=== PATIENT | female | born 1930 | race Caucasian/White ===

== ENCOUNTER 2016-11-08 10:25 | Inpatient (IN) | payer MEDICARE, BC ==
[2016-11-08] MEDS ORDERED: ADENOSINE 3 MG/ML 2 ML VIAL IVP STA (10:33)
[2016-11-08] MEDS ORDERED: SODIUM CHLORIDE 0.9% 1,000 ML IV STA (10:33)
[2016-11-08] MEDS ORDERED: DILTIAZEM 125 MG in SODIUM CHLORIDE 0.9% 100 ML IV ONE (10:34)
[2016-11-08] MEDS ORDERED: DILTIAZEM 5 MG/ML 5 ML VIAL IVP STA (10:34)
--- NOTE | 2016-11-08 10:36 | ED ---
General Adult HPI - General Stated complaint: Nausea, high heart rate Time Seen by Provider: 11/08/16 10:25 Source: RN notes reviewed - History of Present Illness Initial comments: This is an 86-year-old female who presents emergency Department with initial complaint of nausea however when EMS arrived in the house they realize she was tachycardic and he did a rhythm strip on her she was 250 beats a minute. Patient denies any chest pain or palpitations. Patient denies any shortness of breath per patient denies lightheadedness dizziness or near syncopal episode. Patient states she is no longer nauseated since EMS gave her some Zofran. Patient denies any symptoms at this time. Patient denies any abdominal pain. Patient denies any recent fever or cough. Patient denies any leg swelling or calf pain. - Related Data Home Medications Medication Instructions Recorded Confirmed Cetirizine HCl [Zyrtec] 10 mg PO DAILY 05/01/14 11/08/16 Levothyroxine Sodium [Synthroid] 50 mcg PO DAILY 05/01/14 11/08/16 Lisinopril [Zestril] 10 mg PO DAILY 05/01/14 11/08/16 Verapamil HCl [Verapamil ER] 240 mg PO DAILY 05/01/14 11/08/16 ALPRAZolam [Xanax] 0.25 mg PO BID 01/03/16 11/08/16 Aspirin 81 mg PO DAILY 01/03/16 11/08/16 Calcium Carbonate/Vitamin D3 1 each PO DAILY 01/03/16 11/08/16 [Calcium 600 + Vit D Tablet] Meloxicam [Mobic] 7.5 mg PO DAILY 01/03/16 11/08/16 Multivitamins, Thera [Multivitamin] 1 tab PO DAILY 01/03/16 11/08/16 Pantoprazole [Protonix] 40 mg PO DAILY 01/03/16 11/08/16 Allergies Allergy/AdvReac Type Severity Reaction Status Date / Time codeine AdvReac Nausea & Verified 11/08/16 10:37 Vomiting Review of Systems ROS Statement: Those systems with pertinent positive or pertinent negative responses have been documented in the HPI. ROS Other: All systems not noted in ROS Statement are negative. Past Medical History Past Medical History: Asthma, Hyperlipidemia, Hypertension, Osteoarthritis (OA) , Thyroid Disorder Additional Past Medical History / Comment(s): hypothyroidism, History of Any Multi-Drug Resistant Organisms: None Reported Past Surgical History: Hernia Repair, Hysterectomy, Orthopedic Surgery Additional Past Surgical History / Comment(s): Surgery on two toes to treat hammer toe, right total knee, Past Anesthesia/Blood Transfusion Reactions: Postoperative Nausea & Vomiting ( PONV) Past Psychological History: Anxiety Smoking Status: Never smoker Past Alcohol Use History: None Reported Past Drug Use History: None Reported - Past Family History Mother Family Medical History: Cancer Brother(s) Family Medical History: Cancer General Exam - General Exam Comments Initial Comments: GENERAL: Patient is well-developed and well-nourished. Patient is nontoxic and well- hydrated and is in no acute distress. ENT: Neck is soft and supple. No significant lymphadenopathy is noted. Oropharynx is clear. Moist mucous membranes. Neck has full range of motion without eliciting any pain. EYES: The sclera were anicteric and conjunctiva were pink and moist. Extraocular movements were intact and pupils were equal round and reactive to light. Eyelids were unremarkable. PULMONARY: Unlabored respirations. Good breath sounds bilaterally. No audible rales rhonchi or wheezing was noted. CARDIOVASCULAR: Heart rate is about 250 beats a minute ABDOMEN: Soft and nontender with normal bowel sounds. No palpable organomegaly was noted. There is no palpable pulsatile mass. SKIN: Skin is clear with no lesions or rashes and otherwise unremarkable. NEUROLOGIC: Patient is alert and oriented x3. Cranial nerves II through XII are grossly intact. Motor and sensory are also intact. Normal speech, volume and content. Symmetrical smile. MUSCULOSKELETAL: Normal extremities with adequate strength and full range of motion. No lower extremity swelling or edema. No calf tenderness. LYMPHATICS: No significant lymphadenopathy is noted PSYCHIATRIC: Normal psychiatric evaluation. Normal interpersonal interactions appears functionally intact in deals appropriately with others. No signs of depression. No signs of anxiety. Course Vital Signs 11/08/16 11/08/16 11/08/16 10:30 10:51 10:58 Temperature 97.2 F L Pulse Rate 240 H 124 H Pulse Rate [ 240 H Mechanical Commissioning Engineer ] Respiratory 18 18 Rate Blood Pressure 165/63 140/67 O2 Sat by Pulse 94 L Oximetry 11/08/16 11:12 Temperature Pulse Rate 115 H Pulse Rate [ Mechanical Commissioning Engineer ] Respiratory 18 Rate Blood Pressure 166/65 O2 Sat by Pulse 100 Oximetry Medical Decision Making - Medical Decision Making EKG shows SVT at 244 beats a minute QRS is 76 QT interval is 180 QTC is 362. Patient's EKG does have some ST segment depression in the inferior and anterolateral leads. We gave the patient 6 of adenosine and the heart rate slowed down long enough for us to see that it looked like the patient was in atrial flutter shortly thereafter back up to 250 beats a minute Patient had a Cardizem bolus of 5 mg and this seemed to convert it was sinus rhythm almost immediately. New EKG was done showed a sinus tachycardia at 127 bpm NH interval is 204 QRS is 80 QT interval 306 QTC is 444. Patient's EKG shows no ST segment elevation or depression at this point. Patient's troponin is mildly elevated which is to be expected secondary to the tachycardia however we are going to admit the patient and consult cardiology. - Lab Data Result diagrams: 11/08/16 10:50 11/08/16 10:50 Lab Results 11/08/16 11/08/16 11/08/16 Range/Units 10:50 10:50 10:50 WBC 8.3 (3.8-10.6) k/uL RBC 4.57 (3.80-5.40) m/uL Hgb 12.7 (11.4-16.0) gm/dL Hct 40.4 (34.0-46.0) % MCV 88.4 (80.0-100.0) fL MCH 27.7 (25.0-35.0) pg MCHC 31.3 (31.0-37.0) g/dL RDW 16.3 H (11.5-15.5) % Plt Count 276 (150-450) k/uL Neutrophils % 71 % Lymphocytes % 20 % Monocytes % 7 % Eosinophils % 1 % Basophils % 0 % Neutrophils # 5.9 (1.3-7.7) k/uL Lymphocytes # 1.6 (1.0-4.8) k/uL Monocytes # 0.6 (0-1.0) k/uL Eosinophils # 0.1 (0-0.7) k/uL Basophils # 0.0 (0-0.2) k/uL Poikilocytosis Slight Anisocytosis Slight PT (9.0-12.0) sec INR (<1.1) APTT (22.0-30.0) sec Sodium 134 L (137-145) mmol/L Potassium 5.0 (3.5-5.1) mmol/L Chloride 99 (98-107) mmol/L Carbon Dioxide 20 L (22-30) mmol/L Anion Gap 15 mmol/L BUN 24 H (7-17) mg/dL Creatinine 1.11 H (0.52-1.04) mg/dL Est GFR (MDRD) Af Amer 57 (>60 ml/min/1.73 sqM) Est GFR (MDRD) Non-Af 47 (>60 ml/min/1.73 sqM) Glucose 148 H (74-99) mg/dL Calcium 9.5 (8.4-10.2) mg/dL Magnesium 1.9 (1.6-2.3) mg/dL Total Bilirubin 0.6 (0.2-1.3) mg/dL AST 28 (14-36) U/L ALT 30 (9-52) U/L Alkaline Phosphatase 103 (38-126) U/L Total Creatine Kinase 55 (30-135) U/L CK-MB (CK-2) 1.1 (0.0-2.4) ng/mL CK-MB (CK-2) Rel Index 2.0 Troponin I 0.040 H* (0.000-0.034) ng/mL Total Protein 8.0 (6.3-8.2) g/dL Albumin 4.4 (3.5-5.0) g/dL TSH 4.720 H (0.465-4.680) mIU/L 11/08/16 Range/Units 10:50 WBC (3.8-10.6) k/uL RBC (3.80-5.40) m/uL Hgb (11.4-16.0) gm/dL Hct (34.0-46.0) % MCV (80.0-100.0) fL MCH (25.0-35.0) pg MCHC (31.0-37.0) g/dL RDW (11.5-15.5) % Plt Count (150-450) k/uL Neutrophils % % Lymphocytes % % Monocytes % % Eosinophils % % Basophils % % Neutrophils # (1.3-7.7) k/uL Lymphocytes # (1.0-4.8) k/uL Monocytes # (0-1.0) k/uL Eosinophils # (0-0.7) k/uL Basophils # (0-0.2) k/uL Poikilocytosis Anisocytosis PT 10.7 (9.0-12.0) sec INR 1.1 (<1.1) APTT 24.9 (22.0-30.0) sec Sodium (137-145) mmol/L Potassium (3.5-5.1) mmol/L Chloride (98-107) mmol/L Carbon Dioxide (22-30) mmol/L Anion Gap mmol/L BUN (7-17) mg/dL Creatinine (0.52-1.04) mg/dL Est GFR (MDRD) Af Amer (>60 ml/min/1.73 sqM) Est GFR (MDRD) Non-Af (>60 ml/min/1.73 sqM) Glucose (74-99) mg/dL Calcium (8.4-10.2) mg/dL Magnesium (1.6-2.3) mg/dL Total Bilirubin (0.2-1.3) mg/dL AST (14-36) U/L ALT (9-52) U/L Alkaline Phosphatase (38-126) U/L Total Creatine Kinase (30-135) U/L CK-MB (CK-2) (0.0-2.4) ng/mL CK-MB (CK-2) Rel Index Troponin I (0.000-0.034) ng/mL Total Protein (6.3-8.2) g/dL Albumin (3.5-5.0) g/dL TSH (0.465-4.680) mIU/L Critical Care Time Critical Care Time: Yes Total Critical Care Time: 35 Disposition Clinical Impression: Atrial flutter with rapid ventricular response Disposition: ADMITTED IP TO THIS HOSP Referrals: Demian Vega MD [Primary Care Provider] - 1-2 days Time of Disposition: 11:43
[2016-11-08 11:03] LABS: Anisocytosis Slight; Basophils % (A) 0 %; CH 29.8; Eosinophils # (A) 0.1 k/uL (0-0.7); Eosinophils % (A) 1 %; HCT 40.4 % (34.0-46.0); HDW 3.59; HGB 12.7 gm/dL (11.4-16.0); Luc # (Auto) 0.12; Luc % (Auto) 1; Lymphocytes # (A) 1.6 k/uL (1.0-4.8); Lymphocytes % (A) 20 %; MCH 27.7 pg (25.0-35.0); MCHC 31.3 g/dL (31.0-37.0); MCV 88.4 fL (80.0-100.0); Mean Platelet Volume 8.8; Monocytes # (A) 0.6 k/uL (0-1.0); Monocytes % (A) 7 %; Neutrophils # (A) 5.9 k/uL (1.3-7.7); Neutrophils % (A) 71 %; Poikilocytosis Slight; RBC 4.57 m/uL (3.80-5.40); RDW 16.3 % (11.5-15.5); WBC 8.3 k/uL (3.8-10.6)
[2016-11-08 11:12] LABS: Calcium 9.5 mg/dL (8.4-10.2); INR 1.1 (<1.1); Magnesium 1.9 mg/dL (1.6-2.3); Partial Thromboplastin Time 24.9 sec (22.0-30.0); Prothrombin Time 10.7 sec (9.0-12.0); Total Bilirubin 0.6 mg/dL (0.2-1.3)
--- NOTE | 2016-11-08 11:27 | XR ---
EXAMINATION TYPE: XR chest 2V DATE OF EXAM: 11/08/2016 11:13 AM COMPARISON: 05/01/2014 HISTORY: Shortness of breath TECHNIQUE: Frontal and lateral views of the chest are obtained. FINDINGS: Scattered senescent parenchymal changes noted. Hyperinflation compatible with COPD. No evidence for infiltrate. No evidence for atelectasis. Heart size is stable. Mediastinal structures are stable and grossly unremarkable. No evidence for hilar prominence. Degenerative changes dorsal spine. IMPRESSION: 1. No evidence for acute pulmonary disease.
[2016-11-08 11:36] LABS: Creatine Kinase MB 1.1 ng/mL (0.0-2.4)
[2016-11-08 11:39] LABS: Troponin I 0.04 ng/mL (0.000-0.034)
[2016-11-08] MEDS ORDERED: NITROGLYCERIN SL TABS 0.4 MG TAB SUBLINGUAL PRN (11:44)
[2016-11-08] MEDS: SODIUM CHLORIDE 0.9% 1,000 ML IV SCH (13:46)
[2016-11-08 14:37] LABS: Appearance,Urine Clear (Clear); Bilirubin,Urine Negative (Negative); Glucose,Urine (UA) Negative (Negative); Ketones,Urine Trace (Negative); Leukocyte Esterase,Urine Negative (Negative); Nitrite,Urine Negative (Negative); Protein,Urine Negative (Negative); Specific Gravity,Urine 1.005 (1.001-1.035); UA Billing (MACRO vs. MICRO) CHEM; Urobilinogen,Urine <2.0 mg/dL (<2.0)
--- NOTE | 2016-11-08 14:39 | HP ---
DATE OF ADMISSION: Chief complaint is nausea and abdominal discomfort. HISTORY OF PRESENT ILLNESS: Ms. Meade is an 86-year-old female with a known history of hypothyroidism, hypertension, and anxiety. Came to the hospital with complaints of nausea and abdominal pain, mainly in the midabdominal area. Started when she woke up this morning. Apparently patient ate soup last night and otherwise denied any diarrhea, denied any unusual food intake. The patient was nauseated and when and got up from bed, she used the bathroom. Shortly after that she became short winded and about to pass out. Patient denied any loss of consciousness. Patient denied any chest pain. Otherwise, was found to have supraventricular tachycardia in the ER and started on the Cardizem drip. Heart rate is better controlled now. Abdominal pain as well improved now. Patient was also having slightly elevated troponin level, most likely secondary to rapid heart rate. Cardiology has been consulted for further evaluation. Patient does have a history of hypothyroidism. Her TSH level is 4.7. TSH was taken last time 3 months ago and followed with the primary physician. Patient does take ( ) at home. 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 Denied any recent illnesses or sick contacts at home. No recent travel. REVIEW OF SYSTEMS: CONSTITUTIONAL: No fever. No chills. No weakness or malaise. RESPIRATORY: No cough or sputum production. CARDIOVASCULAR: No chest pain. No short of breath. Patient did have short of breath when she came to the hospital. ABDOMEN: Patient does have nausea. No abdominal discomfort now. No diarrhea. No constipation. GENITOURINARY: No dysuria. No hematuria. ENDOCRINE: Negative. PSYCHIATRY: Negative. SKIN: Negative. MUSCULOSKELETAL: Negative. All of the 14-point review of systems negative except as above. Home medications include: 1. Digitek. 2. Synthroid. 3. Zestril. 4. Xanax. 5. Aspirin. 6. Vitamin D3. 7. Mobic. 8. Multivitamin. 9. Protonix. Allergies include CODEINE. PAST MEDICAL HISTORY: Asthma, hyperlipidemia, hypertension, osteoarthritis, hypothyroidism. PAST SURGICAL HISTORY: Hysterectomy, hernia repair, orthopedic surgery, surgery on two toes to treat hammertoe, right total knee arthroplasty. PSYCHOSOCIAL HISTORY: Anxiety. SOCIAL HISTORY: Patient never a smoker. Denied any alcohol. Denied any drugs or IVDU. FAMILY HISTORY: Mother had cancer, brother had cancer as well. ( ) from the patient. PHYSICAL EXAMINATION: An 86-year-old female lying in the bed. Awake, alert, oriented, x3, appears to be in no distress. VITALS: Blood pressure is 140/67, pulse is 122 to 240 on admission, pulse ox 94% on 2 L nasal cannula. HEENT: Atraumatic, normocephalic. Neck is supple. No JVD. CVS EXAM: S1, S2 heard. No murmurs, no gallop, no rub. Currently sinus rhythm. No leg swelling. ABDOMEN: No nausea, vomiting, abdominal pain. GENITOURINARY: Negative. ENDOCRINE: Negative. SKIN: Negative. MUSCULOSKELETAL: Negative. EXTREMITIES: No edema, pulses palpable bilaterally, no clubbing or cyanosis. PSYCHIATRIC: Cooperative. LABORATORY DATA: WBC 8.3, hemoglobin 12.7, platelets 276, RDW 16.3, INR 1.1, sodium 134, potassium 5.0, chloride 99, bicarb is 20. BUN 24, creatinine 1.11, blood sugar is 148. Troponin level is 0.040, ( ) with normal limits and TSH level is 4.7. Her EKG showed sinus tachycardia and also second EKG showed supraventricular tachycardia. Chest x-ray, no acute cardiopulmonary process. IMPRESSION: 1. Supra Ventricular tachycardia, heart rate improving at this time. Currently on Cardizem drip. 2. Hypothyroidism with slightly elevated TSH level, will check FT4 level. 3. Acute kidney injury mostly prerenal with elevated BUN and creatinine level, baseline creatinine level of 1.11. Baseline creatinine was 0.7 two years ago. 4. Slightly elevated troponin most likely secondary to rapid ventricular rate, unlikely acute coronary artery syndrome at this time. 5. Hypertension. 6. Anxiety. 7. Osteoarthritis multiple joints. 8. Hyperlipidemia. 9. History of asthma, stable. DISCUSSION AND PLAN: An 86-year-old female admitted to the hospital with abdominal discomfort. Patient is improved at this time. Patient was found to have SVT, treated with Cardizem drip and titrate down for the heart rate, less than 90. Continue the home medications. Will check a FT4 level. Will start on IV fluids in the form of normal saline at 75 mL/h and follow up CBC, BMP tomorrow and Cardiology has been consulted for further recommendations and further recommendations based on the clinical course. Will reassess fluid requirement tomorrow. MTDD
--- NOTE | 2016-11-08 15:24 | XR ---
EXAMINATION TYPE: XR abdomen 2V DATE OF EXAM: 11/08/2016 2:49 PM CLINICAL DATA: 86 year-old female abdominal pain today, [facility] COMPARISON: None FINDINGS: Lung bases are clear. No evidence for free intraperitoneal air. No dilated small bowel or air-fluid levels. Scattered air and stool seen throughout the colon extendi ng distally into the rectum. Moderate stool burden. No suspicious calcifications identified. IMPRESSION: Moderate stool burden. Query constipation. No evidence of bowel obstruction or free intraperitoneal a ir.
[2016-11-08 17:05] LABS: Creatine Kinase MB 1.5 ng/mL (0.0-2.4)
[2016-11-08 17:06] LABS: Troponin I 0.241 ng/mL (0.000-0.034)
[2016-11-08] MEDS: ALPRAZolam 0.25 MG TAB PO PRN (21:39)
[2016-11-08 23:43] LABS: Creatine Kinase MB 1.9 ng/mL (0.0-2.4)
[2016-11-08 23:48] LABS: Troponin I 0.271 ng/mL (0.000-0.034)
[2016-11-09] MEDS: LEVOTHYROXINE 50 MCG TAB PO SCH (06:10)
[2016-11-09] MEDS: SODIUM CHLORIDE 0.9% 1,000 ML IV SCH ×3 (06:12→16:23)
[2016-11-09 06:23] LABS: Calcium 8.9 mg/dL (8.4-10.2); Potassium 4.7 mmol/L (3.5-5.1)
[2016-11-09 06:31] LABS: Anisocytosis Slight; Basophils % (A) 0 %; CH 29.3; Eosinophils # (A) 0.2 k/uL (0-0.7); Eosinophils % (A) 4 %; HCT 34.8 % (34.0-46.0); HDW 3.56; Luc # (Auto) 0.16; Luc % (Auto) 3; Lymphocytes # (A) 1.2 k/uL (1.0-4.8); Lymphocytes % (A) 23 %; MCH 28.4 pg (25.0-35.0); MCHC 31.7 g/dL (31.0-37.0); MCV 89.7 fL (80.0-100.0); Mean Platelet Volume 9.2; Monocytes # (A) 0.7 k/uL (0-1.0); Monocytes % (A) 13 %; Neutrophils # (A) 3.1 k/uL (1.3-7.7); Neutrophils % (A) 58 %; Poikilocytosis Slight; RBC 3.87 m/uL (3.80-5.40); RDW 16.3 % (11.5-15.5); WBC 5.4 k/uL (3.8-10.6)
[2016-11-09] MEDS: ASPIRIN 325 MG TAB PO SCH (08:20)
[2016-11-09] MEDS: PANTOPRAZOLE 40 MG TABLET PO SCH (08:20)
--- NOTE | 2016-11-09 09:23 | CONS ---
DATE OF CONSULTATION: CHIEF COMPLAINT: Sustained palpitations and near syncope. Kiesha is an 86-year-old lady with history of hypertension and hypothyroidism who presented to hospital complaining of nausea and abdominal discomfort and dizziness. She was found to be in supraventricular tachycardia with heart rates in the 240s to 280s. Patient was tried an adenosine without any response. Subsequently was started on Cardizem and over a period of 10 minutes, she converted back to sinus rhythm. When she slowed down, it appeared as if she was in atrial flutter. She has remained in sinus rhythm all night and this morning, she is doing well. She denies any chest pain or difficulty in breathing. There is no prior cardiac history other than the hypertension. I reviewed her EKGs and rhythm strips on her initial presentation in the ER, she could either have had an SVT on in atrial flutter with 1:1 conduction. In any event, the tachyarrhythmia only lasted for about 10 minutes and subsequently converted to sinus rhythm and she remained in sinus rhythm. The plan at this stage is to start her on amiodarone to try and suppress the rapid ventricular rate. Obtain a 2-D echo to document her LV function and treat her with optimal medical therapy. Her troponins were elevated at 0.4, 0.2 and 0.271, probably related to supply-demand mismatch. The patient will need and would benefit from an outpatient stress test and if she has ischemia, she will benefit from a cardiac catheterization. Patient was on lisinopril for hypertension. She had lipid profile was done and it shows an elevated LDL cholesterol. Hence, I am going to start her on a lipid-lowering agent. Patient will of course start aspirin. Past medical history is significant for hypertension and hypothyroidism and GERD. Medications at home included Zestril 20 q. daily, Protonix, Mobic, Synthroid, Zyrtec, Xanax. Allergic to CODEINE. Family history is negative for premature coronary artery disease. Social history is negative for smoking, EtOH use or drug abuse. REVIEW OF SYSTEMS: HEENT is unremarkable. CARDIAC: As described above. RESPIRATORY: As described above. GI: Negative. GENITOURINARY: Negative. ALLERGY/IMMUNOLOGY: Negative. SKIN: Negative. MUSCULOSKELETAL: Negative. ENDOCRINE: Negative. CONSTITUTIONAL: Negative. ONCOLOGICAL: Negative. The rest of the system review is not relevant. On exam, patient is comfortable at rest, afebrile. Vital signs are stable. There is no jugular venous distention. Carotid upstroke is normal. There is a bruit involving left carotid artery. Heart exam reveals first and second heart sounds. No gallop. Abdomen is soft. Exam of the extremities did not reveal edema. Peripheral pulses are felt. COATING LINE WORKER exam did not reveal focal neurological deficits. ASSESSMENT: 1. Paroxysmal supraventricular tachycardia. 2. Elevated troponin secondary to supply-demand mismatch. 3. History of hypertension. 4. Left carotid bruit. PLAN: I am going to stop the intravenous Cardizem, start her on amiodarone, obtain a 2-D echo. Obtain a carotid duplex study to rule out carotid stenosis. We should be able to discharge her home tomorrow morning if she is clinically stable and does not have further episodes of tachy arrhythmias. I am not going to start her on an anticoagulant at this time as her cardiac arrhythmia only lasted for a short time. If she has further episodes of this, will consider EP evaluation.
--- NOTE | 2016-11-09 10:38 | US ---
EXAMINATION TYPE: US carotid duplex BILAT DATE OF EXAM: 11/09/2016 10:23 AM COMPARISON: NONE CLINICAL HISTORY: left carotid bruit. dizziness EXAM MEASUREMENTS: RIGHT: Peak Systolic Velocity (PSV) cm/sec ----- Right CCA: 75.5 ----- Right ICA: 114.5 ----- Right ECA: 69.1 ICA/CCA ratio: 1.5 RIGHT: End Diastole cm/sec ----- Right CCA: 11.5 ----- Right ICA: 28.9 ----- Right ECA: 4.3 LEFT: Peak Systolic Velocity (PSV) cm/sec ----- Left CCA: 72.6 ----- Left ICA: 103.0 ----- Left ECA: 108.3 ICA/CCA ratio: 1.4 LEFT: End Diastole cm/sec ----- Left CCA: 11.8 ----- Left ICA: 21.0 ----- Left ECA: 6.5 VERTEBRALS (direction of flow): Right Vertebral: Antegrade Left Vertebral: Antegrade FINDINGS: Mild plaque noted bilateral bifurcations. No increased velocities. No significant stenosis. IMPRESSION: 1. Mild plaque bilaterally with no significant hemodynamic stenosis. Criteria for Assigning % of Stenosis / Diameter reduction (Estimation based on the indirect measurements of the internal carotid artery velocities (ICA PSV). 1. Normal (no stenosis)=ICA PSV < 125 cm/s: ratio < 2.0: ICA EDV<40 cm/s. 2. Less than 50% stenosis=ICA PSV < 125 cm/s: ratio < 2.0: ICA EDV<40 cm/s. 3. 50 to 69% stenosis=ICA PSV of 125 to 230 cm/s: ration 2.0 ? 4.0: ICA EDV 40-100 cm/s. 4. Greater than 70% stenosis to near occlusion= ICA PSV > 230 cm/s: ratio > 4.0: ICA EDV > 100 cm/s. 5. Near occlusion= ICA PSV velocities may be low or undetectable: variable ratio and ICA EDV. 6. Total occlusion=unable to detect flow.
[2016-11-09] MEDS: ATENOLOL 25 MG TAB PO SCH (10:44)
[2016-11-09] MEDS: AMIODARONE 200 MG TAB PO SCH ×2 (10:44→21:20)
[2016-11-09] MEDS: CALCIUM CARB-VIT D 500MG-200UN 1 EACH TAB PO SCH (11:58)
[2016-11-09] MEDS: MULTIVITAMINS, THERA 1 EACH TAB PO SCH (11:58)
[2016-11-09 16:23] LABS: Glucose,Whole Blood 136 mg/dL (75-99)
[2016-11-09] MEDS: ALPRAZolam 0.25 MG TAB PO PRN (21:20)
[2016-11-10] MEDS: DOCUSATE 100 MG CAP PO SCH ×2 (02:07→08:24)
[2016-11-10] MEDS: SENNOSIDES-DOCUSATE SODIUM 1 EACH TAB PO SCH ×2 (02:07→08:24)
[2016-11-10] MEDS: LEVOTHYROXINE 50 MCG TAB PO SCH (05:52)
[2016-11-10] MEDS: PANTOPRAZOLE 40 MG TABLET PO SCH (08:22)
[2016-11-10] MEDS: ASPIRIN 325 MG TAB PO SCH (08:22)
[2016-11-10] MEDS: ATENOLOL 25 MG TAB PO SCH (08:22)
[2016-11-10] MEDS: AMIODARONE 200 MG TAB PO SCH (08:22)
[2016-11-10 08:27] VITALS: TEMP 97.1
--- NOTE | 2016-11-10 08:32 | PN ---
DATE OF SERVICE: 11/09/2016 INTERVAL HISTORY: Ms. Meade is an 86-year-old female with known history of hypothyroidism, hypertension, and anxiety, admitted to the hospital with complaints of near syncope and nausea and abdominal pain. Patient was found to have SVT in the ER and was on Cardizem drip. Heart rate has been controlled and currently on Atenolol. The patient was started on amiodarone for possible tachyarrhythmias. Her TSH and free FT4 within normal limits. TSH is slightly but the Free FT4 within normal limits. Otherwise, the patient is clinically much improved now. Abdominal x-ray showed constipation. The patient was started on stool softeners. REVIEW OF SYSTEMS: CONSTITUTIONAL: No fevers. No chills. RESPIRATORY: No cough or sputum production. CARDIOVASCULAR: No chest pain or short of breath. ABDOMEN: No nausea, vomiting or abdominal pain. GENITOURINARY: Negative. ENDOCRINE: Negative. PSYCHIATRY: Negative. SKIN: Negative. All other 14 point review of systems negative except as above. Current medications include: 1. Xanax. 2. Amiodarone. 3. Aspirin. 4. Atenolol. 5. ( ). 6. Multivitamins. 7. Nitrostat. 8. Protonix. 9. Normal saline at 75 mL per hour. PHYSICAL EXAMINATION: An 86 -year-old female lying in bed, awake, alert and oriented times three, appears to be in no apparent distress. VITALS: Blood pressure 153/75, pulse is 73, respirations 18, temperature afebrile, pulse ox 97% on room air. HEENT: Atraumatic, normocephalic. Neck is supple. No JVD. CARDIOVASCULAR: S1, S2 heard. No murmurs, no gallop. LUNGS: Bilateral air entry is present. No wheezing, no crackles. ABDOMEN: Soft, nontender. Bowel sounds present. DIRECTOR OF CATH LAB: Awake, alert, oriented, x3. No focal deficit. EXTREMITIES: No edema. Pulses palpable bilaterally. No clubbing or cyanosis. PSYCHIATRIC: Cooperative. LABORATORY DATA: WBC 5.4, hemoglobin 11.0, platelets are 227. Sodium 137, potassium 4.7, chloride 106, bicarb is ( ), BUN 26, creatinine 1.07, calcium 8.9. ( ) is 158. UA negative. ASSESSMENT: 1. Tachyarrhythmia in the form of supraventricular tachycardia. Continue with atenolol. Heart rate is controlled. The patient was started on Amiodarone today and is being monitored overnight. 2. Hypothyroidism with slightly elevated TSH level and ( ). 3. Acute kidney disease most likely prerenal, with elevated BUN and creatinine level. Baseline creatinine 1.1. Continue with the IV hydration. 4. Slightly elevated troponin level, likely secondary to rapid ventricular rate, unlikely ACS at this time. 5. Hypertension. 6. Anxiety. 7. Osteoarthritis of multiple joints. 8. Hyperlipidemia. 9. History of asthma, stable. 10. Constipation. Discussion and Plan: An 86 -year-old female admitted to the hospital with near-syncope and short winded. Patient will be continued on Atenolol at this time and continue with amiodarone. Cardiology is following this patient and continue the stool softener for constipation. Anticipate discharge tomorrow with more clinical movement. Further recommendations based on clinical course.
--- NOTE | 2016-11-10 10:20 | ECHOF ---
Referral Reason:LV function MEASUREMENTS -------- HEIGHT: 165.1 cm WEIGHT: 71.7 kg BP: 141/68 IVSd: 1.1 cm (0.6 - 1.1) LVIDd: 3.6 cm (3.9 - 5.3) LVPWd: 1.2 cm (0.6 - 1.1) IVSs: 1.5 cm LVIDs: 2.2 cm LVPWs: 1.2 cm LAESV Index (A-L): 37.76 ml/m Ao Diam: 3.0 cm (2.0 - 3.7) AV Cusp: 1.6 cm (1.5 - 2.6) LA Diam: 3.2 cm (2.7 - 3.8) MV EXCURSION: 11.106 mm (> 18.000) MV EF SLOPE: 66 mm/s (70 - 150) EPSS: 0.7 cm MV E Bertin: 1.11 m/s MV DecT: 189 ms MV A Bertin: 1.10 m/s MV E/A Ratio: 1.01 RAP: 5.00 mmHg RVSP: 29.65 mmHg FINDINGS -------- Sinus rhythm. This was a technically good study. There is borderline concentric left ventricular hypertrophy. Overall left ventricular systolic function is normal with, an EF between 55 - 60 %. The right ventricle is normal in size and function. LA is moderately dilated 34-39 ml/m2 The right atrium is normal in size. Aortic valve is trileaflet and is mildly thickened. The mitral valve leaflets are mildly thickened. Mild mitral annular calcification present. Severe mitral regurgitation is present. Moderate tricuspid regurgitation present. The right ventricular systolic pressure, as measured by Doppler, is 29.65mmHg. Pulmonic valve appears structurally normal. The aortic root size is normal. The pericardium is normal. CONCLUSIONS -------- 1. Sinus rhythm. 2. Mild mitral annular calcification present. 3. Severe mitral regurgitation is present. 4. Moderate tricuspid regurgitation present. 5. The right ventricular systolic pressure, as measured by Doppler, is 29.65mmHg. 6. Pulmonic valve appears structurally normal. 7. The aortic root size is normal. 8. The pericardium is normal. 9. This was a technically good study. 10. There is borderline concentric left ventricular hypertrophy. 11. Overall left ventricular systolic function is normal with, an EF between 55 - 60 %. 12. The right ventricle is normal in size and function. 13. LA is moderately dilated 34-39 ml/m2 14. The right atrium is normal in size. 15. Aortic valve is trileaflet and is mildly thickened. 16. The mitral valve leaflets are mildly thickened. RELIEF DRILLER: Germaine Ray RDCS
[2016-11-10] MEDS: MULTIVITAMINS, THERA 1 EACH TAB PO SCH (11:33)
[2016-11-10] MEDS: CALCIUM CARB-VIT D 500MG-200UN 1 EACH TAB PO SCH (11:33)
--- NOTE | 2016-11-10 11:36 | PN ---
Kiesha is an 86-year-old lady who was admitted to hospital with SVT with heart rates close to 300s. It could be an atrial flutter 1:1 block. Patient had an echo that revealed normal LV systolic function with severe mitral regurgitation and moderate tricuspid regurgitation. At the time of my evaluation this morning, she is feeling well. Denies any chest pain or difficulty in breathing, remains in sinus rhythm, has not had any episodes of irregular heart rhythm. On exam, comfortable at rest. Vital signs are stable. There is no jugular venous distention. Chest exam reveals good air entry bilaterally. Heart exam reveals first and second heart sounds and systolic murmur at the apex. Abdomen is soft. Exam of the extremities did not reveal any edema. Peripheral pulses are felt. ASSESSMENT: 1. Paroxysmal supraventricular tachycardia. Patient is on amiodarone, aspirin and Tenormin, which I am going to continue. 2. Hypertension. 3. Mitral regurgitation. PLAN: The patient is clinically stable. I need to review an outpatient echocardiogram on her to see if the mitral regurgitation is new or old and this will require further workup.
[2016-11-10 11:41] VITALS: BP 134/75; PULSE 60; RESP 16
--- NOTE | 2016-11-10 16:59 | P.DS ---
Providers Date of admission: 11/08/16 11:44 Expected date of discharge: 11/10/16 Attending physician: Santo Snyder Primary care physician: Kong Amira [facility] Course: This is a 86-year-old female that is admitted to the hospital with near syncope and some atypical abdominal pain. Patient was noted to have supraventricular tachycardia. Patient was started on a Cardizem drip initially. Patient's TSH and T4 within normal limits. Patient does not have any history of tachyarrhythmias in the past. Patient was started on amiodarone and atenolol which has controlled her heart rate for at least 24 hours prior to discharge. Patient made to ambulate on the day of discharge and did well. An echocardiogram revealed severe mitral regurgitation which was not noted in the past. Patient does follow cardiology on outpatient basis. Physical exam Physical exam Gen. appearance oriented 3 in no distress Neck is supple no JVD Lungs good air entry clear to auscultation no rhonchi or wheezing Heart S1-S2 heard regular rate and rhythm no murmurs appreciated Abdomen is soft nontender no organomegaly bowel sounds are intact Neurologically cranial nerves II-12 grossly intact no focal motor or sensory deficits noted Skin no abnormalities appreciated Discharge diagnoses #1 supra ventricular tachycardia #2 severe mitral regurgitation that is to be followed up on outpatient basis #3 history of hypertension #4 dyslipidemia #5 anxiety #6 indeterminate troponin leak #Acute kidney injury on admission but is improved. Patient is to follow up with cardiology in regards to monitoring of liver enzymes and thyroid function with usage of amiodarone at this time. Patient's heart rate was well-controlled on day of discharge. Plan - Discharge Summary New Discharge Prescriptions: Amiodarone [Cordarone] 200 mg PO BID #60 tab Atenolol [Tenormin] 25 mg PO DAILY #30 tab Discharge Medication List Cetirizine HCl [Zyrtec] 10 mg PO DAILY 05/01/14 [History] Levothyroxine Sodium [Synthroid] 50 mcg PO DAILY 05/01/14 [History] Lisinopril [Zestril] 20 mg PO DAILY 05/01/14 [History] ALPRAZolam [Xanax] 0.25 mg PO BID PRN 01/03/16 [History] Aspirin 81 mg PO DAILY 01/03/16 [History] Calcium Carbonate/Vitamin D3 [Calcium 600-Vit D3 400 Tablet] 1 tab PO DAILY 10/19 [History] Meloxicam [Mobic] 7.5 mg PO DAILY 01/03/16 [History] Multivitamins, Thera [Multivitamin] 1 tab PO DAILY 01/03/16 [History] Pantoprazole [Protonix] 40 mg PO DAILY 01/03/16 [History] Amiodarone [Cordarone] 200 mg PO BID #60 tab 11/10/16 [Rx] Atenolol [Tenormin] 25 mg PO DAILY #30 tab 11/10/16 [Rx] Follow up Appointment(s)/Referral(s): Clay Miller MD [STAFF PHYSICIAN] - 1 Week (Dr. Miller's office will call you with appointment date and time) Demian Vega MD [Primary Care Provider] - 11/12/16 10:50 am Patient Instructions/Handouts: Atrial Flutter (DC) Discharge Disposition: HOME SELF-CARE
== END 2016-11-10 16:22 | disposition home or self-care (01) | DRG 309 ==
LOC: EC 10:25 → 6SEL 11:44
PROVIDERS: ADMIT Hospitalist; ATTEND Hospitalist
DX: I47.1 Supraventricular tachycardia (principal); N17.9 Acute kidney failure, unspecified; I08.1 Rheumatic disorders of both mitral and tricuspid valves; I48.92 Unspecified atrial flutter; I10 Essential (primary) hypertension; R55 Syncope and collapse; E78.5 Hyperlipidemia, unspecified; F41.9 Anxiety disorder, unspecified; J45.909 Unspecified asthma, uncomplicated; K21.9 Gastro-esophageal reflux disease without esophagitis; R74.8 Abnormal levels of other serum enzymes; E03.9 Hypothyroidism, unspecified; R09.89 Other specified symptoms and signs involving the circulatory and respiratory systems; R10.9 Unspecified abdominal pain; R11.0 Nausea; K59.00 Constipation, unspecified; M15.9 Polyosteoarthritis, unspecified; Z79.1 Long term (current) use of non-steroidal anti-inflammatories (NSAID); Z88.5 Allergy status to narcotic agent; Z96.651 Presence of right artificial knee joint; Z79.82 Long term (current) use of aspirin; Z80.9 Family history of malignant neoplasm, unspecified; Z79.899 Other long term (current) drug therapy; Z90.710 Acquired absence of both cervix and uterus
CPT/HCPCS: 36415; 71020; 74020; 80048; 80053; 80061; 81003; 82550; 82553; 83735; 84439; 84443; 84484; 85025; 85610; 85730; 93005; 93306; 93880; 96365; 96366; 96375; 96376; 99291

== ENCOUNTER 2016-12-03 06:52 | Day surgery (SDC) | payer MEDICARE, BC ==
[2016-12-01 12:31] VITALS: BMI 26.6
[~2016-12-03 06:52] MED LIST: ALPRAZolam 0.25 MG TAB PO PRN; ASPIRIN 325 MG TAB PO ONE; SODIUM CHLORIDE 0.9% 1,000 ML in EMPTY BAG 1 BAG IV ONE
[2016-12-03] MEDS: SODIUM CHLORIDE 0.9% 1,000 ML IV SCH ×5 (07:18→21:00)
[2016-12-03] MEDS ORDERED: diphenhydrAMINE 50 MG/ML 1 ML VIAL IVP ONE (11:03)
[2016-12-03] MEDS ORDERED: MIDAZOLAM 2 MG/2 ML VIAL IVP ONE (11:03)
[2016-12-03] MEDS ORDERED: LIDOCAINE 2% INJ 20 MG/ML SQ ONE ×2 (11:09)
[2016-12-03] MEDS ORDERED: NITROGLYCERIN SL TABS 0.4 MG TAB SUBLINGUAL ONE (11:11)
[2016-12-03] MEDS ORDERED: BIVALIRUDIN BOLUS 250 MG/50 ML IV ONE (11:21)
[2016-12-03] MEDS ORDERED: NITROGLYCERIN 1000MCG/10ML SYRINGE INTRAARTER ONE (11:33)
[2016-12-03] MEDS ORDERED: BIVALIRUDIN 250 MG in SODIUM CHLORIDE 0.9% 50 ML IV ONE (11:40)
[2016-12-03] MEDS ORDERED: IODIXANOL 270 MG/ML 50 ML ML IV ONE (11:40)
[2016-12-03] MEDS ORDERED: CLOPIDOGREL 75 MG TAB PO ONE (11:42)
[2016-12-03] MEDS ORDERED: ATROPINE SULFATE 0.1 MG/ML 10ML SYRINGE IV PRN (11:55)
[2016-12-03] MEDS ORDERED: NITROGLYCERIN SL TABS 0.4 MG TAB SUBLINGUAL PRN (11:55)
[2016-12-03] MEDS ORDERED: RX INFO: IV CONTRAST WAS GIVEN 1 EACH MISC MISCELLANE PRN (11:55)
[2016-12-03] MEDS ORDERED: ZOLPIDEM 5 MG TAB PO PRN (11:55)
[2016-12-03] MEDS ORDERED: MAG HYDROX/AL HYDROX/SIMETH 30 ML CUP PO PRN (11:55)
[2016-12-03] MEDS ORDERED: ATORVASTATIN 40 MG TAB PO SCH (21:00)
--- NOTE | 2016-12-03 22:27 | CC ---
DATE OF SERVICE: PROCEDURE PERFORMED: Left heart catheterization and coronary angiography. Performed by Dr. Jessica Miller. Clinical information: Mrs. Kiesha Meade is an 86-year-old lady with a known history of hypertension, hypercholesterolemia, who also developed a recent episode of paroxysmal atrial flutter with 1 to 1 conduction and has history of syncope. She presented to the hospital with atrial flutter, chest pain, mild troponin elevation. Cardiac cath was advised in view of her presentation. She also has atrial flutter for which she has seen Dr. Adrian. PROCEDURE NOTE: Under local anesthesia and strict aseptic precautions, a 6 Maltese introducer was placed in the right femoral artery. Using standard Sven catheters, I performed coronary angiography and a pigtail catheter was used to check LV pressures but LV gram was not performed. I noted that there was a significant 70% to 80% mid LAD lesion and proceeded to perform intervention in the same setting. CARDIAC CATHETERIZATION FINDINGS: The left ventricular end-diastolic pressure was 12 mmHg without any gradient across the aortic valve. CORONARY ANGIOGRAPHIC FINDINGS : LEFT MAIN: Left main coronary artery: Long, patent, disease-free vessel that bifurcates into LAD and circumflex. LEFT ANTERIOR DESCENDING CORONARY ARTERY: Good caliber vessel and gives off a very large a septal branch and after the origin of the septal branch, there is an eccentric 70% to 80% stenosis and then a septal branch comes off, the caliber of the vessel improves gives off another diagonal branches, runs all the way to the apex supplying a sizable amount of myocardium. The mid LAD therefore has 70% to 80% eccentric lesion with moderate calcification. LEFT POSTERIOR CIRCUMFLEX CORONARY ARTERY: Technically a nondominant vessel; gives off a single obtuse marginal and two secondary branches. The single obtuse marginal is a large caliber, free of significant disease, with good distribution. The two smaller secondary branches have minor diffuse disease throughout. RIGHT CORONARY ARTERY: Technically a dominant vessel, and distally bifurcates into PDA and 2 small PDA branches all of which supply a fair amount of myocardium. There is minor diffuse disease, but no significant stenosis is noted in the RCA system. LEFT VENTRICULOGRAM: This was not performed. FINAL IMPRESSION: This patient has a 75 to 80% mid LAD lesion, eccentric calcified. She has a right dominant system. No significant disease in the RCA or circumflex although there are minor irregularities and normal filling pressures. Left ventriculogram was not performed. RECOMMENDATIONS: I recommended intervention of the LAD and proceeded to perform this in the same setting.
--- NOTE | 2016-12-03 22:29 | PTCA ---
DATE OF SERVICE: 12/03/2016 PROCEDURE: PTCA and stenting of mid LAD. Performed by: Dr. Jessica Miller. PROCEDURE NOTE: The existing 6 Uzbek introducer in the right femoral artery was used to perform the procedure. A standard left Sven-type guide catheter was used to cannulate the left coronary artery. A BMW wire was used to cross the lesion. Predilatation was performed with a 2.5 caliber, 12 mm long NC trek balloon at 12 atmospheres. Subsequently a 2.5 caliber 15 mm long Xience stent was deployed at 14 atmospheres. Patient had EKG changes of ST elevation in precordial leads, but no angina. Excellent angiographic result was achieved. Patient received Angiomax bolus and infusion and also 600 mg of Plavix orally was given. The sheath was sutured and she was sent to the room in stable condition. Results were discussed with the patient and her family members. Excellent angiographic result without complication was noted. The patient will be discharged tomorrow if she remains stable.
[2016-12-04 03:57] VITALS: TEMP 97.2
[2016-12-04 06:30] LABS: Anisocytosis Slight; Aty Lym Flag Slight; CH 28.5; CHCM 32.5; Calcium 8.7 mg/dL (8.4-10.2); HCT 32.5 % (34.0-46.0); HGB 10.5 gm/dL (11.4-16.0); Hypochromasia Slight; MCH 28.7 pg (25.0-35.0); MCHC 32.3 g/dL (31.0-37.0); MCV 88.8 fL (80.0-100.0); Mean Platelet Volume 8.9; Poikilocytosis Slight; Potassium 4.3 mmol/L (3.5-5.1); RBC 3.66 m/uL (3.80-5.40); RDW 16.8 % (11.5-15.5); WBC 6.9 k/uL (3.8-10.6); WBC (Perox) 7.57
[2016-12-04] MEDS ORDERED: LEVOTHYROXINE 50 MCG TAB PO SCH (06:30)
[2016-12-04] MEDS: SODIUM CHLORIDE 0.9% 1,000 ML IV SCH (06:36)
[2016-12-04 07:17] LABS: Add Differential Manual Differential
[2016-12-04 07:21] LABS: Manual Review Performed; Nucleated Red Blood Cells 0 /100 WBC (0-0); Total Cells Counted 100
[2016-12-04 07:22] LABS: Target Cells Present
[2016-12-04] MEDS ORDERED: ATENOLOL 25 MG TAB PO SCH (09:00)
[2016-12-04] MEDS ORDERED: PANTOPRAZOLE 40 MG TABLET PO SCH (09:00)
[2016-12-04] MEDS ORDERED: VERAPAMIL SR 180 MG TABLET.ER PO SCH (09:00)
[2016-12-04] MEDS ORDERED: CLOPIDOGREL 75 MG TAB PO SCH (09:00)
[2016-12-04] MEDS ORDERED: ASPIRIN 81 MG CHEW PO SCH ×2 (09:00)
[2016-12-04] MEDS ORDERED: LISINOPRIL 20 MG TAB PO SCH (09:00)
--- NOTE | 2016-12-04 10:30 | DS ---
DATE OF ADMISSION: 12/03/2016 DATE OF DISCHARGE: 12/04/2016 DIAGNOSES: 1. Unstable angina. 2. Atrial flutter with one-to-one conduction. 3. Hypertension. PROCEDURES PERFORMED: Left heart catheterization and coronary angiography followed by stenting of mid LAD with a drug-eluting stent. Mrs. Meade was brought in electively for the cardiac cath and cath revealed significant mid LAD lesion. She underwent stenting of this vessel with an excellent angiographic result. Post intervention course was unremarkable. She will be discharged today. She is ambulating in the hallways without any symptoms. Her right groin is clean and dry with an excellent pulse. She does not have any chest pain or shortness of breath. Vital signs are stable. S1, S2 heard normally. Lungs are clear. Abdomen and lower extremity exam unchanged. EKG and labs are unremarkable. She will be discharged today and will see me in the office on the sixth. Discharge instructions regarding activity, diet and medications were given.
[2016-12-04 10:48] VITALS: BP 137/65; PULSE 69; RESP 16
[2016-12-04] MEDS ORDERED: MULTIVITAMINS, THERA 1 EACH TAB PO SCH (12:00)
--- NOTE | 2016-12-08 12:06 | CDI ---
Dear Dr. Miller, The operative report documents local anesthesia was provided for this procedure. The surgical Profile, however, documents that Versed/Benadryl were given. This is conflicting documentation that needs clarification Please clarify the level of sedation, such as Conscious/Moderate or Unconscious that was provided P. Jem during this procedure. Please document the clarification as an addendum to your operative report. Thank you for your time, Liliana Velasco [facility] Outpatient Mechanical Systems Design Engineer [employer]iana and [employer] [facility]
--- NOTE | 2016-12-09 08:58 | PTCA ---
DATE OF SERVICE: ADDENDUM: PROCEDURE NOTE: I did a heart cath and a PTCA. Mrs. Meade was given moderate conscious sedation with a combination of Versed in addition to local anesthesia and this was given for nearly 45 minutes during the intervention procedure and also for 30 minutes during the cardiac catheterization, which preceded the procedure.
== END 2016-12-04 11:47 | disposition home or self-care (01) ==
LOC: CATHCVL 06:52 → 6SEL 11:40 → CATHCVL 12-04 11:47
PROVIDERS: ATTEND Internal Medicine Interventional Cardiology
DX: I25.110 Atherosclerotic heart disease of native coronary artery with unstable angina pectoris (principal); I48.92 Unspecified atrial flutter; I34.0 Nonrheumatic mitral (valve) insufficiency; I10 Essential (primary) hypertension; E78.5 Hyperlipidemia, unspecified; E78.00 Pure hypercholesterolemia, unspecified; Z79.82 Long term (current) use of aspirin; Z79.899 Other long term (current) drug therapy; Z88.5 Allergy status to narcotic agent
CPT/HCPCS: 99152; 99153; 93458; 80048; 85025; C9600; C1769 ×3; C1887; C1725; C1894; C1874; J2001; J2250; J1200; Q9966; J0583

== ENCOUNTER 2016-12-25 19:30 | Observation (INO) | payer MEDICARE, BC ==
[2016-12-25] MEDS ORDERED: ASPIRIN 81 MG CHEW PO STA (19:48)
--- NOTE | 2016-12-25 20:08 | ED ---
General Adult HPI - General Chief complaint: Abdominal Pain Stated complaint: leg and abd pain Time Seen by Provider: 12/25/16 19:38 Source: patient, family, RN notes reviewed, old records reviewed Mode of arrival: wheelchair Limitations: no limitations - History of Present Illness Initial comments: 86-year-old female presenting for generalized weakness. Patient states that she 's had episodes today of abdominal pain followed by weakness in her legs bilaterally and lightheadedness with near syncopal episode. She states that she 's felt like she can't stand up but has not fallen. States that she recently had a cath done by Dr. Miller at the beginning of December. She is also recently started on Coumadin. She states that with her prior heart attack she has never had any chest pain associated. She states that while lying at rest in the bed on initial examination she has no active abdominal is comfort. She denies any nausea or vomiting associated. She does state some mild discomfort in both of her lower extremities. She denies any history of DVT or PE. - Related Data Home Medications Medication Instructions Recorded Confirmed Levothyroxine Sodium [Synthroid] 50 mcg PO DAILY 05/01/14 12/25/16 ALPRAZolam [Xanax] 0.25 mg PO BID PRN 01/03/16 12/25/16 Calcium Carbonate/Vitamin D3 1 tab PO DAILY 01/03/16 12/25/16 [Calcium 600-Vit D3 400 Tablet] Multivitamins, Thera [Multivitamin 1 tab PO DAILY 01/03/16 12/25/16 (formulary)] Pantoprazole [Protonix] 40 mg PO DAILY 01/03/16 12/25/16 Atorvastatin [Lipitor] 40 mg PO DAILY 12/25/16 12/25/16 Cetirizine HCl [Zyrtec] 10 mg PO DAILY 12/25/16 12/25/16 Lisinopril [Zestril] 20 mg PO DAILY 12/25/16 12/25/16 Verapamil HCl [Verapamil ER] 120 mg PO DAILY 12/25/16 12/25/16 Warfarin Sodium [Coumadin] 4 mg PO DAILY 12/25/16 12/25/16 traMADol HCL/ACETAMINOPHEN 1 tab PO DAILY PRN 12/25/16 12/25/16 [Ultracet 37.5-325] Previous Rx's Medication Instructions Recorded Atenolol [Tenormin] 25 mg PO DAILY #30 tab 11/10/16 Aspirin 81 mg PO DAILY #90 chew 12/03/16 Clopidogrel [Plavix] 75 mg PO DAILY #90 tab 12/03/16 Nitroglycerin Sl Tabs [Nitrostat] 0.4 mg SUBLINGUAL Q5M PRN #25 tab 12/03/16 Allergies Allergy/AdvReac Type Severity Reaction Status Date / Time codeine AdvReac Nausea & Verified 12/25/16 19:52 Vomiting Review of Systems ROS Statement: Those systems with pertinent positive or pertinent negative responses have been documented in the HPI. ROS Other: All systems not noted in ROS Statement are negative. Past Medical History Past Medical History: Coronary Artery Disease (CAD), GERD/Reflux, Hyperlipidemia , Hypertension, Osteoarthritis (OA), Thyroid Disorder Additional Past Medical History / Comment(s): SOB w/exertion, "leaky valve" per pt., recent admission for SVT History of Any Multi-Drug Resistant Organisms: None Reported Past Surgical History: Hernia Repair, Hysterectomy, Joint Replacement, Orthopedic Surgery Additional Past Surgical History / Comment(s): Surgery on two toes to treat hammer toe, right total knee Past Anesthesia/Blood Transfusion Reactions: No Reported Reaction Past Psychological History: Anxiety Smoking Status: Never smoker Past Alcohol Use History: None Reported Past Drug Use History: None Reported - Past Family History Mother Family Medical History: Cancer Brother(s) Family Medical History: Cancer Father Family Medical History: Congestive Heart Failure (CHF) General Exam - General Exam Comments Initial Comments: General: Awake and Alert. No acute distress. Does not appear acutely ill. Eyes: ANIA, EOM intact. No nystagmus. No scleral icterus. HENT: Atraumatic, normocephalic. Mucous membranes moist. Trachea midline. Neck: The neck is supple, there is no tenderness or JVD. Cardiovascular: Regular rate and rhythm. No murmur, rub, or gallop is appreciated. Distal pulses intact, radial and DP 2+ bilaterally. Respiratory: Lungs are clear to auscultation bilaterally. No wheezes, rales, rhonchi. No respiratory distress. Gastrointestinal: Soft, Nontender. No rebound or guarding. Non-distended. No masses or organomegaly noted. No CVA tenderness. Musculoskeletal: No tenderness. Normal ROM. No gross deformity. No strength deficits. Neurological: A&Ox3. CN II-XII grossly intact, There are no obvious motor or sensory deficits. Coordination appears grossly intact. Speech is normal. Skin: Skin is warm and dry and no rashes or lesions are noted. Psychiatric: Cooperative, appropriate mood & affect, normal judgment. Limitations: no limitations Course Vital Signs 12/25/16 12/25/16 19:34 22:05 Temperature 97.9 F Pulse Rate 62 59 L Respiratory 20 16 Rate Blood Pressure 157/69 142/66 O2 Sat by Pulse 100 97 Oximetry EKG Findings - EKG Comments: EKG Findings:: EKG 20:10. Normal sinus rhythm. Rate 58. [place] 154. QRS 80. QT/ QTc 14/410. Normal axis. No STEMI. Normal EKG. Medical Decision Making - Medical Decision Making 86-year-old female presenting for generalized weakness and near syncopal episode. Patient states that she is also having a sensation in her stomach which she states similar to pain she had an prior heart attacks. Patient denies any shortness of breath or fevers or chills. Patient appears stable on initial exam. Cardiac workup ordered. Given aspirin. CXR no acute process Lab work showing stable CBC. Stable BMP with exception of evidence of EUGENIA. Initial troponin negative. CK-MB negative. BNP is elevated. Patient reevaluated remained stable. Given her recent cath and stent concern for possible underlying cardiac etiology. Discussed recommendation for observation and further cardiac evaluation. Patient and daughter are agreeable with this. Called and discussed with Dr. Mann who is agreeable with plan for admission. Requests consultation Dr. Miller, cardiology. - Lab Data Result diagrams: 12/25/16 20:03 12/25/16 20:03 Lab Results 12/25/16 12/25/16 12/25/16 Range/Units 20:03 20:03 20:03 WBC 7.8 (3.8-10.6) k/uL RBC 3.68 L (3.80-5.40) m/uL Hgb 10.9 L (11.4-16.0) gm/dL Hct 32.0 L (34.0-46.0) % MCV 87.0 (80.0-100.0) fL MCH 29.6 (25.0-35.0) pg MCHC 34.0 (31.0-37.0) g/dL RDW 17.3 H (11.5-15.5) % Plt Count 240 (150-450) k/uL Neutrophils % 58 % Lymphocytes % 20 % Monocytes % 11 % Eosinophils % 7 % Basophils % 0 % Neutrophils # 4.6 (1.3-7.7) k/uL Lymphocytes # 1.5 (1.0-4.8) k/uL Monocytes # 0.8 (0-1.0) k/uL Eosinophils # 0.6 (0-0.7) k/uL Basophils # 0.0 (0-0.2) k/uL Poikilocytosis Slight Anisocytosis Slight Sodium 137 (137-145) mmol/L Potassium 5.2 H (3.5-5.1) mmol/L Chloride 102 (98-107) mmol/L Carbon Dioxide 23 (22-30) mmol/L Anion Gap 12 mmol/L BUN 28 H (7-17) mg/dL Creatinine 1.54 H (0.52-1.04) mg/dL Est GFR (MDRD) Af Amer 39 (>60 ml/min/1.73 sqM) Est GFR (MDRD) Non-Af 32 (>60 ml/min/1.73 sqM) Glucose 91 (74-99) mg/dL Calcium 8.8 (8.4-10.2) mg/dL Total Bilirubin 0.5 (0.2-1.3) mg/dL AST 26 (14-36) U/L ALT 29 (9-52) U/L Alkaline Phosphatase 86 (38-126) U/L CK-MB (CK-2) 0.3 (0.0-2.4) ng/mL Troponin I <0.012 (0.000-0.034) ng/mL NT-Pro-B Natriuret Pep pg/mL Total Protein 7.1 (6.3-8.2) g/dL Albumin 3.9 (3.5-5.0) g/dL 12/25/16 Range/Units 20:03 WBC (3.8-10.6) k/uL RBC (3.80-5.40) m/uL Hgb (11.4-16.0) gm/dL Hct (34.0-46.0) % MCV (80.0-100.0) fL MCH (25.0-35.0) pg MCHC (31.0-37.0) g/dL RDW (11.5-15.5) % Plt Count (150-450) k/uL Neutrophils % % Lymphocytes % % Monocytes % % Eosinophils % % Basophils % % Neutrophils # (1.3-7.7) k/uL Lymphocytes # (1.0-4.8) k/uL Monocytes # (0-1.0) k/uL Eosinophils # (0-0.7) k/uL Basophils # (0-0.2) k/uL Poikilocytosis Anisocytosis Sodium (137-145) mmol/L Potassium (3.5-5.1) mmol/L Chloride (98-107) mmol/L Carbon Dioxide (22-30) mmol/L Anion Gap mmol/L BUN (7-17) mg/dL Creatinine (0.52-1.04) mg/dL Est GFR (MDRD) Af Amer (>60 ml/min/1.73 sqM) Est GFR (MDRD) Non-Af (>60 ml/min/1.73 sqM) Glucose (74-99) mg/dL Calcium (8.4-10.2) mg/dL Total Bilirubin (0.2-1.3) mg/dL AST (14-36) U/L ALT (9-52) U/L Alkaline Phosphatase (38-126) U/L CK-MB (CK-2) (0.0-2.4) ng/mL Troponin I (0.000-0.034) ng/mL NT-Pro-B Natriuret Pep 785 pg/mL Total Protein (6.3-8.2) g/dL Albumin (3.5-5.0) g/dL - EKG Data -: EKG Interpreted by Ak EKG shows normal: sinus rhythm Rate: normal - Radiology Data Radiology results: report reviewed, image reviewed Disposition Clinical Impression: Abdominal pain, Near syncope, EUGENIA (acute kidney injury), Atypical chest pain, CHF (congestive heart failure) Disposition: ADMITTED IP TO THIS [facility] Condition: Stable Time of Disposition: 21:51 Decision to Admit Reason: Admit from EC
[2016-12-25 20:16] LABS: Anisocytosis Slight; Basophils % (A) 0 %; CH 28.7; CHCM 33.4; Eosinophils # (A) 0.6 k/uL (0-0.7); Eosinophils % (A) 7 %; HGB 10.9 gm/dL (11.4-16.0); Luc # (Auto) 0.32; Luc % (Auto) 4; Lymphocytes # (A) 1.5 k/uL (1.0-4.8); Lymphocytes % (A) 20 %; MCH 29.6 pg (25.0-35.0); Mean Platelet Volume 8.4; Monocytes # (A) 0.8 k/uL (0-1.0); Monocytes % (A) 11 %; Neutrophils # (A) 4.6 k/uL (1.3-7.7); Neutrophils % (A) 58 %; Poikilocytosis Slight; RBC 3.68 m/uL (3.80-5.40); RDW 17.3 % (11.5-15.5); WBC 7.8 k/uL (3.8-10.6); WBC (Perox) 7.58
[2016-12-25 20:26] LABS: Calcium 8.8 mg/dL (8.4-10.2); Potassium 5.2 mmol/L (3.5-5.1); Total Bilirubin 0.5 mg/dL (0.2-1.3); Total Protein 7.1 g/dL (6.3-8.2)
[2016-12-25 20:50] LABS: Creatine Kinase MB 0.3 ng/mL (0.0-2.4); Troponin I <0.012 ng/mL (0.000-0.034)
--- NOTE | 2016-12-25 20:56 | XR ---
EXAMINATION TYPE: XR chest 2V DATE OF EXAM: 12/25/2016 8:42 PM COMPARISON: 11/08/2016 HISTORY: Chest pain abdominal pain TECHNIQUE: Frontal and lateral views of the chest are obtained. FINDINGS: Heart is normal. Thoracic aorta is atheromatous. Lungs are clear. There is no heart failur e. There is no sign of pleural effusion. There are no hilar masses. Bony thorax appears intact. IMPRESSION: Atheromatous aorta. No active cardiopulmonary disease. No change.
[2016-12-25] MEDS ORDERED: ACETAMINOPHEN TAB 325 MG TAB PO PRN (21:46)
[2016-12-25] MEDS ORDERED: NITROGLYCERIN SL TABS 0.4 MG TAB SUBLINGUAL PRN (21:46)
[2016-12-25] MEDS ORDERED: ONDANSETRON 4 MG/2 ML VIAL IVP PRN (21:46)
[2016-12-25] MEDS ORDERED: NALOXONE 0.4 MG/ML 1 ML VIAL IV PRN (21:46)
[2016-12-25 22:40] VITALS: BMI 26.6
[2016-12-25] MEDS: HEPARIN SODIUM,PORCINE 5,000 UNIT/ML 1 ML VIAL SQ SCH (23:19)
[2016-12-26 02:15] LABS: Anisocytosis Slight; Aty Lym Flag Slight; CH 28.6; CHCM 32.9; HCT 30.9 % (34.0-46.0); HDW 3.65; HGB 10.1 gm/dL (11.4-16.0); Hypochromasia Slight; MCH 28.7 pg (25.0-35.0); MCHC 32.6 g/dL (31.0-37.0); Mean Platelet Volume 8.3; Poikilocytosis Slight; RBC 3.51 m/uL (3.80-5.40); RDW 17.3 % (11.5-15.5); WBC 6.4 k/uL (3.8-10.6); WBC (Perox) 6.95
[2016-12-26 02:29] LABS: Calcium 8.7 mg/dL (8.4-10.2); Potassium 4.4 mmol/L (3.5-5.1)
[2016-12-26 02:47] LABS: Add Differential Manual Differential
[2016-12-26 02:49] LABS: Nucleated Red Blood Cells 0 /100 WBC (0-0); Total Cells Counted 100
[2016-12-26 02:51] LABS: Creatine Kinase 29 U/L (30-135); Manual Review Performed
[2016-12-26 03:03] LABS: Creatine Kinase MB 0.3 ng/mL (0.0-2.4); Troponin I <0.012 ng/mL (0.000-0.034)
[2016-12-26 07:50] LABS: Creatine Kinase 34 U/L (30-135)
[2016-12-26 08:05] LABS: Creatine Kinase MB 0.4 ng/mL (0.0-2.4); Troponin I <0.012 ng/mL (0.000-0.034)
[2016-12-26 08:20] LABS: Glucose,Whole Blood 89 mg/dL (75-99)
[2016-12-26 09:13] LABS: Prothrombin Time 49.1 sec (9.0-12.0)
[2016-12-26 09:17] LABS: INR 4.9 (<1.1)
[2016-12-26] MEDS: SODIUM CHLORIDE 0.9% 1,000 ML IV SCH (09:56)
[2016-12-26] MEDS: HEPARIN SODIUM,PORCINE 5,000 UNIT/ML 1 ML VIAL SQ SCH ×2 (10:14→15:56)
[2016-12-26] MEDS: LISINOPRIL 20 MG TAB PO SCH (10:41)
[2016-12-26] MEDS: ATORVASTATIN 40 MG TAB PO SCH (10:41)
[2016-12-26] MEDS: CLOPIDOGREL 75 MG TAB PO SCH (10:42)
[2016-12-26] MEDS: ASPIRIN 325 MG TAB PO SCH (10:42)
[2016-12-26 11:58] LABS: Glucose,Whole Blood 152 mg/dL (75-99)
--- NOTE | 2016-12-26 12:44 | CONS ---
Mrs. Meade is an 86-year-old female who is seen for cardiac evaluation. Patient's medical records and emergency room records reviewed. Patient gives a history that yesterday she felt weak in her legs bilaterally. She felt slightly lightheaded and near syncopal spell; however, she did not pass out. She felt that she cannot stand up. She did not have any chest pain or palpitations. Patient has been having these kind of spells on and off for the last 2 to 3 months. She denies any nausea or vomiting. Patient recently was also found to be in atrial flutter and some chest pain. Patient underwent a cardiac catheterization and had a stent to the LAD done. Patient's home medications include: 1. Xanax. 2. Calcium. 3. Multivitamin. 4. Zyrtec 10 mg daily. 5. Lipitor 40 mg daily. 6. Protonix once a day. 7. Zestril 20 mg daily. 8. Verapamil 120 mg daily. 9. Atenolol 25 mg daily. 10. Plavix once a day. 11. Baby aspirin once a day. Past medical history includes a history of a hernia repair, hysterectomy, joint replacement and orthopedic surgery. Physical examination at present reveals an 86-year-old female who does not appear to be in any acute distress in the emergency room. Patient's blood pressure was 157/67 mmHg, heart rate was 62 per minute. Patient is afebrile. HEENT is negative. Neck is supple. There is no increase in jugular venous pressure. Both the carotid pulses are felt. There is no bruit. Chest is symmetrical. HEART: The PMI is not felt. First and second heart sounds are normal. There is no evidence of any murmur. The lungs are clinically clear to auscultation and percussion. Abdomen is soft. Liver and spleen are not enlarged. Bowel sounds are heard. EXTREMITIES: Peripheral pulses of 1+. EKG shows normal sinus rhythm without any acute ischemic changes. Patient's tropes are negative. BNP level is 785. Patient's electrolytes are normal. Creatinine was 1.5; now, it is 1.40. Orthostatic blood pressure changes were done this morning. There was no evidence of any significant hypotension. FINAL IMPRESSION: This patient has been having recurrent bouts of weakness with dizziness, appears to be suggestive of orthostatic hypotension. At present, patient is not significantly dehydrated. RECOMMENDATIONS: I will decrease the dose of Zestril to 10 mg daily and discontinue verapamil. Continue atenolol. Will hold the Coumadin and continue Plavix. We will hydrate the patient and let her walk around for the next one day. If patient remains stable, she can be discharged home. Patient is scheduled for atrial flutter ablation in the next 1 to 2 weeks.
[2016-12-26] MEDS ORDERED: traMADol-ACETAMINOP 37.5-325MG 1 EACH TAB PO PRN (14:18)
[2016-12-26] MEDS ORDERED: ALPRAZolam 0.25 MG TAB PO PRN (14:18)
[2016-12-26] MEDS: LEVOTHYROXINE 50 MCG TAB PO SCH (15:29)
[2016-12-26] MEDS: CALCIUM CARB-VIT D 500MG-200UN 1 EACH TAB PO SCH (15:29)
[2016-12-26] MEDS: MULTIVITAMINS, THERA 1 EACH TAB PO SCH (15:29)
[2016-12-26] MEDS: PANTOPRAZOLE 40 MG TABLET PO SCH (15:29)
[2016-12-26] MEDS: LORATADINE 10 MG TAB PO SCH (15:29)
[2016-12-26] MEDS: ATENOLOL 25 MG TAB PO SCH (15:29)
[2016-12-26 17:01] LABS: Glucose,Whole Blood 98 mg/dL (75-99)
--- NOTE | 2016-12-26 17:12 | HP ---
DATE OF ADMISSION: 12/25/2016 CHIEF COMPLAINT: Leg weakness, abdominal pain. HISTORY OF PRESENT ILLNESS: Ms. Meade is 86 -year-old female with a known history of recently diagnosed atrial fibrillation, anticoagulation with Coumadin and coronary artery disease status post recent stenting to left anterior descending, hypothyroidism, hypertension came to the hospital with complaints of generalized weakness. Patient says that patient felt very weak and her legs gave way. Patient yesterday felt very weak in the legs bilaterally and she leaned onto the chair. She says that she did not lose consciousness at any time. She had a near syncopal episode, but she regained consciousness completely. The patient, otherwise denied any complaints of chest pain or short of breath during the episode. The patient felt some nausea. No vomiting. No bladder or bowel incontinence. No shaking movements have been noticed at that time. Otherwise, patient is supposed to get cardiac ablation for atrial fibrillation and patient was found to be fully elevated BUN and creatinine level and also INR is slightly elevated to 4.9. Patient also felt some abdominal pain during the episode. Did not have any diarrhea. No recent illnesses or sick contacts. REVIEW OF SYSTEMS: CONSTITUTIONAL: No fever. No chills. Patient does have weakness, generalized. CARDIOVASCULAR: No chest pain or short of breath. ABDOMEN: No nausea, vomiting, abdominal pain. No diarrhea. SKIN: Negative. MUSCULOSKELETAL: Lower extremity weakness. No headache or dizziness. No numbness or tingling. All other fourteen-point review of systems negative except as above. Past medical history includes: History of coronary artery disease, status post stent placement LAD, hypothyroidism, atrial fibrillation, on anticoagulation, recently diagnosed; GERD, hypertension, hyperlipidemia, history of leaky valve. PAST SURGICAL HISTORY: Hernia repair, hysterectomy, joint repair, orthopedic surgery, surgery on 2 toes to treat hammertoe, right total knee arthroplasty and cardiac catheterization. PSYCHOSOCIAL HISTORY: Anxiety. SOCIAL HISTORY: The patient never a smoker. Denied any alcohol use. Denied any drugs or IVDU. FAMILY HISTORY: Mother had cancer, brother has cancer. Father has congestive heart failure. Home medication include: 1. Levothyroxine. 2. Xanax. 3. Calcium carbonate. 4. Multivitamins. 5. Protonix. 6. ( ). 7. Citrogen. 8. Lisinopril. 9. Verapamil. 10. Warfarin. 11. Tramadol. 12. Atenolol. 13. Aspirin. 14. Plavix. 15. Nitroglycerin sublingual. ALLERGIES: CODEINE. PHYSICAL EXAMINATION: An 86 -year-old female lying in the bed. Awake, alert, oriented, x3 appears to be in no distress. VITALS: Blood pressure is 157/69, pulse is 62, respirations 20, temperature afebrile. Pulse ox is 100% on room air on admission. HEENT: Atraumatic, normocephalic. Neck is supple. No JVD: S1, S2 heard. No murmurs, no gallop, no rub. LUNGS: Bilateral air entry is present. No wheezing. No crackles. Nonlabored breathing. ABDOMEN: Soft, nontender, bowel sounds are present. CENTRAL NERVOUS SYSTEM: Awake, alert and oriented times three. No focal deficits. EXTREMITIES: No edema. Pulses palpable bilaterally. No clubbing or cyanosis. PSYCHIATRIC: Cooperative. LABORATORY DATA: WBC 7.8, hemoglobin 10.9, platelets 240, RDW 17.3 and INR at 4.9. Sodium 137, potassium 5.2, chloride 102, BUN 28, creatinine 1.58. Liver enzymes elevated, troponin x3 negative. LDL level is 60. EKG shows sinus bradycardia. Chest x-ray erythematous aorta. No active cardiopulmonary disease. IMPRESSION: 1. Near syncope, likely due to volume depletion and orthostatic hypotension and bradycardia. 2. Bilateral lower extremity weakness secondary to dehydration and volume depletion. 3. Acute kidney injury, most likely prerenal. 4. Sinus bradycardia. 5. Recently diagnosed atrial fibrillation scheduled for cardiac ablation surgery. 6. History of coronary artery disease, status post stent placement to left anterior descending coronary artery. 7. Hypertension. 8. Hyperlipidemia. 9. Osteoarthritis/degenerative joint disease. 10. Hypothyroidism. 11. Supratherapeutic INR level. 12. History of leaky valve. DISCUSSION AND PLAN: Patient will be continued on IV fluids at 75 mL per hour and monitor electrolytes and renal function verapamil has been on hold. We will continue the atenolol as per cardiology recommendations and continue with the remaining home medications and follow up closely. Will encourage PT, OT and further recommendations based on the clinical course.
[2016-12-27] MEDS: HEPARIN SODIUM,PORCINE 5,000 UNIT/ML 1 ML VIAL SQ SCH ×3 (05:05→15:27)
[2016-12-27] MEDS: LEVOTHYROXINE 50 MCG TAB PO SCH (06:37)
[2016-12-27 07:37] LABS: Anisocytosis Slight; Aty Lym Flag Slight; CH 28.8; HCT 32.1 % (34.0-46.0); HDW 3.71; HGB 10.6 gm/dL (11.4-16.0); Hypochromasia Slight; MCH 29.2 pg (25.0-35.0); MCHC 33.1 g/dL (31.0-37.0); MCV 88.4 fL (80.0-100.0); Mean Platelet Volume 9.1; Poikilocytosis Slight; RBC 3.64 m/uL (3.80-5.40); RDW 17.3 % (11.5-15.5); WBC 6.4 k/uL (3.8-10.6); WBC (Perox) 6.04
[2016-12-27 07:42] LABS: INR 4.6 (<1.1); Prothrombin Time 45.4 sec (9.0-12.0)
[2016-12-27 07:52] LABS: Calcium 8.9 mg/dL (8.4-10.2); Potassium 4.7 mmol/L (3.5-5.1)
[2016-12-27] MEDS: ATORVASTATIN 40 MG TAB PO SCH (08:03)
[2016-12-27] MEDS: ATENOLOL 25 MG TAB PO SCH (08:03)
[2016-12-27] MEDS: CALCIUM CARB-VIT D 500MG-200UN 1 EACH TAB PO SCH (08:03)
[2016-12-27] MEDS: LORATADINE 10 MG TAB PO SCH (08:04)
[2016-12-27] MEDS: PANTOPRAZOLE 40 MG TABLET PO SCH (08:04)
[2016-12-27] MEDS: ASPIRIN 325 MG TAB PO SCH (08:04)
[2016-12-27] MEDS: LISINOPRIL 20 MG TAB PO SCH (08:04)
[2016-12-27] MEDS: CLOPIDOGREL 75 MG TAB PO SCH (08:04)
[2016-12-27] MEDS: SODIUM CHLORIDE 0.9% 1,000 ML IV SCH (08:08)
[2016-12-27 08:58] LABS: Add Differential Manual Differential
[2016-12-27 09:00] LABS: Manual Review Performed; Nucleated Red Blood Cells 0 /100 WBC (0-0); Total Cells Counted 100
[2016-12-27 11:30] LABS: % Iron Saturation 13.7 % (20-50)
[2016-12-27] MEDS: MULTIVITAMINS, THERA 1 EACH TAB PO SCH (12:40)
--- NOTE | 2016-12-27 13:20 | PN ---
This patient was admitted with symptoms are weakness and dizziness. Some of the symptoms are suggestive possible orthostatic hypotension. She has been doing fairly well. She has remained in normal sinus rhythm and she has been walking in the hallway without any problems. No arrhythmias are noted. Blood pressure is 150/51 mmHg. First and second heart sounds are normal. Lungs are clinically clear to auscultation and percussion. Patient's creatinine is 1.16. Patient can be discharged home on the current medications. We will hold the Coumadin until Wednesday and recheck the INR on Wednesday, and then resume the Coumadin. At present patient is advised to continue the Plavix.
[2016-12-27 16:52] VITALS: BP 137/47; PULSE 70; RESP 16; TEMP 98.1
--- NOTE | 2016-12-29 07:47 | DS ---
DATE OF ADMISSION: 12/25/2016 DATE OF DISCHARGE: 12/27/2016 DISCHARGE DIAGNOSES: 1. Near-syncope secondary to volume depletion and orthostatic hypotension and bradycardia, continued on IV fluids and discontinue verapamil. 2. Bilateral lower extremity weakness secondary dehydration and volume depletion, resolved now. 3. Acute chronic kidney disease most likely prerenal, improved. 4. Sinus bradycardia, improved. 5. Recently diagnosed atrial fibrillation scheduled for cardiac ablation surgery. 6. History of coronary artery disease, status post stent placement to left anterior descending. 7. Hypertension. 8. Hyperlipidemia. 9. Osteoarthritis/degenerative joint disease. 10. Hypothyroidism. 11. Supratherapeutic INR level, hold Coumadin until Wednesday. 12. History of leaky valve. 13. Iron deficiency anemia. HOSPITAL COURSE: Ms. Meade is an 86-year-old female with a known history of multiple medical problems as discussed above admitted to the hospital with complaints of generalized weakness and bilateral lower extremity weakness. Patient was found to have dehydration with elevated BUN level and also bradycardic. The patient was seen by Cardiology and recommend to discontinue Verapamil and continue with atenolol only at this time. Heart rate is improved now. Patient was hydrated well overnight. Patient is symptomatically much improved now. Denied any complaints of leg weakness. Otherwise patient was also found to have elevated INR level. Coumadin has been held. Recommended to hold Coumadin until tomorrow and start back on Wednesday. The patient was given a script to recheck PT and INR level as an outpatient. Otherwise patient is symptomatically much improved and is still ready for discharge home and follow with Cardiology for cardiac catheterization in 1 to 3 days. DISCHARGE PHYSICAL EXAMINATION: An 86-year-old female lying in bed comfortably, awake, alert and oriented x3, appears to be in no apparent distress. VITALS: Blood pressure is 137/47, pulse is 70, respiratory rate 16, temperature afebrile, pulse ox 99% on room air. Laboratory data reviewed. Hemoglobin 10.6, platelets 218, ( ).3, INR 4.6. Sodium 140, potassium 4.7. BUN 24 and creatinine 1.16 and iron profile showed iron level of 40, biding capacity 291 and percent saturation is 13.7 and ferritin 28 suggestive of iron deficiency. Vitamin B12 level is 946. Patient will be started on iron supplementation. Discharge physical examination done. Discharge medications include: 1. ( ) 50 mcg p.o. daily. 2. Xanax 0.25 mg p.o. b.i.d. 3. Calcium with vitamin D3 1 tablet p.o. daily. 4. Multivitamins 1 tablet p.o. daily. 5. Protonix 40 mg p.o. daily. 6. Atenolol 20 mg p.o. daily. 7. Aspirin 81 p.o. daily. 8. Plavix 75 mg p.o. daily. 9. Nitroglycerine 0.4 mg sublingual q.5 minutes p.r.n. for chest pain. 10. Atorvastatin 40 mg p.o. daily. 11. Cetirizine 10 mg p.o. daily. 12. Lisinopril 20 mg p.o. daily. 13. Warfarin 4 mg p.o. daily. 14. Tramadol 1 tablet p.o. daily p.r.n. 15. Ferrous sulfate 325 mg b.i.d. with food. Activity as tolerated. Heart heathy diet. Follow with Dr. Vega in the 2 to [address] Miller in one week. Repeat INR level on Wednesday. Further recommendations depending on patient's clinical course. Follow with Cardiology for outpatient surgery. Time taken was more than 35 minutes with 18 minutes ( ).
== END 2016-12-27 17:35 | disposition home or self-care (01) ==
LOC: EC 19:30 → 3OBS 21:46
PROVIDERS: ADMIT Internal Medicine; ATTEND Internal Medicine
DX: R55 Syncope and collapse (principal); I95.1 Orthostatic hypotension; E86.9 Volume depletion, unspecified; R00.1 Bradycardia, unspecified; R10.9 Unspecified abdominal pain; E86.0 Dehydration; R53.1 Weakness; N18.9 Chronic kidney disease, unspecified; I48.91 Unspecified atrial fibrillation; I25.10 Atherosclerotic heart disease of native coronary artery without angina pectoris; Z95.5 Presence of coronary angioplasty implant and graft; E78.5 Hyperlipidemia, unspecified; M19.90 Unspecified osteoarthritis, unspecified site; E03.9 Hypothyroidism, unspecified; D50.9 Iron deficiency anemia, unspecified; K21.9 Gastro-esophageal reflux disease without esophagitis; N17.9 Acute kidney failure, unspecified; Z82.49 Family history of ischemic heart disease and other diseases of the circulatory system; F41.9 Anxiety disorder, unspecified; I48.92 Unspecified atrial flutter; I13.0 Hypertensive heart and chronic kidney disease with heart failure and stage 1 through stage 4 chronic kidney disease, or unspecified chronic kidney disease; I50.9 Heart failure, unspecified; I25.2 Old myocardial infarction; Z79.01 Long term (current) use of anticoagulants; Z79.899 Other long term (current) drug therapy; Z79.82 Long term (current) use of aspirin; Z79.02 Long term (current) use of antithrombotics/antiplatelets; Z80.9 Family history of malignant neoplasm, unspecified; Z88.5 Allergy status to narcotic agent
CPT/HCPCS: 99285 ×2; 36415; 93005; 83880; 80061; 80053; 80048 ×2; 82607; 82728; 82550; 82553 ×2; 83540; 83550; 84484 ×2; 85025 ×3; 85610 ×2; 71020; G0378 ×3; J1644; 96360; 96361; 96372

== ENCOUNTER 2017-01-04 05:54 | Day surgery (SDC) | payer MEDICARE, BC ==
[2016-12-31 11:15] VITALS: BMI 26.6
[2017-01-04] MEDS ORDERED: HYDROmorphone 1 MG/ML 1 ML SYRINGE IVP PRN (05:55)
[2017-01-04] MEDS ORDERED: ONDANSETRON 4 MG/2 ML VIAL IVP ONE (05:55)
[2017-01-04] MEDS: SODIUM CHLORIDE 0.9% 1,000 ML IV SCH ×2 (06:18→18:16)
[2017-01-04 06:24] LABS: Anisocytosis Slight; Basophils % (A) 0 %; CH 28.4; CHCM 32.1; Eosinophils # (A) 0.6 k/uL (0-0.7); Eosinophils % (A) 7 %; HCT 34.9 % (34.0-46.0); HDW 3.77; HGB 11.2 gm/dL (11.4-16.0); Hypochromasia Moderate; Luc # (Auto) 0.35; Luc % (Auto) 4; Lymphocytes # (A) 1.1 k/uL (1.0-4.8); Lymphocytes % (A) 12 %; MCH 28.6 pg (25.0-35.0); MCV 89.5 fL (80.0-100.0); Mean Platelet Volume 8.3; Monocytes # (A) 0.8 k/uL (0-1.0); Monocytes % (A) 9 %; Neutrophils % (A) 68 %; Poikilocytosis Slight; RDW 17.3 % (11.5-15.5); WBC 8.9 k/uL (3.8-10.6); WBC (Perox) 9.84
[2017-01-04 06:31] LABS: Prothrombin Time 18.9 sec (9.0-12.0)
--- NOTE | 2017-01-04 07:26 | P.PN ---
Progress Note - Text ak in ep lab at 7:19 am still waiting for pt to come in to ep lab 86-year-old female with atrial flutter with one-to-one conduction, very symptomatic Plan Discussed with patient and family as an outpatient Atrial flutter ablation/EP study Clear anticoagulation
[2017-01-04] MEDS ORDERED: ATROPINE SULFATE 0.4 MG/ML 1 ML VIAL ONE (07:27)
[2017-01-04] MEDS ORDERED: fentaNYL (PF) 50 MCG/ML 2 ML AMP ONE (07:27)
[2017-01-04] MEDS ORDERED: ISOPROTERENOL 250 MCG/1.25 ML SYR IV ONE (07:27)
[2017-01-04] MEDS ORDERED: PROPOFOL 10 MG/ML 20 ML VIAL IV ONE (07:27)
[2017-01-04] MEDS ORDERED: ePHEDrine 50 MG/ML 1 ML AMP ONE (07:27)
[2017-01-04] MEDS ORDERED: MIDAZOLAM 2 MG/2 ML VIAL ONE (07:27)
[2017-01-04] MEDS ORDERED: LIDOCAINE 2% INJ 20 MG/ML SQ ONE ×3 (07:58→08:13)
[2017-01-04] MEDS ORDERED: HEPARIN SODIUM (1,000 UNIT/ML) 1,000 UNIT in SODIUM CHLORIDE 0.9% 1,000 ML IRRIGATION ONE (11:14)
[2017-01-04] MEDS ORDERED: ACETAMINOPHEN IV (For NPO) 1,000 MG in EMPTY BAG 1 BAG IVPB ONE (11:54)
[2017-01-04] MEDS ORDERED: ACETAMINOPHEN TAB 325 MG TAB PO PRN (11:54)
[2017-01-04] MEDS ORDERED: ALPRAZolam 0.25 MG TAB PO PRN (11:56)
[2017-01-04] MEDS ORDERED: ACETAMINOPHEN IV (For NPO) 1,000 MG/100 ML VIAL IVPB ONE (12:15)
--- NOTE | 2017-01-04 13:02 | CE ---
DATE OF SERVICE: Kiesha Meade is an 86-year-old female who had presented with supraventricular tachycardia at greater than 200 beats a minute and was very symptomatic and dizzy, a diagnosis of atrial flutter with 1:1 conduction is made and after anticoagulation she was brought in for an EP study and atrial flutter ablation. Patient brought to the EP lab in a fasting state, informed consent was obtained prior to the procedure. The left shoulder area was prepped and draped as per protocol; 1% lidocaine was used for local anesthesia. A 6 [place] sheath was placed in the left ( ) vein and via this decapolar catheter was positioned in the coronary sinus for coronary sinus pacing and recording. Venous sheaths were placed in both the right and left femoral veins. She was in sinus rhythm at the start of the study. The baseline measurements were as follows: Sinus-cycle length 1250 ms, MI 166 ms, QRS 103 ms, QT 375 ms. AH interval was 75, HV interval 76 ms. The sinus node recovery times at 600, 500 and 400 ms were 2066, 1916, and 1706 ms. Corresponding corrected sinus recovery times were prolonged. There was no evidence of slow pathway conduction, no delta waves at baseline, no VA conduction at baseline. AV node Wenckebach block from the coronary sinus is 530 ms. Isuprel was started wide open and then 2 mcg and then subsequently 5 mcg. AV node Wenckebach block improved to 420 ms, burst stimulation was performed from 4 ms down to 200 ms with a high right atrium. No arrhythmia was induced with atrial extrastimulation from the high right atrium, the PACs and atrial couplets and triplets were induced and coronary sinus pacing was performed with extrastimulation, short burst of irregular atrial tachycardia were noted with very brief episodes. There was no evidence for any SVT. VA Wenckebach block did not improve and the VA block was 600 ms with RV pacing. Subsequently, an intracardiac echo catheter was placed, anatomic mapping of the cavotricuspid isthmus was performed. There was no right atrial appendage mass, left atrium did not show any evidence for a mass. Left atrial appendage was within normal limits. No masses were noted. Interatrial septum was identified. The cavotricuspid isthmus was one large pouch with a very thick pedunculated eustachian ridge and laterally there was further rather deep pouch. The lateral aspect of the cavotricuspid isthmus was avoided and ablation was performed medially to avoid this particular pouch, but the entire isthmus was in the shape of a pouch medially. Using a standard technique as well as a reversal technique with a long sheath, complete anatomic ( )block was made and bidirectional block was proven, isthmus conduction time of 160 ms in either direction. No anatomic gaps were left. At the end of the procedure, intracardiac echocardiography did not reveal any pericardial effusion. RESULT: Diagnostic EP study revealin. Prolonged HV interval. 2. Abnormal sinus node recovery times. 3. Abnormal AV node function. 4. No evidence for AV elissa re-entry, no evidence for an accessory pathway conduction, antegradely or retrogradely. 5. Successful ablation for atrial flutter. This entire isthmus was shaped like a pouch with a very thick eustachian ridge and a subeustachian pouch.
--- NOTE | 2017-01-04 13:04 | LTR ---
January 04, 2017 RE: Kiesha Meade A Dear Dr. Vega; I had the pleasure of seeing Mrs. Meade in electrophysiology follow up. As you know, Kiesha had a very rapid supraventricular tachycardia consistent with atrial flutter with 1:1 conduction. Today, she underwent successful atrial flutter ablation and no other arrhythmias were noted. However, in addition to this, she was noted to have an abnormal sinus node function as well as an abnormal AV node function. She is already on verapamil 240 mg p.o. daily and atenolol 25 mg p.o. daily and I have discontinued her atenolol for now. She will continue followup with you and Dr. Jessica Miller as before. She is quite sensitive to Coumadin and currently she is on 1 mg p.o. daily. INR will be maintained between 2 and 3. Thank you for entrusting me with the care of your patient. Warm regards. Sincerely, JUAN STEWART MD
[2017-01-04] MEDS: LACTATED RINGERS 1,000 ML IV SCH (18:17)
[2017-01-04] MEDS ORDERED: WARFARIN 1 MG TAB PO SCH (21:00)
[2017-01-05] MEDS ORDERED: LEVOTHYROXINE 50 MCG TAB PO SCH (06:30)
[2017-01-05] MEDS: LACTATED RINGERS 1,000 ML IV SCH (08:37)
[2017-01-05 08:46] LABS: INR 2.9 (<1.1)
[2017-01-05] MEDS ORDERED: CLOPIDOGREL 75 MG TAB PO SCH (09:00)
[2017-01-05] MEDS ORDERED: VERAPAMIL SR 120 MG TABLET.ER PO SCH (09:00)
[2017-01-05] MEDS ORDERED: ATORVASTATIN 40 MG TAB PO SCH (09:00)
[2017-01-05] MEDS ORDERED: ASPIRIN 81 MG CHEW PO SCH (09:00)
[2017-01-05] MEDS ORDERED: LISINOPRIL 20 MG TAB PO SCH (09:00)
--- NOTE | 2017-01-05 09:42 | P.DS ---
Providers Attending physician: Manjit Adrian Primary care physician: Silvia [facility] Course: Patient is doing well from a cardiac standpoint. Her groin has healed well. She has no chest pain no dizziness no lightheadedness she is lying comfortably in bed and she did get up to go to the bathroom She is afebrile 96.6F pulse rate in the 60s blood pressure 110/62 mmHg Breath sounds are normal no rhonchi no crackles Heart sounds are normal normal S1 normal S2 Abdomen is soft nontender No hematoma in the groins Plan Ambulate in the hallways. If no groin problems and asymptomatic and vitals stable, she can go home follow with Dr. Miller in 1 week The only change in her medications is reviewed. Atenolol. She will continue all her other medications including anticoagulants Plan - Discharge Summary Discharge Medication List Levothyroxine Sodium [Synthroid] 50 mcg PO DAILY 05/01/14 [History] ALPRAZolam [Xanax] 0.25 mg PO BID PRN 01/03/16 [History] Calcium Carbonate/Vitamin D3 [Calcium 600-Vit D3 400 Tablet] 1 tab PO DAILY 10/19 [History] Multivitamins, Thera [Multivitamin (formulary)] 1 tab PO DAILY 01/03/16 [History ] Pantoprazole [Protonix] 40 mg PO DAILY 01/03/16 [History] Aspirin 81 mg PO DAILY #90 chew 12/03/16 [Rx] Clopidogrel [Plavix] 75 mg PO DAILY #90 tab 12/03/16 [Rx] Nitroglycerin Sl Tabs [Nitrostat] 0.4 mg SUBLINGUAL Q5M PRN #25 tab 12/03/16 [Rx ] Atorvastatin [Lipitor] 40 mg PO DAILY 12/25/16 [History] Cetirizine HCl [Zyrtec] 10 mg PO DAILY 12/25/16 [History] Lisinopril [Zestril] 20 mg PO DAILY 12/25/16 [History] traMADol HCL/ACETAMINOPHEN [Ultracet 37.5-325] 1 tab PO DAILY PRN 12/25/16 [ History] Verapamil HCl [Verapamil ER] 120 mg PO DAILY 01/04/17 [History] Warfarin [Coumadin] 1 mg PO HS 01/04/17 [History] Follow up Appointment(s)/Referral(s): Clay Miller MD [STAFF PHYSICIAN] - 1 Week Activity/Diet/Wound Care/Special Instructions: Post EP study - Ablation instructions 1. Keep access sites dry for 2 days. 2. No heavy lifting or straining for 2 days. 3. Avoid bending the hips repeatedly for 2 days. 4. You may go up and down stairs slowly Call if the following is noted 1. Bleeding, increasing swelling or pain at the access sites. 2. Increasing chest discomfort, especially upon taking a deep breath. 3. Increasing shortness of breath, at rest or with exertion. 4. Undue cough / phlegm 5. Difficulty or pain while swallowing. 6. Pain or change in color in the extremities. 7. Fever, chills, rigors. 8. Increasing headache or neurologic symptoms. 9. Dizziness, fainting, palpitations Stop atenolol completely Follow-up with Dr. Miller in 1 week
[2017-01-05 11:02] VITALS: RESP 18
[2017-01-05 13:20] VITALS: BP 123/58; PULSE 73; TEMP 97.2
== END 2017-01-05 13:11 ==
LOC: CATHEP 05:54 → 6SEL 11:07 → CATHEP 01-05 13:11
PROVIDERS: ATTEND Internal Medicine Clinical Cardiac Electrophysiology
DX: I48.92 Unspecified atrial flutter (principal); I48.0 Paroxysmal atrial fibrillation; I34.0 Nonrheumatic mitral (valve) insufficiency; I10 Essential (primary) hypertension; E78.5 Hyperlipidemia, unspecified; E03.9 Hypothyroidism, unspecified; Z79.899 Other long term (current) drug therapy; Z88.5 Allergy status to narcotic agent
CPT/HCPCS: 93623; 93662; 93613; 93653; 85025; 85610 ×2; C1894; C1769 ×2; C1893; C1730 ×3; C1759; C1732; J2001; J1644; J0131

== ENCOUNTER 2017-01-11 09:44 | Inpatient (IN) | payer MEDICARE, BC ==
[2017-01-11] MEDS ORDERED: HYDROcodone/APAP 5-325MG 1 EACH TAB PO STA (11:14)
--- NOTE | 2017-01-11 11:17 | ED ---
General Adult HPI - General Chief complaint: Extremity Injury, Lower Stated complaint: Pain Time Seen by Provider: 01/11/17 10:00 Source: patient, EMS, RN notes reviewed Mode of arrival: EMS Limitations: no limitations - History of Present Illness Initial comments: This is an 86-year-old female who presents to the emergency department one week post catheterization the left groin. Patient had an ablation done because of atrial fibrillation. She states this morning she was walking around and she had some pain in the groin and she does every morning but she sat down quickly and all of a sudden the pain got considerably worse and it was much more tender to palpation. Patient denied any numbness or weakness of the lower extremity patient denied any color change of the lower extremities. Patient denied any changes in the groin as far as appearance. She does states touching the area seems to be more tender. Patient states she got a little dizzy earlier with the pain but since the dizziness is gone away and she never had any chest pain shortness of breath or difficulty breathing. - Related Data Home Medications Medication Instructions Recorded Confirmed Levothyroxine Sodium [Synthroid] 50 mcg PO DAILY 05/01/14 01/11/17 ALPRAZolam [Xanax] 0.25 mg PO BID PRN 01/03/16 01/11/17 Calcium Carbonate/Vitamin D3 1 tab PO DAILY 01/03/16 01/11/17 [Calcium 600-Vit D3 400 Tablet] Multivitamins, Thera [Multivitamin 1 tab PO DAILY 01/03/16 01/11/17 (formulary)] Pantoprazole [Protonix] 40 mg PO DAILY 01/03/16 01/11/17 Atorvastatin [Lipitor] 40 mg PO DAILY 12/25/16 01/11/17 Cetirizine HCl [Zyrtec] 10 mg PO DAILY 12/25/16 01/11/17 Lisinopril [Zestril] 20 mg PO DAILY 12/25/16 01/11/17 traMADol HCL/ACETAMINOPHEN 1 tab PO BID PRN 12/25/16 01/11/17 [Ultracet 37.5-325] Warfarin [Coumadin] 1 mg PO HS 01/04/17 01/11/17 Verapamil HCl [Verapamil ER] 180 mg PO DAILY 01/11/17 01/11/17 Previous Rx's Medication Instructions Recorded Aspirin 81 mg PO DAILY #90 chew 12/03/16 Clopidogrel [Plavix] 75 mg PO DAILY #90 tab 12/03/16 Nitroglycerin Sl Tabs [Nitrostat] 0.4 mg SUBLINGUAL Q5M PRN #25 tab 12/03/16 Allergies Allergy/AdvReac Type Severity Reaction Status Date / Time codeine AdvReac Nausea & Verified 01/11/17 10:23 Vomiting Review of Systems ROS Statement: Those systems with pertinent positive or pertinent negative responses have been documented in the HPI. ROS Other: All systems not noted in ROS Statement are negative. Past Medical History Past Medical History: Atrial Flutter, GERD/Reflux, Hyperlipidemia, Hypertension , Osteoarthritis (OA), Thyroid Disorder Additional Past Medical History / Comment(s): . History of Any Multi-Drug Resistant Organisms: None Reported Past Surgical History: Ablation, Heart Catheterization With Stent, Hernia Repair , Hysterectomy, Joint Replacement, Orthopedic Surgery Additional Past Surgical History / Comment(s): Surgery on two toes to treat hammer toe, right total knee, ONE STENT, cataracts Past Anesthesia/Blood Transfusion Reactions: No Reported Reaction Past Psychological History: Anxiety Smoking Status: Never smoker Past Alcohol Use History: None Reported Past Drug Use History: None Reported - Past Family History Mother Family Medical History: Cancer Brother(s) Family Medical History: Cancer Father Family Medical History: Congestive Heart Failure (CHF) General Exam - General Exam Comments Initial Comments: GENERAL: Patient is well-developed and well-nourished. Patient is nontoxic and well- hydrated and is in mild distress. ENT: Neck is soft and supple. No significant lymphadenopathy is noted. Oropharynx is clear. Moist mucous membranes. EYES: The sclera were anicteric and conjunctiva were pink and moist. Extraocular movements were intact and pupils were equal round and reactive to light. Eyelids were unremarkable. PULMONARY: Unlabored respirations. Good breath sounds bilaterally. No audible rales rhonchi or wheezing was noted. CARDIOVASCULAR: There is a regular rate and rhythm without any murmurs gallops or rubs. . There is a lot of ecchymosis around the area of the left groin a lot of which appears to be resolving. Patient has good femoral pulses on the left. Patient has good distal sensation. Patient has good color in the left leg. I did not hear any bruit in the left groin. ABDOMEN: Soft and nontender with normal bowel sounds. No palpable organomegaly was noted. There is no palpable pulsatile mass. SKIN: Skin is clear with no lesions or rashes and otherwise unremarkable. NEUROLOGIC: Patient is alert and oriented x3. Cranial nerves II through XII are grossly intact. Motor and sensory are also intact. Normal speech, volume and content. Symmetrical smile. MUSCULOSKELETAL: Normal extremities with adequate strength and full range of motion. No lower extremity swelling or edema. No calf tenderness. LYMPHATICS: No significant lymphadenopathy is noted PSYCHIATRIC: Normal psychiatric evaluation. Normal interpersonal interactions appears functionally intact in deals appropriately with others. No signs of depression. No signs of anxiety. Limitations: no limitations Course Vital Signs 01/11/17 01/11/17 01/11/17 09:45 13:51 14:05 Temperature 98.2 F 98.6 F Pulse Rate 104 H 97 111 H Respiratory 16 16 16 Rate Blood Pressure 166/77 148/66 140/75 O2 Sat by Pulse 100 96 96 Oximetry 01/11/17 01/11/17 14:10 16:15 Temperature 98.5 F Pulse Rate 89 99 Respiratory 16 18 Rate Blood Pressure 114/58 136/66 O2 Sat by Pulse 96 100 Oximetry Medical Decision Making - Medical Decision Making Ultrasound showed a possible hematoma. There was no signs of any pseudoaneurysm. I went back and reevaluated the patient she was feeling considerably better. After the patient was discharged she needed to go to the bathroom and then she felt dizzy and thought she was going to pass out she came out of the bathroom and was very nauseated and continued to feel dizzy she was placed back in the room to be reevaluated. Daughter states she has had these episodes of dizziness on and off for 2 months. EKG shows normal sinus rhythm at 100 bpm [place] interval is 132 QRS is 82 QT interval 334 QTC is 430. Patient's EKG shows no ST segment elevation or depression or T wave abnormalities are noted When I got more information about the patient's episodes she felt as though the room was spinning and stated that she was sure she follow over but never did. Patient states shortly thereafter she got severely nauseated. - Lab Data Result diagrams: 01/11/17 15:40 01/11/17 15:40 Lab Results 01/11/17 01/11/17 01/11/17 Range/Units 15:40 15:40 15:40 WBC 9.2 (3.8-10.6) k/uL RBC 3.19 L (3.80-5.40) m/uL Hgb 9.5 L D (11.4-16.0) gm/dL Hct 28.2 L (34.0-46.0) % MCV 88.5 (80.0-100.0) fL MCH 29.7 (25.0-35.0) pg MCHC 33.5 (31.0-37.0) g/dL RDW 17.9 H (11.5-15.5) % Plt Count 293 (150-450) k/uL Neutrophils % 79 % Lymphocytes % 7 % Monocytes % 10 % Eosinophils % 1 % Basophils % 0 % Neutrophils # 7.2 (1.3-7.7) k/uL Lymphocytes # 0.6 L (1.0-4.8) k/uL Monocytes # 0.9 (0-1.0) k/uL Eosinophils # 0.1 (0-0.7) k/uL Basophils # 0.0 (0-0.2) k/uL Hypochromasia Slight Poikilocytosis Slight Anisocytosis Slight PT (9.0-12.0) sec INR (<1.1) APTT (22.0-30.0) sec Sodium 138 (137-145) mmol/L Potassium 4.9 (3.5-5.1) mmol/L Chloride 102 (98-107) mmol/L Carbon Dioxide 22 (22-30) mmol/L Anion Gap 14 mmol/L BUN 25 H (7-17) mg/dL Creatinine 1.20 H (0.52-1.04) mg/dL Est GFR (MDRD) Af Amer 52 (>60 ml/min/1.73 sqM) Est GFR (MDRD) Non-Af 43 (>60 ml/min/1.73 sqM) Glucose 102 H (74-99) mg/dL Calcium 9.3 (8.4-10.2) mg/dL Magnesium 2.1 (1.6-2.3) mg/dL Total Bilirubin 0.9 (0.2-1.3) mg/dL AST 32 (14-36) U/L ALT 25 (9-52) U/L Alkaline Phosphatase 85 (38-126) U/L Total Creatine Kinase 84 (30-135) U/L CK-MB (CK-2) 0.4 (0.0-2.4) ng/mL CK-MB (CK-2) Rel Index 0.5 Troponin I 0.038 H* (0.000-0.034) ng/mL Total Protein 7.3 (6.3-8.2) g/dL Albumin 4.1 (3.5-5.0) g/dL 01/11/17 Range/Units 15:40 WBC (3.8-10.6) k/uL RBC (3.80-5.40) m/uL Hgb (11.4-16.0) gm/dL Hct (34.0-46.0) % MCV (80.0-100.0) fL MCH (25.0-35.0) pg MCHC (31.0-37.0) g/dL RDW (11.5-15.5) % Plt Count (150-450) k/uL Neutrophils % % Lymphocytes % % Monocytes % % Eosinophils % % Basophils % % Neutrophils # (1.3-7.7) k/uL Lymphocytes # (1.0-4.8) k/uL Monocytes # (0-1.0) k/uL Eosinophils # (0-0.7) k/uL Basophils # (0-0.2) k/uL Hypochromasia Poikilocytosis Anisocytosis PT 18.3 H (9.0-12.0) sec INR 1.9 (<1.1) APTT 26.5 (22.0-30.0) sec Sodium (137-145) mmol/L Potassium (3.5-5.1) mmol/L Chloride (98-107) mmol/L Carbon Dioxide (22-30) mmol/L Anion Gap mmol/L BUN (7-17) mg/dL Creatinine (0.52-1.04) mg/dL Est GFR (MDRD) Af Amer (>60 ml/min/1.73 sqM) Est GFR (MDRD) Non-Af (>60 ml/min/1.73 sqM) Glucose (74-99) mg/dL Calcium (8.4-10.2) mg/dL Magnesium (1.6-2.3) mg/dL Total Bilirubin (0.2-1.3) mg/dL AST (14-36) U/L ALT (9-52) U/L Alkaline Phosphatase (38-126) U/L Total Creatine Kinase (30-135) U/L CK-MB (CK-2) (0.0-2.4) ng/mL CK-MB (CK-2) Rel Index Troponin I (0.000-0.034) ng/mL Total Protein (6.3-8.2) g/dL Albumin (3.5-5.0) g/dL Disposition Clinical Impression: Hematoma of groin, Occipital mass, Anemia, Dizziness Disposition: ADMITTED IP TO THIS HOSP Condition: Good Instructions: Hematoma (ED) Referrals: Demian Vega MD [Primary Care Provider] - 1-2 days Time of Disposition: 17:37
[2017-01-11] MEDS ORDERED: MORPHINE SULFATE 2 MG/ML SYRINGE IVP ONE (11:42)
[2017-01-11] MEDS ORDERED: ONDANSETRON 4 MG/2 ML VIAL IVP STA ×2 (11:43→14:54)
--- NOTE | 2017-01-11 13:25 | US ---
EXAMINATION TYPE: US lower ext pseudo artery LT DATE OF EXAM: 01/11/2017 1:08 PM COMPARISON: NONE CLINICAL HISTORY: Left groin pain and swelling Nonspecific hypoechoic area posterior to the vasculature. Measures 6 x 3.9 x 4 cm. Anechoic, nonvascu lar, cystic area within = 3.9 x 2.8 x 1.5 cm. IMPRESSION: 1. Nonspecific 6 cm hypoechoic to anechoic area which is nonvascular. Could potentially represent a h ematoma or seroma. There is no flow within the area to document pseudoaneurysm. Correlate clinically.
[2017-01-11] MEDS ORDERED: SODIUM CHLORIDE 0.9% 1,000 ML IV ONE ×2 (14:56→17:37)
--- NOTE | 2017-01-11 15:12 | XR ---
EXAMINATION TYPE: XR chest 2V DATE OF EXAM: 01/11/2017 2:57 PM COMPARISON: 12/25/2016 HISTORY: 86-year-old female with chest pain TECHNIQUE: AP and lateral views FINDINGS: Heart is upper limits of normal in size. Atherosclerotic arch calcifications. Hyperinflation with fla ttening of the hemidiaphragms. No consolidation or pleural effusion. IMPRESSION: COPD without acute cardiopulmonary process.
[2017-01-11 16:04] LABS: Anisocytosis Slight; Basophils % (A) 0 %; CH 28.2; CHCM 32.3; Eosinophils # (A) 0.1 k/uL (0-0.7); Eosinophils % (A) 1 %; HCT 28.2 % (34.0-46.0); HDW 3.72; Hypochromasia Slight; Luc # (Auto) 0.27; Luc % (Auto) 3; Lymphocytes # (A) 0.6 k/uL (1.0-4.8); Lymphocytes % (A) 7 %; MCH 29.7 pg (25.0-35.0); MCHC 33.5 g/dL (31.0-37.0); MCV 88.5 fL (80.0-100.0); Monocytes # (A) 0.9 k/uL (0-1.0); Monocytes % (A) 10 %; Neutrophils # (A) 7.2 k/uL (1.3-7.7); Neutrophils % (A) 79 %; Poikilocytosis Slight; RBC 3.19 m/uL (3.80-5.40); RDW 17.9 % (11.5-15.5); WBC 9.2 k/uL (3.8-10.6); WBC (Perox) 10.13
[2017-01-11 16:05] LABS: HGB 9.5 gm/dL (11.4-16.0)
[2017-01-11 16:18] LABS: Calcium 9.3 mg/dL (8.4-10.2); Magnesium 2.1 mg/dL (1.6-2.3); Potassium 4.9 mmol/L (3.5-5.1); Total Bilirubin 0.9 mg/dL (0.2-1.3); Total Protein 7.3 g/dL (6.3-8.2)
[2017-01-11 16:19] LABS: INR 1.9 (<1.1); Partial Thromboplastin Time 26.5 sec (22.0-30.0); Prothrombin Time 18.3 sec (9.0-12.0)
[2017-01-11 16:36] LABS: Creatine Kinase MB 0.4 ng/mL (0.0-2.4)
[2017-01-11 16:42] LABS: Troponin I 0.038 ng/mL (0.000-0.034)
--- NOTE | 2017-01-11 16:48 | CT ---
EXAMINATION TYPE: CT brain wo con DATE OF EXAM: 01/11/2017 4:37 PM COMPARISON: NONE INDICATION: Cardiac ablation 1 week ago. Headache and dizziness today. DLP: 978.20 mGycm, Automated exposure control for dose reduction was used. CONTRAST: None CT of the brain is performed utilizing 3 mm thick sections through the posterior fossa and 3 mm thick sections through the remaining calvarium. Study is performed within 24 hours of arrival to the hosp ital. No abnormal hyperdensity is present to suggest an acute intracranial hemorrhage. There is a round slightly hyperdense structure within the left occipital lobe region near the vertex. This appears to have acute angles with the calvarium suggesting an intraparenchymal component. Howev er, there is CSF space adjacent. Meningioma may be within the differential. Significant vasogenic eze ma is not apparent although some mild vasogenic edema is adjacent to near the occipital horn of the l ateral ventricle. No acute infarcts are evident. There is mild effacement of the sulci adjacent to the mass. Ventricles and sulci away from the mass are appropriate for the patient age. Paranasal sinuses and mastoid air cells within the [id number] are clear. IMPRESSIONS: 1. 3.6 x 3.6 x 4.0 cm round slightly hyperdense mass in the region of the left occipital lobe. Jayy tional workup for meningioma is recommended. Contrast MRI could be utilized. Intraparenchymal mass is less likely within the differential. Small amount of calcification may be within this mass. Report w as called to emergency room physician Dr Qureshi by Dr. Dewitt by telephone at the time of interpretat ion.
[2017-01-11 20:23] VITALS: BMI 26.4
[2017-01-11] MEDS: traMADol-ACETAMINOP 37.5-325MG 1 EACH TAB PO PRN (22:16)
[2017-01-11] MEDS: ALPRAZolam 0.25 MG TAB PO PRN (22:20)
[2017-01-12] MEDS: LEVOTHYROXINE 50 MCG TAB PO SCH (06:31)
[2017-01-12] MEDS: PANTOPRAZOLE 40 MG TABLET PO SCH (06:31)
[2017-01-12 07:11] LABS: Anisocytosis Slight; Basophils % (A) 0 %; CH 28.5; CHCM 31.3; Eosinophils # (A) 0.2 k/uL (0-0.7); Eosinophils % (A) 2 %; HCT 24.2 % (34.0-46.0); HDW 3.65; Hypochromasia Moderate; Luc % (Auto) 4; Lymphocytes # (A) 1.3 k/uL (1.0-4.8); Lymphocytes % (A) 15 %; MCH 28.8 pg (25.0-35.0); MCHC 31.2 g/dL (31.0-37.0); MCV 92.3 fL (80.0-100.0); Mean Platelet Volume 8.2; Monocytes % (A) 12 %; Neutrophils # (A) 5.8 k/uL (1.3-7.7); Neutrophils % (A) 68 %; Poikilocytosis Slight; RBC 2.62 m/uL (3.80-5.40); RDW 18.3 % (11.5-15.5); WBC 8.5 k/uL (3.8-10.6)
[2017-01-12 07:14] LABS: INR 1.9 (<1.1); Prothrombin Time 18.3 sec (9.0-12.0)
[2017-01-12 07:22] LABS: HGB 7.5 gm/dL (11.4-16.0)
[2017-01-12] MEDS: CALCIUM CARB-VIT D 500MG-200UN 1 EACH TAB PO SCH (08:23)
[2017-01-12] MEDS: LORATADINE 10 MG TAB PO SCH (08:23)
[2017-01-12] MEDS: ATORVASTATIN 40 MG TAB PO SCH (08:23)
[2017-01-12] MEDS: MULTIVITAMINS, THERA 1 EACH TAB PO SCH (08:30)
[2017-01-12] MEDS ORDERED: VERAPAMIL SR 180 MG TABLET.ER PO SCH (09:00)
[2017-01-12] MEDS ORDERED: ASPIRIN 81 MG CHEW PO SCH (09:00)
[2017-01-12] MEDS ORDERED: CLOPIDOGREL 75 MG TAB PO SCH (09:00)
[2017-01-12] MEDS ORDERED: LISINOPRIL 20 MG TAB PO SCH (09:00)
[2017-01-12] MEDS: ALPRAZolam 0.25 MG TAB PO PRN ×2 (13:22→21:13)
[2017-01-12] MEDS: traMADol-ACETAMINOP 37.5-325MG 1 EACH TAB PO PRN ×2 (13:22→21:13)
--- NOTE | 2017-01-12 13:57 | P.GSCN ---
History of Present Illness History of present illness: 86 old white female, patient had venous ablation through the left groin a week ago for atrial fibrillation patient noticed some ecchymosis and discomfort in the left groin area patient came to the emergency room and had ultrasound of the groin which showed a hematoma of the left groin since admission her hemoglobin is stable and no evidence of expanding hematoma Medical history history of atrial fibrillation, history of hypertension, history of coronary artery disease, Surgical history patient had a angioplasty done in the past for the coronary arteries Neck is supple no bruit appreciated Chest clear auscultation good entry both lungs Abdomen soft nontender Vascular examination femoral is palpable on the right side left side has some hematoma and some ecchymosis no sign of infection posterior tibial by the Doppler Impression is hematoma left groin stable Plan is since hematoma is not expanding and there is no vascular compromise patient can be managed conservatively if there is any drop in hemoglobin or expanding hematoma we made doing surgical intervention with you Past Medical History Past Medical History: Atrial Flutter, GERD/Reflux, Hyperlipidemia, Hypertension , Osteoarthritis (OA), Thyroid Disorder Additional Past Medical History / Comment(s): . History of Any Multi-Drug Resistant Organisms: None Reported Past Surgical History: Ablation, Heart Catheterization With Stent, Hernia Repair , Hysterectomy, Joint Replacement, Orthopedic Surgery Additional Past Surgical History / Comment(s): Surgery on two toes to treat hammer toe, right total knee, ONE STENT, cataracts Past Anesthesia/Blood Transfusion Reactions: No Reported Reaction Date of Last Stent Placement:: 2016 Past Psychological History: Anxiety Smoking Status: Never smoker Past Alcohol Use History: None Reported Past Drug Use History: None Reported - Past Family History Mother Family Medical History: Cancer Brother(s) Family Medical History: Cancer Father Family Medical History: Congestive Heart Failure (CHF) Medications and Allergies Home Medications Medication Instructions Recorded Confirmed Type Levothyroxine Sodium [Synthroid] 50 mcg PO DAILY 05/01/14 01/11/17 History ALPRAZolam [Xanax] 0.25 mg PO BID PRN 01/03/16 01/11/17 History Calcium Carbonate/Vitamin D3 1 tab PO DAILY 01/03/16 01/11/17 History [Calcium 600-Vit D3 400 Tablet] Multivitamins, Thera [Multivitamin 1 tab PO DAILY 01/03/16 01/11/17 History (formulary)] Pantoprazole [Protonix] 40 mg PO DAILY 01/03/16 01/11/17 History Atorvastatin [Lipitor] 40 mg PO DAILY 12/25/16 01/11/17 History Cetirizine HCl [Zyrtec] 10 mg PO DAILY 12/25/16 01/11/17 History Lisinopril [Zestril] 20 mg PO DAILY 12/25/16 01/11/17 History traMADol HCL/ACETAMINOPHEN 1 tab PO BID PRN 12/25/16 01/11/17 History [Ultracet 37.5-325] Warfarin [Coumadin] 1 mg PO HS 01/04/17 01/11/17 History Verapamil HCl [Verapamil ER] 180 mg PO DAILY 01/11/17 01/11/17 History Allergies Allergy/AdvReac Type Severity Reaction Status Date / Time codeine AdvReac Nausea & Verified 01/11/17 10:23 Vomiting Surgical - Exam Vital Signs Temp Pulse Resp BP Pulse Ox 98.2 F 104 H 16 166/77 100 01/11/17 09:45 01/11/17 09:45 01/11/17 09:45 01/11/17 09:45 01/11/17 09:45 Results - Labs 01/12/17 05:56 01/11/17 15:40 Abnormal Lab Results - Last 24 Hours (Table) 01/12/17 01/12/17 Range/Units 05:56 05:56 RBC 2.62 L (3.80-5.40) m/uL Hgb 7.5 L D (11.4-16.0) gm/dL Hct 24.2 L (34.0-46.0) % RDW 18.3 H (11.5-15.5) % PT 18.3 H (9.0-12.0) sec
[2017-01-12] MEDS: SODIUM CHLORIDE 0.9% 1,000 ML IV SCH (15:46)
--- NOTE | 2017-01-12 17:34 | MR ---
MR brain with and without contrast HISTORY: Occipital mass Correlation to CT brain 11 January 2017 Multiplanar multisequence and postcontrast images obtained through the brain following 15 cc MultiHan ce IV. The posterior parietal mass noted on CT scan shows corresponding isointensity on inversion recovery a nd T2-weighted sequences, homogenous enhancement post contrast and is dural based posteriorly measuri ng approximately 4 cm in greatest dimension. There is local mass effect. Some local increased signal is noted within the periventricular white matter on inversion recovery and T2-weighted sequences like ly due to some local gliosis or possibly edema. There is local mass effect. There is no hydrocephalus or hemorrhage evident. The cerebellopontine angles, corpus callosum, pituitary, cervical medullary junction are within tunde l limits, partially empty sella is noted. The orbits show symmetric appearance. Some mild cortical at rophy is present. IMPRESSION: Findings likely represent a large meningioma in the posterior parietal lobe on the left l ocal mass effect.
--- NOTE | 2017-01-12 18:32 | HP ---
DATE OF ADMISSION: 01/11/2017 CHIEF COMPLAINT: Pain and swelling of the left groin and weakness. HISTORY OF PRESENT ILLNESS: This 86-year-old woman with a past medical history of multiple medical problems, including atrial flutter, history of GERD, hypertension, hyperlipidemia, history of CAD and stent, being followed by Dr. Vega in the outpatient setting, recently underwent cardiac ablation by Dr. Adrian. The patient was admitted to [facility] and discharged on 01/05/2017. The patient is complaining of weakness and tiredness and some dizziness reported. The patient also has pain and swelling with ecchymotic changes of the right groin and the patient came to [facility] and was admitted for further evaluation and treatment. Hemoglobin was 9.5 and 7.5. Please note the hemoglobin was 12.7 at baseline a couple of months ago. The creatinine was found to be 1.20. Troponin 0.03. There is no history of any fever, rigor, or chills. No history of any headache, loss of consciousness, seizures at this time. PAST MEDICAL HISTORY: 1. History of recent cardiac ablation, atrial flutter. 2. GERD. 3. Hypertension. 4. Hyperlipidemia. 5. DJD. 6. History of hypothyroidism. 7. History of DJD. Medications prior to admission include: 1. Ultram 1 tablet b.i.d. p.r.n. 2. Nitro 0.4 sublingually p.r.n. 3. Multivitamins 1 p.o. daily. 4. Zestril 20 mg p.o. daily. 5. Xanax 0.25 b.i.d. p.r.n. 6. Coumadin 1 mg p.o. at bedtime. 7. Verapamil ER 180 mg p.o. daily. 8. Protonix 40 mg p.o. daily. 9. Synthroid 50 mcg p.o. daily. 10. Plavix 75 mg p.o. daily. 11. Zyrtec 10 mg p.o. daily. 12. Vitamin D3 one tablet p.o. daily. 13. Lipitor 40 mg p.o. daily. 14. Aspirin 81 mg p.o. daily. ALLERGIES: CODEINE. FAMILY HISTORY: History of cancer in the family. SOCIAL HISTORY: No history of smoking. No history of alcohol intake. REVIEW OF SYSTEMS: ENT: Diminished hearing. Diminished vision. CARDIOVASCULAR SYSTEM: No angina, palpitations. RESPIRATORY SYSTEM: No cough, hemoptysis. GI: No nausea. : No dysuria. NERVOUS SYSTEM: No numbness or weakness. ALLERGY/IMMUNOLOGY: No asthma, hayfever. MUSCULOSKELETAL: As mentioned earlier. HEMATOLOGY/ONCOLOGY: No history of anemia. ENDOCRINE: Hypothyroidism. CONSTITUTIONAL: As mentioned earlier. DERMATOLOGY: Negative. RHEUMATOLOGY: Negative. PSYCHIATRY: As mentioned earlier. PHYSICAL EXAMINATION: Patient is alert and oriented x3. Pulse is 94, blood pressure 131/44, respiration 16, temperature 97.4, pulse ox 100% on room air. HEENT: Conjunctivae normal. NECK: No jugular venous distention. CARDIOVASCULAR SYSTEM: S1, S2 muffled. RESPIRATORY SYSTEM: Breath sounds diminished at the bases. Scattered rhonchi and crackles. ABDOMEN: Soft, non-tender. No mass palpable. LEGS: No edema. No swelling. EXAMINATION OF THE RIGHT GROIN: Tender. Right groin hematoma present. NERVOUS SYSTEM: Higher functions as mentioned earlier. Moves all 4 limbs. No focal motor or sensory deficit. LYMPHATICS: No lymph node palpable in neck, axillae or groin. SKIN: No ulcer, rash, bleeding. LABS: WBC 8.5, hemoglobin 7.5. Creatinine is 1.20. Troponin 0.038. ASSESSMENT: 1. Right groin hematoma. 2. History of recent cardiac ablative procedure. 3. Anemia, possibly acute blood loss anemia. 4. Increased creatinine with chronic kidney disease, stage III. 5. Troponin 0.038, indeterminate. 6. History of atrial flutter. 7. History of gastroesophageal reflux disease. 8. Hypertension. 9. Hyperlipidemia. 10. History of degenerative joint disease. 11. Hypothyroidism. 12. History of coronary artery disease, stent. 13. History of anxiety not otherwise specified. 14. History of weakness. 15. A 3.6 x 3.6 x 4 cm round hyperdense area in the left occipital lobe, possible meningioma. 16. Chronic obstructive pulmonary disease on chest x-ray. 17. FULL CODE. RECOMMENDATION AND DISCUSSION: In this 86-year-old woman who presented with multiple complex medical issues, we will monitor the patient closely, continue the current medications, continue with symptomatic treatment. Recommend holding the antiplatelet agents and Ecotrin also at this time. Otherwise, monitor closely. Monitor hemoglobin closely. I recommend 1 unit of transfusion because of symptomatic anemia. Otherwise, the patient also had abnormal CT scan findings. I would recommend a neurology consultation. MRI has been ordered. Prognosis guarded because of multiple complex medical issues. Further recommendations to follow. Discussed with the family. A copy of this dictation is being forwarded to Dr. Vega, who is the primary physician.
[2017-01-12 19:41] LABS: Anisocytosis Slight; CH 29.2; CHCM 33.4; HCT 21.2 % (34.0-46.0); HDW 3.88; HGB 7.2 gm/dL (11.4-16.0); Hypochromasia Slight; MCH 30.4 pg (25.0-35.0); MCHC 34.2 g/dL (31.0-37.0); MCV 88.7 fL (80.0-100.0); Mean Platelet Volume 8.6; Poikilocytosis Slight; RBC 2.38 m/uL (3.80-5.40); RDW 18.8 % (11.5-15.5); WBC 10.9 k/uL (3.8-10.6)
[2017-01-12 20:45] LABS: Amorphous Sediment,Urine Rare /hpf; Appearance,Urine Clear (Clear); Bilirubin,Urine Negative (Negative); Glucose,Urine (UA) Negative (Negative); Ketones,Urine Negative (Negative); Leukocyte Esterase,Urine Moderate (Negative); Mucus,Urine Rare /hpf; Nitrite,Urine Negative (Negative); PH, Urine 5.5 (5.0-8.0); Particle Count 2517; Protein,Urine Negative (Negative); RBC,Urine <1 /hpf (0-5); Specific Gravity,Urine 1.012 (1.001-1.035); Squamous Epithelial Cell,Urine 3 /hpf (0-4); UA Billing (MACRO vs. MICRO) MICRO; Urobilinogen,Urine <2.0 mg/dL (<2.0); WBC,Urine 11 /hpf (0-5)
[2017-01-12] MEDS ORDERED: LISINOPRIL 10 MG TAB PO SCH (21:00)
[2017-01-13] MEDS: SODIUM CHLORIDE 0.9% 1,000 ML IV SCH ×2 (05:53→22:48)
[2017-01-13] MEDS: LEVOTHYROXINE 50 MCG TAB PO SCH (06:48)
[2017-01-13] MEDS: PANTOPRAZOLE 40 MG TABLET PO SCH (06:48)
[2017-01-13 06:50] LABS: INR 1.6 (<1.1)
[2017-01-13 06:54] LABS: Anisocytosis Slight; Aty Lym Flag Slight; CH 28.7; CHCM 31.9; HCT 25.3 % (34.0-46.0); HDW 4.22; HGB 8.3 gm/dL (11.4-16.0); Hypochromasia Moderate; MCH 29.7 pg (25.0-35.0); MCHC 32.7 g/dL (31.0-37.0); MCV 91.1 fL (80.0-100.0); Poikilocytosis Moderate; RBC 2.78 m/uL (3.80-5.40); RDW 18.2 % (11.5-15.5); WBC (Perox) 6.88
[2017-01-13 06:58] LABS: Anion Gap 7 mmol/L; Blood Urea Nitrogen 20 mg/dL (7-17); Carbon Dioxide 22 mmol/L (22-30); Chloride 108 mmol/L (98-107); Glucose 84 mg/dL (74-99); Non-African American GFR(MDRD) 57 (>60 ml/min/1.73 sqM); Potassium 4.3 mmol/L (3.5-5.1); Sodium 137 mmol/L (137-145)
[2017-01-13 07:40] LABS: Add Differential Manual Differential
[2017-01-13 07:42] LABS: Nucleated Red Blood Cells 0 /100 WBC (0-0); Total Cells Counted 100
[2017-01-13 07:43] LABS: Manual Review Performed
[2017-01-13] MEDS: METOPROLOL TARTRATE 12.5 MG TAB PO SCH (08:44)
[2017-01-13] MEDS: LORATADINE 10 MG TAB PO SCH (08:44)
[2017-01-13] MEDS: ASPIRIN 81 MG CHEW PO SCH (08:44)
[2017-01-13] MEDS: CLOPIDOGREL 75 MG TAB PO SCH (08:44)
[2017-01-13] MEDS: CALCIUM CARB-VIT D 500MG-200UN 1 EACH TAB PO SCH (08:45)
[2017-01-13] MEDS: ATORVASTATIN 40 MG TAB PO SCH (08:45)
--- NOTE | 2017-01-13 09:36 | CONS ---
DATE OF CONSULTATION: 01/12/2017 CHIEF COMPLAINT: Dizziness and intracranial mass. HISTORY OF PRESENT ILLNESS: Ms. Meade is a pleasant, 86-year-old female who is being evaluated today on 01/12/2017 by the neurology service per the request of Dr. Dolan for the above-mentioned complaints. The patient was brought into [facility] emergency room yesterday with complaints of left lower extremity pain, mainly in the groin region. The patient is status post catheterization from the left groin, which was done approximately one week ago. She did develop a hematoma. She did not have any numbness or weakness. She was complaining of significant dizziness and a CT scan of the brain was done, which showed a homogenous large mass involving the left occipital region, consistent with a meningioma. An MRI of the brain was done and the report is still pending. I did review the images which did show evidence of a meningioma in the left occipital region. The patient does report an occasional headache, but denies it being severe, rating it at 3/10 in intensity when present. The patient does have history of atrial fibrillation and is on Coumadin at home. Her INR is slightly subtherapeutic at 1.9. Her CBC showed significant anemia with a hemoglobin of 7.5 and hematocrit of 24%. Her comprehensive metabolic profile showed mild renal insufficiency with a BUN of 25 and creatinine of 1.2. At the time of my evaluation, and she is still complaining of occasional dizziness which he describes mainly as a lightheaded sensation. She occasionally has some vertigo sensation. She denies any visual changes. The patient was supposed to receive a blood transfusion today but this has been held until a repeat CBC is done. PAST MEDICAL HISTORY: Hypothyroidism, atrial fibrillation, gastroesophageal reflux disease, dyslipidemia, hypertension, arthritis, anxiety disorder, history of cardiac ablation, heart catheterization, hernia repair, hysterectomy, joint replacement surgery, cataract surgery. SOCIAL HISTORY: She denies any tobacco, alcohol or drug use. FAMILY HISTORY: Positive for cancer and heart disease. HOME MEDICATIONS: Reviewed in the chart. ALLERGIES: CODEINE. REVIEW OF SYSTEMS: CONSTITUTIONAL: Positive for fatigue. EYES: Negative. ENT: As mentioned above. CARDIOVASCULAR: As mentioned above. RESPIRATORY: Negative. NEUROLOGICAL: As mentioned above. She denies any lateralizing numbness or weakness. GASTROINTESTINAL: Positive for occasional heartburn. GENITOURINARY: Negative. MUSCULOSKELETAL: Positive for occasional joint pain and as mentioned above. DERMATOLOGICAL: Negative. ENDOCRINE: Positive for hypothyroidism. PSYCHIATRIC: Positive for history of anxiety disorder. PHYSICAL EXAM: Vital signs show a temperature of 97.4, pulse 94, respirations 16, blood pressure 131/44. GENERAL APPEARANCE: The patient is a well-developed, elderly female who appears to be in no acute distress. HEENT: Asymmetry is seen. NECK: Supple with no masses felt. CARDIOVASCULAR: Regular rate and rhythm. ABDOMEN: Nontender, nondistended. EXTREMITIES: No edema or clubbing. NEUROLOGICAL EXAM: The patient is awake, and oriented x3. Speech and language are normal. No lateralizing weakness is seen. Sensory exam was normal to light touch in all 4 extremities. No facial asymmetry is noticed on cranial nerve testing and no visual field defects is present. Mild postural tremors are seen. IMPRESSION: 1. Dizziness. 2. Mild recurrent headache. 3. Left occipital region meningioma. 4. Anemia. 5. Paroxysmal atrial fibrillation. 6. Hematoma, status post catheterization. RECOMMENDATIONS: I did review the patient's CT scan of the brain and MRI of the brain with and without contrast. The studies are consistent with a meningioma, which has likely been present for several years given the size. I do not believe this finding is the cause of the patient's dizziness, as her severe anemia needs to be addressed to see if her symptoms resolve. She was scheduled for a blood transfusion, but this has been held at this time until a repeat CBC could be done. I do recommend a transfusion and further work-up for her anemia. An EEG has been ordered. Continue IV hydration as tolerated. Of note, her diastolic blood pressure has also been running low at 9 and this could be contributing to her symptoms. I will continue to follow with you. Further recommendations to follow. Thank you for allowing me to participate in the care of your patient. If you have any questions, please feel free to contact me.
--- NOTE | 2017-01-13 09:48 | CONS ---
DATE OF CONSULTATION: Kiesha Meade is an 86-year-old lady with a history of CAD, previous PCI performed by me, probably 6 weeks ago and very recently had a flutter ablation performed by Dr. Adrian on the fourth of this month. I performed a PTCA and stenting of LAD on 12/03/2016. This lady underwent a flutter ablation by Dr. Adrian on January 05. She went home and has been doing fairly well, has been anticoagulated with 1 mg of Coumadin. However, she came into the emergency room yesterday morning with complaints of feeling weak, tired, exhausted and some pain in the right groin area. Pain got worse, she felt dizzy, lightheaded, generalized weakness and came into the hospital. After arrival, a hematoma was evident. Hemoglobin was in the 7.6 range. Ultrasound revealed that this was a hematoma but not pseudoaneurysm. Patient is resting comfortably at the time of my evaluation. PAST MEDICAL HISTORY: 1. CAD, status post LAD stenting in early December. 2. Atrial flutter, status post radiofrequency ablation on January 05. 3. Hypothyroidism. 4. Hypertension. Medications at home include Plavix 75 mg daily, aspirin 81 mg daily, Coumadin 1 mg daily, verapamil 180 mg daily, lisinopril 20 mg daily, atorvastatin 40 mg daily, Protonix 40 mg daily. ALLERGIES: CODEINE. On examination, blood pressure was 130/70, pulse rate is 80 per minute, regular. HEENT: Unremarkable. Fundus was not examined by me. Neck is supple. There is JVD of 1 cm, no carotid bruit. Heart exam reveals S1 and S2 heard normally. Short systolic murmur at the base is audible, second heart sound is preserved. Lungs are clear. Abdomen is soft, nontender. Lower extremities reveal diminished pulses. The right groin has a moderate-sized hematoma. No bruit is audible. Pulse is still palpable. Central nervous system is grossly within normal limits. EKG revealed sinus mechanism, nonspecific ST abnormality. Laboratory data revealed a hemoglobin of 7.5. INR was 1.9. Troponin was 0.38. IMPRESSION: 1. Right groin hematoma probably secondary to Coumadin and Plavix and aspirin. 2. Hypertension. 3. Status post left anterior descending artery PCI with coronary artery disease. 4. History of status post flutter ablation recently. RECOMMENDATIONS: I am recommending that we discontinue Coumadin even though she had a recent flutter ablation. Will continue her on aspirin and Plavix. I will consider blood transfusion if the hemoglobin goes less than 7. I discussed my thoughts in detail with the patient. Thank you very much for the consult.
[2017-01-13] MEDS: MULTIVITAMINS, THERA 1 EACH TAB PO SCH (11:53)
--- NOTE | 2017-01-13 15:55 | P.PN ---
Subjective Principal diagnosis: patient is a pleasant 86-year-old female who is being followed by the neurology service for dizziness and intracranial mass. Patient recently had cardiac catheterization done from the left groin and developed a hematoma. Patient had increasing left lower extremity pain and was brought to [facility] emergency room. Patient had critically low hemoglobin of7.5. Patient did receive blood transfusion last night and hemoglobin is up to 8.3 today. Staff reports patient was up and around and doing well. His you recall , MRI of the brain was done which shows a large meningioma in the posterior parietal lobe on the left. It is doubtful this is the cause of her dizziness.at the time of my evaluation, patient is resting comfortably in bed and appears to be in no acute distress. Objective - Vital Signs Vital signs: Vital Signs Temp 96.8 F L 01/13/17 11:17 Pulse 77 01/13/17 11:19 Resp 16 01/13/17 11:19 BP 106/54 01/13/17 11:17 Pulse Ox 100 01/13/17 11:17 Intake & Output 01/12/17 01/13/17 01/13/17 18:59 06:59 18:59 Intake Total 1140 1580 480 Output Total 200 1150 200 Balance 940 430 280 Weight 73 kg Intake: IV 960 Sodium Chloride 0.9% 1, 960 000 ml @ 60 mls/hr IV . [id number] [facility] Rx#:[id number] Oral 1140 480 Blood Product 620 Rc As-1 Unit 310 [id number] Output: Urine 200 1150 200 Other: Voiding Method Toilet Toilet # Voids 1 - Exam PHYSICAL EXAM: GENERAL APPEARANCE: Patient is a well-developed, female who appears to be in no acute distress. HEENT: Normocephalic, atraumatic, no facial asymmetry is seen. Neck is supple with no masses felt. CARDIOVASCULAR: Regular rate and rhythm. ABDOMEN: Nontender, nondistended. EXTREMITIES: Show no edema or clubbing. NEUROLOGICAL EXAM:patient is awake, alert, and oriented 3. Speech and language are normal. No lateralizing weakness is seen. Sensory exam is normal to light touch in all 4 extremities. No facial asymmetry is seen on cranial nerve testing. No tremors or seizure-like activity is noted. - Labs CBC & Chem 7: 01/13/17 06:18 01/13/17 06:18 Labs: Abnormal Lab Results - Last 24 Hours (Table) 01/12/17 01/12/17 01/12/17 Range/Units 15:13 19:06 20:23 WBC 10.9 H (3.8-10.6) k/uL RBC 2.38 L (3.80-5.40) m/uL Hgb 7.2 L (11.4-16.0) gm/dL Hct 21.2 L (34.0-46.0) % RDW 18.8 H (11.5-15.5) % PT (9.0-12.0) sec Chloride (98-107) mmol/L BUN (7-17) mg/dL Calcium (8.4-10.2) mg/dL Ur Leukocyte Esterase Moderate H (Negative) Urine WBC 11 H (0-5) /hpf Amorphous Sediment Rare H (None) /hpf Urine Mucus Rare H (None) /hpf Crossmatch See Detail 01/13/17 01/13/17 01/13/17 Range/Units 06:18 06:18 06:18 WBC (3.8-10.6) k/uL RBC 2.78 L (3.80-5.40) m/uL Hgb 8.3 L (11.4-16.0) gm/dL Hct 25.3 L (34.0-46.0) % RDW 18.2 H (11.5-15.5) % PT 16.0 H (9.0-12.0) sec Chloride 108 H (98-107) mmol/L BUN 20 H (7-17) mg/dL Calcium 8.0 L (8.4-10.2) mg/dL Ur Leukocyte Esterase (Negative) Urine WBC (0-5) /hpf Amorphous Sediment (None) /hpf Urine Mucus (None) /hpf Crossmatch Assessment and Plan Plan: impression: 1. Dizziness 2. Headache 3. Left occipital region meningioma 4. Anemia 5. Paroxysmal atrial fibrillation on Coumadin 6. Groin hematoma, status post catheterization Recommendations: The CT of the brain and the MRI of the brain are consistent with a meningioma. This is most likely not an acute finding. I do not believe this finding is the cause of patient's dizziness, as her severe anemia has most likely contributed. Patient did receive blood transfusion last evening and hemoglobin is up to 8.3. Patient states her dizziness is slowly resolving. I believe her dizziness will continue to improve as does her hemoglobin. EEG has been ordered but has not been performed yet. Continue current medical management.I will continue to follow with you on an as-needed basis. Feel free to call with any questions or concerns. I performed an examination of the patient and discussed the management with the ERECTOR OPERATOR. I have reviewed the ERECTOR OPERATOR notes and agree with the findings and plan of care.
--- NOTE | 2017-01-13 16:15 | PN ---
DATE OF SERVICE: 01/13/2017 Patient is an 86-year-old admitted secondary to generalized weakness, found to be anemic, because of hematoma in the right groin, patient received 1 unit of blood transfusion and patient is feeling better today. Patient was actually hypotensive with positive orthostatic vitals and I will discontinue Lisinopril because of that reason. The patient blood pressure is low normal side today and patient diastolics are very low, which will put her at high risk for falls considering her age. I do not see a reason for Lisinopril, which will be held and patient has a recent cardiac catheterization, stent to RCA. REVIEW OF SYSTEMS: CARDIOVASCULAR: No chest pain, no orthopnea, no PND, no palpitations. PULMONARY: Denied any shortness of breath. No cough or hemoptysis. GASTROINTESTINAL: No diarrhea, nausea or vomiting. No abdominal pain. Normoactive bowel sounds. NEUROLOGIC: No headaches, no weakness, no numbness. Her medications were reviewed. PHYSICAL EXAMINATION: VITAL SIGNS: Temperature 96.8, pulse of 77, respiratory rate of 16, blood pressure is 106/54, saturating at 100% on room air. GENERAL: The patient is alert and oriented x3, not in any acute distress. Well developed, well nourished. HEENT: Pupils are round and equally reacting to light. EOMI. No scleral icterus. No conjunctival pallor. Normocephalic, atraumatic. No pharyngeal erythema. No thyromegaly. CARDIOVASCULAR: S1 and S2 present. No murmurs, rubs, or gallops. PULMONARY: Chest is clear to auscultation, no wheezing or crackles. ABDOMEN: Soft, nontender, nondistended, normoactive bowel sounds. No palpable organomegaly. MUSCULOSKELETAL: No joint swelling or deformity. EXTREMITIES: No cyanosis, clubbing, or pedal edema. NEUROLOGICAL: Gross neurological examination did not reveal any focal deficits. SKIN: No rashes. LABORATORY DATA: Hemoglobin is 8.3. Gone up from 7.5 and chloride is 108. ASSESSMENT AND PLAN: 1. Right groin hematoma, which is stabilized which appears to be stabilized today. 2. Anemia, acute blood loss anemia from groin hematoma. Patient may have a component of chronic anemia, which is normocytic, which will need further evaluation as an outpatient. 3. Acute renal failure secondary to prerenal azotemia, which improved with blood transfusion. 4. Hypertension. 5. Hyperlipidemia. 6. Hypothyroidism. 7. Regarding hypertension I will hold off on Lisinopril because of the above mentioned reasons. 8. Left occipital meningioma, which is being which is being followed as an outpatient. Patient has a repeat MRI. No further intervention at this point of time, which needs to be followed up in the neurosurgery clinic as an outpatient.
[2017-01-13] MEDS ORDERED: ACETAMINOPHEN TAB 325 MG TAB PO PRN (17:14)
--- NOTE | 2017-01-13 17:24 | P.PN ---
Progress Note - Text 86 rolled white female, patient post ablation she developed a hematoma in the left groin hemoglobin stable and haven't hematoma is not increasing in size and is no vascular compromise there is some ecchymosis noted in the left groin patient is stable from a vascular point of view
[2017-01-13] MEDS: ALPRAZolam 0.25 MG TAB PO PRN (22:53)
[2017-01-14 00:56] VITALS: RESP 20
[2017-01-14] MEDS: LEVOTHYROXINE 50 MCG TAB PO SCH (06:28)
[2017-01-14] MEDS: MULTIVITAMINS, THERA 1 EACH TAB PO SCH (08:45)
[2017-01-14] MEDS: PANTOPRAZOLE 40 MG TABLET PO SCH (08:45)
[2017-01-14] MEDS: ASPIRIN 81 MG CHEW PO SCH (08:45)
[2017-01-14] MEDS: ATORVASTATIN 40 MG TAB PO SCH (08:45)
[2017-01-14] MEDS: CALCIUM CARB-VIT D 500MG-200UN 1 EACH TAB PO SCH (08:45)
[2017-01-14] MEDS: METOPROLOL TARTRATE 12.5 MG TAB PO SCH (08:45)
[2017-01-14] MEDS: CLOPIDOGREL 75 MG TAB PO SCH (08:45)
[2017-01-14] MEDS: LORATADINE 10 MG TAB PO SCH (08:46)
[2017-01-14 08:48] LABS: Anisocytosis Slight; Basophils % (A) 0 %; CH 29.1; CHCM 33.4; Eosinophils # (A) 0.5 k/uL (0-0.7); Eosinophils % (A) 5 %; HCT 28.4 % (34.0-46.0); HDW 4.21; HGB 9.7 gm/dL (11.4-16.0); Hypochromasia Slight; Luc # (Auto) 0.43; Luc % (Auto) 4; Lymphocytes # (A) 1.5 k/uL (1.0-4.8); Lymphocytes % (A) 15 %; MCH 30.2 pg (25.0-35.0); MCHC 34.2 g/dL (31.0-37.0); MCV 88.3 fL (80.0-100.0); Mean Platelet Volume 8.7; Monocytes # (A) 1.1 k/uL (0-1.0); Monocytes % (A) 11 %; Neutrophils # (A) 6.4 k/uL (1.3-7.7); Neutrophils % (A) 65 %; Poikilocytosis Moderate; RBC 3.21 m/uL (3.80-5.40); RDW 18.3 % (11.5-15.5); WBC 9.8 k/uL (3.8-10.6); WBC (Perox) 9.35
[2017-01-14 08:52] LABS: INR 1.3 (<1.1); Prothrombin Time 13.2 sec (9.0-12.0)
[2017-01-14 09:08] LABS: Anion Gap 9 mmol/L; Blood Urea Nitrogen 16 mg/dL (7-17); Calcium 8.5 mg/dL (8.4-10.2); Carbon Dioxide 22 mmol/L (22-30); Chloride 108 mmol/L (98-107); Glucose 89 mg/dL (74-99); Non-African American GFR(MDRD) 59 (>60 ml/min/1.73 sqM); Sodium 139 mmol/L (137-145)
[2017-01-14] MEDS: SODIUM CHLORIDE 0.9% 1,000 ML IV SCH ×2 (11:24→13:08)
[2017-01-14] MEDS ORDERED: SODIUM CHLORIDE 0.9% 500 ML IV ONE (12:52)
--- NOTE | 2017-01-14 14:48 | DS ---
DATE OF ADMISSION: 01/11/2017 DATE OF DISCHARGE: 01/11/2017 An 86-year-old, came in with generalized weakness, found to be anemic and found to have hematoma in the right groin area. Patient received 1 unit of blood transfusion yesterday and patient's hemoglobin is 9.7 today. Patient is clinically doing well. Patient has positive orthostatic vitals. It is probably related to patient did receive lisinopril yesterday, which was discontinued yesterday, did not lisinopril today. I am expecting her orthostatic vitals to be improved by tomorrow. Will give her ( ) bolus before she is discharged, and patient will be discharged to subacute rehabilitation today. Patient has a recent cardiac catheterization and stent to RCA. Verapamil was discontinued and patient is being discharged on metoprolol only. Patient is otherwise clinically doing well. Patient was seen and examined on the day of discharge. Vitals are stable. PHYSICAL EXAMINATION: GENERAL: The patient is alert and oriented x3, not in any acute distress. Well developed, well nourished. HEENT: Pupils are round and equally reacting to light. EOMI. No scleral icterus. No conjunctival pallor. Normocephalic, atraumatic. No pharyngeal erythema. No thyromegaly. CARDIOVASCULAR: S1 and S2 present. No murmurs, rubs, or gallops. PULMONARY: Chest is clear to auscultation, no wheezing or crackles. ABDOMEN: Soft, nontender, nondistended, normoactive bowel sounds. No palpable organomegaly. MUSCULOSKELETAL: No joint swelling or deformity. EXTREMITIES: No cyanosis, clubbing, or pedal edema. NEUROLOGICAL: Gross neurological examination did not reveal any focal deficits. SKIN: No rashes. FINAL DIAGNOSES: 1. Right groin hematoma leading to acute blood loss anemia. 2. Acute renal failure, secondary to prerenal azotemia, which improved with blood transfusion. 3. Hypertension. 4. Hyperlipidemia. 5. Hypothyroidism. 6. Left occipital meningioma, because of meningioma, patient is predisposed to seizures and this meningioma is stable and need to follow with Neurology as an outpatient. Because of this meningioma, tramadol probably is not an appropriate medication. We should consider either NSAIDs like ibuprofen, Celebrex or acetaminophen for pain management on as-needed basis in the subacute rehab. Patient will be discharged today. DISCHARGE DIET: Cardiac. Activity as tolerated. Follow up with follow up with Dr. Story in the rehab. Patient is being discharged to subacute rehabilitation because of generalized deconditioning. Spent greater than 35 minutes in total discharge process. Patient's Coumadin is being held at this point of time.
[2017-01-14 14:52] VITALS: BP 129/76; PULSE 90; TEMP 96.8
--- NOTE | 2017-01-19 08:23 | EEG ---
DATE OF SERVICE: 01/14/2017 REASON FOR TESTING: Dizziness. AGE: 86Y DESCRIPTION OF THE PROCEDURE: This EEG was performed using a 21-channel digital electroencephalograph, following the international 10 to 20 system. DESCRIPTION OF THE RECORDING: From the beginning of the tracing, and with the patient's eyes closed, the background rhythm was mostly consisting of 8 Hz alpha frequency in the posterior occipital leads. No obvious asymmetry is seen. Photic stimulation was performed with a minimal driving response seen. No pathological waves were elicited. Hyperventilation was not performed. Occasional muscle and movement artifacts are seen. The patient remains awake throughout the tracing. No epileptiform discharges were seen. Her EKG lead showed a regular rate and rhythm. INTERPRETATION: This awake EEG can be considered within normal limits. There was no asymmetry seen. No epileptiform discharges were noticed. The absence of epileptiform discharges does not rule out the diagnosis of epilepsy, therefore, clinical correlation is recommended.
== END 2017-01-14 16:50 | DRG 920 ==
LOC: EC 09:44 → 6SEL 17:38 → 4MS4W 01-13 16:23
PROVIDERS: ADMIT Hospitalist; ATTEND Hospitalist
PROC: 30233N1 Transfusion of Nonautologous Red Blood Cells into Peripheral Vein, Percutaneous Approach (ICD-10-PCS; principal; 2017-01-11)
DX: I97.630 Postprocedural hematoma of a circulatory system organ or structure following a cardiac catheterization (principal); D62 Acute posthemorrhagic anemia; N17.9 Acute kidney failure, unspecified; I48.0 Paroxysmal atrial fibrillation; J44.9 Chronic obstructive pulmonary disease, unspecified; I12.9 Hypertensive chronic kidney disease with stage 1 through stage 4 chronic kidney disease, or unspecified chronic kidney disease; D32.9 Benign neoplasm of meninges, unspecified; Y84.0 Cardiac catheterization as the cause of abnormal reaction of the patient, or of later complication, without mention of misadventure at the time of the procedure; E03.9 Hypothyroidism, unspecified; E78.5 Hyperlipidemia, unspecified; I25.10 Atherosclerotic heart disease of native coronary artery without angina pectoris; I95.1 Orthostatic hypotension; K21.9 Gastro-esophageal reflux disease without esophagitis; N18.3 Chronic kidney disease, stage 3 (moderate); T45.515A Adverse effect of anticoagulants, initial encounter; Z79.01 Long term (current) use of anticoagulants; Z79.02 Long term (current) use of antithrombotics/antiplatelets; Z79.82 Long term (current) use of aspirin; Z79.899 Other long term (current) drug therapy; Z82.49 Family history of ischemic heart disease and other diseases of the circulatory system; Z95.5 Presence of coronary angioplasty implant and graft
CPT/HCPCS: 36415; 70450; 70553; 71020; 80048; 80053; 81001; 82550; 82553; 83735; 84484; 85025; 85027; 85610; 85730; 86850; 86900; 86901; 86920; 93005; 93975; 95816; 96361; 96374; 96375; 96376; 99285

== ENCOUNTER → 2017-01-27 | Outpatient (CLI) | payer MEDICARE, BC ==
[2017-01-27 11:24] LABS: Anisocytosis Slight; CH 29.3; CHCM 31.1; HCT 33.3 % (34.0-46.0); HDW 3.58; HGB 10.4 gm/dL (11.4-16.0); Hypochromasia Marked; MCH 29.8 pg (25.0-35.0); MCHC 31.2 g/dL (31.0-37.0); MCV 95.4 fL (80.0-100.0); Macrocytosis Slight; Poikilocytosis Slight; RBC 3.49 m/uL (3.80-5.40); RDW 18.4 % (11.5-15.5); WBC 6.8 k/uL (3.8-10.6)
[2017-01-27 11:39] LABS: Anion Gap 13 mmol/L; Blood Urea Nitrogen 17 mg/dL (7-17); Calcium 9.5 mg/dL (8.4-10.2); Carbon Dioxide 23 mmol/L (22-30); Chloride 104 mmol/L (98-107); Glucose 103 mg/dL (74-99); Non-African American GFR(MDRD) 54 (>60 ml/min/1.73 sqM); Potassium 4.2 mmol/L (3.5-5.1); Sodium 140 mmol/L (137-145)
== END | disposition home or self-care (01) ==
LOC: LABWHC1 10:29
PROVIDERS: ATTEND Internal Medicine Interventional Cardiology
DX: I25.10 Atherosclerotic heart disease of native coronary artery without angina pectoris (principal); D64.9 Anemia, unspecified
CPT/HCPCS: 36415; 80048; 85027

== ENCOUNTER 2017-07-07 05:01 | Emergency (ER) | payer MEDICARE, BC ==
--- NOTE | 2017-07-07 05:21 | ED ---
General Adult HPI - General Chief complaint: Abdominal Pain Stated complaint: ABD Pain Time Seen by Provider: 07/07/17 05:06 Source: patient, EMS, RN notes reviewed, old records reviewed Mode of arrival: EMS Limitations: no limitations - History of Present Illness Initial comments: 87-year-old female presents for evaluation of abdominal pain. Patient states she is 4 months to years. She has been seen by several doctors in has not been told exactly cause of her pain is. Patient denies any nausea or vomiting over the past 24 hours. She states she have an episode of vomiting approximately one week ago. Patient denies any change to her bowel movements, stating her last one was yesterday and was normal. Patient has had surgery past for hernia repair. Denies fever or chills. Denies chest pain. She does have some shortness of breath which is chronic resolved. According to the patient's daughter who is at bedside she is also had some generalized weakness. This has also been ongoing for several months. She has been evaluated in the emergency department with this complaint previously. Patient is scheduled for EEG this morning at 8:30. This is for outpatient workup of meningioma. - Related Data Home Medications Medication Instructions Recorded Confirmed Levothyroxine Sodium [Synthroid] 50 mcg PO DAILY 05/01/14 01/11/17 Calcium Carbonate/Vitamin D3 1 tab PO DAILY 01/03/16 01/11/17 [Calcium 600-Vit D3 400 Tablet] Multivitamins, Thera [Multivitamin 1 tab PO DAILY 01/03/16 01/11/17 (formulary)] Pantoprazole [Protonix] 40 mg PO DAILY 01/03/16 01/11/17 Atorvastatin [Lipitor] 40 mg PO DAILY 12/25/16 01/11/17 Cetirizine HCl [Zyrtec] 10 mg PO DAILY 12/25/16 01/11/17 Previous Rx's Medication Instructions Recorded Aspirin 81 mg PO DAILY #90 chew 12/03/16 Clopidogrel [Plavix] 75 mg PO DAILY #90 tab 12/03/16 Nitroglycerin Sl Tabs [Nitrostat] 0.4 mg SUBLINGUAL Q5M PRN #25 tab 12/03/16 Metoprolol Tartrate [Lopressor] 12.5 mg PO DAILY tab 01/14/17 Allergies Allergy/AdvReac Type Severity Reaction Status Date / Time codeine AdvReac Nausea & Verified 07/07/17 05:20 Vomiting Review of Systems ROS Statement: Those systems with pertinent positive or pertinent negative responses have been documented in the HPI. ROS Other: All systems not noted in ROS Statement are negative. Past Medical History Past Medical History: Atrial Flutter, GERD/Reflux, Hyperlipidemia, Hypertension , Osteoarthritis (OA), Thyroid Disorder Additional Past Medical History / Comment(s): . History of Any Multi-Drug Resistant Organisms: None Reported Past Surgical History: Ablation, Heart Catheterization With Stent, Hernia Repair , Hysterectomy, Joint Replacement, Orthopedic Surgery Additional Past Surgical History / Comment(s): Surgery on two toes to treat hammer toe, right total knee, ONE STENT, cataracts Past Anesthesia/Blood Transfusion Reactions: No Reported Reaction Date of Last Stent Placement:: 2016 Past Psychological History: Anxiety Smoking Status: Never smoker Past Alcohol Use History: None Reported Past Drug Use History: None Reported - Past Family History Mother Family Medical History: Cancer Brother(s) Family Medical History: Cancer Father Family Medical History: Congestive Heart Failure (CHF) General Exam Limitations: no limitations General appearance: alert, in no apparent distress Head exam: Present: atraumatic, normocephalic Eye exam: Present: normal appearance, PERRL ENT exam: Present: normal exam Neck exam: Present: normal inspection. Absent: tenderness, meningismus Respiratory exam: Present: normal lung sounds bilaterally. Absent: respiratory distress Cardiovascular Exam: Present: regular rate, normal rhythm GI/Abdominal exam: Present: soft. Absent: distended, tenderness, guarding, rebound Extremities exam: Present: normal inspection, normal capillary refill. Absent: pedal edema Neurological exam: Present: alert, oriented X3, CN II-XII intact. Absent: motor sensory deficit Psychiatric exam: Present: normal affect, normal mood Skin exam: Present: warm, dry, intact. Absent: cyanosis, diaphoretic Course Vital Signs 07/07/17 05:03 Temperature 97.8 F Pulse Rate 69 Respiratory 16 Rate Blood Pressure 183/83 O2 Sat by Pulse 96 Oximetry EKG Findings - EKG Comments: EKG Findings:: EKG shows normal sinus rhythm, ventricular rate 67, MI 144, QRS duration 82, QTC 407, no ST segment elevation or depression Medical Decision Making - Medical Decision Making X-ray shows mild to moderate retained stool. No signs of obstruction, no free air. Laboratory studies are obtained, white blood cell, stable hemoglobin. There is creatinine at 1.2, this is at the patient's baseline. Electrolytes are within normal limits. Urinalysis shows no signs of infection. Patient has a appointment for EEG at her neurologist office. She will maintain this appointment at 8:30 this morning. She will be discharged with her daughter. She'll also follow up with her primary care physician regarding her abdominal pain. - Lab Data Result diagrams: 07/07/17 06:10 07/07/17 05:29 Lab Results 07/07/17 07/07/17 07/07/17 Range/Units 05:29 05:29 05:29 WBC (3.8-10.6) k/uL RBC (3.80-5.40) m/uL Hgb (11.4-16.0) gm/dL Hct (34.0-46.0) % MCV (80.0-100.0) fL MCH (25.0-35.0) pg MCHC (31.0-37.0) g/dL RDW (11.5-15.5) % Plt Count (150-450) k/uL Neutrophils % % Lymphocytes % % Monocytes % % Eosinophils % % Basophils % % Neutrophils # (1.3-7.7) k/uL Lymphocytes # (1.0-4.8) k/uL Monocytes # (0-1.0) k/uL Eosinophils # (0-0.7) k/uL Basophils # (0-0.2) k/uL Anisocytosis PT 10.3 (9.0-12.0) sec INR 1.0 (<1.2) APTT 24.5 (22.0-30.0) sec Sodium 135 L (137-145) mmol/L Potassium 4.4 (3.5-5.1) mmol/L Chloride 99 (98-107) mmol/L Carbon Dioxide 23 (22-30) mmol/L Anion Gap 13 mmol/L BUN 19 H (7-17) mg/dL Creatinine 1.20 H (0.52-1.04) mg/dL Est GFR (MDRD) Af Amer 52 (>60 ml/min/1.73 sqM) Est GFR (MDRD) Non-Af 43 (>60 ml/min/1.73 sqM) Glucose 106 H (74-99) mg/dL Plasma Lactic Acid Sesar (0.7-2.0) mmol/L Calcium 9.4 (8.4-10.2) mg/dL Magnesium 2.0 (1.6-2.3) mg/dL Total Bilirubin 0.6 (0.2-1.3) mg/dL AST 28 (14-36) U/L ALT 37 (9-52) U/L Alkaline Phosphatase 102 (38-126) U/L Troponin I 0.016 (0.000-0.034) ng/mL Total Protein 7.3 (6.3-8.2) g/dL Albumin 4.1 (3.5-5.0) g/dL Amylase 82 (30-110) U/L Lipase 211 (23-300) U/L Urine Color Urine Appearance (Clear) Urine pH (5.0-8.0) Ur Specific [place] (1.001-1.035) Urine Protein (Negative) Urine Glucose (UA) (Negative) Urine Ketones (Negative) Urine Blood (Negative) Urine Nitrite (Negative) Urine Bilirubin (Negative) Urine Urobilinogen (<2.0) mg/dL Ur Leukocyte Esterase (Negative) 07/07/17 07/07/17 07/07/17 Range/Units 06:10 06:10 06:40 WBC 6.8 (3.8-10.6) k/uL RBC 4.15 (3.80-5.40) m/uL Hgb 12.4 (11.4-16.0) gm/dL Hct 37.2 (34.0-46.0) % MCV 89.7 (80.0-100.0) fL MCH 29.9 (25.0-35.0) pg MCHC 33.3 (31.0-37.0) g/dL RDW 17.6 H (11.5-15.5) % Plt Count 213 (150-450) k/uL Neutrophils % 72 % Lymphocytes % 14 % Monocytes % 10 % Eosinophils % 2 % Basophils % 0 % Neutrophils # 4.9 (1.3-7.7) k/uL Lymphocytes # 0.9 L (1.0-4.8) k/uL Monocytes # 0.7 (0-1.0) k/uL Eosinophils # 0.2 (0-0.7) k/uL Basophils # 0.0 (0-0.2) k/uL Anisocytosis Slight PT (9.0-12.0) sec INR (<1.2) APTT (22.0-30.0) sec Sodium (137-145) mmol/L Potassium (3.5-5.1) mmol/L Chloride (98-107) mmol/L Carbon Dioxide (22-30) mmol/L Anion Gap mmol/L BUN (7-17) mg/dL Creatinine (0.52-1.04) mg/dL Est GFR (MDRD) Af Amer (>60 ml/min/1.73 sqM) Est GFR (MDRD) Non-Af (>60 ml/min/1.73 sqM) Glucose (74-99) mg/dL Plasma Lactic Acid Sesar 1.0 (0.7-2.0) mmol/L Calcium (8.4-10.2) mg/dL Magnesium (1.6-2.3) mg/dL Total Bilirubin (0.2-1.3) mg/dL AST (14-36) U/L ALT (9-52) U/L Alkaline Phosphatase (38-126) U/L Troponin I (0.000-0.034) ng/mL Total Protein (6.3-8.2) g/dL Albumin (3.5-5.0) g/dL Amylase (30-110) U/L Lipase (23-300) U/L Urine Color Light Yellow Urine Appearance Clear (Clear) Urine pH 6.5 (5.0-8.0) Ur Specific [place] 1.005 (1.001-1.035) Urine Protein Negative (Negative) Urine Glucose (UA) Negative (Negative) Urine Ketones Negative (Negative) Urine Blood Negative (Negative) Urine Nitrite Negative (Negative) Urine Bilirubin Negative (Negative) Urine Urobilinogen <2.0 (<2.0) mg/dL Ur Leukocyte Esterase Negative (Negative) Disposition Clinical Impression: Abdominal pain Disposition: HOME SELF-CARE Condition: Good Instructions: Abdominal Pain (ED) Referrals: Demian Vega MD [Primary Care Provider] - 1-2 days Vladimir Sargent MD [STAFF PHYSICIAN] - 1-2 days Time of Disposition: 07:11
[2017-07-07 05:54] LABS: Partial Thromboplastin Time 24.5 sec (22.0-30.0); Prothrombin Time 10.3 sec (9.0-12.0)
[2017-07-07 05:57] LABS: Calcium 9.4 mg/dL (8.4-10.2); Potassium 4.4 mmol/L (3.5-5.1); Total Bilirubin 0.6 mg/dL (0.2-1.3); Total Protein 7.3 g/dL (6.3-8.2)
[2017-07-07 06:23] LABS: Anisocytosis Slight; Basophils % (A) 0 %; CH 31.1; Eosinophils # (A) 0.2 k/uL (0-0.7); Eosinophils % (A) 2 %; HCT 37.2 % (34.0-46.0); HDW 3.31; HGB 12.4 gm/dL (11.4-16.0); Luc # (Auto) 0.09; Luc % (Auto) 1; Lymphocytes # (A) 0.9 k/uL (1.0-4.8); Lymphocytes % (A) 14 %; MCH 29.9 pg (25.0-35.0); MCHC 33.3 g/dL (31.0-37.0); MCV 89.7 fL (80.0-100.0); Mean Platelet Volume 8.6; Monocytes # (A) 0.7 k/uL (0-1.0); Monocytes % (A) 10 %; Neutrophils # (A) 4.9 k/uL (1.3-7.7); Neutrophils % (A) 72 %; RBC 4.15 m/uL (3.80-5.40); RDW 17.6 % (11.5-15.5); WBC 6.8 k/uL (3.8-10.6); WBC (Perox) 7.23
--- NOTE | 2017-07-07 06:34 | XR ---
EXAM: XR Abdomen Complete, 1 View CLINICAL HISTORY: Reason: abdominal pain TECHNIQUE: Frontal supine views of the abdomen/pelvis. COMPARISON: Abdominal radiograph dated 11/08/16 FINDINGS: Intraperitoneal space: No free air. Gastrointestinal tract: Overall mild to moderate fecal loading. No dilation. Bones/joints: Degenerative changes of the lower lumbar spine. IMPRESSION: Overall mild to moderate fecal loading.
[2017-07-07 07:08] LABS: Appearance,Urine Clear (Clear); Bilirubin,Urine Negative (Negative); Glucose,Urine (UA) Negative (Negative); Ketones,Urine Negative (Negative); Leukocyte Esterase,Urine Negative (Negative); Nitrite,Urine Negative (Negative); PH, Urine 6.5 (5.0-8.0); Protein,Urine Negative (Negative); Specific Gravity,Urine 1.005 (1.001-1.035); UA Billing (MACRO vs. MICRO) CHEM; Urobilinogen,Urine <2.0 mg/dL (<2.0)
[2017-07-07 07:21] VITALS: PULSE 73; RESP 18
[2017-07-07 07:32] VITALS: BP 165/73; TEMP 98
== END 2017-07-07 07:32 | disposition home or self-care (01) ==
LOC: EC 05:01
DX: R10.9 Unspecified abdominal pain (principal); R53.1 Weakness; K21.9 Gastro-esophageal reflux disease without esophagitis; E78.5 Hyperlipidemia, unspecified; E07.9 Disorder of thyroid, unspecified; Z79.899 Other long term (current) drug therapy; Z88.5 Allergy status to narcotic agent
CPT/HCPCS: 36415; 74000; 80053; 81003; 82150; 83605; 83690; 83735; 84484; 85025; 85610; 85730; 86850; 86900; 86901; 87086; 93005; 99285

== ENCOUNTER → 2017-07-24 | Outpatient (CLI) | payer MEDICARE, BC | END | disposition home or self-care (01) | LOC: LABWHC1 08:58 | PROVIDERS: ATTEND Psychiatry & Neurology Pain Medicine | DX: D32.9 Benign neoplasm of meninges, unspecified (principal) | CPT/HCPCS: 36415; 82565; 84520 ==

== ENCOUNTER 2017-10-19 07:22 | Emergency (ER) | payer MEDICARE, BC ==
[2017-10-19 07:30] VITALS: RESP 16
--- NOTE | 2017-10-19 08:20 | ED ---
General Adult HPI - General Chief complaint: Fall Stated complaint: Fell Time Seen by Provider: 10/19/17 07:25 Source: patient, EMS, RN notes reviewed Mode of arrival: EMS Limitations: no limitations - History of Present Illness Initial comments: This is an 87-year-old female who presents emergency Department after she tripped over her walker last night at 9:30 and hit the right side of her head. Patient states she did not lose consciousness she was not dazed she does not complain of neck pain she has no numbness or weakness. Patient states today she was walking around and had a little pain in her right knee and felt a little unsteady so she decided come to the emergency department and be evaluated. Patient states there is a little bit of a bruise on the right side of her head. Patient states she has no headache today she has no chest pain palpitations difficulty breathing or shortness of breath. Patient denies abdominal pain. Patient denies any back pain. Patient denies any other extremity pain besides a little right knee pain. - Related Data Home Medications Medication Instructions Recorded Confirmed Levothyroxine Sodium [Synthroid] 50 mcg PO DAILY 05/01/14 10/19/17 Multivitamins, Thera [Multivitamin 1 tab PO DAILY 01/03/16 10/19/17 (formulary)] Pantoprazole [Protonix] 40 mg PO DAILY 01/03/16 10/19/17 Atorvastatin [Lipitor] 40 mg PO HS 12/25/16 10/19/17 ALPRAZolam [Xanax] 0.5 mg PO DAILY PRN 10/19/17 10/19/17 Meclizine [Antivert] 12.5 mg PO TID PRN 10/19/17 10/19/17 Metoprolol Tartrate [Lopressor] 25 mg PO BID 10/19/17 10/19/17 Ondansetron HCl [Zofran] 8 mg PO Q8H PRN 10/19/17 10/19/17 Ranitidine HCl [Zantac] 150 mg PO DAILY 10/19/17 10/19/17 traMADol HCL/ACETAMINOPHEN 1 tab PO Q4HR PRN 10/19/17 10/19/17 [Ultracet 37.5-325] Previous Rx's Medication Instructions Recorded Aspirin 81 mg PO DAILY #90 chew 12/03/16 Clopidogrel [Plavix] 75 mg PO DAILY #90 tab 12/03/16 Nitroglycerin Sl Tabs [Nitrostat] 0.4 mg SUBLINGUAL Q5M PRN #25 tab 12/03/16 Allergies Allergy/AdvReac Type Severity Reaction Status Date / Time codeine AdvReac Nausea & Verified 10/19/17 07:49 Vomiting Review of Systems ROS Statement: Those systems with pertinent positive or pertinent negative responses have been documented in the HPI. ROS Other: All systems not noted in ROS Statement are negative. Past Medical History Past Medical History: Atrial Flutter, GERD/Reflux, Hyperlipidemia, Hypertension , Osteoarthritis (OA), Thyroid Disorder Additional Past Medical History / Comment(s): Non-malignant mass on brain History of Any Multi-Drug Resistant Organisms: None Reported Past Surgical History: Ablation, Heart Catheterization With Stent, Hernia Repair , Hysterectomy, Joint Replacement, Orthopedic Surgery Additional Past Surgical History / Comment(s): Surgery on two toes to treat hammer toe, right total knee, ONE STENT, cataracts Past Anesthesia/Blood Transfusion Reactions: No Reported Reaction Date of Last Stent Placement:: 2016 Past Psychological History: Anxiety Smoking Status: Never smoker Past Alcohol Use History: None Reported Past Drug Use History: None Reported - Past Family History Mother Family Medical History: Cancer Brother(s) Family Medical History: Cancer Father Family Medical History: Congestive Heart Failure (CHF) General Exam - General Exam Comments Initial Comments: GENERAL Patient is well-developed and well-nourished. Patient is in mild distress. EYES Patient's pupils are equal and round. Extraocular motion is intact SKIN Unremarkable NEURO The patient is alert and oriented 3 PYSCH Patient has normal interpersonal interactions. MUSCULOSKELETAL Knee is tender in the inferior medial aspect of the right knee Limitations: no limitations Course Vital Signs 10/19/17 10/19/17 10/19/17 07:26 08:30 09:06 Temperature 97.6 F Pulse Rate 69 68 72 Respiratory 16 16 16 Rate Blood Pressure 199/83 198/85 195/81 O2 Sat by Pulse 100 96 100 Oximetry 10/19/17 09:54 Temperature 98.0 F Pulse Rate 72 Respiratory 16 Rate Blood Pressure 161/70 O2 Sat by Pulse 96 Oximetry Medical Decision Making - Medical Decision Making Brain and C-spine are negative. X-ray of the knee is negative. Patient was able to ambulate without problem. Disposition Clinical Impression: Head injury, Scalp contusion Disposition: HOME SELF-CARE Instructions: Fall Prevention for Older Adults (ED), Head Injury (ED) Referrals: Demian Vega MD [Primary Care Provider] - 1-2 days Time of Disposition: 10:23
[2017-10-19 09:06] VITALS: PULSE 72
[2017-10-19] MEDS ORDERED: LABETALOL 5 MG/ML VIAL MDV IVP STA (09:08)
--- NOTE | 2017-10-19 09:09 | CT ---
EXAMINATION TYPE: CT brain autumn askew con DATE OF EXAM: 10/19/2017 COMPARISON: NONE HISTORY: Fall with subsequent head and neck pain CT DLP: 1326.2 mGycm. Automated Exposure Control for Dose Reduction was Utilized. TECHNIQUE: CT scan of the head and cervical spine are performed without contrast. FINDINGS: There is no acute intracranial hemorrhage, mass effect, or midline shift identified. The ventricles and sulci are within normal limits in size. The globes are intact and the visualized sin uses are clear. There is redemonstration of an extra-axial left parietal-occipital region 30.5 x 2.9 x 3.7 cm mass with mild surrounding vasogenic edema and effacement of the sulci, similar to the prior exam of 01/11/2017 containing few punctate calcifications favored to represent a meningioma. Cervical spine is visualized in its entirety from C1 through upper thoracic levels and demonstrates s atisfactory alignment without evidence of acute fracture or dislocation. Prevertebral soft tissue ap pears within normal limits. The C1-C2 articulation is unremarkable. Punctate granuloma in the right upper lobe is incidentally noted. Atherosclerosis of the right carotid artery is also incidentally n oted. Multilevel degenerative disc disease of the cervical spine is seen with grade 1 retrolisthesis of C3 on C4 and small posterior disc osteophyte complexes at C3-C4, C4-C5 and C5-C6 creating mild spi nal canal stenosis. There is also resultant moderate left neural foraminal narrowing at C4-C5 on the right and mild at C3-C4 and C5-C6 on the right as well as mild neural foraminal narrowing at C3-C4, C 4-C5 and C5-C6 on the left. Degenerative narrowing of the atlantodental interval is noted as well as cystic osseous changes. IMPRESSION: 1. There is no acute fracture or dislocation evident in the cervical spine. 2. No acute intracranial hemorrhage, mass effect, or midline shift is seen. 3. 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 4. Multilevel mild degenerative disc disease of the cervical spine with grade 1 retrolisthesis of C3 on C4, likely degenerative in nature and multiple disc osteophyte complexes grating mild spinal canal stenosis at C3-C6. 5. Incidentally noted right carotid arterial atherosclerosis. Carotid ultrasound could be performed i f clinically indicated for further correlation.
[2017-10-19] MEDS ORDERED: LABETALOL 5 MG/ML VIAL MDV IVP SCH (09:15)
--- NOTE | 2017-10-19 09:51 | XR ---
Limited right knee HISTORY: Trauma and pain 2 views of the right knee correlated to prior exam 09/28/2010 Patient is status post right knee arthroplasty. Alignment and bone mineralization are stable. Small o ssific density cephalad to the patella may represent a small loose body but appears well-corticated. Difficult to exclude small effusion. Vascular calcifications noted incidentally. IMPRESSION: No acute fracture or dislocation evident.
[2017-10-19 09:55] VITALS: BP 161/70; TEMP 98
== END 2017-10-19 10:33 | disposition home or self-care (01) ==
LOC: EC 07:22
DX: S00.03XA Contusion of scalp, initial encounter (principal); M25.561 Pain in right knee; E78.5 Hyperlipidemia, unspecified; I10 Essential (primary) hypertension; E07.9 Disorder of thyroid, unspecified; I48.92 Unspecified atrial flutter; Z98.890 Other specified postprocedural states; Z79.899 Other long term (current) drug therapy; Z88.5 Allergy status to narcotic agent; W01.0XXA Fall on same level from slipping, tripping and stumbling without subsequent striking against object, initial encounter; Y92.009 Unspecified place in unspecified non-institutional (private) residence as the place of occurrence of the external cause
CPT/HCPCS: 70450; 72125; 96374; 99284

== ENCOUNTER 2018-03-09 11:26 | Observation (INO) | payer MEDICARE, BC ==
[2018-03-09] MEDS ORDERED: NITROGLYCERIN OINT 1 INCH/GM PACKET TOPICAL STA (11:43)
[2018-03-09] MEDS ORDERED: ASPIRIN 81 MG PO STA (11:43)
--- NOTE | 2018-03-09 11:46 | ED ---
General Adult HPI - General Stated complaint: Chest pain Time Seen by Provider: 03/09/18 11:26 Source: RN notes reviewed - History of Present Illness Initial comments: This is an 87-year-old female presents emergency Department with a past medical history significant for a stent she also has high blood pressure high cholesterol. Patient comes in today because she's experiencing some chest pain on 2 occasions this morning. Patient states it was a dull ache in her chest which resolved on its own. Patient states she hasn't had any chest pain for hours. Patient denies any difficulty breathing shortness of breath or diaphoresis. Patient denies any nausea vomiting or diarrhea. Patient denies abdominal pain. Patient denies any lightheadedness or dizziness. Patient went to her primary medical care doctor's to be checked out and they recommended she come to the hospital for admission. Patient denies any swelling to her legs or calf tenderness. - Related Data Home Medications Medication Instructions Recorded Confirmed Levothyroxine Sodium [Synthroid] 50 mcg PO DAILY 05/01/14 03/09/18 Pantoprazole [Protonix] 40 mg PO DAILY 01/03/16 03/09/18 Atorvastatin [Lipitor] 40 mg PO HS 12/25/16 03/09/18 ALPRAZolam [Xanax] 0.5 mg PO DAILY PRN 10/19/17 03/09/18 Metoprolol Tartrate [Lopressor] 25 mg PO BID 10/19/17 03/09/18 traMADol HCL/ACETAMINOPHEN 1 tab PO Q4HR PRN 10/19/17 03/09/18 [Ultracet 37.5-325] Ondansetron Odt [Zofran Odt] 4 mg PO Q6H PRN 03/09/18 03/09/18 Previous Rx's Medication Instructions Recorded Aspirin 81 mg PO DAILY #90 chew 12/03/16 Clopidogrel [Plavix] 75 mg PO DAILY #90 tab 12/03/16 Nitroglycerin Sl Tabs [Nitrostat] 0.4 mg SUBLINGUAL Q5M PRN #25 tab 12/03/16 Allergies Allergy/AdvReac Type Severity Reaction Status Date / Time codeine AdvReac Nausea & Verified 03/09/18 12:16 Vomiting Review of Systems ROS Statement: Those systems with pertinent positive or pertinent negative responses have been documented in the HPI. ROS Other: All systems not noted in ROS Statement are negative. Past Medical History Past Medical History: Atrial Flutter, GERD/Reflux, Hyperlipidemia, Hypertension , Osteoarthritis (OA), Thyroid Disorder Additional Past Medical History / Comment(s): Non-malignant mass on brain History of Any Multi-Drug Resistant Organisms: None Reported Past Surgical History: Ablation, Heart Catheterization With Stent, Hernia Repair , Hysterectomy, Joint Replacement, Orthopedic Surgery Additional Past Surgical History / Comment(s): Surgery on two toes to treat hammer toe, right total knee, ONE STENT, cataracts Past Anesthesia/Blood Transfusion Reactions: No Reported Reaction Date of Last Stent Placement:: 2016 Past Psychological History: Anxiety Smoking Status: Never smoker Past Alcohol Use History: None Reported Past Drug Use History: None Reported - Past Family History Mother Family Medical History: Cancer Brother(s) Family Medical History: Cancer Father Family Medical History: Congestive Heart Failure (CHF) General Exam - General Exam Comments Initial Comments: GENERAL: Patient is well-developed and well-nourished. Patient is nontoxic and well- hydrated and is in no acute distress. ENT: Neck is soft and supple. No significant lymphadenopathy is noted. Oropharynx is clear. Moist mucous membranes. Neck has full range of motion without eliciting any pain. EYES: The sclera were anicteric and conjunctiva were pink and moist. Extraocular movements were intact and pupils were equal round and reactive to light. Eyelids were unremarkable. PULMONARY: Unlabored respirations. Good breath sounds bilaterally. No audible rales rhonchi or wheezing was noted. CARDIOVASCULAR: There is a regular rate and rhythm without any murmurs gallops or rubs. ABDOMEN: Soft and nontender with normal bowel sounds. No palpable organomegaly was noted. There is no palpable pulsatile mass. SKIN: Skin is clear with no lesions or rashes and otherwise unremarkable. NEUROLOGIC: Patient is alert and oriented x3. Cranial nerves II through XII are grossly intact. Motor and sensory are also intact. Normal speech, volume and content. Symmetrical smile. MUSCULOSKELETAL: Normal extremities with adequate strength and full range of motion. No lower extremity swelling or edema. No calf tenderness. LYMPHATICS: No significant lymphadenopathy is noted PSYCHIATRIC: Normal psychiatric evaluation. Normal interpersonal interactions appears functionally intact in deals appropriately with others. Course Vital Signs 03/09/18 03/09/18 11:43 11:56 Temperature 97.9 F Pulse Rate 71 62 Respiratory 16 16 Rate Blood Pressure 227/89 193/81 O2 Sat by Pulse 98 98 Oximetry Medical Decision Making - Medical Decision Making EKG shows a normal sinus rhythm at 71 bpm NC interval is 128 QRS is 90 QT interval 360 QTC is 399. Patient's EKG shows no ST segment elevation or depression or T wave abnormalities are noted. Chest x-ray shows no acute abnormality. Patient has remained chest pain-free during the ER stay. I spoke with Dr. Snyder he agreed to admit the patient admitted the patient I wrote admitting orders. I consult to cardiology - Lab Data Result diagrams: 03/09/18 12:09 03/09/18 12:09 Lab Results 03/09/18 03/09/18 03/09/18 Range/Units 12: 12: 12:09 WBC 6.3 (3.8-10.6) k/uL RBC 4.15 (3.80-5.40) m/uL Hgb 12.2 (11.4-16.0) gm/dL Hct 36.3 (34.0-46.0) % MCV 87.4 (80.0-100.0) fL MCH 29.4 (25.0-35.0) pg MCHC 33.6 (31.0-37.0) g/dL RDW 15.5 (11.5-15.5) % Plt Count 213 (150-450) k/uL Neutrophils % 71 % Lymphocytes % 13 % Monocytes % 12 % Eosinophils % 1 % Basophils % 0 % Neutrophils # 4.5 (1.3-7.7) k/uL Lymphocytes # 0.8 L (1.0-4.8) k/uL Monocytes # 0.7 (0-1.0) k/uL Eosinophils # 0.1 (0-0.7) k/uL Basophils # 0.0 (0-0.2) k/uL Poikilocytosis Slight PT (9.0-12.0) sec INR (<1.2) APTT (22.0-30.0) sec Sodium 136 L (137-145) mmol/L Potassium 5.1 (3.5-5.1) mmol/L Chloride 98 (98-107) mmol/L Carbon Dioxide 25 (22-30) mmol/L Anion Gap 13 mmol/L BUN 22 H (7-17) mg/dL Creatinine 1.01 (0.52-1.04) mg/dL Est GFR (CKD-EPI)AfAm 59 (>60 ml/min/1.73 sqM) Est GFR (CKD-EPI)NonAf 51 (>60 ml/min/1.73 sqM) Glucose 103 H (74-99) mg/dL Calcium 9.2 (8.4-10.2) mg/dL Magnesium 1.9 (1.6-2.3) mg/dL Total Bilirubin 0.5 (0.2-1.3) mg/dL AST 47 H (14-36) U/L ALT 46 (9-52) U/L Alkaline Phosphatase 115 (38-126) U/L Total Creatine Kinase 158 H (30-135) U/L CK-MB (CK-2) 1.0 (0.0-2.4) ng/mL CK-MB (CK-2) Rel Index 0.6 Troponin I <0.012 (0.000-0.034) ng/mL Total Protein 7.6 (6.3-8.2) g/dL Albumin 4.4 (3.5-5.0) g/dL 03/09/18 Range/Units 12:09 WBC (3.8-10.6) k/uL RBC (3.80-5.40) m/uL Hgb (11.4-16.0) gm/dL Hct (34.0-46.0) % MCV (80.0-100.0) fL MCH (25.0-35.0) pg MCHC (31.0-37.0) g/dL RDW (11.5-15.5) % Plt Count (150-450) k/uL Neutrophils % % Lymphocytes % % Monocytes % % Eosinophils % % Basophils % % Neutrophils # (1.3-7.7) k/uL Lymphocytes # (1.0-4.8) k/uL Monocytes # (0-1.0) k/uL Eosinophils # (0-0.7) k/uL Basophils # (0-0.2) k/uL Poikilocytosis PT 10.4 (9.0-12.0) sec INR 1.1 (<1.2) APTT 23.2 (22.0-30.0) sec Sodium (137-145) mmol/L Potassium (3.5-5.1) mmol/L Chloride (98-107) mmol/L Carbon Dioxide (22-30) mmol/L Anion Gap mmol/L BUN (7-17) mg/dL Creatinine (0.52-1.04) mg/dL Est GFR (CKD-EPI)AfAm (>60 ml/min/1.73 sqM) Est GFR (CKD-EPI)NonAf (>60 ml/min/1.73 sqM) Glucose (74-99) mg/dL Calcium (8.4-10.2) mg/dL Magnesium (1.6-2.3) mg/dL Total Bilirubin (0.2-1.3) mg/dL AST (14-36) U/L ALT (9-52) U/L Alkaline Phosphatase (38-126) U/L Total Creatine Kinase (30-135) U/L CK-MB (CK-2) (0.0-2.4) ng/mL CK-MB (CK-2) Rel Index Troponin I (0.000-0.034) ng/mL Total Protein (6.3-8.2) g/dL Albumin (3.5-5.0) g/dL Disposition Clinical Impression: Chest pain Disposition: ADMITTED IP TO THIS HOSP Referrals: Demian Vega MD [Primary Care Provider] - 1-2 days Time of Disposition: 14:09
[2018-03-09 12:25] LABS: Basophils % (A) 0 %; Eosinophils # (A) 0.1 k/uL (0-0.7); Eosinophils % (A) 1 %; HCT 36.3 % (34.0-46.0); HGB 12.2 gm/dL (11.4-16.0); Lymphocytes # (A) 0.8 k/uL (1.0-4.8); Lymphocytes % (A) 13 %; MCH 29.4 pg (25.0-35.0); MCHC 33.6 g/dL (31.0-37.0); MCV 87.4 fL (80.0-100.0); Mean Platelet Volume 8.5; Monocytes # (A) 0.7 k/uL (0-1.0); Monocytes % (A) 12 %; Neutrophils # (A) 4.5 k/uL (1.3-7.7); Neutrophils % (A) 71 %; Platelet Count 213 k/uL (150-450); Poikilocytosis Slight; RBC 4.15 m/uL (3.80-5.40); RDW 15.5 % (11.5-15.5); WBC 6.3 k/uL (3.8-10.6)
[2018-03-09 12:31] LABS: Albumin 4.4 g/dL (3.5-5.0); Calcium 9.2 mg/dL (8.4-10.2); Magnesium 1.9 mg/dL (1.6-2.3); Potassium 5.1 mmol/L (3.5-5.1); Total Bilirubin 0.5 mg/dL (0.2-1.3); Total Protein 7.6 g/dL (6.3-8.2)
[2018-03-09 12:40] LABS: INR 1.1 (<1.2); Partial Thromboplastin Time 23.2 sec (22.0-30.0); Prothrombin Time 10.4 sec (9.0-12.0)
[2018-03-09 12:42] LABS: Creatine Kinase 158 U/L (30-135)
--- NOTE | 2018-03-09 12:53 | XR ---
EXAMINATION TYPE: XR chest 2V DATE OF EXAM: 03/09/2018 COMPARISON: 01/11/2017 HISTORY: Chest pain TECHNIQUE: Frontal and lateral views of the chest are obtained. FINDINGS: Again there is pulmonary hyperinflation. Copious soft tissues partially obscure the lower lungs on the frontal image. There is no focal air space opacity, pleural effusion, or pneumothorax se en. The cardiac silhouette size is within normal limits. There is diffuse osseous demineralization a nd mild degenerative changes of the thoracic spine. The osseous structures are intact. IMPRESSION: No acute cardiopulmonary process. Radiographic sequela of COPD.
[2018-03-09 12:54] LABS: Troponin I <0.012 ng/mL (0.000-0.034)
[2018-03-09] MEDS ORDERED: HEPARIN SODIUM,PORCINE 5,000 UNIT/ML 1 ML VIAL IV ONE (14:07)
[2018-03-09] MEDS ORDERED: NITROGLYCERIN SL TABS 0.4 MG TAB SUBLINGUAL PRN (14:09)
[2018-03-09] MEDS ORDERED: HEPARIN SOD,PORK IN 0.45% NACL 25,000 UNIT in 0.45% NACL 1 500ML.BAG IV SCH (14:15)
[2018-03-09] MEDS ORDERED: METOPROLOL TARTRATE 25 MG TAB PO STA (14:22)
[2018-03-09] MEDS ORDERED: traMADol-ACETAMINOP 37.5-325MG 1 EACH TAB PO PRN (15:06)
[2018-03-09] MEDS ORDERED: ALPRAZolam 0.5 MG TAB PO PRN (15:06)
[2018-03-09] MEDS ORDERED: ALPRAZolam 0.25 MG TAB PO PRN (15:07)
[2018-03-09] MEDS ORDERED: ACETAMINOPHEN TAB 500 MG TAB PO PRN (15:07)
--- NOTE | 2018-03-09 15:52 | HP ---
HISTORY AND PHYSICAL CHIEF COMPLAINT: Chest pain. HISTORY OF PRESENT ILLNESS: This 87-year-old woman with a past history atrial flutter, GERD, hypertension, hyperlipidemia, history of DJD, history of nonmalignant mass on the left side of the brain, a history of CAD stent, anxiety being followed by Dr. Vega in the outpatient setting is actually complaining of chest pain. The chest pain is mild to moderate, which was like a dull feeling and in the center of the chest. The patient woke up around 3 or 4 o'clock and because of persistent pain, patient went to Dr. Vega's office and directly referred the ER for further evaluation and treatment. EKG shows no acute changes. Troponins are negative. Of note, the patient also had a cardiac ablation last year and prior to that the patient had cardiac catheterization and stenting also. There is no history of fevers, rigors. No history of headache, loss of consciousness or seizures. 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 Sargent. MEDICATIONS: Prior to admission include: 1. Ultracet 1 tablet q.4h p.r.n. 2. Protonix 40 mg b.i.d. 3. Zofran 4 mg q.6h. 4. Nitrostat 0.4 mg p.r.n. 5. Lopressor 25 mg p.o. b.i.d. 6. Synthroid 50 mg p.o. daily. 7. Plavix 75 mg p.o. daily. 8. Lipitor 40 mg q.h.s. 9. Aspirin 81 mg p.o. daily. 10.Xanax 0.5 daily p.r.n. ALLERGIES: CODEINE. FAMILY HISTORY: History of cancer with metastasis. SOCIAL HISTORY: No history of smoking. No history of alcohol intake. REVIEW OF SYSTEMS: ENT: No diminished vision, otherwise as mentioned earlier. CARDIOVASCULAR: As mentioned. RESPIRATION: No cough or hemoptysis. GI: No nausea. : No dysuria. NERVOUS SYSTEM: As mentioned earlier. ALLERGY/IMMUNOLOGY: No history of asthma. MUSCULOSKELETAL: As mentioned. HEMATOLOGY: No history anemia. ENDOCRINE: Hypothyroidism. CONSTITUTIONAL: As mentioned earlier. DERMATOLOGY: Negative. RHEUMATOLOGY: Negative. PSYCHIATRY: As mentioned earlier. PHYSICAL EXAMINATION: Alert and oriented x3. Pulse 62, blood pressure 193/81, respirations 18, temperature 97.7, pulse ox 98% on 2 L. HEENT: Conjunctivae normal. Oral mucosa moist. NECK: No jugular venous distention. No carotid bruit. No lymph node enlargement. CARDIOVASCULAR: S1, S2 RESPIRATORY: Breath sounds diminished in the bases. No rhonchi, no crackles. ABDOMEN: Soft, nontender. No mass palpable. LEGS: No edema, no swelling. NERVOUS SYSTEM: Higher functions as mentioned earlier, moves all 4 limbs, no focal motor deficits. LYMPHATICS: No lymphadenopathy in the neck, axillae, groin. SKIN: No ulcer, rash or bleeding. LABS: CBC within normal limits. Sodium 136, BUN is 22, glucose 103, creatine kinase 158. ASSESSMENT: 1. Chest pain possible unstable angina. 2. Hyponatremia. 3. Atrial flutter with ablation. 4. History of coronary artery disease and stent. 5. Gastroesophageal reflux disease. 6. Hypertension. 7. Hyperlipidemia. 8. History of degenerative joint disease. 9. Hypothyroidism. 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 11.History of urinary tract infections. 12.History of anxiety. RECOMMENDATION AND DISCUSSION: This 87-year-old woman who presented with multiple complex medical issues, will monitor the patient closely. Continue the current management and symptomatic treatment. Unstable angina protocol. Otherwise cardiology consultation. Rule out myocardial infarction. Possible stress test versus cardiac cath. Resume the home medications. Prognosis guarded because of multiple complex medical issues. Further recommendations to follow. Copy of dictation forwarded to Dr. Vega, who is the primary physician. I will resume the home medications and see orders for details. MMODL / IJN: [id number] /
[2018-03-09 18:15] LABS: Creatine Kinase 136 U/L (30-135)
[2018-03-09 18:27] LABS: Creatine Kinase MB 0.5 ng/mL (0.0-2.4); Troponin I <0.012 ng/mL (0.000-0.034)
[2018-03-09] MEDS: amLODIPine 5 MG TAB PO SCH (18:33)
[2018-03-09] MEDS: NITROGLYCERIN OINT 1 INCH/GM PACKET TOPICAL SCH ×2 (19:02→23:08)
[2018-03-09 19:48] VITALS: RESP 16
[2018-03-09] MEDS: METOPROLOL TARTRATE 25 MG TAB PO SCH (19:51)
[2018-03-09] MEDS ORDERED: ATORVASTATIN 40 MG TAB PO SCH (21:00)
[2018-03-09] MEDS ORDERED: TEMAZEPAM 15 MG CAP PO PRN (21:00)
[2018-03-10 01:36] LABS: Creatine Kinase 132 U/L (30-135)
[2018-03-10 01:49] LABS: Creatine Kinase MB 0.4 ng/mL (0.0-2.4); Troponin I <0.012 ng/mL (0.000-0.034)
[2018-03-10] MEDS: NITROGLYCERIN OINT 1 INCH/GM PACKET TOPICAL SCH (04:17)
[2018-03-10] MEDS ORDERED: LEVOTHYROXINE 50 MCG TAB PO SCH (06:30)
[2018-03-10 07:53] LABS: Basophils % (A) 0 %; Eosinophils # (A) 0.2 k/uL (0-0.7); Eosinophils % (A) 3 %; HCT 36.7 % (34.0-46.0); HGB 12.3 gm/dL (11.4-16.0); Lymphocytes # (A) 1.4 k/uL (1.0-4.8); Lymphocytes % (A) 19 %; MCH 29.6 pg (25.0-35.0); MCHC 33.5 g/dL (31.0-37.0); MCV 88.3 fL (80.0-100.0); Mean Platelet Volume 8.1; Monocytes # (A) 0.7 k/uL (0-1.0); Monocytes % (A) 10 %; Neutrophils # (A) 4.7 k/uL (1.3-7.7); Neutrophils % (A) 66 %; Platelet Count 221 k/uL (150-450); Poikilocytosis Slight; RBC 4.15 m/uL (3.80-5.40); RDW 15.8 % (11.5-15.5); WBC 7.1 k/uL (3.8-10.6)
[2018-03-10 08:38] LABS: Calcium 8.9 mg/dL (8.4-10.2); Potassium 4.6 mmol/L (3.5-5.1)
[2018-03-10] MEDS ORDERED: ASPIRIN 325 MG TAB PO SCH (09:00)
[2018-03-10] MEDS ORDERED: PANTOPRAZOLE 40 MG TABLET PO SCH (09:00)
[2018-03-10] MEDS ORDERED: ASPIRIN 81 MG PO SCH (09:00)
[2018-03-10] MEDS ORDERED: CLOPIDOGREL 75 MG TAB PO SCH (09:00)
[2018-03-10] MEDS ORDERED: DOBUTamine DRIP for NUC MED 500 MG in DEXTROSE/WATER 1 250ML.BAG IV ONE (10:10)
[2018-03-10] MEDS ORDERED: APIXABAN 2.5 MG TABLET PO SCH (10:30)
[2018-03-10] MEDS ORDERED: LOSARTAN 25 MG TAB PO SCH (12:00)
[2018-03-10] MEDS: METOPROLOL TARTRATE 25 MG TAB PO SCH (12:10)
[2018-03-10] MEDS: amLODIPine 5 MG TAB PO SCH (12:10)
--- NOTE | 2018-03-10 12:35 | ECHOF ---
Referral Reason: MEASUREMENTS -------- HEIGHT: 165.1 cm WEIGHT: 71.2 kg BP: 120/60 IVSd: 1.0 cm (0.6 - 1.1) LVIDd: 4.4 cm (3.9 - 5.3) LVPWd: 1.1 cm (0.6 - 1.1) IVSs: 1.1 cm LVIDs: 3.5 cm LVPWs: 0.8 cm LA Diam: 4.4 cm (2.7 - 3.8) LAESV Index (A-L): 35.32 ml/m Ao Diam: 2.7 cm (2.0 - 3.7) AV Cusp: 1.1 cm (1.5 - 2.6) LA Diam: 3.9 cm (2.7 - 3.8) MV EXCURSION: 18.048 mm (> 18.000) MV EF SLOPE: 69 mm/s (70 - 150) EPSS: 0.5 cm MV E Bertin: 0.84 m/s MV DecT: 162 ms MV A Bertin: 0.81 m/s MV E/A Ratio: 1.03 AV maxP.12 mmHg AV meanP.68 mmHg RAP: 5.00 mmHg RVSP: 39.96 mmHg FINDINGS -------- Sinus rhythm. This was a technically good study. The left ventricular size is normal. There is mild concentric left ventricular hypertrophy. Overa ll left ventricular systolic function is normal with, an EF between 55 - 60 %. The right ventricle is normal in size. The left atrium is markedly dilated. LA is severely dilated >40 ml/m2 The right atrial size is normal. There is mild to moderate aortic valve sclerosis. There is mild aortic stenosis present. Peak/randi n gradient across the Aortic Valve is 20.12mmHg / 10.68mmHg. The mitral valve leaflets are mildly thickened. Mild mitral annular calcification present. Modera [id number] mitral regurgitation is present. The peak and mean MV gradients are 3.97mmHg 1.82mmHg as measured by doppler. Mild tricuspid regurgitation present. There is mild pulmonary hypertension. The right ventricular systolic pressure, as measured by Doppler, is 39.96mmHg. There is no pulmonic regurgitation present. The aortic root size is normal. There is no pericardial effusion. CONCLUSIONS -------- 1. This was a technically good study. 2. The left ventricular size is normal. 3. There is mild concentric left ventricular hypertrophy. 4. Overall left ventricular systolic function is normal with, an EF between 55 - 60 %. 5. The right ventricle is normal in size. 6. The left atrium is markedly dilated. 7. LA is severely dilated >40 ml/m2 8. The right atrial size is normal. 9. There is mild to moderate aortic valve sclerosis. 10. There is mild aortic stenosis present. 11. Peak/mean gradient across the Aortic Valve is 20.12mmHg / 10.68mmHg. 12. The mitral valve leaflets are mildly thickened. 13. Mild mitral annular calcification present. 14. [id number] mitral regurgitation is present. 15. The peak and mean MV gradients are 3.97mmHg 1.82mmHg as measured by doppler. 16. Mild tricuspid regurgitation present. 17. There is mild pulmonary hypertension. 18. The right ventricular systolic pressure, as measured by Doppler, is 39.96mmHg. 19. There is no pulmonic regurgitation present. 20. The aortic root size is normal. 21. There is no pericardial effusion. [employer] EXP[employer]OR [employer] D[employer]ER: Flory Lopez RDCS
--- NOTE | 2018-03-10 12:58 | P.CRDCN ---
History of Present Illness History of present illness: Mrs. Meade is a pleasant 87-year-old female past medical history significant for coronary artery disease s/p angioplasty of mid-LAD 12/2016, atrial flutter s/p successful ablation 01/2017, hypertension, dyslipidemia, hypothyroid and benign brain mass. She follows with Dr. Adrian in the office. We have been asked to see her in consultation for chest pain. She states yesterday while she was sitting down in her recliner she developed a pain in the left precordial region. There was no radiation of the pain and no associated symptoms. She denies shortness of breath, nausea, vomiting, diaphoresis, dizziness or palpitations. No specific aggravating or alleviating factors. She underwent cardiac catheterization 12/2016 which revealed 75-80% lesion of mid-LAD with successful angioplasty. She is maintained on plavix and aspirin currently, coumadin was discontinued secondary to anemia. EKG reveals sinus mechanism no acute ST or T-wave abnormalities. Chest xray negative for an acute cardiopulmonary process. Laboratory data reviewed, hemoglobin 12.3, platelets 221, sodium 136, potassium 4.6, creatinine 0.93, magnesium 1.9, cardiac enzymes negative 3, LDL 58, HDL 50 , triglycerides 85 total cholesterol 125. Current cardiac medications include aspirin 81 mg daily, atorvastatin 40 mg daily, Plavix 75 mg daily, Lopressor 25 mg twice a day. She also takes tramadol , Protonix, Zofran and Xanax when necessary. Review of Systems At the time of my exam: CONSTITUTIONAL: Denies fever. Denies chills. EYES: Denies blurred vision. Denies vision changes. Denies eye pain. EARS, NOSE, MOUTH & THROAT: Denies headache. Denies sore throat. Denies ear pain. CARDIOVASCULAR: Denies chest pain. Denies shortness of breath. Denies orthopnea. Denies PND. Denies palpitations. RESPIRATORY: Denies cough. GASTROINTESTINAL: Denies abdominal pain. Denies diarrhea. Denies constipation. Denies nausea. Denies vomiting. MUSCULOSKELETAL: Denies myalgias. INTEGUMENTARY: Denies pruitis. Denies rash. NEUROLOGIC: Denies numbness. Denies tingling. Denies weakness. PSYCHIATRIC: Denies anxiety. Denies depression. ENDOCRINE: Denies fatigue. Denies weight change. Denies polydipsia. Denies polyurina. GENITOURINARY: Denies burning, hematuria or urgency with micturation. HEMATOLOGIC: Denies history of anemia. Denies bleeding. 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 History of Any Multi-Drug Resistant Organisms: None Reported Past Surgical History: Bladder Surgery, Cardiac Ablation, Heart Catheterization With Stent, Hernia Repair, Hysterectomy, Joint Replacement, Orthopedic Surgery, Tubal Ligation Additional Past Surgical History / Comment(s): 12/2016 PCI with stent, cardiac ablation for A flutter, umbilical hernia repair, surgery on two toes L foot for hammer toe, right total knee, bilateral cataracts removed, colonoscopies, bladder suspension. Past Anesthesia/Blood Transfusion Reactions: No Reported Reaction Additional Past Anesthesia/Blood Transfusion Reaction / Comment(s): Pt has received blood in past without reaction. Date of Last Stent Placement:: 2016 Smoking Status: Never smoker - Past Family History Mother Family Medical History: Cancer Additional Family Medical History / Comment(s): Mother had cancer with metastasis-primary unknown. She at the age of 85yrs. Brother(s) Family Medical History: Cancer Father Family Medical History: Congestive Heart Failure (CHF) Additional Family Medical History / Comment(s): Father at the age of 70yrs. Medications and Allergies Home Medications Medication Instructions Recorded Confirmed Type Levothyroxine Sodium [Synthroid] 50 mcg PO DAILY 05/01/14 03/09/18 History Pantoprazole [Protonix] 40 mg PO DAILY 01/03/16 03/09/18 History Aspirin 81 mg PO DAILY #90 chew 12/03/16 03/09/18 Rx Clopidogrel [Plavix] 75 mg PO DAILY #90 tab 12/03/16 03/09/18 Rx Nitroglycerin Sl Tabs [Nitrostat] 0.4 mg SUBLINGUAL Q5M PRN #25 tab 12/03/1603/21 Rx Atorvastatin [Lipitor] 40 mg PO HS 12/25/16 03/09/18 History ALPRAZolam [Xanax] 0.5 mg PO DAILY PRN 10/19/17 03/09/18 History Metoprolol Tartrate [Lopressor] 25 mg PO BID 10/19/17 03/09/18 History traMADol HCL/ACETAMINOPHEN 1 tab PO Q4HR PRN 10/19/17 03/09/18 History [Ultracet 37.5-325] Ondansetron Odt [Zofran Odt] 4 mg PO Q6H PRN 03/09/18 03/09/18 History Allergies Allergy/AdvReac Type Severity Reaction Status Date / Time codeine AdvReac Nausea & Verified 03/09/18 12:16 Vomiting Physical Exam Vitals: Vital Signs Temp Pulse Pulse Resp BP BP Pulse Ox 03/10/18 07:51 98.1 F 64 16 140/63 99 03/10/18 07:50 97 03/10/18 03:53 99.0 F 60 16 125/59 97 03/10/18 03:36 16 03/09/18 23:32 98.0 F 63 16 128/60 95 03/09/18 23:25 16 03/09/18 20:00 16 03/09/18 19:47 97.9 F 60 16 142/58 98 03/09/18 15:10 97.5 F L 64 18 198/80 98 03/09/18 14:00 61 16 174/76 98 03/09/18 11:56 62 16 193/81 98 03/09/18 11:43 97.9 F 71 16 227/89 98 Intake and Output 03/09/18 03/10/18 03/10/18 22:59 06:59 14:59 Intake Total 240 Balance 240 Intake: Oral 240 Other: Voiding Method Toilet Toilet # Voids 1 Weight 71.3 kg Blood pressure GENERAL: This is a 87-year-old female in no apparent distress at the time of my examination. HEENT: Head is atraumatic, normocephalic. Pupils are equal, round. Sclerae anicteric. Conjunctivae are clear. Mucous membranes of the mouth are moist. Neck is supple. There is no jugular venous distention. No carotid bruit is heard. LUNGS: Clear to auscultation no wheezes, rales or rhonchi. No chest wall tenderness is noted on palpation or with deep breathing. HEART: Regular rate and rhythm with systolic murmur at the base, no rubs or gallops. S1 and S2 heard. ABDOMEN: Soft, nontender. Bowel sounds are heard. No organomegaly noted. EXTREMITIES: No evidence of peripheral edema and no calf tenderness noted. VASCULAR: Radial and dorsalis pedis pulses palpated, no evidence of clubbing. NEUROLOGIC: Patient is awake, alert and oriented x3. Results 03/10/18 07:20 03/10/18 07:20 Cardiac Enzymes 03/09/18 03/09/18 03/09/18 Range/Units 12:09 12:09 17:39 AST 47 H (14-36) U/L CK-MB (CK-2) 1.0 0.5 (0.0-2.4) ng/mL Troponin I <0.012 <0.012 (0.000-0.034) ng/mL 03/10/18 Range/Units 00:52 AST (14-36) U/L CK-MB (CK-2) 0.4 (0.0-2.4) ng/mL Troponin I <0.012 (0.000-0.034) ng/mL Coagulation 03/09/18 Range/Units 12:09 PT 10.4 (9.0-12.0) sec APTT 23.2 (22.0-30.0) sec CBC 03/09/18 03/10/18 Range/Units 12:09 07:20 WBC 6.3 7.1 (3.8-10.6) k/uL RBC 4.15 4.15 (3.80-5.40) m/uL Hgb 12.2 12.3 (11.4-16.0) gm/dL Hct 36.3 36.7 (34.0-46.0) % Plt Count 213 221 (150-450) k/uL Comprehensive Metabolic Panel 03/09/18 Range/Units 12:09 Sodium 136 L (137-145) mmol/L Potassium 5.1 (3.5-5.1) mmol/L Chloride 98 (98-107) mmol/L Carbon Dioxide 25 (22-30) mmol/L BUN 22 H (7-17) mg/dL Creatinine 1.01 (0.52-1.04) mg/dL Glucose 103 H (74-99) mg/dL Calcium 9.2 (8.4-10.2) mg/dL AST 47 H (14-36) U/L ALT 46 (9-52) U/L Alkaline Phosphatase 115 (38-126) U/L Total Protein 7.6 (6.3-8.2) g/dL Albumin 4.4 (3.5-5.0) g/dL Current Medications Generic Name Dose Route Start Last Admin Trade Name Freq PRN Reason Stop Dose Admin Acetaminophen 500 mg 03/09/18 15:07 Tylenol Tab PO Q6HR PRN Fever and/ or MILD Pain Alprazolam 0.5 mg 03/09/18 15:06 Xanax PO DAILY PRN Anxiety Alprazolam 0.25 mg 03/09/18 15:07 Xanax PO TID PRN Anxiety Amlodipine Besylate 5 mg 03/09/18 18:30 03/09/18 18:33 Norvasc PO 5 mg DAILY RAYNE Administration Aspirin 325 mg 03/10/18 09:00 Aspirin PO DAILY [facility] Atorvastatin Calcium 40 mg 03/09/18 21:00 03/09/18 19:50 Lipitor PO 40 mg HS [facility] Administration Clopidogrel Bisulfate 75 mg 03/10/18 09:00 Plavix PO DAILY [facility] Levothyroxine Sodium 50 mcg 03/10/18 06:30 03/10/18 04:17 Synthroid PO 50 mcg 0630 [facility] Administration Metoprolol Tartrate 25 mg 03/09/18 21:00 03/09/18 19:51 Lopressor PO 25 mg BID [facility] Administration Nitroglycerin 1 inch 03/09/18 18:00 03/10/18 04:17 Nitro-Bid Oint TOPICAL Not Given Q6HR [facility] Nitroglycerin 0.4 mg 03/09/18 14:09 Nitrostat SUBLINGUAL Q5M PRN Chest Pain Pantoprazole Sodium 40 mg 03/10/18 09:00 Protonix PO DAILY [facility] Temazepam 15 mg 03/09/18 21:00 Restoril PO HS PRN Insomnia Tramadol/Acetaminophen 1 each 03/09/18 15:06 Ultracet PO Q4HR PRN Moderate Pain Intake and Output 03/09/18 03/10/18 03/10/18 22:59 06:59 14:59 Intake Total 240 Balance 240 Intake: Oral 240 Other: Voiding Method Toilet Toilet # Voids 1 Weight 71.3 kg 03/10/18 07:20 03/09/18 12:09 Assessment and Plan Assessment: ASSESSMENT 1. Chest pain, atypical. An acute coronary event has been ruled out with no EKG evidence of ischemia and normal cardiac enzymes. 2. Coronary artery disease s/p angioplasty of mid LAD in 12/2016 3. History of atrial flutter s/p successful ablation 01/2017 4. Hypertension urgency on admission 5. Dyslipidemia PLAN Obtain 2D echocardiogram and doppler study to assess cardiac structure and function. Perform dobutamine stress echocardiogram to assess for stress induced cardiac ischemia. Plavix and aspirin can be discontinued as it is over a year since her angioplasty. Start Eliquis 2.5 mg mg BID for embolic protection secondary to history of atrial flutter with elevated CHADSVASC score. Add losartan 25 mg daily for blood pressure control. Continue with lopressor 25 mg BID, amlodipine 5 mg daily and atorvastatin 40 mg daily. Thank you kindly for this consultation. Nurse Practitioner note has been reviewed, I agree with a documented findings and plan of care. Patient was seen and examined.
--- NOTE | 2018-03-10 14:05 | ECHOS ---
STRESS ECHOCARDIOGRAM INDICATIONS: Chest pain. BASELINE HEART RATE: 73 BASELINE BLOOD PRESSURE: 163/77 MAXIMUM HEART RATE: 125 MAXIMUM BLOOD PRESSURE: 194/71 85% MPHR: 115 100% MPHR: 135 MAXIMUM STAGE REACHED: II TOTAL EXERCISE TIME: 6:44 CLINICAL INFORMATION: A dobutamine echocardiographic study was performed. Peak heart rate of 125 was achieved. Maximum blood pressure of 194/71 mmHg was noted. Resting EKG shows a normal sinus rhythm with normal clear CT interval and QRS duration and normal ST-T waves. No ST-segment depression is suggestive of ischemia is noted. Occasional PVCs are noted. The baseline echocardiographic images reveal normal left ventricular chamber size with normal left ventricular systolic function. At the peak dose of dobutamine infusion, normal increase in the wall thickness and contractility was noted. IMPRESSION: 1. This stress echocardiographic study is negative for stress-induced ischemia. 2. EKG portion of the stress test is not suggestive of ischemia. Occasional premature ventricular contractions were noted. MMODL / IJN: [id number] /
[2018-03-10 15:55] VITALS: BP 130/72; PULSE 66; TEMP 97.9
--- NOTE | 2018-03-10 18:11 | DS ---
DISCHARGE SUMMARY FINAL DIAGNOSES: 1. Chest pain. Myocardial infarction ruled out. Negative stress test. Possible unstable angina. Possible GERD. 2. Hyponatremia. 3. Atrial flutter with ablation history. 4. History of coronary artery disease, stent. 5. Gastroesophageal reflux disease. 6. Hypertension. 7. Hyperlipidemia. 8. History of degenerative joint disease. 9. History of hypothyroidism. 10.History of non-malignant mass on the left side of the brain. 11.History of urinary tract infection. 12.History of anxiety. DISCHARGE DISPOSITION: The patient will be discharged in stable condition with guarded prognosis. HISTORY OF PRESENT ILLNESS: This is an 87-year-old woman with a past medical history of multiple medical problems, including chest pain. Myocardial infarction was ruled out. Patient underwent a dobutamine stress test by Cardiology which was negative. Patient was closely monitored. Medications were adjusted. Patient improved significantly. On exam, vitals are stable. CARDIOVASCULAR SYSTEM: S1, S2 muffled. ABDOMEN: Soft. NERVOUS SYSTEM: No focal deficit. DISCHARGE ADVICE AND MEDICATIONS: 1. Diet is cardiac. 2. Activity limited until followup. 3. Follow up with Dr. Vega in 2-3 days. 4. Follow up with Dr. Jessica Miller as advised. 5. Xanax 0.5 p.o. daily. 6. Aspirin 81 mg p.o. daily. 7. Lipitor 40 mg at bedtime. 8. Plavix 75 mg p.o. daily. 9. Synthroid 50 mcg p.o. daily. 10.Cozaar 25 mg p.o. daily. 11.Lopressor 25 mg p.o. b.i.d. 12.Nitrostat 0.5 sublingually p.r.n. 13.Zofran 4 mg q.6 p.r.n. 14.Protonix 40 mg daily. 15.Ultram 1 tablet q.4 p.r.n. Once again, the patient will be discharged in stable condition with guarded prognosis. MMODL / IJN: [id number] /
== END 2018-03-10 16:27 | disposition home or self-care (01) ==
LOC: EC 11:26 → 3OBS 14:09
PROVIDERS: ADMIT Hospitalist; ATTEND Hospitalist
DX: R07.89 Other chest pain (principal); E87.1 Hypo-osmolality and hyponatremia; I48.92 Unspecified atrial flutter; I16.0 Hypertensive urgency; I25.10 Atherosclerotic heart disease of native coronary artery without angina pectoris; Z95.5 Presence of coronary angioplasty implant and graft; K21.9 Gastro-esophageal reflux disease without esophagitis; E78.5 Hyperlipidemia, unspecified; M19.90 Unspecified osteoarthritis, unspecified site; E03.9 Hypothyroidism, unspecified; F41.9 Anxiety disorder, unspecified; Z87.440 Personal history of urinary (tract) infections; Z79.890 Hormone replacement therapy; Z79.899 Other long term (current) drug therapy; Z82.49 Family history of ischemic heart disease and other diseases of the circulatory system; E78.00 Pure hypercholesterolemia, unspecified; G93.9 Disorder of brain, unspecified; Z79.02 Long term (current) use of antithrombotics/antiplatelets; Z79.82 Long term (current) use of aspirin; Z80.9 Family history of malignant neoplasm, unspecified; Z90.710 Acquired absence of both cervix and uterus
CPT/HCPCS: 93005 ×2; 99285; 36415; 94760; 93306; 93351; 83880; 80061; 80053; 80048; 82550 ×2; 82553 ×2; 83735; 84484 ×2; 85025 ×2; 85610; 85730; 71046; G0378 ×2; J1250

== ENCOUNTER 2019-03-15 08:42 | Observation (INO) | payer MEDICARE, BC ==
[2019-03-15] MEDS ORDERED: ASPIRIN 81 MG PO STA (09:23)
[2019-03-15] MEDS ORDERED: NITROGLYCERIN OINT 1 INCH/GM PACKET TOPICAL STA (09:23)
--- NOTE | 2019-03-15 09:28 | ED ---
General Adult HPI - General Chief complaint: Chest Pain Stated complaint: chest pain Time Seen by Provider: 03/15/19 09:05 Source: patient, family, RN notes reviewed Mode of arrival: wheelchair Limitations: no limitations - History of Present Illness Initial comments: Patient is a pleasant 88-year-old female sitting to the emergency Department with complaints of chest discomfort. Onset of symptoms was yesterday evening. Discomfort has been mild and described as an ache. No discomfort at this time. Symptoms have been waxing and waning. Discomfort is left chest. No associated dyspnea, nausea, or diaphoresis. Patient did have similar symptoms once years ago associated with needle stent. No leg pain or leg swelling. No cough or fever. No radiation of discomfort. - Related Data Home Medications Medication Instructions Recorded Confirmed Levothyroxine Sodium [Synthroid] 50 mcg PO DAILY 05/01/14 03/15/19 Pantoprazole [Protonix] 40 mg PO DAILY 01/03/16 03/15/19 Atorvastatin [Lipitor] 40 mg PO HS 12/25/16 03/15/19 ALPRAZolam [Xanax] 0.5 mg PO DAILY 10/19/17 03/15/19 Metoprolol Tartrate [Lopressor] 25 mg PO BID 10/19/17 03/15/19 Apixaban [Eliquis] 2.5 mg PO BID 03/15/19 03/15/19 Cetirizine HCl [Zyrtec] 10 mg PO DAILY 03/15/19 03/15/19 Meclizine [Antivert] 12.5 mg PO TID PRN 03/15/19 03/15/19 Ondansetron HCl [Zofran] 8 mg PO TID PRN 03/15/19 03/15/19 Previous Rx's Medication Instructions Recorded Losartan [Cozaar] 25 mg PO DAILY #30 tab 03/10/18 Allergies Allergy/AdvReac Type Severity Reaction Status Date / Time codeine AdvReac Nausea & Verified 03/15/19 09:24 Vomiting Review of Systems ROS Statement: Those systems with pertinent positive or pertinent negative responses have been documented in the HPI. ROS Other: All systems not noted in ROS Statement are negative. 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 History of Any Multi-Drug Resistant Organisms: None Reported Past Surgical History: Bladder Surgery, Cardiac Ablation, Heart Catheterization With Stent, Hernia Repair, Hysterectomy, Joint Replacement, Orthopedic Surgery, Tubal Ligation Additional Past Surgical History / Comment(s): 12/2016 PCI with stent, cardiac ablation for A flutter, umbilical hernia repair, surgery on two toes L foot for hammer toe, right total knee, bilateral cataracts removed, colonoscopies, bladder suspension. Past Anesthesia/Blood Transfusion Reactions: No Reported Reaction Additional Past Anesthesia/Blood Transfusion Reaction / Comment(s): Pt has received blood in past without reaction. Date of Last Stent Placement:: 2016 Past Psychological History: Anxiety Smoking Status: Never smoker Past Alcohol Use History: None Reported Past Drug Use History: None Reported - Past Family History Mother Family Medical History: Cancer Additional Family Medical History / Comment(s): Mother had cancer with metastasis-primary unknown. She at the age of 85yrs. Brother(s) Family Medical History: Cancer Father Family Medical History: Congestive Heart Failure (CHF) Additional Family Medical History / Comment(s): Father at the age of 70yrs. General Exam Limitations: no limitations General appearance: alert, in no apparent distress Head exam: Present: atraumatic, normocephalic Eye exam: Present: normal appearance, PERRL ENT exam: Present: normal oropharynx Neck exam: Present: normal inspection Respiratory exam: Present: normal lung sounds bilaterally. Absent: chest wall tenderness Cardiovascular Exam: Present: regular rate, normal rhythm Expanded Peripheral pulses: 2+: Radial (R), Radial (L), Dorsalis Pedis (R), Dorsalis Pedis (L) GI/Abdominal exam: Present: soft. Absent: tenderness Extremities exam: Present: normal inspection. Absent: pedal edema, calf tenderness Neurological exam: Present: alert Psychiatric exam: Present: normal affect, normal mood Skin exam: Present: normal color Course Vital Signs 03/15/19 03/15/19 03/15/19 08:47 10:00 10:21 Temperature 98.2 F Pulse Rate 71 66 60 Respiratory 20 18 18 Rate Blood Pressure 148/72 168/75 176/91 O2 Sat by Pulse 97 100 100 Oximetry EKG Findings - EKG Comments: EKG Findings:: Normal sinus rhythm 65. SD 140. QRS 92. QT 392. QTC 407. Normal axis. Normal QRS. No acute ST change. Medical Decision Making - Medical Decision Making Patient reevaluated and resting comfortably in bed. Patient and family updated on results and plan. Case was discussed in detail Dr. zavala, who will admit for Dr. harding. - Lab Data Result diagrams: 03/15/19 09:50 03/15/19 09:50 Lab Results 03/15/19 03/15/19 03/15/19 Range/Units 09:50 09:50 09:50 WBC 7.7 (3.8-10.6) k/uL RBC 3.98 (3.80-5.40) m/uL Hgb 11.6 (11.4-16.0) gm/dL Hct 35.3 (34.0-46.0) % MCV 88.7 (80.0-100.0) fL MCH 29.2 (25.0-35.0) pg MCHC 32.9 (31.0-37.0) g/dL RDW 16.6 H (11.5-15.5) % Plt Count 213 (150-450) k/uL Neutrophils % 73 % Lymphocytes % 13 % Monocytes % 9 % Eosinophils % 3 % Basophils % 0 % Neutrophils # 5.6 (1.3-7.7) k/uL Lymphocytes # 1.0 (1.0-4.8) k/uL Monocytes # 0.7 (0-1.0) k/uL Eosinophils # 0.2 (0-0.7) k/uL Basophils # 0.0 (0-0.2) k/uL Poikilocytosis Slight Anisocytosis Slight PT 10.8 (9.0-12.0) sec INR 1.0 (<1.2) APTT 27.4 (22.0-30.0) sec Sodium 139 (137-145) mmol/L Potassium 4.7 (3.5-5.1) mmol/L Chloride 105 (98-107) mmol/L Carbon Dioxide 25 (22-30) mmol/L Anion Gap 9 mmol/L BUN 17 (7-17) mg/dL Creatinine 1.10 H (0.52-1.04) mg/dL Est GFR (CKD-EPI)AfAm 53 (>60 ml/min/1.73 sqM) Est GFR (CKD-EPI)NonAf 46 (>60 ml/min/1.73 sqM) Glucose 83 (74-99) mg/dL Calcium 8.9 (8.4-10.2) mg/dL Magnesium 1.9 (1.6-2.3) mg/dL Total Bilirubin 0.5 (0.2-1.3) mg/dL AST 44 H (14-36) U/L ALT 31 (9-52) U/L Alkaline Phosphatase 88 (38-126) U/L Troponin I (0.000-0.034) ng/mL Total Protein 7.5 (6.3-8.2) g/dL Albumin 4.1 (3.5-5.0) g/dL 03/15/19 Range/Units 09:50 WBC (3.8-10.6) k/uL RBC (3.80-5.40) m/uL Hgb (11.4-16.0) gm/dL Hct (34.0-46.0) % MCV (80.0-100.0) fL MCH (25.0-35.0) pg MCHC (31.0-37.0) g/dL RDW (11.5-15.5) % Plt Count (150-450) k/uL Neutrophils % % Lymphocytes % % Monocytes % % Eosinophils % % Basophils % % Neutrophils # (1.3-7.7) k/uL Lymphocytes # (1.0-4.8) k/uL Monocytes # (0-1.0) k/uL Eosinophils # (0-0.7) k/uL Basophils # (0-0.2) k/uL Poikilocytosis Anisocytosis PT (9.0-12.0) sec INR (<1.2) APTT (22.0-30.0) sec Sodium (137-145) mmol/L Potassium (3.5-5.1) mmol/L Chloride (98-107) mmol/L Carbon Dioxide (22-30) mmol/L Anion Gap mmol/L BUN (7-17) mg/dL Creatinine (0.52-1.04) mg/dL Est GFR (CKD-EPI)AfAm (>60 ml/min/1.73 sqM) Est GFR (CKD-EPI)NonAf (>60 ml/min/1.73 sqM) Glucose (74-99) mg/dL Calcium (8.4-10.2) mg/dL Magnesium (1.6-2.3) mg/dL Total Bilirubin (0.2-1.3) mg/dL AST (14-36) U/L ALT (9-52) U/L Alkaline Phosphatase (38-126) U/L Troponin I <0.012 (0.000-0.034) ng/mL Total Protein (6.3-8.2) g/dL Albumin (3.5-5.0) g/dL - Radiology Data Radiology results: image reviewed (Chest x-ray shows COPD, no acute process.) Disposition Clinical Impression: Chest pain Disposition: ADMITTED IP TO THIS HOSP Is patient prescribed a controlled substance at d/c from ED?: No Referrals: Demian Vega MD [Primary Care Provider] - 1-2 days Decision Time: 11:31
[2019-03-15 10:20] LABS: Anisocytosis Slight; Basophils % (A) 0 %; Eosinophils # (A) 0.2 k/uL (0-0.7); Eosinophils % (A) 3 %; HCT 35.3 % (34.0-46.0); HGB 11.6 gm/dL (11.4-16.0); Lymphocytes % (A) 13 %; MCH 29.2 pg (25.0-35.0); MCHC 32.9 g/dL (31.0-37.0); MCV 88.7 fL (80.0-100.0); Mean Platelet Volume 8.6; Monocytes # (A) 0.7 k/uL (0-1.0); Monocytes % (A) 9 %; Neutrophils # (A) 5.6 k/uL (1.3-7.7); Neutrophils % (A) 73 %; Platelet Count 213 k/uL (150-450); Poikilocytosis Slight; RBC 3.98 m/uL (3.80-5.40); RDW 16.6 % (11.5-15.5); WBC 7.7 k/uL (3.8-10.6)
--- NOTE | 2019-03-15 10:21 | XR ---
EXAMINATION TYPE: XR chest 2V DATE OF EXAM: 03/15/2019 COMPARISON: 03/09/2018 TECHNIQUE: PA and lateral views submitted. HISTORY: Chest pain FINDINGS: The lungs are clear and there is no pneumothorax, pleural effusion, or focal pneumonia. The heart i s enlarged and there is hyperexpansion suggestive of COPD. Annular calcification noted. Degenerative change of the spine. Arthropathy of the shoulders with diffuse osteopenia. Atherosclerotic change aor ta. IMPRESSION: 1. Correlate for COPD.
[2019-03-15 10:26] LABS: Albumin 4.1 g/dL (3.5-5.0); Calcium 8.9 mg/dL (8.4-10.2); Magnesium 1.9 mg/dL (1.6-2.3); Potassium 4.7 mmol/L (3.5-5.1); Total Bilirubin 0.5 mg/dL (0.2-1.3); Total Protein 7.5 g/dL (6.3-8.2)
[2019-03-15 10:32] LABS: Partial Thromboplastin Time 27.4 sec (22.0-30.0); Prothrombin Time 10.8 sec (9.0-12.0)
[2019-03-15] MEDS ORDERED: NITROGLYCERIN SL TABS 0.4 MG TAB SUBLINGUAL PRN (11:32)
[2019-03-15] MEDS ORDERED: ONDANSETRON 4 MG TAB PO PRN (12:26)
[2019-03-15] MEDS ORDERED: MECLIZINE 12.5 MG TAB PO PRN (12:26)
--- NOTE | 2019-03-15 12:27 | P.HPIM ---
History of Present Illness This is a pleasant 88 years old female with past medical history of coronary artery disease status post angioplasty of the mid LAD on 12/2016, atrial flutter status post successful ablation on 01/2017. She is currently on Eliquis. She has chronic kidney disease. Hypertension, dyslipidemia, hypothyroidism, and benign brain mass. She follows with Dr. Mendez in the outpatient setting for cardiology. She presents with chest pain on the left side, nonspecific of one- day duration about 5-6/10 in severity. Chest pain is coming on and off several times. Currently patient is without chest pain. No associated symptoms. No dyspnea or palpitation. No nausea vomiting. No dizziness. No change in urine or bowel habits. No fever. On the presentation her Vitas looks stable. However her blood pressure was high at 175/77 the last blood pressure taken. Patient confirms she took her blood pressure medication. Norvasc is added to her. Labs reviewed showing negative troponin. Rest of labs including CBC, BMP and liver enzymes were unremarkable except for mildly elevated AST at 44 and chronically elevated creatinine and 1.1 as patient has chronic kidney disease. EKG: Showing normal sinus rhythm at [address]-T changes. Chest x-ray: No acute event. COPD. Patient already got aspirin Review of Systems CONSTITUTIONAL: No fever, no malaise, no fatigue. HEENT: No recent visual problems or hearing problems. Denied any sore throat. CARDIOVASCULAR: No orthopnea, PND, no palpitations, no syncope. PULMONARY: No shortness of breath, no cough, no hemoptysis. GASTROINTESTINAL: No diarrhea, no nausea, no vomiting, no abdominal pain. Normoactive bowel sounds. NEUROLOGICAL: No headaches, no weakness, no numbness. HEMATOLOGICAL: Denies any bleeding or petechiae. GENITOURINARY: Denies any burning micturition, frequency, or urgency. MUSCULOSKELETAL/RHEUMATOLOGICAL: Denies any joint pain, swelling, or any muscle pain. ENDOCRINE: Denies any polyuria or polydipsia. 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 History of Any Multi-Drug Resistant Organisms: None Reported Past Surgical History: Bladder Surgery, Cardiac Ablation, Heart Catheterization With Stent, Hernia Repair, Hysterectomy, Joint Replacement, Orthopedic Surgery, Tubal Ligation Additional Past Surgical History / Comment(s): 12/2016 PCI with stent, cardiac ablation for A flutter, umbilical hernia repair, surgery on two toes L foot for hammer toe, excision lesion L index finger, right total knee, bilateral cataracts removed, colonoscopies, bladder suspension. Past Anesthesia/Blood Transfusion Reactions: No Reported Reaction Additional Past Anesthesia/Blood Transfusion Reaction / Comment(s): Pt has received blood in past without reaction. Date of Last Stent Placement:: 2016 Smoking Status: Never smoker - Past Family History Mother Family Medical History: Cancer Additional Family Medical History / Comment(s): Mother had cancer with metastasis-primary unknown. She at the age of 85yrs. Brother(s) Family Medical History: Cancer Father Family Medical History: Congestive Heart Failure (CHF) Additional Family Medical History / Comment(s): Father at the age of 70yrs. Medications and Allergies Home Medications Medication Instructions Recorded Confirmed Type Levothyroxine Sodium [Synthroid] 50 mcg PO DAILY 05/01/14 03/15/19 History Pantoprazole [Protonix] 40 mg PO DAILY 01/03/16 03/15/19 History Atorvastatin [Lipitor] 40 mg PO HS 12/25/16 03/15/19 History ALPRAZolam [Xanax] 0.5 mg PO DAILY 10/19/17 03/15/19 History Metoprolol Tartrate [Lopressor] 25 mg PO BID 10/19/17 03/15/19 History Losartan [Cozaar] 25 mg PO DAILY #30 tab 03/10/18 03/15/19 Rx Apixaban [Eliquis] 2.5 mg PO BID 03/15/19 03/15/19 History Cetirizine HCl [Zyrtec] 10 mg PO DAILY 03/15/19 03/15/19 History Meclizine [Antivert] 12.5 mg PO TID PRN 03/15/19 03/15/19 History Ondansetron HCl [Zofran] 8 mg PO TID PRN 03/15/19 03/15/19 History Allergies Allergy/AdvReac Type Severity Reaction Status Date / Time codeine AdvReac Nausea & Verified 03/15/19 09:24 Vomiting Physical Exam Vitals: Vital Signs Temp Pulse Resp BP Pulse Ox 03/15/19 12:19 87 18 175/77 99 03/15/19 11:40 65 20 185/80 03/15/19 11:30 61 13 185/80 03/15/19 11:20 62 10 L 187/73 03/15/19 11:10 57 L 17 187/73 03/15/19 11:00 58 L 17 187/68 03/15/19 10:50 57 L 19 187/68 03/15/19 10:40 60 18 176/91 03/15/19 10:30 58 L 18 176/91 03/15/19 10:21 60 18 176/91 100 03/15/19 10:20 60 12 168/75 03/15/19 10:10 65 12 168/75 03/15/19 10:00 63 19 151/93 100 03/15/19 09:50 61 18 151/93 03/15/19 09:40 63 18 151/74 03/15/19 09:30 64 15 151/74 03/15/19 09:20 66 18 03/15/19 09:19 71 18 03/15/19 08:47 98.2 F 71 20 148/72 97 Intake and Output 03/14/19 03/15/19 03/15/19 22:59 06:59 14:59 Other: Weight 71.668 kg GENERAL: The patient is alert and oriented x3, not in any acute distress. Well developed, well nourished. HEENT: Pupils are round and equally reacting to light. EOMI. No scleral icterus. No conjunctival pallor. Normocephalic, atraumatic. No pharyngeal erythema. No thyromegaly. CARDIOVASCULAR: S1 and S2 present. No murmurs, rubs, or gallops. PULMONARY: Chest is clear to auscultation, no wheezing or crackles. ABDOMEN: Soft, nontender, nondistended, normoactive bowel sounds. No palpable organomegaly. MUSCULOSKELETAL: No joint swelling or deformity. EXTREMITIES: No cyanosis, clubbing, or pedal edema. NEUROLOGICAL: Gross neurological examination did not reveal any focal deficits. SKIN: No rashes. Results CBC & Chem 7: 03/15/19 09:50 03/15/19 09:50 Labs: Abnormal Lab Results - Last 24 Hours (Table) 03/15/19 03/15/19 Range/Units 09:50 09:50 RDW 16.6 H (11.5-15.5) % Creatinine 1.10 H (0.52-1.04) mg/dL AST 44 H (14-36) U/L Thrombosis Risk Factor Assmnt - Choose All That Apply Any of the Below Risk Factors Present?: Yes Each Factor Represents 1 point: Obesity (BMI >25) Other Risk Factors: Yes Each Risk Factor Represents 3 Points: Age 75 years or older Other congenital or acquired thrombophilia - If yes, enter type in comment: No Thrombosis Risk Factor Assessment Total Risk Factor Score: 4 Thrombosis Risk Factor Assessment Level: Moderate Risk Assessment and Plan Assessment: Chest pain, rule out cardiac causes History of coronary artery disease status post angioplasty of the mid-LAD on 12/2016 History of atrial flutter status post successful ablation on 01/2017 Hypertension Chronic kidney disease, stage III COPD, not in acute exacerbation Dyslipidemia Hypothyroidism History of brain mass, benign Plan: This is a pleasant 88 years old female who presents because of chest pain. We'll do serial troponins and EKG. We'll ask for cardiology for consult. Labs and medication were reviewed.. Continue same treatment. Continue with symptomatic treatment. Resume home medication. Monitor lytes and vitals. DVT and GI prophylaxis. Further recommendations of the clinical course of the patient DVT prophylaxis: Eliquis GI Prophylaxis: Protonix Prognosis is guarded
[2019-03-15] MEDS: NITROGLYCERIN OINT 1 INCH/GM PACKET TOPICAL SCH ×2 (19:15→23:36)
[2019-03-15] MEDS: APIXABAN 2.5 MG TABLET PO SCH (20:43)
[2019-03-15] MEDS: amLODIPine 5 MG TAB PO SCH (20:43)
[2019-03-15] MEDS: METOPROLOL TARTRATE 25 MG TAB PO SCH (20:47)
[2019-03-15] MEDS ORDERED: ATORVASTATIN 40 MG TAB PO SCH (21:00)
[2019-03-16 03:37] LABS: Cholesterol 109 mg/dL (<200); HDL Cholesterol 35 mg/dL (40-60); LDL Cholesterol,Calculated 44 mg/dL (0-99); Triglycerides 152 mg/dL (<150)
[2019-03-16] MEDS: NITROGLYCERIN OINT 1 INCH/GM PACKET TOPICAL SCH (06:24)
[2019-03-16] MEDS ORDERED: LEVOTHYROXINE 50 MCG TAB PO SCH (06:30)
[2019-03-16] MEDS ORDERED: DOBUTamine DRIP for NUC MED 500 MG in DEXTROSE/WATER 1 250ML.BAG IV ONE (08:44)
[2019-03-16] MEDS ORDERED: LOSARTAN 25 MG TAB PO SCH (09:00)
[2019-03-16] MEDS ORDERED: ASPIRIN 81 MG PO SCH (09:00)
[2019-03-16] MEDS ORDERED: PANTOPRAZOLE 40 MG TABLET PO SCH (09:00)
[2019-03-16] MEDS ORDERED: ASPIRIN 325 MG TAB PO SCH (09:00)
[2019-03-16] MEDS ORDERED: ALPRAZolam 0.5 MG TAB PO SCH (09:00)
--- NOTE | 2019-03-16 09:07 | CONS ---
CONSULTATION Mrs. Meade is an 88-year-old female who is followed by Dr. Jessica ConwayEd Miller has a history of atrial flutter status post ablation performed by Dr. Adrian and history of coronary artery disease. Underwent cardiac catheterization in december 2016 and stenting of the LAD. She presented with a brief episode of chest discomfort that occurred at rest and subsequently resolved. The symptoms was not associated with any dyspnea, dizziness or syncope. She had no palpitation. She was in the hospital on the 09 of March of last year and that revealed no evidence of inducible ischemia. She is feeling well this morning. Her breathing is stable. She denies any chest pain. No dizziness. No palpitation. In March of last year, she had a stress echocardiogram that revealed no evidence of inducible ischemia. She has no PND, orthopnea, or peripheral edema. Her level of activity is limited because of her arthritic pain. MEDICATIONS: Her medications include Protonix, metoprolol tartrate 25 mg twice a day, Antivert, Cozaar 25 mg daily, cetirizine, Lipitor 40 mg daily, Eliquis 2.5 mg twice a day. REVIEW OF SYSTEMS: RESPIRATORY SYSTEM: She has no documented asthma, emphysema or bronchitis. GI SYSTEM: No recent GI bleeding. No peptic ulcer disease. SYSTEM: No dysuria or hematuria. NERVOUS SYSTEM: No stroke or seizure. PHYSICAL EXAMINATION: Blood pressure 150/80 with the heart rate in the 60s. HEAD: Normocephalic. EYES: Sclerae anicteric. NECK: Good upstroke. No bruit. No jugular venous distention. LUNGS: Clear to auscultation. HEART: Regular rate and rhythm. S1, S2. No S3. No S4 with a systolic murmur at the base. No diastolic murmur. No rub. ABDOMEN: Soft, nontender. Positive bowel sounds. No organomegaly. EXTREMITIES: No edema. Intact distal pulses. LAB DATA: Lab data revealed troponin less than 0.012 for 3 samples, cholesterol 109, LDL 44. BUN and creatinine 17 and 1.1. 11.6. IMPRESSION: 1. Chest discomfort, has atypical feature for ischemic heart disease in a patient with history of coronary artery disease. 2. Hypertension. 3. Hyperlipidemia. 4. History of atrial flutter, status post ablation. RECOMMENDATION: I would recommend proceeding with stress echocardiogram. If there is no evidence of inducible ischemia, then no further cardiac workup will be needed. Thank you for this consult. We will follow with you. MMODL / IJN: [id number] /
[2019-03-16] MEDS: APIXABAN 2.5 MG TABLET PO SCH (11:12)
[2019-03-16] MEDS: amLODIPine 5 MG TAB PO SCH (11:12)
[2019-03-16] MEDS: METOPROLOL TARTRATE 25 MG TAB PO SCH (11:13)
[2019-03-16 11:51] VITALS: BP 138/61; PULSE 69; RESP 17; TEMP 97.7
--- NOTE | 2019-03-16 13:55 | ECHOS ---
STRESS ECHOCARDIOGRAM INDICATIONS: Chest pain. BASELINE HEART RATE: 77 BASELINE BLOOD PRESSURE: 189/87 MAXIMUM HEART RATE: 127 MAXIMUM BLOOD PRESSURE: 205/74 85% MPHR: 114 100% MPHR: 134 MAXIMUM STAGE REACHED: 2 TOTAL EXERCISE TIME: 6:00 CLINICAL INFORMATION: Baseline rhythm is a sinus mechanism, rate of 77, normal axis and intervals. The transition baseline blood pressure 189/87 mmHg. Patient received infusion of dobutamine per protocol, peak rate 127 beats per minute which is equal to 85% of maximum predicted heart rate. Peak blood pressure 204/74 mmHg. Electrocardiograph monitoring revealed occasional PVCs. There was no evidence of diagnostic ischemic ST deviation. FINDINGS: Baseline echocardiogram revealed normal wall motion. At peak exercise, there was normal wall motion augmentation with no hypokinesis or dyskinesis. CONCLUSION: 1. Nondiagnostic electrocardiograph response to dobutamine infusion with occasional premature ventricular contractions and nonspecific ST-segment changes. 2. Normal stress echocardiogram with no evidence of stress-induced ischemia. MMODL / IJN: [id number] /
--- NOTE | 2019-03-16 14:58 | P.DS ---
Providers Date of admission: 03/15/19 11:32 Attending physician: Eli Gagnon Consults: 03/15/19 11:32 Consult Physician Urgent Consulting Provider: Nai Julien Consult Reason/Comments: cp Do you want consulting provider notified?: Yes Primary care physician: Silvia Col[facility] Course: Diagnoses: Chest pain, stress test is negative. Chest pain is resolved History of coronary artery disease status post angioplasty of the mid-LAD on 12/2016 History of atrial flutter status post successful ablation on 01/2017 Hypertension Chronic kidney disease, stage III COPD, not in acute exacerbation Dyslipidemia Hypothyroidism History of brain mass, benign Hospital course: This is a pleasant 88 years old female with past medical history of coronary artery disease status post angioplasty of the mid LAD on 12/2016, atrial flutter status post successful ablation on 01/2017. She is currently on Eliquis. She has chronic kidney disease. Hypertension, dyslipidemia, hypothyroidism, and benign brain mass. She follows with Dr. Mendez in the outpatient setting for cardiology. She presents with chest pain on the left side, nonspecific of one- day duration about 5-6/10 in severity. Chest pain is coming on and off several times. Patient has been evaluated by stockroom selector. She underwent dobutamine stress test which was nondiagnostic with normal stress echocardiogram and no evidence of stress induced ischemia. Patient feels well with no more chest pain. No dyspnea. No change in urine or bowel habits. No dizziness. She is tolerating diet well. No fever. She is hemodynamically stable. Labs are unremarkable with negative serial troponins. Patient states that she has all strips including Eliquis. She is off aspirin which was taken off by her stockroom selector. Patient was cleared for discharge by cardiology team Problems and management plan were discussed with the patient and he verbalized understanding and acceptance Patient was found stable and can be discharged home however he needs follow-up as an outpatient. Patient states that she will follow up with her appointment with Dr. Miller the stockroom selector tomorrow at 10:00. Patient was instructed to follow up with her PCP in one week Gen: patient is a AAOx3, no distress CVS: S1-S2, RRR, no murmur Lungs: B/L CTA, no wheezing Abdomen: soft, no distention, no tenderness, positive bowel sounds Extremity: no leg edema or induration Time spent more than 35 minutes Plan - Discharge Summary Discharge Rx Participant: No New Discharge Prescriptions: New Nitroglycerin Sl Tabs [Nitrostat] 0.4 mg SUBLINGUAL Q5M PRN #20 tab PRN Reason: Chest Pain amLODIPine [Norvasc] 5 mg PO DAILY #30 tab Continue Levothyroxine Sodium [Synthroid] 50 mcg PO DAILY Pantoprazole [Protonix] 40 mg PO DAILY Atorvastatin [Lipitor] 40 mg PO HS Metoprolol Tartrate [Lopressor] 25 mg PO BID ALPRAZolam [Xanax] 0.5 mg PO DAILY Losartan [Cozaar] 25 mg PO DAILY #30 tab Meclizine [Antivert] 12.5 mg PO TID PRN PRN Reason: Vertigo Apixaban [Eliquis] 2.5 mg PO BID Cetirizine HCl [Zyrtec] 10 mg PO DAILY Ondansetron HCl [Zofran] 8 mg PO TID PRN PRN Reason: Nausea And Vomiting Discharge Medication List Levothyroxine Sodium [Synthroid] 50 mcg PO DAILY 05/01/14 [History] Pantoprazole [Protonix] 40 mg PO DAILY 01/03/16 [History] Atorvastatin [Lipitor] 40 mg PO HS 12/25/16 [History] ALPRAZolam [Xanax] 0.5 mg PO DAILY 10/19/17 [History] Metoprolol Tartrate [Lopressor] 25 mg PO BID 10/19/17 [History] Losartan [Cozaar] 25 mg PO DAILY #30 tab 03/10/18 [Rx] Apixaban [Eliquis] 2.5 mg PO BID 03/15/19 [History] Cetirizine HCl [Zyrtec] 10 mg PO DAILY 03/15/19 [History] Meclizine [Antivert] 12.5 mg PO TID PRN 03/15/19 [History] Ondansetron HCl [Zofran] 8 mg PO TID PRN 03/15/19 [History] Nitroglycerin Sl Tabs [Nitrostat] 0.4 mg SUBLINGUAL Q5M PRN #20 tab 03/16/19 [Rx] amLODIPine [Norvasc] 5 mg PO DAILY #30 tab 03/16/19 [Rx] Follow up Appointment(s)/Referral(s): Clay Miller MD [STAFF PHYSICIAN] - 03/17/19 10:00 am (post hospital follow up with Dr. PAULIE Miller ) Demian Vega MD [Primary Care Provider] - 1-2 days Patient Instructions/Handouts: Chest Pain (DC) Activity/Diet/Wound Care/Special Instructions: Cardiac diet Activity is limited until you see your doctor Discharge Disposition: HOME SELF-CARE
--- NOTE | 2019-03-23 12:53 | ECHOF ---
Referral Reason: MEASUREMENTS -------- HEIGHT: 162.6 cm WEIGHT: 71.7 kg BP: IVSd: 1.3 cm (0.6 - 1.1) LVIDd: 4.0 cm (3.9 - 5.3) LVPWd: 1.3 cm (0.6 - 1.1) IVSs: 1.6 cm LVIDs: 3.0 cm LVPWs: 1.6 cm LAESV Index (A-L): 35.48 ml/m Ao Diam: 2.7 cm (2.0 - 3.7) AV Cusp: 1.2 cm (1.5 - 2.6) LA Diam: 2.9 cm (2.7 - 3.8) MV EXCURSION: 13.883 mm (> 18.000) MV EF SLOPE: 125 mm/s (70 - 150) EPSS: 0.6 cm MV E Bertin: 1.27 m/s MV DecT: 191 ms MV A Bertin: 1.23 m/s MV E/A Ratio: 1.03 AV maxP.12 mmHg AV meanP.07 mmHg RAP: 5.00 mmHg RVSP: 41.96 mmHg FINDINGS -------- Sinus rhythm with extra systolic beats. This was a technically adequate study. The left ventricular size is normal. There is mild concentric left ventricular hypertrophy. Overa ll left ventricular systolic function is normal with, an EF between 55 - 60 %. The right ventricle is normal in size. LA is moderately dilated 34-39 ml/m2 The right atrial size is normal. Interatrial and interventricular septum intact. There is mild aortic valve sclerosis. There is mild aortic stenosis present. Peak/mean gradient a cross the Aortic Valve is 31.12mmHg / 19.07mmHg. The mitral valve leaflets are mildly thickened. Moderate mitral annular calcification present. Se camron mitral regurgitation is present. Mild tricuspid regurgitation present. There is mild pulmonary hypertension. The right ventricular systolic pressure, as measured by Doppler, is 41.96mmHg. There is no pulmonic regurgitation present. The aortic root size is normal. Normal inferior vena cava with normal inspiratory collapse consistent with estimated right atrial pre ssure of 5 mmHg. There is no pericardial effusion. CONCLUSIONS -------- 1. Sinus rhythm with extra systolic beats. 2. This was a technically adequate study. 3. The left ventricular size is normal. 4. There is mild concentric left ventricular hypertrophy. 5. Overall left ventricular systolic function is normal with, an EF between 55 - 60 %. 6. LA is moderately dilated 34-39 ml/m2 7. Interatrial and interventricular septum intact. 8. There is mild aortic valve sclerosis. 9. There is mild aortic stenosis present. 10. Peak/mean gradient across the Aortic Valve is 31.12mmHg / 19.07mmHg. 11. The mitral valve leaflets are mildly thickened. 12. Moderate mitral annular calcification present. 13. Severe mitral regurgitation is present. 14. Mild tricuspid regurgitation present. 15. There is mild pulmonary hypertension. 16. There is no pulmonic regurgitation present. 17. The aortic root size is normal. 18. Normal inferior vena cava with normal inspiratory collapse consistent with estimated right atrial pressure of 5 mmHg. 19. There is no pericardial effusion. LOCOMOTIVE REPAIRER DIESEL: Germaine Ray RDCS
== END 2019-03-16 16:18 | disposition home or self-care (01) ==
LOC: EC 08:42 → 1SOBS 11:32
PROVIDERS: ADMIT Internal Medicine; ATTEND Internal Medicine
DX: R07.89 Other chest pain (principal); I12.9 Hypertensive chronic kidney disease with stage 1 through stage 4 chronic kidney disease, or unspecified chronic kidney disease; N18.3 Chronic kidney disease, stage 3 (moderate); I47.1 Supraventricular tachycardia; E78.5 Hyperlipidemia, unspecified; J44.9 Chronic obstructive pulmonary disease, unspecified; M19.90 Unspecified osteoarthritis, unspecified site; F41.9 Anxiety disorder, unspecified; E66.9 Obesity, unspecified; Z68.27 Body mass index [BMI] 27.0-27.9, adult; D33.2 Benign neoplasm of brain, unspecified; E03.9 Hypothyroidism, unspecified; Z79.01 Long term (current) use of anticoagulants; Z79.890 Hormone replacement therapy; Z79.899 Other long term (current) drug therapy; Z88.5 Allergy status to narcotic agent; K21.9 Gastro-esophageal reflux disease without esophagitis; Z87.440 Personal history of urinary (tract) infections; Z86.2 Personal history of diseases of the blood and blood-forming organs and certain disorders involving the immune mechanism; Z95.5 Presence of coronary angioplasty implant and graft; Z96.651 Presence of right artificial knee joint; Z98.42 Cataract extraction status, left eye; Z98.41 Cataract extraction status, right eye; Z86.79 Personal history of other diseases of the circulatory system; Z90.710 Acquired absence of both cervix and uterus; Z80.9 Family history of malignant neoplasm, unspecified; Z82.49 Family history of ischemic heart disease and other diseases of the circulatory system
CPT/HCPCS: 99285; 36415; 93005; 93306; 93351; 80061; 80053; 83735; 84484; 85025; 85610; 85730; 71046; G0378 ×2; J1250

== ENCOUNTER 2021-08-01 09:17 | Observation (INO) | payer MEDICARE, BC ==
[2021-08-01] MEDS ORDERED: ASPIRIN 81 MG PO STA (09:34)
--- NOTE | 2021-08-01 10:03 | XR ---
EXAMINATION TYPE: XR chest 2V DATE OF EXAM: 08/01/2021 COMPARISON: Chest x-ray 03/15/2019 CT 10/19/2017 HISTORY: Difficulty breathing TECHNIQUE: Frontal and lateral views of the chest are obtained. FINDINGS: Patient is rotated. There is no focal air space opacity, pleural effusion, or pneumothorax seen. The cardiac silhouette size is stable, heart is enlarged, there are overlying leads. There ar e prominent lung volumes with flattening the hemidiaphragms consistent with underlying COPD. Intersti tium is increased. There is mitral annular calcification. Aorta is dense. The osseous structures are intact. IMPRESSION: Cardiomegaly, correlate for possible interstitial edema in a patient with pre-existing C OPD. Suspect emphysema.
[2021-08-01 10:13] LABS: Anisocytosis Slight; HGB 9.1 gm/dL (11.4-16.0); Hypochromasia Slight; MCH 25.1 pg (25.0-35.0); MCHC 32.6 g/dL (31.0-37.0); MCV 76.9 fL (80.0-100.0); Mean Platelet Volume 10.9; Microcytosis Slight; Platelet Count 216 k/uL (150-450); Poikilocytosis Moderate; RBC 3.64 m/uL (3.80-5.40); WBC 8.1 k/uL (3.8-10.6)
--- NOTE | 2021-08-01 10:14 | ED ---
General Adult HPI - General Chief complaint: Shortness of Breath Stated complaint: PRISCILLA Time Seen by Provider: 08/01/21 09:25 Source: patient, RN notes reviewed, old records reviewed Mode of arrival: EMS Limitations: no limitations - History of Present Illness Initial comments: This is an 89-year-old female presents emergency Department with complaints of difficulty breathing for 2 days. Patient denies any chest pain but she does state he does feel heavy when she tries to take breath. Patient denies any fever chills or cough. Patient states she has had a stent in the past and when she had it she never had chest pain at that time either. Patient denies any fever or chills. Patient denies abdominal pain patient denies nausea vomiting diarrhea. Patient denies any calf tenderness. Patient denies lightheadedness dizziness. Patient denies headache patient denies numbness weakness. - Related Data Home Medications Medication Instructions Recorded Confirmed Levothyroxine Sodium [Synthroid] 50 mcg PO DAILY 05/01/14 08/01/21 Pantoprazole [Protonix] 40 mg PO HS 01/03/16 08/01/21 Atorvastatin [Lipitor] 40 mg PO HS 12/25/16 08/01/21 Metoprolol Tartrate [Lopressor] 25 mg PO BID 10/19/17 08/01/21 Apixaban [Eliquis] 2.5 mg PO BID 03/15/19 08/01/21 Meclizine [Antivert] 12.5 mg PO TID PRN 03/15/19 08/01/21 ondansetron HCL [Zofran] 8 mg PO TID PRN 03/15/19 08/01/21 Celecoxib [CeleBREX] 200 mg PO DAILY PRN 08/01/21 08/01/21 Dexamethasone [Decadron] See Taper PO DAILY 08/01/21 08/01/21 Furosemide [Lasix] 20 mg PO DAILY 08/01/21 08/01/21 Losartan [Cozaar] 25 mg PO HS 08/01/21 08/01/21 Memantine [Namenda] 5 mg PO BID 08/01/21 08/01/21 hydrOXYzine HCL 10 mg PO HS 08/01/21 08/01/21 Previous Rx's Medication Instructions Recorded Nitroglycerin Sl Tabs [Nitrostat] 0.4 mg SUBLINGUAL Q5M PRN #20 tab 03/16/19 Allergies Allergy/AdvReac Type Severity Reaction Status Date / Time codeine AdvReac Nausea & Verified 08/01/21 11:00 Vomiting Review of Systems ROS Statement: Those systems with pertinent positive or pertinent negative responses have been documented in the HPI. ROS Other: All systems not noted in ROS Statement are negative. 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 History of Any Multi-Drug Resistant Organisms: None Reported Past Surgical History: Bladder Surgery, Cardiac Ablation, Heart Catheterization With Stent, Hernia Repair, Hysterectomy, Joint Replacement, Orthopedic Surgery, Tubal Ligation Additional Past Surgical History / Comment(s): 12/2016 PCI with stent, cardiac ablation for A flutter, umbilical hernia repair, surgery on two toes L foot for hammer toe, excision lesion L index finger, right total knee, bilateral catara cts removed, colonoscopies, bladder suspension. Past Anesthesia/Blood Transfusion Reactions: No Reported Reaction Additional Past Anesthesia/Blood Transfusion Reaction / Comment(s): Pt has received blood in past without reaction. Date of Last Stent Placement:: 2016 Past Psychological History: Anxiety Past Alcohol Use History: None Reported Past Drug Use History: None Reported - Past Family History Mother Family Medical History: Cancer Additional Family Medical History / Comment(s): Mother had cancer with metastasis-primary unknown. She at the age of 85yrs. Brother(s) Family Medical History: Cancer Father Family Medical History: Congestive Heart Failure (CHF) Additional Family Medical History / Comment(s): Father at the age of 70yrs. General Exam - General Exam Comments Initial Comments: GENERAL: Patient is well-developed and well-nourished. Patient is nontoxic and well- hydrated and is in no acute distress. ENT: Neck is soft and supple. No significant lymphadenopathy is noted. Oropharynx is clear. Moist mucous membranes. Neck has full range of motion without eliciting any pain. EYES: The sclera were anicteric and conjunctiva were pink and moist. Extraocular movements were intact and pupils were equal round and reactive to light. Eyelids were unremarkable. PULMONARY: Unlabored respirations. Good breath sounds bilaterally. No audible rales rhonchi or wheezing was noted. CARDIOVASCULAR: There is a regular rate and rhythm without any murmurs gallops or rubs. ABDOMEN: Soft and nontender with normal bowel sounds. SKIN: Skin is clear with no lesions or rashes and otherwise unremarkable. NEUROLOGIC: Patient is alert and oriented x3. Cranial nerves II through XII are grossly intact. Motor and sensory are also intact. Normal speech, volume and content. Symmetrical smile. MUSCULOSKELETAL: Normal extremities with adequate strength and full range of motion. No lower extremity swelling or edema. No calf tenderness. LYMPHATICS: No significant lymphadenopathy is noted PSYCHIATRIC: Normal psychiatric evaluation. Limitations: no limitations Course Vital Signs 08/01/21 08/01/21 09:21 10:00 Temperature 97.8 F Pulse Rate 62 55 L Respiratory 18 15 Rate Blood Pressure 185/89 179/91 O2 Sat by Pulse 100 100 Oximetry Medical Decision Making - Medical Decision Making EKG shows normal sinus rhythm at 60 bpm RI interval 238 QRS is 92 QT interval 390 QTC is 390. Patient's EKG shows no ST segment elevation or depression. Chest x-ray shows interstitial edema. Patient received Lasix in the emergency department I spoke with each [place] hospitalist and admitted the patient wrote admitting orders. - Lab Data Result diagrams: 08/01/21 09:38 08/01/21 09:38 Lab Results 08/01/21 08/01/21 08/01/21 Range/Units 09:38 09:38 09:38 WBC 8.1 (3.8-10.6) k/uL RBC 3.64 L (3.80-5.40) m/uL Hgb 9.1 L (11.4-16.0) gm/dL Hct 28.0 L (34.0-46.0) % MCV 76.9 L (80.0-100.0) fL MCH 25.1 (25.0-35.0) pg MCHC 32.6 (31.0-37.0) g/dL RDW 17.0 H (11.5-15.5) % Plt Count 216 (150-450) k/uL MPV 10.9 Neutrophils % (Manual) 57 % Lymphocytes % (Manual) 27 % Monocytes % (Manual) 15 % Eosinophils % (Manual) 1 % Neutrophils # (Manual) 4.62 (1.3-7.7) k/uL Lymphocytes # (Manual) 2.19 (1.0-4.8) k/uL Monocytes # (Manual) 1.22 H (0-1.0) k/uL Eosinophils # (Manual) 0.08 (0-0.7) k/uL Nucleated RBCs 0 (0-0) /100 WBC Manual Slide Review Performed Hypochromasia Slight Poikilocytosis Moderate Anisocytosis Slight Microcytosis Slight PT 11.4 (9.0-12.0) sec INR 1.1 (<1.2) APTT 25.9 (22.0-30.0) sec D-Dimer 0.66 H (<0.60) mg/L FEU Sodium 133 L (137-145) mmol/L Potassium 4.2 (3.5-5.1) mmol/L Chloride 100 (98-107) mmol/L Carbon Dioxide 20 L (22-30) mmol/L Anion Gap 13 mmol/L BUN 54 H (7-17) mg/dL Creatinine 1.81 H (0.52-1.04) mg/dL Est GFR (CKD-EPI)AfAm 28 (>60 ml/min/1.73 sqM) Est GFR (CKD-EPI)NonAf 25 (>60 ml/min/1.73 sqM) Glucose 96 (74-99) mg/dL Plasma Lactic Acid Sesar (0.7-2.0) mmol/L Calcium 8.8 (8.4-10.2) mg/dL Magnesium 2.3 (1.6-2.3) mg/dL Total Bilirubin 0.7 (0.2-1.3) mg/dL AST 32 (14-36) U/L ALT 25 (4-34) U/L Alkaline Phosphatase 71 (38-126) U/L Troponin I (0.000-0.034) ng/mL NT-Pro-B Natriuret Pep pg/mL Total Protein 7.2 (6.3-8.2) g/dL Albumin 4.2 (3.5-5.0) g/dL 08/01/21 08/01/21 08/01/21 Range/Units 09:38 09:38 09:38 WBC (3.8-10.6) k/uL RBC (3.80-5.40) m/uL Hgb (11.4-16.0) gm/dL Hct (34.0-46.0) % MCV (80.0-100.0) fL MCH (25.0-35.0) pg MCHC (31.0-37.0) g/dL RDW (11.5-15.5) % Plt Count (150-450) k/uL MPV Neutrophils % (Manual) % Lymphocytes % (Manual) % Monocytes % (Manual) % Eosinophils % (Manual) % Neutrophils # (Manual) (1.3-7.7) k/uL Lymphocytes # (Manual) (1.0-4.8) k/uL Monocytes # (Manual) (0-1.0) k/uL Eosinophils # (Manual) (0-0.7) k/uL Nucleated RBCs (0-0) /100 WBC Manual Slide Review Hypochromasia Poikilocytosis Anisocytosis Microcytosis PT (9.0-12.0) sec INR (<1.2) APTT (22.0-30.0) sec D-Dimer (<0.60) mg/L FEU Sodium (137-145) mmol/L Potassium (3.5-5.1) mmol/L Chloride (98-107) mmol/L Carbon Dioxide (22-30) mmol/L Anion Gap mmol/L BUN (7-17) mg/dL Creatinine (0.52-1.04) mg/dL Est GFR (CKD-EPI)AfAm (>60 ml/min/1.73 sqM) Est GFR (CKD-EPI)NonAf (>60 ml/min/1.73 sqM) Glucose (74-99) mg/dL Plasma Lactic Acid Sesar 1.4 (0.7-2.0) mmol/L Calcium (8.4-10.2) mg/dL Magnesium (1.6-2.3) mg/dL Total Bilirubin (0.2-1.3) mg/dL AST (14-36) U/L ALT (4-34) U/L Alkaline Phosphatase (38-126) U/L Troponin I <0.012 (0.000-0.034) ng/mL NT-Pro-B Natriuret Pep 5950 pg/mL Total Protein (6.3-8.2) g/dL Albumin (3.5-5.0) g/dL Disposition Clinical Impression: Acute pulmonary edema Disposition: ADMITTED IP TO THIS HOSP Referrals: Demian Vega MD [Primary Care Provider] - 1-2 days Time of Disposition: 11:19
[2021-08-01 10:18] LABS: Albumin 4.2 g/dL (3.5-5.0); Calcium 8.8 mg/dL (8.4-10.2); Magnesium 2.3 mg/dL (1.6-2.3); Potassium 4.2 mmol/L (3.5-5.1); Total Bilirubin 0.7 mg/dL (0.2-1.3); Total Protein 7.2 g/dL (6.3-8.2)
[2021-08-01 10:19] LABS: INR 1.1 (<1.2); Partial Thromboplastin Time 25.9 sec (22.0-30.0); Prothrombin Time 11.4 sec (9.0-12.0)
[2021-08-01 10:51] LABS: Eosinophils # (M) 0.08 k/uL (0-0.7); Lymphocytes # (M) 2.19 k/uL (1.0-4.8); Monocytes # (M) 1.22 k/uL (0-1.0); Neutrophils # (M) 4.62 k/uL (1.3-7.7); Neutrophils % (M) 57 %; Nucleated Red Blood Cells 0 /100 WBC (0-0); Total Cells Counted 100
[2021-08-01] MEDS ORDERED: FUROSEMIDE 10 MG/ML 2 ML VIAL IV ONE (11:19)
[2021-08-01] MEDS ORDERED: NITROGLYCERIN OINT 1 INCH/GM PACKET TOPICAL STA (11:19)
[2021-08-01] MEDS ORDERED: ENALAPRILAT 1.25 MG/ML 1 ML VIAL IVP STA (11:29)
[2021-08-01 13:01] VITALS: BMI 23.3
[2021-08-01] MEDS ORDERED: MECLIZINE 12.5 MG TAB PO PRN (13:06)
[2021-08-01] MEDS ORDERED: NITROGLYCERIN SL TABS 0.4 MG TAB SUBLINGUAL PRN (13:06)
[2021-08-01] MEDS ORDERED: ONDANSETRON 4 MG TAB PO PRN (13:06)
--- NOTE | 2021-08-01 13:14 | P.HPIM ---
History of Present Illness 89-year-old the female came in with compensative short of breath and orthopnea denied any proximal nocturnal dyspnea. Patient does have severe mitral regurgitation and mild aortic stenosis history. Patient may have some diastolic dysfunction as well. Patient is found to have congestive heart failure was given a 20 mg of Lasix after which her shortness of breath significantly improved and patient urinated well just with 20 mg of Lasix. Patient did have some pulmonary edema on the x-ray with the mild bilateral pleural effusions patient doesn't have any fever chills patient denied any significant cough patient d-dimer is normal for her age. Patient is also mildly hyponatremic and does have acute renal failure prerenal with creatinine of 1.8 on baseline is around 1 REVIEW OF SYSTEMS: CONSTITUTIONAL: No fever, no malaise, no fatigue. HEENT: No recent visual problems or hearing problems. Denied any sore throat. CARDIOVASCULAR: No chest pain, orthopnea, PND, no palpitations, no syncope. PULMONARY: no cough, no hemoptysis. GASTROINTESTINAL: No diarrhea, no nausea, no vomiting, no abdominal pain. NEUROLOGICAL: No headaches, no weakness, no numbness. HEMATOLOGICAL: Denies any bleeding or petechiae. GENITOURINARY: Denies any burning micturition, frequency, or urgency. MUSCULOSKELETAL/RHEUMATOLOGICAL: Denies any joint pain, swelling, or any muscle pain. ENDOCRINE: Denies any polyuria or polydipsia. The rest of the 14-point review of systems is negative. PHYSICAL EXAMINATION: GENERAL: The patient is alert and oriented x3, not in any acute distress. Well developed, well nourished. HEENT: Pupils are round and equally reacting to light. EOMI. No scleral icterus. No conjunctival pallor. Normocephalic, atraumatic. No pharyngeal erythema. No thyromegaly. CARDIOVASCULAR: S1 and S2 present. No murmurs, rubs, or gallops. Does have elevated JVD does have systolic murmur in aortic area and mitral areas PULMONARY: Chest is clear to auscultation, no wheezing or crackles. ABDOMEN: Soft, nontender, nondistended, normoactive bowel sounds. No palpable organomegaly. MUSCULOSKELETAL: No joint swelling or deformity. EXTREMITIES: No cyanosis, clubbing, or pedal edema. NEUROLOGICAL: Gross neurological examination did not reveal any focal deficits. SKIN: No rashes. Assessment and plan -Shortness of breath: Secondary to possible congestive heart failure chronic diastolic dysfunction with acute exacerbation patient has severe mitral regurgitation history and mild aortic stenosis history. Patient was given Lasix with significant improvement in her respiratory status. Patient will be admit monse and monitored overnight continue with the gentle Lasix patient still has elevated JVD -Acute renal failure prerenal azotemia with a heart failure exacerbation patient was started on IV Lasix will monitor the urine output along with the monitoring basic metabolic profile -Hypervolemic hyponatremia secondary to congestive heart failure -Mildly elevated d-dimer normal for her age -History of atrial fibrillation on anticoagulation with the low-dose Eliquis which will be continued neck stent-gases we'll reflux disease -Hypothyroidism -Hypertension -Coronary artery disease DVT prophylaxis: On Eliquis at this time Past Medical History Past Medical History: Atrial Flutter, GERD/Reflux, Hyperlipidemia, Hypertension, Osteoarthritis (OA), Thyroid Disorder Additional Past Medical History / Comment(s): 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 History of Any Multi-Drug Resistant Organisms: None Reported Past Surgical History: Bladder Surgery, Cardiac Ablation, Heart Catheterization With Stent, Hernia Repair, Hysterectomy, Joint Replacement, Orthopedic Surgery, Tubal Ligation Additional Past Surgical History / Comment(s): 12/2016 PCI with stent, cardiac ablation for A flutter, umbilical hernia repair, surgery on two toes L foot for hammer toe, excision lesion L index finger, right total knee, bilateral cataracts removed, colonoscopies, bladder suspension. Past Anesthesia/Blood Transfusion Reactions: No Reported Reaction Additional Past Anesthesia/Blood Transfusion Reaction / Comment(s): Pt has received blood in past without reaction. Date of Last Stent Placement:: 2016 Past Psychological History: Anxiety Past Alcohol Use History: None Reported Past Drug Use History: None Reported - Past Family History Mother Family Medical History: Cancer Additional Family Medical History / Comment(s): Mother had cancer with metastasis-primary unknown. She at the age of 85yrs. Brother(s) Family Medical History: Cancer Father Family Medical History: Congestive Heart Failure (CHF) Additional Family Medical History / Comment(s): Father at the age of 70yrs. Medications and Allergies Home Medications Medication Instructions Recorded Confirmed Type Levothyroxine Sodium [Synthroid] 50 mcg PO DAILY 05/01/14 08/01/21 History Pantoprazole [Protonix] 40 mg PO HS 01/03/16 08/01/21 History Atorvastatin [Lipitor] 40 mg PO HS 12/25/16 08/01/21 History Metoprolol Tartrate [Lopressor] 25 mg PO BID 10/19/17 08/01/21 History Apixaban [Eliquis] 2.5 mg PO BID 03/15/19 08/01/21 History Meclizine [Antivert] 12.5 mg PO TID PRN 03/15/19 08/01/21 History ondansetron HCL [Zofran] 8 mg PO TID PRN 03/15/19 08/01/21 History Nitroglycerin Sl Tabs [Nitrostat] 0.4 mg SUBLINGUAL Q5M PRN #20 tab 03/16/19 08/01/21 Rx Celecoxib [CeleBREX] 200 mg PO DAILY PRN 08/01/21 08/01/21 History Dexamethasone [Decadron] See Taper PO DAILY 08/01/21 08/01/21 History Furosemide [Lasix] 20 mg PO DAILY 08/01/21 08/01/21 History Losartan [Cozaar] 25 mg PO HS 08/01/21 08/01/21 History Memantine [Namenda] 5 mg PO BID 08/01/21 08/01/21 History hydrOXYzine HCL 10 mg PO HS 08/01/21 08/01/21 History Allergies Allergy/AdvReac Type Severity Reaction Status Date / Time codeine AdvReac Nausea & Verified 08/01/21 11:00 Vomiting Physical Exam Vitals: Vital Signs Temp Pulse Resp BP Pulse Ox 08/01/21 13:00 60 18 133/61 100 08/01/21 12:00 58 L 11 L 153/80 100 08/01/21 11:00 54 L 11 L 150/71 100 08/01/21 10:00 55 L 15 179/91 100 08/01/21 09:21 97.8 F 62 18 185/89 100 Intake and Output 07/31/21 08/01/21 08/01/21 22:59 06:59 14:59 Other: Weight 63.503 kg Results CBC & Chem 7: 08/01/21 09:38 08/01/21 09:38 Labs: Abnormal Lab Results - Last 24 Hours (Table) 08/01/21 08/01/21 08/01/21 Range/Units 09:38 09:38 09:38 RBC 3.64 L (3.80-5.40) m/uL Hgb 9.1 L (11.4-16.0) gm/dL Hct 28.0 L (34.0-46.0) % MCV 76.9 L (80.0-100.0) fL RDW 17.0 H (11.5-15.5) % Monocytes # (Manual) 1.22 H (0-1.0) k/uL D-Dimer 0.66 H (<0.60) mg/L FEU Sodium 133 L (137-145) mmol/L Carbon Dioxide 20 L (22-30) mmol/L BUN 54 H (7-17) mg/dL Creatinine 1.81 H (0.52-1.04) mg/dL
[2021-08-01] MEDS: METOPROLOL TARTRATE 25 MG TAB PO SCH ×2 (14:10→20:35)
[2021-08-01] MEDS: FUROSEMIDE 10 MG/ML 2 ML VIAL IV SCH ×2 (16:29→20:35)
[2021-08-01] MEDS: NITROGLYCERIN OINT 1 INCH/GM PACKET TOPICAL SCH ×2 (19:23→20:35)
[2021-08-01] MEDS ORDERED: FUROSEMIDE 10 MG/ML 2 ML VIAL IV SCH (20:00)
[2021-08-01] MEDS: APIXABAN 2.5 MG TABLET PO SCH (20:35)
[2021-08-01] MEDS: MEMANTINE 5 MG TAB PO SCH (20:35)
[2021-08-01] MEDS: PANTOPRAZOLE 40 MG TABLET PO SCH (20:35)
[2021-08-01] MEDS ORDERED: FUROSEMIDE 10 MG/ML 4 ML VIAL IV SCH (21:00)
[2021-08-02] MEDS: LEVOTHYROXINE 50 MCG TAB PO SCH (05:15)
[2021-08-02] MEDS: MEMANTINE 5 MG TAB PO SCH ×2 (09:10→20:29)
[2021-08-02] MEDS: NITROGLYCERIN OINT 1 INCH/GM PACKET TOPICAL SCH ×4 (09:10→23:44)
[2021-08-02] MEDS: APIXABAN 2.5 MG TABLET PO SCH ×2 (09:10→20:29)
[2021-08-02] MEDS: FUROSEMIDE 10 MG/ML 2 ML VIAL IV SCH (09:10)
[2021-08-02] MEDS: METOPROLOL TARTRATE 25 MG TAB PO SCH ×2 (09:11→20:30)
--- NOTE | 2021-08-02 12:43 | P.PN ---
Subjective 89-year-old the female came in with compensative short of breath and orthopnea denied any proximal nocturnal dyspnea. Patient does have severe mitral regurgitation and mild aortic stenosis history. Patient may have some diastolic dysfunction as well. Patient is found to have congestive heart failure was given a 20 mg of Lasix after which her shortness of breath significantly improved and patient urinated well just with 20 mg of Lasix. Patient did have some pulmonary edema on the x-ray with the mild bilateral pleural effusions patient doesn't have any fever chills patient denied any significant cough patient d-dimer is normal for her age. Patient is also mildly hyponatremic and does have acute renal failure prerenal with creatinine of 1.8 on baseline is around 1 08/02/2021 Patient appears to be bulimic at this time. Patient can be switched to oral Lasix discussed with cardiology who will address this. Family is requesting placement in subacute rehabilitation will get physical therapy and occupational therapy evaluation at this time. Constitutional: Denied any fatigue denied any fever. Cardio vascular: denied any chest pain, palpitations Gastrointestinal denied any nausea vomiting Pulmonary: Denied any shortness of breath cough Neurologic denied any new focal deficits All inpatient medications were reviewed and appropriate changes in these medications as dictated in the interval history and assessment and plan. PHYSICAL EXAMINATION: GENERAL: The patient is alert and oriented x3, not in any acute distress. Well developed, well nourished. HEENT: Pupils are round and equally reacting to light. EOMI. No scleral icterus. No conjunctival pallor. Normocephalic, atraumatic. No pharyngeal erythema. No thyromegaly. CARDIOVASCULAR: S1 and S2 present. No murmurs, rubs, or gallops. Does have elevated JVD does have systolic murmur in aortic area and mitral areas PULMONARY: Chest is clear to auscultation, no wheezing or crackles. ABDOMEN: Soft, nontender, nondistended, normoactive bowel sounds. No palpable organomegaly. MUSCULOSKELETAL: No joint swelling or deformity. EXTREMITIES: No cyanosis, clubbing, or pedal edema. NEUROLOGICAL: Gross neurological examination did not reveal any focal deficits. SKIN: No rashes. Assessment and plan -Shortness of breath: Secondary to possible congestive heart failure chronic diastolic dysfunction with acute exacerbation patient has severe mitral regurgitation history and mild aortic stenosis history. presently euvolemic improved with IV Lasixrepeat BMP is pending can be switched to oral Lasix -Acute renal failure prerenal azotemia with a heart failure exacerbation patient was started on IV Lasix will monitor the urine output along with the monitoring basic metabolic profile -Hypervolemic hyponatremia secondary to congestive heart failure -Mildly elevated d-dimer normal for her age -History of atrial fibrillation on anticoagulation with the low-dose Eliquis which will be continued -gastroesophageal reflux disease -Hypothyroidism -Hypertension -Coronary artery disease DVT prophylaxis: On Eliquis at this time Objective - Vital Signs Vital signs: Vital Signs Temp 97.9 F 08/02/21 07:00 Pulse 67 08/02/21 07:00 Resp 16 08/02/21 07:00 BP 146/74 08/02/21 07:00 Pulse Ox 98 08/02/21 07:00 Intake & Output 08/01/21 08/02/21 08/02/21 18:59 06:59 18:59 Intake Total 500 500 Output Total 400 1800 Balance 100 -1800 500 Weight 63.503 kg Intake: Oral 500 500 Output: Urine 400 1800 Other: Voiding Method Bedside Commode Bedside Commode # Voids 1 1 1 - Labs CBC & Chem 7: 08/01/21 09:38 08/01/21 09:38
[2021-08-02 13:08] LABS: African American GFR (CKD) 28.4 (60.0-200.0); Anion Gap 16.4 mmol/L (4.00-12.00); BUN/Creat Ratio 26.89 Ratio (12.00-20.00); Blood Urea Nitrogen 48.4 mg/dL (9.0-27.0); Calcium 8.8 mg/dL (8.7-10.3); Carbon Dioxide 25.6 mmol/L (21.6-31.8); Non-African American GFR(CKD) 24.5 (60.0-200.0); Potassium 4.3 mmol/L (3.5-5.5)
--- NOTE | 2021-08-02 16:18 | P.CRDCN ---
History of Present Illness Consult date: 08/02/21 Requesting physician: Eli Gagnon Reason for Consult (text): acute pulmonary edema Chief complaint: lower extremity edema History of present illness: This is a pleasant 89-year-old female patient who follows with Dr. PAULIE Miller in the office. She has a history of CAD, prior PCI of the mid LAD in 2017, hypertension, atrial flutter, status post radiofrequency ablation in 2017, mild to moderate aortic stenosis, moderate to severe mitral regurgitation and moderate pulmonary hypertension as well as a history of intracranial tumor for which conservative management was advised and she follows with a neurologist and neurosurgeon. Presented to the emergency department with worsening lower extremity edema. According to the patient she's been dealing with some mild lower extremity edema for a while but has worsened at times where it's difficult to put her shoes on. Denies any recent weight gain, orthopnea, dyspnea on exertion or PND. NT proBNP on admission was 5950, BUN 54, creatinine 1.8 on an hemoglobin of 9.1. She denies any signs of bleeding. 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 EKG showed normal sinus rhythm. She has been initiated on Lasix IV push 20 mg 3 times a day. Her blood pressure was elevated on admission but have improved. Upon examination the patient is sitting up in a chair at the bedside. She feels her legs and feet feel better and her edema has improved. She's had no chest discomfort, palpitations or trouble breathing. She does say she has occasional dizziness that is positional. No syncope. Upon speaking with the family the patient had apparently been noted to have some shortness of breath over the last several days. They're quite concerned about her lower extremity weakness and feel that she needs to be placed somewhere for rehab. 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 History of Any Multi-Drug Resistant Organisms: None Reported Past Surgical History: Bladder Surgery, Cardiac Ablation, Heart Catheterization With Stent, Hernia Repair, Hysterectomy, Joint Replacement, Orthopedic Surgery, Tubal Ligation Additional Past Surgical History / Comment(s): 12/2016 PCI with stent, cardiac ablation for A flutter, umbilical hernia repair, surgery on two toes L foot for hammer toe, excision lesion L index finger, right total knee, bilateral cataracts removed, colonoscopies, bladder suspension. Past Anesthesia/Blood Transfusion Reactions: No Reported Reaction Additional Past Anesthesia/Blood Transfusion Reaction / Comment(s): Pt has received blood in past without reaction. Date of Last Stent Placement:: 2016 Smoking Status: Never smoker - Past Family History Mother Family Medical History: Cancer Additional Family Medical History / Comment(s): Mother had cancer with metastasis-primary unknown. She at the age of 85yrs. Brother(s) Family Medical History: Cancer Father Family Medical History: Congestive Heart Failure (CHF) Additional Family Medical History / Comment(s): Father at the age of 70yrs. Medications and Allergies Home Medications Medication Instructions Recorded Confirmed Type Levothyroxine Sodium [Synthroid] 50 mcg PO DAILY 05/01/14 08/01/21 History Pantoprazole [Protonix] 40 mg PO HS 01/03/16 08/01/21 History Atorvastatin [Lipitor] 40 mg PO HS 12/25/16 08/01/21 History Metoprolol Tartrate [Lopressor] 25 mg PO BID 10/19/17 08/01/21 History Apixaban [Eliquis] 2.5 mg PO BID 03/15/19 08/01/21 History Meclizine [Antivert] 12.5 mg PO TID PRN 03/15/19 08/01/21 History ondansetron HCL [Zofran] 8 mg PO TID PRN 03/15/19 08/01/21 History Nitroglycerin Sl Tabs [Nitrostat] 0.4 mg SUBLINGUAL Q5M PRN #20 tab 03/16/19 08/01/21 Rx Celecoxib [CeleBREX] 200 mg PO DAILY PRN 08/01/21 08/01/21 History Dexamethasone [Decadron] See Taper PO DAILY 08/01/21 08/01/21 History Furosemide [Lasix] 20 mg PO DAILY 08/01/21 08/01/21 History Losartan [Cozaar] 25 mg PO HS 08/01/21 08/01/21 History Memantine [Namenda] 5 mg PO BID 08/01/21 08/01/21 History hydrOXYzine HCL 10 mg PO HS 08/01/21 08/01/21 History Allergies Allergy/AdvReac Type Severity Reaction Status Date / Time codeine AdvReac Nausea & Verified 08/01/21 11:00 Vomiting Physical Exam Vitals: Vital Signs Temp Pulse Pulse Resp BP BP Pulse Ox 08/02/21 07:00 97.9 F 67 16 146/74 98 08/02/21 03:02 98.1 F 63 15 102/67 97 08/02/21 01:08 59 L 16 08/01/21 20:35 59 L 16 08/01/21 20:00 97.5 F L 59 L 16 127/67 100 08/01/21 14:25 97.4 F L 59 L 18 145/63 100 08/01/21 13:00 60 18 133/61 100 08/01/21 12:00 58 L 11 L 153/80 100 08/01/21 11:00 54 L 11 L 150/71 100 08/01/21 10:00 55 L 15 179/91 100 Intake and Output 08/01/21 08/02/21 08/02/21 22:59 06:59 14:59 Intake Total 500 Output Total 600 1200 Balance -100 -1200 Intake: Oral 500 Output: Urine 600 1200 Other: Voiding Method Bedside Commode Bedside Commode # Voids 1 Weight 63.503 kg PHYSICAL EXAMINATION: This is a 89-year-old female in no apparent distress at the time of my examination. VITAL SIGNS: Blood pressure 146/74, heart rate 67, respirations 16, temp 97.9F. Patient is 98 % on room air. HEENT: Head is atraumatic, normocephalic. Pupils are equal, round. Sclerae anicteric. Conjunctivae are clear. Mucous membranes of the mouth are moist. Neck is supple. There is no elevated jugular venous pressure. No carotid bruit is heard. CHEST EXAMINATION: Clear to auscultation bilaterally. No wheezes rales or rhonchi. Respirations even and nonlabored. HEART EXAMINATION: Heart regular, positive S1 and S2. No S3. No S4. With a systolic ejection murmur at the base and holosystolic murmur at the apex. ABDOMEN: Soft, nontender. Bowel sounds are heard. No organomegaly noted. EXTREMITIES: 2+ peripheral pulses with evidence of trace peripheral edema and no calf tenderness noted. NEUROLOGIC EXAMINATION: Patient is awake, alert and oriented x3. Results 08/01/21 09:38 08/02/21 06:21 Cardiac Enzymes 08/01/21 08/01/21 Range/Units 09:38 09:38 AST 32 (14-36) U/L Troponin I <0.012 (0.000-0.034) ng/mL Coagulation 08/01/21 Range/Units 09:38 PT 11.4 (9.0-12.0) sec APTT 25.9 (22.0-30.0) sec CBC 08/01/21 Range/Units 09:38 WBC 8.1 (3.8-10.6) k/uL RBC 3.64 L (3.80-5.40) m/uL Hgb 9.1 L (11.4-16.0) gm/dL Hct 28.0 L (34.0-46.0) % Plt Count 216 (150-450) k/uL Comprehensive Metabolic Panel 08/01/21 Range/Units 09:38 Sodium 133 L (137-145) mmol/L Potassium 4.2 (3.5-5.1) mmol/L Chloride 100 (98-107) mmol/L Carbon Dioxide 20 L (22-30) mmol/L BUN 54 H (7-17) mg/dL Creatinine 1.81 H (0.52-1.04) mg/dL Glucose 96 (74-99) mg/dL Calcium 8.8 (8.4-10.2) mg/dL AST 32 (14-36) U/L ALT 25 (4-34) U/L Alkaline Phosphatase 71 (38-126) U/L Total Protein 7.2 (6.3-8.2) g/dL Albumin 4.2 (3.5-5.0) g/dL Current Medications Generic Name Dose Route Start Last Admin Trade Name Freq PRN Reason Stop Dose Admin Apixaban 2.5 mg 08/01/21 21:00 08/02/21 09:10 Apixaban 2.5 Mg Tablet PO 2.5 mg BID RAYNE Administration Protocol Furosemide 20 mg 08/01/21 16:00 08/02/21 09:10 Furosemide 10 Mg/Ml 2 Ml Vial IV 20 mg TID RAYNE Administration Levothyroxine Sodium 50 mcg 08/02/21 06:30 08/02/21 05:15 Levothyroxine 50 Mcg Tab PO 50 mcg DAILY@0630 RAYNE Administration Meclizine HCl 12.5 mg 08/01/21 13:06 Meclizine 12.5 Mg Tab PO TID PRN Vertigo Memantine 5 mg 08/01/21 21:00 08/02/21 09:10 Memantine 5 Mg Tab PO 5 mg BID RAYNE Administration Metoprolol Tartrate 25 mg 08/01/21 13:15 08/02/21 09:11 Metoprolol Tartrate 25 Mg Tab PO 25 mg BID RAYNE Administration Nitroglycerin 1 inch 08/01/21 18:00 08/02/21 09:10 Nitroglycerin Oint 1 Inch/Gm Packet TOPICAL 1 inch QID RAYNE Administration Nitroglycerin 0.4 mg 08/01/21 13:06 Nitroglycerin Sl Tabs 0.4 Mg Tab SUBLINGUAL Q5M PRN Chest Pain Ondansetron HCl 4 mg 08/01/21 13:06 Ondansetron 4 Mg Tab PO TID PRN Nausea And Vomiting Pantoprazole Sodium 40 mg 08/01/21 21:00 08/01/21 20:35 Pantoprazole 40 Mg Tablet PO 40 mg HS RAYNE Administration Intake and Output 08/01/21 08/02/21 08/02/21 22:59 06:59 14:59 Intake Total 500 Output Total 600 1200 Balance -100 -1200 Intake: Oral 500 Output: Urine 600 1200 Other: Voiding Method Bedside Commode Bedside Commode # Voids 1 Weight 63.503 kg 08/01/21 09:38 08/01/21 09:38 Assessment and Plan Assessment: #1 acute on chronic diastolic congestive heart failure, patient currently appears euvolemic #2 history of CAD with prior PCI of LAD #3 valvular heart disease with known mild to moderate aortic stenosis and moderate to severe mitral regurgitation #4 hypertension #5 history of atrial flutter status post radiofrequency ablation, anticoagulated #6 intracranial tumor #7 lower extremity weakness Plan: From cardiology's perspective we will switch the patient to by mouth Lasix. We will continue to follow renal function, electrolytes, daily weights and accurate I's and O's. We will continue to follow the patient and provide further recommendations accordingly. [employer] RESIDENT note has been reviewed, I agree with a documented findings and plan of care. Patient was seen and examined.
[2021-08-02] MEDS: FUROSEMIDE 20 MG TAB PO SCH (18:13)
[2021-08-02] MEDS: LOSARTAN 25 MG TAB PO SCH (20:29)
[2021-08-02] MEDS: ATORVASTATIN 40 MG TAB PO SCH (20:29)
[2021-08-02] MEDS: PANTOPRAZOLE 40 MG TABLET PO SCH (20:30)
[2021-08-03] MEDS: LEVOTHYROXINE 50 MCG TAB PO SCH (05:37)
[2021-08-03] MEDS: APIXABAN 2.5 MG TABLET PO SCH ×2 (08:08→19:53)
[2021-08-03] MEDS: MEMANTINE 5 MG TAB PO SCH ×2 (08:09→19:53)
[2021-08-03] MEDS: NITROGLYCERIN OINT 1 INCH/GM PACKET TOPICAL SCH (08:09)
[2021-08-03] MEDS: FUROSEMIDE 20 MG TAB PO SCH ×2 (08:09→17:16)
[2021-08-03] MEDS: METOPROLOL TARTRATE 25 MG TAB PO SCH ×2 (08:09→19:53)
[2021-08-03 09:42] LABS: African American GFR (CKD) 29.4 (60.0-200.0); Anion Gap 17.3 mmol/L (4.00-12.00); Calcium 8.8 mg/dL (8.7-10.3); Carbon Dioxide 20.7 mmol/L (21.6-31.8); Non-African American GFR(CKD) 25.4 (60.0-200.0); Potassium 4.2 mmol/L (3.5-5.5)
--- NOTE | 2021-08-03 12:02 | P.PN ---
Subjective 89-year-old the female came in with compensative short of breath and orthopnea denied any proximal nocturnal dyspnea. Patient does have severe mitral regurgitation and mild aortic stenosis history. Patient may have some diastolic dysfunction as well. Patient is found to have congestive heart failure was given a 20 mg of Lasix after which her shortness of breath significantly improved and patient urinated well just with 20 mg of Lasix. Patient did have some pulmonary edema on the x-ray with the mild bilateral pleural effusions patient doesn't have any fever chills patient denied any significant cough patient d-dimer is normal for her age. Patient is also mildly hyponatremic and does have acute renal failure prerenal with creatinine of 1.8 on baseline is around 1 08/02/2021 Patient appears to be bulimic at this time. Patient can be switched to oral Lasix discussed with cardiology who will address this. Family is requesting placement in subacute rehabilitation will get physical therapy and occupational therapy evaluation at this time. 08/03/2021 No cigarette in overnight events patient is euvolemic clinically sodium has drop ped a bit because of excessive diuresis patient is presently on by mouth Lasix. Awaiting disposition to subacute rehabilitation patient is comparing of generalized weakness which is is related muscle atrophy. Constitutional: Denied any fatigue denied any fever. Cardio vascular: denied any chest pain, palpitations Gastrointestinal denied any nausea vomiting Pulmonary: Denied any shortness of breath cough Neurologic denied any new focal deficits All inpatient medications were reviewed and appropriate changes in these medications as dictated in the interval history and assessment and plan. PHYSICAL EXAMINATION: GENERAL: The patient is alert and oriented x3, not in any acute distress. Well developed, well nourished. HEENT: Pupils are round and equally reacting to light. EOMI. No scleral icterus. No conjunctival pallor. Normocephalic, atraumatic. No pharyngeal erythema. No thyromegaly. CARDIOVASCULAR: S1 and S2 present. No murmurs, rubs, or gallops. Does have elevated JVD does have systolic murmur in aortic area and mitral areas PULMONARY: Chest is clear to auscultation, no wheezing or crackles. ABDOMEN: Soft, nontender, nondistended, normoactive bowel sounds. No palpable or ganomegaly. MUSCULOSKELETAL: No joint swelling or deformity. EXTREMITIES: No cyanosis, clubbing, or pedal edema. NEUROLOGICAL: Gross neurological examination did not reveal any focal deficits. SKIN: No rashes. Assessment and plan -Shortness of breath: Secondary to possible congestive heart failure chronic diastolic dysfunction with acute exacerbation patient has severe mitral regurgitation history and mild aortic stenosis history. Presently on oral Lasix. -Acute renal failure prerenal azotemia with a heart failure exacerbation improved now but serum creatinine appear to be stable at 1.85 probably has chronic kidney disease stage III -Hypervolemic hyponatremia secondary to congestive heart failure improved with the IV Lasix initially gotten bit worse now secondary to excessive diuresis -Mildly elevated d-dimer normal for her age -History of atrial fibrillation on anticoagulation with the low-dose Eliquis which will be continued -gastroesophageal reflux disease -Hypothyroidism -Hypertension -Coronary artery disease DVT prophylaxis: On Eliquis at this time Objective - Vital Signs Vital signs: Vital Signs Temp 97.9 F 08/03/21 07:00 Pulse 64 08/03/21 07:00 Resp 18 08/03/21 07:00 BP 111/71 08/03/21 07:00 Pulse Ox 99 08/03/21 07:00 Intake & Output 08/02/21 08/03/21 08/03/21 18:59 06:59 18:59 Intake Total 680 Output Total 400 Balance 280 Intake: Oral 680 Output: Urine 400 Other: Voiding Method Bedside Commode Bedside Commode # Voids 2 1 - Labs CBC & Chem 7: 08/01/21 09:38 08/03/21 06:18 Labs: Abnormal Lab Results - Last 24 Hours (Table) 08/02/21 08/03/21 Range/Units 06:21 06:18 Sodium 132 L (135-145) mmol/L Chloride 95 L 94 L (96-109) mmol/L Carbon Dioxide 20.7 L (21.6-31.8) mmol/L Anion Gap 16.40 H 17.30 H (4.00-12.00) mmol/L BUN 48.4 H 42.0 H (9.0-27.0) mg/dL Creatinine 1.8 H 1.8 H (0.6-1.5) mg/dL Est GFR (CKD-EPI)AfAm 28.4 L 29.4 L (60.0-200.0) Est GFR (CKD-EPI)NonAf 24.5 L 25.4 L (60.0-200.0) BUN/Creatinine Ratio 26.89 H 24.00 H (12.00-20.00) Ratio
--- NOTE | 2021-08-03 12:57 | P.PN ---
Subjective Progress Note Date: 08/03/21 This is a pleasant 89-year-old female patient who follows with Dr. PAULIE Miller in the office. She has a history of CAD, prior PCI of the mid LAD in 2017, hypertension, atrial flutter, status post radiofrequency ablation in 2017, mild to moderate aortic stenosis, moderate to severe mitral regurgitation and mo derate pulmonary hypertension as well as a history of intracranial tumor for which conservative management was advised and she follows with a neurologist and neurosurgeon. Presented to the emergency department with worsening lower extremity edema. According to the patient she's been dealing with some mild lower extremity edema for a while but has worsened at times where it's difficult to put her shoes on. Denies any recent weight gain, orthopnea, dyspnea on exertion or PND. NT proBNP on admission was 5950, BUN 54, creatinine 1.8 on an hemoglobin of 9.1. She denies any signs of bleeding. 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 EKG showed normal sinus rhythm. She has been initiated on Lasix IV push 20 mg 3 times a day. Her blood pressure was elevated on admission but have improved. Upon examination the patient is sitting up in a chair at the bedside. She feels her legs and feet feel better and her edema has improved. She's had no chest discomfort, palpitations or trouble breathing. She does say she has occasional dizziness that is positional. No syncope. Upon speaking with the family the patient had apparently been noted to have some shortness of breath over the last several days. They're quite concerned about her lower extremity weakness and feel that she needs to be placed somewhere for rehab. 08/03/2021 On examination the patient is resting comfortably in a chair at the bedside. She is overall doing better. She feels her edema has improved. I spoke with the daughter Kat who says the plan is for the patient to be discharged tomorrow to rehab. Objective - Vital Signs Vital signs: Vital Signs Temp 97.9 F 08/03/21 07:00 Pulse 64 08/03/21 07:00 Resp 18 08/03/21 07:00 BP 111/71 08/03/21 07:00 Pulse Ox 99 08/03/21 07:00 Intake & Output 10/08/03/21 08/03/21 18:59 06:59 18:59 Intake Total 680 Output Total 400 Balance 280 Intake: Oral 680 Output: Urine 400 Other: Voiding Method Bedside Commode Bedside Commode # Voids 2 1 - Exam HEENT: Head is atraumatic, normocephalic. Pupils are equal, round. Sclerae anicteric. Conjunctivae are clear. Mucous membranes of the mouth are moist. Neck is supple. There is no elevated jugular venous pressure. No carotid bruit is heard. CHEST EXAMINATION: Clear to auscultation bilaterally. No wheezes rales or rhonchi. Respirations even and nonlabored. HEART EXAMINATION: Heart regular, positive S1 and S2. No S3. No S4. With a systolic ejection murmur at the base and holosystolic murmur at the apex. ABDOMEN: Soft, nontender. Bowel sounds are heard. No organomegaly noted. EXTREMITIES: 2+ peripheral pulses with evidence of trace left lower extremity edema and no calf tenderness noted. NEUROLOGIC EXAMINATION: Patient is awake, alert and oriented x2. - Labs CBC & Chem 7: 08/01/21 09:38 08/03/21 06:18 Labs: Abnormal Lab Results - Last 24 Hours (Table) 08/02/21 08/03/21 Range/Units 06:21 06:18 Sodium 132 L (135-145) mmol/L Chloride 95 L 94 L (96-109) mmol/L Carbon Dioxide 20.7 L (21.6-31.8) mmol/L Anion Gap 16.40 H 17.30 H (4.00-12.00) mmol/L BUN 48.4 H 42.0 H (9.0-27.0) mg/dL Creatinine 1.8 H 1.8 H (0.6-1.5) mg/dL Est GFR (CKD-EPI)AfAm 28.4 L 29.4 L (60.0-200.0) Est GFR (CKD-EPI)NonAf 24.5 L 25.4 L (60.0-200.0) BUN/Creatinine Ratio 26.89 H 24.00 H (12.00-20.00) Ratio Assessment and Plan Assessment: #1 acute on chronic diastolic congestive heart failure, patient currently appears euvolemic #2 history of CAD with prior PCI of LAD #3 valvular heart disease with known mild to moderate aortic stenosis and moderate to severe mitral regurgitation #4 hypertension #5 history of atrial flutter status post radiofrequency ablation, anticoagulated #6 intracranial tumor #7 lower extremity weakness Plan: From cardiology's perspective dictations reviewed and we will continue the same. We anticipate the patient will be discharged to rehab tomorrow. At this time we'll follow the patient on an as-needed basis. Please do not hesitate to contact us with questions. EMERG[employer]Y [employer]HICLE OPERATIONS INSTRUCTOR note has been reviewed, I agree with a documented findings and plan of care. Patient was seen and examined.
[2021-08-03] MEDS ORDERED: bisacodyL 5 MG TABLET.DR PO PRN (17:09)
[2021-08-03] MEDS: LOSARTAN 25 MG TAB PO SCH (19:53)
[2021-08-03] MEDS: PANTOPRAZOLE 40 MG TABLET PO SCH (19:53)
[2021-08-03] MEDS: ATORVASTATIN 40 MG TAB PO SCH (19:53)
[2021-08-04] MEDS: LEVOTHYROXINE 50 MCG TAB PO SCH (05:26)
[2021-08-04] MEDS: FUROSEMIDE 20 MG TAB PO SCH (07:52)
[2021-08-04] MEDS: METOPROLOL TARTRATE 25 MG TAB PO SCH (07:52)
[2021-08-04] MEDS: MEMANTINE 5 MG TAB PO SCH (07:53)
[2021-08-04] MEDS: APIXABAN 2.5 MG TABLET PO SCH (07:53)
[2021-08-04 08:02] VITALS: RESP 17
[2021-08-04 08:16] VITALS: BP 127/69; PULSE 73; TEMP 97.3
--- NOTE | 2021-08-04 13:30 | P.DS ---
Providers Date of admission: 08/01/21 11:27 Expected date of discharge: 08/04/21 Attending physician: Eli Gagnon Consults: 08/01/21 11:27 Consult Physician Routine Consulting Provider: [facility] Consult Reason/Comments: Acute pulmonary edema Do you want consulting provider notified?: Yes Primary care physician: Silvia Arciniega Hospital Course: Final diagnosis -Shortness of breath: Secondary to possible congestive heart failure chronic diastolic dysfunction with acute exacerbation -severe mitral regurgitation history and mild aortic stenosis history -Acute renal failure prerenal azotemia with a heart failure exacerbation, most probably chronic kidney disease stage III -Hypervolemic hyponatremia secondary to congestive heart failure -Mildly elevated d-dimer normal for her age -History of atrial fibrillation -gastroesophageal reflux disease -Hypothyroidism -Hypertension -Coronary artery disease -DVT prophylaxi Discharge disposition Patient is being discharged in a stable condition with guarded prognosis to [facility] for continued PT/OT therapy. Patient will follow-up with Dr. Ray upon discharge. Patient will see her primary care provider Dr. Vega in the outpatient setting once discharged from [facility]. Patient will continue with low-dose Lasix 20 mg twice daily and recommend repeat labs to monitor kidney functions closely. Total time taken is greater than 35 minutes. Hospital course 89-year-old the female came in with compensative short of breath and orthopnea denied any proximal nocturnal dyspnea. Patient does have severe mitral regurgitation and mild aortic stenosis history. Patient may have some diastolic dysfunction as well. Patient is found to have congestive heart failure was given a 20 mg of Lasix after which her shortness of breath significantly improved and patient urinated well just with 20 mg of Lasix. Patient did have some pulmonary edema on the x-ray with the mild bilateral pleural effusions patient doesn't have any fever chills patient denied any significant cough patient d-dimer is normal for her age. Patient is also mildly hyponatremic and does have acute renal failure prerenal with creatinine of 1.8 on baseline is around 1 08/02/2021 Patient appears to be bulimic at this time. Patient can be switched to oral Lasix discussed with cardiology who will address this. Family is requesting placement in subacute rehabilitation will get physical therapy and occupational therapy evaluation at this time. 08/03/2021 No significant overnight events patient is euvolemic clinically sodium has dropped a bit because of excessive diuresis patient is presently on by mouth Lasix. Awaiting disposition to subacute rehabilitation patient is comparing of generalized weakness which is is related muscle atrophy. 08/04/2021 She is seen in follow-up this morning continues on oral Lasix and will require some outpatient labs to monitor kidney functions in the next 2-3 days. Patient will follow-up with primary care provider upon discharge from the [facility]. Patient is weak requiring some assistance with unsteady gait dysfunction and will be going to [facility] for some physical therapy and strengthen mobility. Currently no reports of chest pain, shortness of breath, or palpitations. Patient is afebrile. No reports of nausea or vomiting and patient is tolerating diet. Patient will be discharged to [facility] today. GENERAL: The patient is alert and oriented x3, not in any acute distress. Well developed, well nourished. HEENT: Pupils are round and equally reacting to light. EOMI. No scleral icterus. No conjunctival pallor. Normocephalic, atraumatic. No pharyngeal erythema. No thyromegaly. CARDIOVASCULAR: S1 and S2 present. No murmurs, rubs, or gallops. Does have elevated JVD does have systolic murmur in aortic area and mitral areas PULMONARY: Chest is clear to auscultation, no wheezing or crackles. ABDOMEN: Soft, nontender, nondistended, normoactive bowel sounds. No palpable organomegaly. MUSCULOSKELETAL: No joint swelling or deformity. EXTREMITIES: No cyanosis, clubbing, or pedal edema. NEUROLOGICAL: Gross neurological examination did not reveal any focal deficits. SKIN: No rashes. Please refer to medication reconciliation sheet for a list of medications. Patient Condition at Discharge: Stable Plan - Discharge Summary New Discharge Prescriptions: New bisacodyL [Dulcolax] 10 mg PO DAILY PRN tab PRN Reason: Constipation Furosemide [Lasix] 20 mg PO BID@0900,1600 #0 tab Continue Levothyroxine Sodium [Synthroid] 50 mcg PO DAILY Pantoprazole [Protonix] 40 mg PO HS Atorvastatin [Lipitor] 40 mg PO HS Metoprolol Tartrate [Lopressor] 25 mg PO BID Meclizine [Antivert] 12.5 mg PO TID PRN PRN Reason: Vertigo Apixaban [Eliquis] 2.5 mg PO BID ondansetron HCL [Zofran] 8 mg PO TID PRN PRN Reason: Nausea And Vomiting Nitroglycerin Sl Tabs [Nitrostat] 0.4 mg SUBLINGUAL Q5M PRN #20 tab PRN Reason: Chest Pain Memantine [Namenda] 5 mg PO BID Losartan [Cozaar] 25 mg PO HS Dexamethasone [Decadron] See Taper PO DAILY Discontinued hydrOXYzine HCL 10 mg PO HS Furosemide [Lasix] 20 mg PO DAILY Celecoxib [CeleBREX] 200 mg PO DAILY PRN PRN Reason: Pain Discharge Medication List Levothyroxine Sodium [Synthroid] 50 mcg PO DAILY 05/01/14 [History] Pantoprazole [Protonix] 40 mg PO HS 01/03/16 [History] Atorvastatin [Lipitor] 40 mg PO HS 12/25/16 [History] Metoprolol Tartrate [Lopressor] 25 mg PO BID 10/19/17 [History] Apixaban [Eliquis] 2.5 mg PO BID 03/15/19 [History] Meclizine [Antivert] 12.5 mg PO TID PRN 03/15/19 [History] ondansetron HCL [Zofran] 8 mg PO TID PRN 03/15/19 [History] Nitroglycerin Sl Tabs [Nitrostat] 0.4 mg SUBLINGUAL Q5M PRN #20 tab 03/16/19 [Rx] Dexamethasone [Decadron] See Taper PO DAILY 08/01/21 [History] Losartan [Cozaar] 25 mg PO HS 08/01/21 [History] Memantine [Namenda] 5 mg PO BID 08/01/21 [History] Furosemide [Lasix] 20 mg PO BID@0900,1600 #0 tab 08/04/21 [Rx] bisacodyL [Dulcolax] 10 mg PO DAILY PRN tab 08/04/21 [Rx] Follow up Appointment(s)/Referral(s): Demian Vega MD [Primary Care Provider] - 08/06/21 2:50 pm Carlo Ray MD [STAFF PHYSICIAN] - 1 Week Ambulatory/Diagnostic Orders: Basic Metabolic Panel [LAB.AMB] Time Frame: 3 Days, Location: None Selected Activity/Diet/Wound Care/Special Instructions: Patient is going to [facility] Activity as tolerated Continue taking medications as prescribed Follow-up cardiology outpatient Follow-up primary care provider outpatient Repeat labs of BMP in 2-3 days to monitor kidney functions Continue heart healthy diet Discharge Disposition: TRANSFER TO SNF/ECF
== END 2021-08-04 15:50 ==
LOC: EC 09:17 → 6NMEDSUR 11:27
PROVIDERS: ADMIT Internal Medicine; ATTEND Internal Medicine
DX: R06.02 Shortness of breath (principal); I50.33 Acute on chronic diastolic (congestive) heart failure; I08.0 Rheumatic disorders of both mitral and aortic valves; I13.0 Hypertensive heart and chronic kidney disease with heart failure and stage 1 through stage 4 chronic kidney disease, or unspecified chronic kidney disease; N18.30 Chronic kidney disease, stage 3 unspecified; N17.9 Acute kidney failure, unspecified; E87.1 Hypo-osmolality and hyponatremia; R79.89 Other specified abnormal findings of blood chemistry; I48.91 Unspecified atrial fibrillation; K21.9 Gastro-esophageal reflux disease without esophagitis; I25.10 Atherosclerotic heart disease of native coronary artery without angina pectoris; E03.9 Hypothyroidism, unspecified; J44.9 Chronic obstructive pulmonary disease, unspecified; I27.20 Pulmonary hypertension, unspecified; E78.5 Hyperlipidemia, unspecified; M13.0 Polyarthritis, unspecified; F41.9 Anxiety disorder, unspecified; D49.6 Neoplasm of unspecified behavior of brain; M20.42 Other hammer toe(s) (acquired), left foot; M20.41 Other hammer toe(s) (acquired), right foot; M62.50 Muscle wasting and atrophy, not elsewhere classified, unspecified site; I48.92 Unspecified atrial flutter; Z79.899 Other long term (current) drug therapy; Z98.41 Cataract extraction status, right eye; Z79.890 Hormone replacement therapy; Z79.1 Long term (current) use of non-steroidal anti-inflammatories (NSAID); Z79.01 Long term (current) use of anticoagulants; Z98.42 Cataract extraction status, left eye; Z90.710 Acquired absence of both cervix and uterus; Z96.1 Presence of intraocular lens; Z87.440 Personal history of urinary (tract) infections; Z95.5 Presence of coronary angioplasty implant and graft; Z80.9 Family history of malignant neoplasm, unspecified; Z82.49 Family history of ischemic heart disease and other diseases of the circulatory system
CPT/HCPCS: 99285; 96376 ×2; 96374; 36415; 93005; 97162; 97166; 85379; 83880; 80053; 80048 ×2; 83605; 83735; 84484; 85025; 85610; 85730; 87635; 71046; G0378 ×4; J1940 ×2

== ENCOUNTER 2021-12-22 10:46 | Inpatient (IN) | payer MEDICARE, BC ==
[2021-12-22] MEDS ORDERED: ACETAMINOPHEN TAB 500 MG TAB PO STA (12:30)
[2021-12-22 13:01] LABS: Anisocytosis Slight; Basophils % (A) 1 %; Eosinophils # (A) 0.2 k/uL (0-0.7); Eosinophils % (A) 3 %; HCT 26.4 % (34.0-46.0); Hypochromasia Marked; Lymphocytes % (A) 14 %; MCHC 30.4 g/dL (31.0-37.0); MCV 75.6 fL (80.0-100.0); Mean Platelet Volume 9.1; Microcytosis Moderate; Monocytes # (A) 0.8 k/uL (0-1.0); Monocytes % (A) 12 %; Neutrophils # (A) 4.7 k/uL (1.3-7.7); Neutrophils % (A) 67 %; Platelet Count 195 k/uL (150-450); Poikilocytosis Moderate; RDW 18.5 % (11.5-15.5)
--- NOTE | 2021-12-22 13:11 | XR ---
EXAMINATION TYPE: XR chest 2V DATE OF EXAM: 12/22/2021 COMPARISON: 08/01/2021 TECHNIQUE: PA and lateral views submitted. HISTORY: Weakness FINDINGS: Heart is enlarged and there is hyperinflation. Diffuse interstitial pattern with bilateral infiltrate and small effusion. Hypertrophic and degenerative changes spine. Atherosclerotic change aorta. Diffu se osteopenia. IMPRESSION: 1. COPD correlate for mild venous congestion, interstitial pneumonitis or chronic interstitial lung d isease.
[2021-12-22 13:14] LABS: Appearance,Urine Clear (Clear); Bilirubin,Urine Negative (Negative); Blood,Urine Negative (Negative); Color,Urine Light Yellow; Glucose,Urine (UA) Negative (Negative); Ketones,Urine Negative (Negative); Leukocyte Esterase,Urine Negative (Negative); Nitrite,Urine Negative (Negative); PH, Urine 5.5 (5.0-8.0); Protein,Urine Negative (Negative); Urobilinogen,Urine <2.0 mg/dL (<2.0)
[2021-12-22 13:46] LABS: Albumin 4.2 g/dL (3.5-5.0); Calcium 8.7 mg/dL (8.4-10.2); Magnesium 2.2 mg/dL (1.6-2.3); Phosphorus 4.2 mg/dL (2.5-4.5); Potassium 4.3 mmol/L (3.5-5.1); Total Bilirubin 0.8 mg/dL (0.2-1.3); Total Protein 7.8 g/dL (6.3-8.2)
[2021-12-22 13:57] LABS: INR 1.1 (<1.2); Partial Thromboplastin Time 26.9 sec (22.0-30.0); Prothrombin Time 11.5 sec (9.0-12.0)
--- NOTE | 2021-12-22 14:21 | US ---
EXAMINATION TYPE: US venous doppler duplex LE DATE OF EXAM: 12/22/2021 1:42 PM COMPARISON: NONE CLINICAL HISTORY: 89-year-old female leg pain. Pain. No redness. No swelling. On blood thinners. SIDE PERFORMED: Bilateral TECHNIQUE: The lower extremity deep venous system is examined utilizing real time linear array sonog isabelle with graded compression, doppler sonography and color-flow sonography. FINDINGS: VESSELS IMAGED: Common Femoral Vein Deep Femoral Vein Greater Saphenous Vein * Femoral Vein Popliteal Vein Small Saphenous Vein * Proximal Calf Veins (* superficial vessels) Right Leg: Negative for DVT Left Leg: Negative for DVT. Fluid collection posterior knee = 3.3 x 2.9 x 1.4 cm IMPRESSION: 1. No evidence for DVT within the bilateral lower extremities imaged from the groin to the upper calv es. 2. 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
[2021-12-22] MEDS ORDERED: ASPIRIN 81 MG PO STA (14:37)
[2021-12-22] MEDS ORDERED: NITROGLYCERIN OINT 1 INCH/GM PACKET TOPICAL STA (14:37)
--- NOTE | 2021-12-22 14:40 | ED ---
General Adult HPI - General Chief complaint: Extremity Problem,Nontraumatic Stated complaint: pain all over Time Seen by Provider: 12/22/21 12:12 Source: patient Mode of arrival: wheelchair Limitations: no limitations - History of Present Illness Initial comments: This 89-year-old female present with daughter with a complaint of weakness, shortness breath, and leg pain which is been present for approximately one week. The patient overall is a fairly poor historian but daughter is an excellent historian. The shortness of breath is definitely worse with any exertion. The weakness is also worse with exertion. There's been no fevers or chills or c ough. She states that her legs seem painful at times and it is diffusely throughout both legs not necessarily in the posterior aspects. She does have a history of congestive heart failure and is currently on Lasix. She denies any actual chest pain. She does have an appointment with her assistant center manager, Dr. Miller, in one week. She is unsure of her last echocardiogram. No other complaints or modifying factors. - Related Data Home Medications Medication Instructions Recorded Confirmed Levothyroxine Sodium [Synthroid] 50 mcg PO DAILY 05/01/14 12/22/21 Pantoprazole [Protonix] 40 mg PO HS 01/03/16 12/22/21 Atorvastatin [Lipitor] 40 mg PO HS 12/25/16 12/22/21 Metoprolol Tartrate [Lopressor] 25 mg PO BID@0900,1700 10/19/17 12/22/21 Apixaban [Eliquis] 2.5 mg PO BID@0900,1700 03/15/19 12/22/21 Meclizine [Antivert] 12.5 mg PO TID PRN 03/15/19 12/22/21 ondansetron HCL [Zofran] 8 mg PO TID PRN 03/15/19 12/22/21 Losartan [Cozaar] 25 mg PO HS 08/01/21 12/22/21 Memantine [Namenda] 5 mg PO BID@0900,1700 08/01/21 12/22/21 Celecoxib [CeleBREX] 200 mg PO DAILY 12/22/21 12/22/21 Furosemide [Lasix] 20 mg PO BID@0900,1700 12/22/21 12/22/21 Previous Rx's Medication Instructions Recorded Nitroglycerin Sl Tabs [Nitrostat] 0.4 mg SUBLINGUAL Q5M PRN #20 tab 03/16/19 bisacodyL [Dulcolax] 10 mg PO DAILY PRN tab 08/04/21 Allergies Allergy/AdvReac Type Severity Reaction Status Date / Time codeine AdvReac Nausea & Verified 12/22/21 13:33 Vomiting Review of Systems ROS Statement: Those systems with pertinent positive or pertinent negative responses have been documented in the HPI. ROS Other: All systems not noted in ROS Statement are negative. 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 History of Any Multi-Drug Resistant Organisms: MRSA Date of last positivie culture/infection: 10/15/21 MDRO Source:: MRSA TOE Past Surgical History: Bladder Surgery, Cardiac Ablation, Heart Catheterization With Stent, Hernia Repair, Hysterectomy, Joint Replacement, Orthopedic Surgery, Tubal Ligation Additional Past Surgical History / Comment(s): 12/2016 PCI with stent, cardiac ablation for A flutter, umbilical hernia repair, surgery on two toes L foot for hammer toe, excision lesion L index finger, right total knee, bilateral cataracts removed, colonoscopies, bladder suspension. Past Anesthesia/Blood Transfusion Reactions: No Reported Reaction Additional Past Anesthesia/Blood Transfusion Reaction / Comment(s): Pt has received blood in past without reaction. Date of Last Stent Placement:: 2016 Past Psychological History: Anxiety Smoking Status: Never smoker Past Alcohol Use History: None Reported Past Drug Use History: None Reported - Past Family History Mother Family Medical History: Cancer Additional Family Medical History / Comment(s): Mother had cancer with metastasis-primary unknown. She at the age of 85yrs. Brother(s) Family Medical History: Cancer Father Family Medical History: Congestive Heart Failure (CHF) Additional Family Medical History / Comment(s): Father at the age of 70yrs. General Exam - General Exam Comments Initial Comments: GENERAL: The patient is well nourished and well hydrated. VITAL SIGNS: Heart rate, blood pressure, respiratory rate reviewed as recorded in nurse's notes. EYES: Pupils are round and reactive. Extraocular movements are intact. No conjunctival / lid redness or swelling. ENT: No external evidence of injury, swelling, or ecchymosis. Airway is patent. Throat is clear. NECK: Nontender. No swelling or evidence of injury. No subcutaneous emphysema. Trachea is midline. No thyroid mass. HEART: Regular rate and rhythm. Good peripheral pulses. No lower extremity edema noted. LUNGS/CHEST: Breath sounds clear and equal bilaterally. No rales, rhonchi, or wheezes. No ecchymosis, subcutaneous emphysema, or tenderness. ABDOMEN: Abdomen soft without tenderness. No palpable masses or organomegaly. No peritoneal signs. No abdominal wall swelling or ecchymosis. EXTREMITIES: No extremity tenderness. Normal muscle tone and function. No thoracolumbar tenderness. NEUROLOGIC: Sensation is grossly intact. Cranial nerve exam reveals face is symmetrical, tongue is midline, speech is clear. SKIN: No abrasions or ecchymosis is noted. No induration or masses noted. PSYCHIATRIC: Alert and oriented. Appropriate behavior and judgment. Possible memory impairment. Limitations: no limitations Course Vital Signs 12/22/21 12/22/21 12/22/21 11:02 12:04 14:00 Temperature 97 F L Pulse Rate 67 74 72 Respiratory 18 18 16 Rate Blood Pressure 126/58 153/89 155/87 O2 Sat by Pulse 99 95 97 Oximetry Medical Decision Making - Medical Decision Making The patient was seen and examined. All diagnostics were reviewed. She is on radiation monitor no ectopy is identified. The EKG shows a normal sinus rhythm at a rate of 67. There is no acute ST-T wave changes noted. The MN intervals 156, QRS duration is 98, and the QTC intervals 410. The patient also had a chest x-ray. Please see report for details. This does relate possible congestive heart failure among other etiologies. It is felt as though this would certainly clinically correlate with symptomatology and history. The BNP came back significantly elevated at 4900. The hemoglobin was low at 8.0 but this is stable. The creatinine is elevated at 1.81 but this also is stable. Lower extremity Doppler of both legs do not show any evidence of DVT but there is evidence of a Hernandez's cyst on the left side. It is felt as though she does have a degree of congestive heart failure. She is started on Nitropaste as well as aspirin and Lasix. Case is discussed with Dr. Gagnon and he is agreeable with admission. - Lab Data Result diagrams: 12/22/21 12:52 12/22/21 12:52 Lab Results 12/22/21 12/22/21 12/22/21 Range/Units 12:52 12:52 12:52 WBC 7.0 (3.8-10.6) k/uL RBC 3.50 L (3.80-5.40) m/uL Hgb 8.0 L (11.4-16.0) gm/dL Hct 26.4 L (34.0-46.0) % MCV 75.6 L (80.0-100.0) fL MCH 23.0 L (25.0-35.0) pg MCHC 30.4 L (31.0-37.0) g/dL RDW 18.5 H (11.5-15.5) % Plt Count 195 (150-450) k/uL MPV 9.1 Neutrophils % 67 % Lymphocytes % 14 % Monocytes % 12 % Eosinophils % 3 % Basophils % 1 % Neutrophils # 4.7 (1.3-7.7) k/uL Lymphocytes # 1.0 (1.0-4.8) k/uL Monocytes # 0.8 (0-1.0) k/uL Eosinophils # 0.2 (0-0.7) k/uL Basophils # 0.0 (0-0.2) k/uL Hypochromasia Marked Poikilocytosis Moderate Anisocytosis Slight Microcytosis Moderate PT 11.5 (9.0-12.0) sec INR 1.1 (<1.2) APTT 26.9 (22.0-30.0) sec Sodium (137-145) mmol/L Potassium (3.5-5.1) mmol/L Chloride (98-107) mmol/L Carbon Dioxide (22-30) mmol/L Anion Gap mmol/L BUN (7-17) mg/dL Creatinine (0.52-1.04) mg/dL Est GFR (CKD-EPI)AfAm (>60 ml/min/1.73 sqM) Est GFR (CKD-EPI)NonAf (>60 ml/min/1.73 sqM) Glucose (74-99) mg/dL Plasma Lactic Acid Sesar (0.7-2.0) mmol/L Calcium (8.4-10.2) mg/dL Phosphorus (2.5-4.5) mg/dL Magnesium (1.6-2.3) mg/dL Total Bilirubin (0.2-1.3) mg/dL AST (14-36) U/L ALT (4-34) U/L Alkaline Phosphatase (38-126) U/L Troponin I (0.000-0.034) ng/mL NT-Pro-B Natriuret Pep pg/mL Total Protein (6.3-8.2) g/dL Albumin (3.5-5.0) g/dL TSH (0.465-4.680) mIU/L Urine Color Light Yellow Urine Appearance Clear (Clear) Urine pH 5.5 (5.0-8.0) Ur Specific [place] 1.010 (1.001-1.035) Urine Protein Negative (Negative) Urine Glucose (UA) Negative (Negative) Urine Ketones Negative (Negative) Urine Blood Negative (Negative) Urine Nitrite Negative (Negative) Urine Bilirubin Negative (Negative) Urine Urobilinogen <2.0 (<2.0) mg/dL Ur Leukocyte Esterase Negative (Negative) 12/22/21 12/22/21 12/22/21 Range/Units 12:52 12:52 12:52 WBC (3.8-10.6) k/uL RBC (3.80-5.40) m/uL Hgb (11.4-16.0) gm/dL Hct (34.0-46.0) % MCV (80.0-100.0) fL MCH (25.0-35.0) pg MCHC (31.0-37.0) g/dL RDW (11.5-15.5) % Plt Count (150-450) k/uL MPV Neutrophils % % Lymphocytes % % Monocytes % % Eosinophils % % Basophils % % Neutrophils # (1.3-7.7) k/uL Lymphocytes # (1.0-4.8) k/uL Monocytes # (0-1.0) k/uL Eosinophils # (0-0.7) k/uL Basophils # (0-0.2) k/uL Hypochromasia Poikilocytosis Anisocytosis Microcytosis PT (9.0-12.0) sec INR (<1.2) APTT (22.0-30.0) sec Sodium 138 (137-145) mmol/L Potassium 4.3 (3.5-5.1) mmol/L Chloride 104 (98-107) mmol/L Carbon Dioxide 23 (22-30) mmol/L Anion Gap 11 mmol/L BUN 61 H (7-17) mg/dL Creatinine 1.81 H (0.52-1.04) mg/dL Est GFR (CKD-EPI)AfAm 28 (>60 ml/min/1.73 sqM) Est GFR (CKD-EPI)NonAf 25 (>60 ml/min/1.73 sqM) Glucose 107 H (74-99) mg/dL Plasma Lactic Acid Sesar 1.3 (0.7-2.0) mmol/L Calcium 8.7 (8.4-10.2) mg/dL Phosphorus 4.2 (2.5-4.5) mg/dL Magnesium 2.2 (1.6-2.3) mg/dL Total Bilirubin 0.8 (0.2-1.3) mg/dL AST 41 H (14-36) U/L ALT 19 (4-34) U/L Alkaline Phosphatase 99 (38-126) U/L Troponin I <0.012 (0.000-0.034) ng/mL NT-Pro-B Natriuret Pep pg/mL Total Protein 7.8 (6.3-8.2) g/dL Albumin 4.2 (3.5-5.0) g/dL TSH 3.060 (0.465-4.680) mIU/L Urine Color Urine Appearance (Clear) Urine pH (5.0-8.0) Ur Specific [place] (1.001-1.035) Urine Protein (Negative) Urine Glucose (UA) (Negative) Urine Ketones (Negative) Urine Blood (Negative) Urine Nitrite (Negative) Urine Bilirubin (Negative) Urine Urobilinogen (<2.0) mg/dL Ur Leukocyte Esterase (Negative) 12/22/21 Range/Units 12:52 WBC (3.8-10.6) k/uL RBC (3.80-5.40) m/uL Hgb (11.4-16.0) gm/dL Hct (34.0-46.0) % MCV (80.0-100.0) fL MCH (25.0-35.0) pg MCHC (31.0-37.0) g/dL RDW (11.5-15.5) % Plt Count (150-450) k/uL MPV Neutrophils % % Lymphocytes % % Monocytes % % Eosinophils % % Basophils % % Neutrophils # (1.3-7.7) k/uL Lymphocytes # (1.0-4.8) k/uL Monocytes # (0-1.0) k/uL Eosinophils # (0-0.7) k/uL Basophils # (0-0.2) k/uL Hypochromasia Poikilocytosis Anisocytosis Microcytosis PT (9.0-12.0) sec INR (<1.2) APTT (22.0-30.0) sec Sodium (137-145) mmol/L Potassium (3.5-5.1) mmol/L Chloride (98-107) mmol/L Carbon Dioxide (22-30) mmol/L Anion Gap mmol/L BUN (7-17) mg/dL Creatinine (0.52-1.04) mg/dL Est GFR (CKD-EPI)AfAm (>60 ml/min/1.73 sqM) Est GFR (CKD-EPI)NonAf (>60 ml/min/1.73 sqM) Glucose (74-99) mg/dL Plasma Lactic Acid Sesar (0.7-2.0) mmol/L Calcium (8.4-10.2) mg/dL Phosphorus (2.5-4.5) mg/dL Magnesium (1.6-2.3) mg/dL Total Bilirubin (0.2-1.3) mg/dL AST (14-36) U/L ALT (4-34) U/L Alkaline Phosphatase (38-126) U/L Troponin I (0.000-0.034) ng/mL NT-Pro-B Natriuret Pep 4970 pg/mL Total Protein (6.3-8.2) g/dL Albumin (3.5-5.0) g/dL TSH (0.465-4.680) mIU/L Urine Color Urine Appearance (Clear) Urine pH (5.0-8.0) Ur Specific [place] (1.001-1.035) Urine Protein (Negative) Urine Glucose (UA) (Negative) Urine Ketones (Negative) Urine Blood (Negative) Urine Nitrite (Negative) Urine Bilirubin (Negative) Urine Urobilinogen (<2.0) mg/dL Ur Leukocyte Esterase (Negative) Disposition Clinical Impression: CHF (congestive heart failure), SOB (shortness of breath), Chronic kidney disease, Bakers cyst, Leg pain, Chronic anemia, Hypertension Disposition: ADMITTED IP TO THIS HOSP Condition: Fair Is patient prescribed a controlled substance at d/c from ED?: No Referrals: Demian Vega MD [Primary Care Provider] - 1-2 days Time of Disposition: 14:46
[2021-12-22] MEDS ORDERED: MECLIZINE 12.5 MG TAB PO PRN (14:53)
[2021-12-22] MEDS ORDERED: bisacodyL 5 MG TABLET.DR PO PRN (14:53)
[2021-12-22] MEDS ORDERED: ONDANSETRON 4 MG TAB PO PRN (14:53)
[2021-12-22] MEDS ORDERED: NITROGLYCERIN SL TABS 0.4 MG TAB SUBLINGUAL PRN (14:53)
[2021-12-22] MEDS: FUROSEMIDE 10 MG/ML 4 ML VIAL IV STA ×2 (15:14→15:30)
[2021-12-22] MEDS: FUROSEMIDE 10 MG/ML 4 ML VIAL IV SCH (16:39)
--- NOTE | 2021-12-22 19:10 | P.HPIM ---
History of Present Illness Patient is presently 89-year-old female came in with compensative shortness of breath unsure about orthopnea or paroxysmal nocturnal dyspnea patient is not a great historian. Patient's daughter was present at the bedside. Patient mainly came in because of the bilateral pedal edema. By the time I valid the patient pedal edema significant improved. Patient does take 20 mg of Lasix at home. Her previous creatinine was about 2-3 years ago which was 1.1. Present creatinine is 1.81. Patient denied any fever chills. Patient has pulmonary edema on the chest x-ray clinically patient does have elevated JVD probably only 1 cm above the clavicle. Echo is being obtained and the patient had good diuresis with 40 mg of IV Lasix. REVIEW OF SYSTEMS: CONSTITUTIONAL: No fever, no malaise, no fatigue. HEENT: No recent visual problems or hearing problems. Denied any sore throat. CARDIOVASCULAR: No chest pain, no palpitations, no syncope. PULMONARY:no cough, no hemoptysis. GASTROINTESTINAL: No diarrhea, no nausea, no vomiting, no abdominal pain. NEUROLOGICAL: No headaches, no weakness, no numbness. HEMATOLOGICAL: Denies any bleeding or petechiae. GENITOURINARY: Denies any burning micturition, frequency, or urgency. MUSCULOSKELETAL/RHEUMATOLOGICAL: Denies any joint pain, swelling, or any muscle pain. ENDOCRINE: Denies any polyuria or polydipsia. The rest of the 14-point review of systems is negative. PHYSICAL EXAMINATION: GENERAL: The patient is alert and oriented x3, not in any acute distress. Well d eveloped, well nourished. HEENT: Pupils are round and equally reacting to light. EOMI. No scleral icterus. No conjunctival pallor. Normocephalic, atraumatic. No pharyngeal erythema. No thyromegaly. CARDIOVASCULAR: S1 and S2 present. No murmurs, rubs, or gallops. Does have jugular venous distention as mentioned above PULMONARY: Chest is clear to auscultation, no wheezing or crackles. ABDOMEN: Soft, nontender, nondistended, normoactive bowel sounds. No palpable organomegaly. MUSCULOSKELETAL: No joint swelling or deformity. EXTREMITIES: No cyanosis, clubbing, patient's preliminary appears to have significantly improved and only has minimal pedal edema at this time NEUROLOGICAL: Gross neurological examination did not reveal any focal deficits. SKIN: No rashes. Assessment and plan -Congestive heart failure possibly diastolic dysfunction with acute exacerbation patient will continued on 40 mg of IV Lasix probably need to cut it down to 20 IV twice a day or oral starting tomorrow. Patient is close to euvolemic and patient is definitely feeling better at this time. Echocardiogram will be obtained. -Possibility of acute renal failure secondary to prerenal azotemia from congestive heart failure expecting this to improve with IV fluids -Microcytic anemia chronic anemia no evidence of acute bleed possibly iron deficiency anemia and panel and severe myelosuppression -Atrial fibrillation presently rate controlled possibly paroxysmal A. 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 History of Any Multi-Drug Resistant Organisms: MRSA Date of last positivie culture/infection: 10/15/21 MDRO Source:: MRSA TOE Past Surgical History: Bladder Surgery, Cardiac Ablation, Heart Catheterization With Stent, Hernia Repair, Hysterectomy, Joint Replacement, Orthopedic Surgery, Tubal Ligation Additional Past Surgical History / Comment(s): 12/2016 PCI with stent, cardiac ablation for A flutter, umbilical hernia repair, surgery on two toes L foot for hammer toe, excision lesion L index finger, right total knee, bilateral cataracts removed, colonoscopies, bladder suspension. Past Anesthesia/Blood Transfusion Reactions: No Reported Reaction Additional Past Anesthesia/Blood Transfusion Reaction / Comment(s): Pt has r eceived blood in past without reaction. Date of Last Stent Placement:: 2016 Past Psychological History: Anxiety Additional Psychological History / Comment(s): Patient states she lives in [id number] quarters on daughters property Smoking Status: Never smoker Past Alcohol Use History: None Reported Past Drug Use History: None Reported - Past Family History Mother Family Medical History: Cancer Additional Family Medical History / Comment(s): Mother had cancer with metastasis-primary unknown. She at the age of 85yrs. Brother(s) Family Medical History: Cancer Father Family Medical History: Congestive Heart Failure (CHF) Additional Family Medical History / Comment(s): Father at the age of 70yrs. Medications and Allergies Home Medications Medication Instructions Recorded Confirmed Type Levothyroxine Sodium [Synthroid] 50 mcg PO DAILY 05/01/14 12/22/21 History Pantoprazole [Protonix] 40 mg PO HS 01/03/16 12/22/21 History Atorvastatin [Lipitor] 40 mg PO HS 12/25/16 12/22/21 History Metoprolol Tartrate [Lopressor] 25 mg PO BID@0900,1700 10/19/17 12/22/21 History Apixaban [Eliquis] 2.5 mg PO BID@0900,1700 03/15/19 12/22/21 History Meclizine [Antivert] 12.5 mg PO TID PRN 03/15/19 12/22/21 History ondansetron HCL [Zofran] 8 mg PO TID PRN 03/15/19 12/22/21 History Nitroglycerin Sl Tabs [Nitrostat] 0.4 mg SUBLINGUAL Q5M PRN #20 tab 03/16/19 12/22/21 Rx Losartan [Cozaar] 25 mg PO HS 08/01/21 12/22/21 History Memantine [Namenda] 5 mg PO BID@0900,1700 08/01/21 12/22/21 History bisacodyL [Dulcolax] 10 mg PO DAILY PRN tab 08/04/21 12/22/21 Rx Celecoxib [CeleBREX] 200 mg PO DAILY 12/22/21 12/22/21 History Furosemide [Lasix] 20 mg PO BID@0900,1700 12/22/21 12/22/21 History Allergies Allergy/AdvReac Type Severity Reaction Status Date / Time codeine AdvReac Nausea & Verified 12/22/21 13:33 Vomiting Physical Exam Vitals: Vital Signs Temp Pulse Pulse Resp BP BP Pulse Ox 12/22/21 18:34 97.8 F 75 18 133/67 99 12/22/21 17:48 98.6 F 70 18 128/89 100 12/22/21 16:00 78 12/22/21 15:00 75 18 144/84 95 12/22/21 14:00 72 16 155/87 97 12/22/21 12:04 74 18 153/89 95 12/22/21 11:02 97 F L 67 18 126/58 99 Intake and Output 12/22/21 12/22/21 12/22/21 06:59 14:59 22:59 Other: Weight 62.596 kg 63.5 kg Results CBC & Chem 7: 12/22/21 12:52 12/22/21 12:52 Labs: Abnormal Lab Results - Last 24 Hours (Table) 12/22/21 12/22/21 Range/Units 12:52 12:52 RBC 3.50 L (3.80-5.40) m/uL Hgb 8.0 L (11.4-16.0) gm/dL Hct 26.4 L (34.0-46.0) % MCV 75.6 L (80.0-100.0) fL MCH 23.0 L (25.0-35.0) pg MCHC 30.4 L (31.0-37.0) g/dL RDW 18.5 H (11.5-15.5) % BUN 61 H (7-17) mg/dL Creatinine 1.81 H (0.52-1.04) mg/dL Glucose 107 H (74-99) mg/dL AST 41 H (14-36) U/L Thrombosis Risk Factor Assmnt - Choose All That Apply Any of the Below Risk Factors Present?: Yes Each Factor Represents 1 point: Heart failure (<1month), Swollen legs (current) Other Risk Factors: Yes Each Risk Factor Represents 3 Points: Age 75 years or older Other congenital or acquired thrombophilia - If yes, enter type in comment: No Thrombosis Risk Factor Assessment Total Risk Factor Score: 5 Thrombosis Risk Factor Assessment Level: High Risk
[2021-12-22] MEDS ORDERED: LOSARTAN 25 MG TAB PO SCH (21:00)
[2021-12-22] MEDS: METOPROLOL TARTRATE 25 MG TAB PO SCH (21:17)
[2021-12-22] MEDS: MEMANTINE 5 MG TAB PO SCH (21:17)
[2021-12-22] MEDS: APIXABAN 2.5 MG TABLET PO SCH (21:17)
[2021-12-22] MEDS: ATORVASTATIN 40 MG TAB PO SCH (21:17)
[2021-12-22] MEDS: NITROGLYCERIN OINT 1 INCH/GM PACKET TOPICAL SCH (21:17)
[2021-12-22] MEDS: PANTOPRAZOLE 40 MG TABLET PO SCH (21:17)
[2021-12-23] MEDS: NITROGLYCERIN OINT 1 INCH/GM PACKET TOPICAL SCH ×5 (00:52→19:58)
[2021-12-23] MEDS: LEVOTHYROXINE 50 MCG TAB PO SCH (04:49)
[2021-12-23] MEDS: FUROSEMIDE 10 MG/ML 4 ML VIAL IV SCH ×2 (04:50→16:03)
[2021-12-23] MEDS ORDERED: MELOXICAM 7.5 MG TAB PO SCH (09:00)
[2021-12-23] MEDS ORDERED: ASPIRIN 81 MG PO SCH (09:00)
[2021-12-23] MEDS ORDERED: ASPIRIN 325 MG TAB PO SCH (09:00)
--- NOTE | 2021-12-23 09:51 | P.CRDCN ---
History of Present Illness History of present illness: This is a pleasant 89-year-old female patient history of CAD, prior PCI of the mid LAD in 2017, hypertension, atrial flutter, status post radiofrequency ablation in 2017, mild to moderate aortic stenosis, moderate to severe mitral regurgitation and moderate pulmonary hypertension as well as a history of intracranial tumor. She follows with Dr. PAULIE Miller in the office. We have been asked to see in consultation for congestive heart failure. She Presented to the emergency department with worsening lower extremity edema for about a week. Her daughter noticed worsening edema and brought her to the emergency department for further evaluation. Patient was started on IV Lasix. She denies any chest pain, shortness of breath, orthopnea or PND. Her bilateral lower extremity edema has improved. DIAGNOSTICS EKG reveals sinus rhythm, heart rate 67, no acute ST ST wave abnormalities Echocardiogram 05/2021 in the office revealed EF of 60%, mild aortic stenosis, moderate pulmonary hypertension, moderate to severe mitral regurgitation Venous Dopplers negative for DVT Chest xray COPD and mild venous congestion Laboratory reviewed, proBNP 4970, troponin negative 3, sodium 138, potassium 4.3, BUN 61, serum creatinine 1.8, WBC 7.0, hemoglobin 8.0, platelets 195 Current home medications include metoprolol titrate 25 mg twice a day, losartan 25 mg nightly, Lasix 20 mg twice a day, Eliquis 2.5 mg twice a day, atorvastatin 40 mg nightly Dobutamine stress echo in 03/2019 was negative for reversible ischemia REVIEW OF SYSTEMS At the time of my exam: CONSTITUTIONAL: Denies fever or chills. CARDIOVASCULAR: Denies chest pain, shortness of breath, orthopnea, PND or palpitations. RESPIRATORY: Denies cough. GASTROINTESTINAL: Denies abdominal pain, diarrhea, constipation, nausea or vomiting. MUSCULOSKELETAL: Denies myalgias. NEUROLOGIC: Denies numbness, tingling, headacbe or weakness. ENDOCRINE: Denies fatigue, weight change, polydipsia or polyurina. GENITOURINARY: Denies burning, hematuria or urgency with micturation. HEMATOLOGIC: Denies history of anemia or bleeding. PHYSICAL EXAMINATION Blood pressure 149/74, heart rate 72, afebrile, oxygen saturations 96% on room air CONSTITUTIONAL: No apparent distress. HEENT: Head is normocephalic. Pupils are equal, round. Sclerae anicteric. Mucous membranes of the mouth are moist. there is mild JVD. No carotid bruit. CHEST EXAMINATION: Lungs are clear to auscultation. No chest wall tenderness is noted on palpation or with deep breathing. HEART EXAMINATION: Regular rate and rhythm. S1, S2 heard. 4/6 systolic ejection murmur at apex. No , gallops or rub. ABDOMEN: Soft, nontender. Positive bowel sounds. EXTREMITIES: 2+ peripheral pulses, trace bilateral lower extremity edema and no calf tenderness. NEUROLOGIC EXAMINATION: Patient is awake, alert and oriented x3. ASSESSMENT Acute on chronic heart failure with preserved ejection fraction Coronary artery disease status post prior PCI of mid LAD in 2017 History of typical atrial flutter status post radiofrequency ablation on [facility] Mild to moderate aortic stenosis Mitral regurgitation Pulmonary hypertension Hypertension Dyslipidemia PLAN Obtain 2D echocardiogram and doppler study to assess cardiac structure and function. Continue IV Lasix for additional 24 hours Monitor renal function and electrolytes, I/Os, daily weights Continue home cardiac medications Further recommendations based on clinical course Nurse practitioner note has been reviewed by physician. Signing provider agrees with the documented findings, assessment, and plan of care. 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 History of Any Multi-Drug Resistant Organisms: MRSA Date of last positivie culture/infection: 10/15/21 MDRO Source:: MRSA TOE Past Surgical History: Bladder Surgery, Cardiac Ablation, Heart Catheterization With Stent, Hernia Repair, Hysterectomy, Joint Replacement, Orthopedic Surgery, Tubal Ligation Additional Past Surgical History / Comment(s): 12/2016 PCI with stent, cardiac ablation for A flutter, umbilical hernia repair, surgery on two toes L foot for hammer toe, excision lesion L index finger, right total knee, bilateral cataracts removed, colonoscopies, bladder suspension. Past Anesthesia/Blood Transfusion Reactions: No Reported Reaction Additional Past Anesthesia/Blood Transfusion Reaction / Comment(s): Pt has received blood in past without reaction. Date of Last Stent Placement:: 2016 Past Psychological History: Anxiety Additional Psychological History / Comment(s): Patient states she lives in [id number] quarters on daughters property Smoking Status: Never smoker Past Alcohol Use History: None Reported Past Drug Use History: None Reported - Past Family History Mother Family Medical History: Cancer Additional Family Medical History / Comment(s): Mother had cancer with metastasis-primary unknown. She at the age of 85yrs. Brother(s) Family Medical History: Cancer Father Family Medical History: Congestive Heart Failure (CHF) Additional Family Medical History / Comment(s): Father at the age of 70yrs. Medications and Allergies Home Medications Medication Instructions Recorded Confirmed Type Levothyroxine Sodium [Synthroid] 50 mcg PO DAILY 05/01/14 12/22/21 History Pantoprazole [Protonix] 40 mg PO HS 01/03/16 12/22/21 History Atorvastatin [Lipitor] 40 mg PO HS 12/25/16 12/22/21 History Metoprolol Tartrate [Lopressor] 25 mg PO BID@0900,1700 10/19/17 12/22/21 History Apixaban [Eliquis] 2.5 mg PO BID@0900,1700 03/15/19 12/22/21 History Meclizine [Antivert] 12.5 mg PO TID PRN 03/15/19 12/22/21 History ondansetron HCL [Zofran] 8 mg PO TID PRN 03/15/19 12/22/21 History Nitroglycerin Sl Tabs [Nitrostat] 0.4 mg SUBLINGUAL Q5M PRN #20 tab 03/16/19 12/22/21 Rx Losartan [Cozaar] 25 mg PO HS 08/01/21 12/22/21 History Memantine [Namenda] 5 mg PO BID@0900,1700 08/01/21 12/22/21 History bisacodyL [Dulcolax] 10 mg PO DAILY PRN tab 08/04/21 12/22/21 Rx Celecoxib [CeleBREX] 200 mg PO DAILY 12/22/21 12/22/21 History Furosemide [Lasix] 20 mg PO BID@0900,1700 12/22/21 12/22/21 History Allergies Allergy/AdvReac Type Severity Reaction Status Date / Time codeine AdvReac Nausea & Verified 12/22/21 13:33 Vomiting Physical Exam Vitals: Vital Signs Temp Pulse Pulse Resp BP BP Pulse Ox 12/23/21 05:00 97.5 F L 71 18 100/65 96 12/22/21 20:00 68 18 12/22/21 19:44 97.3 F L 68 18 117/73 100 12/22/21 18:34 97.8 F 75 18 133/67 99 12/22/21 17:48 98.6 F 70 18 128/89 100 12/22/21 16:00 78 12/22/21 15:00 75 18 144/84 95 12/22/21 14:00 72 16 155/87 97 12/22/21 12:04 74 18 153/89 95 12/22/21 11:02 97 F L 67 18 126/58 99 Intake and Output 12/22/21 12/23/21 12/23/21 22:59 06:59 14:59 Intake Total 200 Balance 200 Intake: Oral 200 Other: Weight 63.5 kg 66.5 kg Results 12/22/21 12:52 12/22/21 12:52 Cardiac Enzymes 12/22/21 12/22/21 12/22/21 Range/Units 12:52 12:52 15:16 AST 41 H (14-36) U/L Troponin I <0.012 <0.012 (0.000-0.034) ng/mL 12/22/21 Range/Units 17:45 AST (14-36) U/L Troponin I <0.012 (0.000-0.034) ng/mL Coagulation 12/22/21 Range/Units 12:52 PT 11.5 (9.0-12.0) sec APTT 26.9 (22.0-30.0) sec CBC 12/22/21 Range/Units 12:52 WBC 7.0 (3.8-10.6) k/uL RBC 3.50 L (3.80-5.40) m/uL Hgb 8.0 L (11.4-16.0) gm/dL Hct 26.4 L (34.0-46.0) % Plt Count 195 (150-450) k/uL Comprehensive Metabolic Panel 12/22/21 Range/Units 12:52 Sodium 138 (137-145) mmol/L Potassium 4.3 (3.5-5.1) mmol/L Chloride 104 (98-107) mmol/L Carbon Dioxide 23 (22-30) mmol/L BUN 61 H (7-17) mg/dL Creatinine 1.81 H (0.52-1.04) mg/dL Glucose 107 H (74-99) mg/dL Calcium 8.7 (8.4-10.2) mg/dL AST 41 H (14-36) U/L ALT 19 (4-34) U/L Alkaline Phosphatase 99 (38-126) U/L Total Protein 7.8 (6.3-8.2) g/dL Albumin 4.2 (3.5-5.0) g/dL Current Medications Generic Name Dose Route Start Last Admin Trade Name Freq PRN Reason Stop Dose Admin Apixaban 2.5 mg 12/22/21 17:00 12/22/21 21:17 Apixaban 2.5 Mg Tablet PO 2.5 mg BID@0900,1700 [facility] Administration Protocol Aspirin 81 mg 12/23/21 09:00 Aspirin 325 Mg Tab PO DAILY [facility] Atorvastatin Calcium 40 mg 12/22/21 21:00 12/22/21 21:17 Atorvastatin 40 Mg Tab PO 40 mg HS [facility] Administration Bisacodyl 10 mg 12/22/21 14:53 Bisacodyl 5 Mg Tablet.Dr PO DAILY PRN Constipation Furosemide 40 mg 12/22/21 16:00 12/23/21 04:50 Furosemide 10 Mg/Ml 4 Ml Vial IV 40 mg Q12H [facility] Administration Levothyroxine Sodium 50 mcg 12/23/21 06:30 12/23/21 04:49 Levothyroxine 50 Mcg Tab PO 50 mcg DAILY@0630 [facility] Administration Meclizine HCl 12.5 mg 12/22/21 14:53 Meclizine 12.5 Mg Tab PO TID PRN Vertigo Memantine 5 mg 12/22/21 17:00 12/22/21 21:17 Memantine 5 Mg Tab PO 5 mg BID@0900,1700 [facility] Administration Metoprolol Tartrate 25 mg 12/22/21 17:00 12/22/21 21:17 Metoprolol Tartrate 25 Mg Tab PO 25 mg BID@0900,1700 [facility] Administration Nitroglycerin 1 inch 12/22/21 18:00 12/23/21 00:52 Nitroglycerin Oint 1 Inch/Gm Packet TOPICAL Not Given QID [facility] Nitroglycerin 0.4 mg 12/22/21 14:53 Nitroglycerin Sl Tabs 0.4 Mg Tab SUBLINGUAL Q5M PRN Chest Pain Ondansetron HCl 8 mg 12/22/21 14:53 Ondansetron 4 Mg Tab PO TID PRN Nausea And Vomiting Pantoprazole Sodium 40 mg 12/22/21 21:00 12/22/21 21:17 Pantoprazole 40 Mg Tablet PO 40 mg [facility] Administration Intake and Output 12/22/21 12/23/21 12/23/21 22:59 06:59 14:59 Intake Total 200 Balance 200 Intake: Oral 200 Other: Weight 63.5 kg 66.5 kg 12/22/21 12:52 12/22/21 12:52
[2021-12-23] MEDS: METOPROLOL TARTRATE 25 MG TAB PO SCH ×2 (10:29→18:00)
[2021-12-23] MEDS: APIXABAN 2.5 MG TABLET PO SCH ×2 (10:29→17:59)
[2021-12-23] MEDS: MEMANTINE 5 MG TAB PO SCH ×2 (10:29→17:59)
--- NOTE | 2021-12-23 10:56 | ECHOF ---
Referral Reason:Heart Failure MEASUREMENTS -------- HEIGHT: 162.6 cm WEIGHT: 74.4 kg BP: RVIDd: 3.0 cm (< 3.3) IVSd: 1.1 cm (0.6 - 1.1) LVIDd: 4.0 cm (3.9 - 5.3) LVPWd: 1.2 cm (0.6 - 1.1) IVSs: 1.5 cm LVIDs: 3.5 cm LVPWs: 1.1 cm LA Diam: 5.1 cm (2.7 - 3.8) LAESV Index (A-L): 42.15 ml/m Ao Diam: 2.6 cm (2.0 - 3.7) AV Cusp: 0.7 cm (1.5 - 2.6) LA Diam: 4.7 cm (2.7 - 3.8) MV EXCURSION: 12.842 mm (> 18.000) MV EF SLOPE: 103 mm/s (70 - 150) EPSS: 0.4 cm MV E Bertin: 1.08 m/s MV DecT: 113 ms MV A Bertin: 0.82 m/s MV E/A Ratio: 1.32 AV maxP.95 mmHg AV meanP.84 mmHg RAP: 10.00 mmHg RVSP: 87.33 mmHg FINDINGS -------- Sinus rhythm. This was a technically good study. The left ventricular size is normal. There is mild concentric left ventricular hypertrophy. Overa ll left ventricular systolic function is low-normal with, an EF between 50 - 55 %. The right ventricle is normal in size. LA is severely dilated >40 ml/m2 The right atrial size is normal. There is moderate aortic stenosis present. Peak/mean gradient across the Aortic Valve is 38.95mmHg / 18.84mmHg. Mild mitral annular calcification present. Severe mitral regurgitation is present. Severe tricuspid regurgitation present. There is severe pulmonary hypertension. The right ventric ular systolic pressure, as measured by Doppler, is 87.33mmHg. There is no pulmonic regurgitation present. There is no pericardial effusion. CONCLUSIONS -------- 1. The left ventricular size is normal. 2. There is mild concentric left ventricular hypertrophy. 3. Overall left ventricular systolic function is low-normal with, an EF between 50 - 55 %. 4. The right ventricle is normal in size. 5. LA is severely dilated >40 ml/m2 6. The right atrial size is normal. 7. There is moderate aortic stenosis present. 8. Peak/mean gradient across the Aortic Valve is 38.95mmHg / 18.84mmHg. 9. Mild mitral annular calcification present. 10. Severe mitral regurgitation is present. 11. Severe tricuspid regurgitation present. 12. There is severe pulmonary hypertension. 13. The right ventricular systolic pressure, as measured by Doppler, is 87.33mmHg. 14. There is no pulmonic regurgitation present. 15. There is no pericardial effusion. PACKAGE LINER: Flory Lopez RDCS
[2021-12-23 10:57] LABS: % Iron Saturation 3.75 (12.00-45.00)
[2021-12-23 12:52] LABS: African American GFR (CKD) 30 (>60 ml/min/1.73 sqM); Anion Gap 10 mmol/L; Blood Urea Nitrogen 58 mg/dL (7-17); Calcium 8.8 mg/dL (8.4-10.2); Carbon Dioxide 23 mmol/L (22-30); Chloride 105 mmol/L (98-107); Glucose 97 mg/dL (74-99); Non-African American GFR(CKD) 26 (>60 ml/min/1.73 sqM); Potassium 4.3 mmol/L (3.5-5.1); Sodium 138 mmol/L (137-145)
[2021-12-23 14:05] VITALS: BMI 25.1
--- NOTE | 2021-12-23 16:26 | P.PN ---
Subjective Progress Note Date: 12/23/21 Patient is presently 89-year-old female came in with compensative shortness of breath unsure about orthopnea or paroxysmal nocturnal dyspnea patient is not a great historian. Patient's daughter was present at the bedside. Patient mainly came in because of the bilateral pedal edema. By the time I valid the patient pedal edema significant improved. Patient does take 20 mg of Lasix at home. Her previous creatinine was about 2-3 years ago which was 1.1. Present creatinine is 1.81. Patient denied any fever chills. Patient has pulmonary edema on the chest x-ray clinically patient does have elevated JVD probably only 1 cm above the clavicle. Echo is being obtained and the patient had good diur esis with 40 mg of IV Lasix. 12/23/2021 Patient is seen and evaluated in follow-up with daughter at the bedside and patient is being followed by cardiology continued on IV Lasix another 24 hours and will follow-up with repeat labs and will also have physical therapy evaluate the patient. Patient's creatinine slightly trending down and will continue to monitor closely. Patient denies chest pain, shortness of breath, or palpitations. Patient is afebrile. No reports of nausea or vomiting noted and patient is tolerating diet. Encouraged increased activity as tolerated as well. Review of systems: Constitutional: No reports of fatigue, fever, or chills Cardiovascular: No reports of chest pain or palpitations Respiratory: No reports of shortness of breath or cough GI: No reports of nausea, vomiting, or diarrhea : No reports of dysuria or retention Neurovascular: No reports of weakness or numbness All medications have been reviewed Active Medications Apixaban (Apixaban 2.5 Mg Tablet) 2.5 mg PO BID@0900,1700 [facility]; Protocol Last Admin: 12/23/21 10:29 Dose: 2.5 mg Documented by: Atorvastatin Calcium (Atorvastatin 40 Mg Tab) 40 mg PO HS [facility] Last Admin: 12/22/21 21:17 Dose: 40 mg Documented by: Bisacodyl (Bisacodyl 5 Mg Tablet.Dr) 10 mg PO DAILY PRN PRN Reason: Constipation Furosemide (Furosemide 10 Mg/Ml 4 Ml Vial) 40 mg IV Q12H [facility] Last Admin: 12/23/21 16:03 Dose: 40 mg Documented by: Levothyroxine Sodium (Levothyroxine 50 Mcg Tab) 50 mcg PO DAILY@0630 [facility] Last Admin: 12/23/21 04:49 Dose: 50 mcg Documented by: Meclizine HCl (Meclizine 12.5 Mg Tab) 12.5 mg PO TID PRN PRN Reason: Vertigo Memantine (Memantine 5 Mg Tab) 5 mg PO BID@0900,1700 [facility] Last Admin: 12/23/21 10:29 Dose: 5 mg Documented by: Metoprolol Tartrate (Metoprolol Tartrate 25 Mg Tab) 25 mg PO BID@0900,1700 [facility] Last Admin: 12/23/21 10:29 Dose: 25 mg Documented by: Nitroglycerin (Nitroglycerin Oint 1 Inch/Gm Packet) 1 inch TOPICAL QID [facility] Last Admin: 12/23/21 13:31 Dose: 1 inch Documented by: Nitroglycerin (Nitroglycerin Sl Tabs 0.4 Mg Tab) 0.4 mg SUBLINGUAL Q5M PRN PRN Reason: Chest Pain Ondansetron HCl (Ondansetron 4 Mg Tab) 8 mg PO TID PRN PRN Reason: Nausea And Vomiting Pantoprazole Sodium (Pantoprazole 40 Mg Tablet) 40 mg PO HS [facility] Last Admin: 12/22/21 21:17 Dose: 40 mg Documented by: PHYSICAL EXAMINATION: GENERAL: The patient is alert and oriented x3, not in any acute distress. Well developed, well nourished. HEENT: Pupils are round and equally reacting to light. EOMI. No scleral icterus. No conjunctival pallor. Normocephalic, atraumatic. No pharyngeal erythema. No thyromegaly. CARDIOVASCULAR: S1 and S2 present. No murmurs, rubs, or gallops. Does have jugular venous distention as mentioned above PULMONARY: Chest is clear to auscultation, no wheezing or crackles. ABDOMEN: Soft, nontender, nondistended, normoactive bowel sounds. No palpable organomegaly. MUSCULOSKELETAL: No joint swelling or deformity. EXTREMITIES: No cyanosis, clubbing, only has minimal pedal edema at this time NEUROLOGICAL: Gross neurological examination did not reveal any focal deficits. SKIN: No rashes. Assessment: -Congestive heart failure with diastolic dysfunction with acute exacerbation, 2- D echo shows low to normal LV systolic function with an EF of 50-55%. patient will continued on 40 mg of IV Lasix for an additional 24 hours and will repeat labs with cardiology following -Possibility of acute renal failure secondary to prerenal azotemia from congestive heart failure, improving -Microcytic anemia chronic anemia no evidence of acute bleed possibly iron deficiency anemia and panel and severe myelosuppression -Atrial fibrillation presently rate controlled possibly paroxysmal A. fib patient is on anticoagulation at 2.5 mg of Eliquis which will be continued -Hyperlipidemia -Hypothyroidism -Gastroesophageal reflux disease -DVT prophylaxis: On coagulation with Eliquis Plan: Patient will be continued on IV Lasix for additional 24 hours with cardiology following. Will follow-up with repeat labs in the morning and monitor kidney functions along with electrolytes Physical therapy evaluated the patient and will follow-up with the patient in the morning Encouraged increased activity as tolerated Encouraged oral intake and low salt diet Encourage the patient elevate lower extremities while at rest and may use compression stockings Possible discharge in 24 hours The impression and plan of care has been dictated by Ashly Peter, Nurse Practitioner as directed. Dr. Chelsi MD I have performed a history and examination and MDM of this patient, discussed the same with the dictator, and agree with the dictator's assessment and plan as written ,documented as a scribe. Based on total visit time, I have performed more than 50% of the visit. Objective - Vital Signs Vital signs: Vital Signs Temp 98.6 F 12/23/21 08:38 Pulse 72 12/23/21 08:44 Resp 15 12/23/21 08:44 BP 149/74 12/23/21 08:38 Pulse Ox 96 12/23/21 05:00 Intake & Output 12/22/21 12/23/21 12/23/21 18:59 06:59 18:59 Intake Total 200 Balance 200 Weight 63.5 kg 66.5 kg Intake: Oral 200 Other: Voiding Method Toilet - Labs CBC & Chem 7: 12/22/21 12:52 12/23/21 12:11 Labs: Abnormal Lab Results - Last 24 Hours (Table) 12/22/21 12/22/21 Range/Units 12:52 12:52 RBC 3.50 L (3.80-5.40) m/uL Hgb 8.0 L (11.4-16.0) gm/dL Hct 26.4 L (34.0-46.0) % MCV 75.6 L (80.0-100.0) fL MCH 23.0 L (25.0-35.0) pg MCHC 30.4 L (31.0-37.0) g/dL RDW 18.5 H (11.5-15.5) % BUN 61 H (7-17) mg/dL Creatinine 1.81 H (0.52-1.04) mg/dL Glucose 107 H (74-99) mg/dL AST 41 H (14-36) U/L
[2021-12-23] MEDS: ATORVASTATIN 40 MG TAB PO SCH (19:58)
[2021-12-23] MEDS: PANTOPRAZOLE 40 MG TABLET PO SCH (19:58)
[2021-12-23 21:32] VITALS: RESP 16
[2021-12-24] MEDS: FUROSEMIDE 10 MG/ML 4 ML VIAL IV SCH (05:40)
[2021-12-24] MEDS: LEVOTHYROXINE 50 MCG TAB PO SCH (05:40)
[2021-12-24 06:24] LABS: African American GFR (CKD) 29 (>60 ml/min/1.73 sqM); Anion Gap 8 mmol/L; Blood Urea Nitrogen 60 mg/dL (7-17); Calcium 8.7 mg/dL (8.4-10.2); Carbon Dioxide 26 mmol/L (22-30); Chloride 105 mmol/L (98-107); Glucose 101 mg/dL (74-99); Non-African American GFR(CKD) 25 (>60 ml/min/1.73 sqM); Sodium 139 mmol/L (137-145)
[2021-12-24] MEDS: APIXABAN 2.5 MG TABLET PO SCH (08:53)
[2021-12-24] MEDS: NITROGLYCERIN OINT 1 INCH/GM PACKET TOPICAL SCH ×2 (08:54→13:10)
[2021-12-24] MEDS: MEMANTINE 5 MG TAB PO SCH (08:54)
[2021-12-24] MEDS: METOPROLOL TARTRATE 25 MG TAB PO SCH (08:54)
--- NOTE | 2021-12-24 12:39 | P.PN ---
Subjective This is a pleasant 89-year-old female patient history of CAD, prior PCI of the mid LAD in 2017, hypertension, atrial flutter, status post radiofrequency ablation in 2017, mild to moderate aortic stenosis, moderate to severe mitral regurgitation and moderate pulmonary hypertension as well as a history of intracranial tumor. She follows with Dr. PAULIE Miller in the office. We have been asked to see in consultation for congestive heart failure. She Presented to the emergency department with worsening lower extremity edema for about a week. Her daughter noticed worsening edema and brought her to the emergency department for further evaluation. Patient was started on IV Lasix. She denies any chest pain, shortness of breath, orthopnea or PND. Her bilateral lower extremity edema has improved. Patient seen and examined at bedside, no acute distress. Appears euvolemic on exam. Echo EF 50-55%, LA is severely dilated, moderate peak/mean gradient 38mmHg/18mmgHg, severe MR and severe TR, severe pulmonary hypertension. Labs Na 139. K 4.0, BUN 60, sCr 1.76 PHYSICAL EXAMINATION Blood pressure 106/64 HR 73, afebrile 100% on room air CONSTITUTIONAL: No apparent distress. HEENT: Neck Supple. No JVD. CHEST EXAMINATION: Lungs are clear to auscultation. HEART EXAMINATION: Regular rate and rhythm. S1, S2 heard. 4/6 systolic ejection murmur at apex. No gallops or rub. ABDOMEN: Soft, nontender. Positive bowel sounds. EXTREMITIES: 2+ peripheral pulses, trace bilateral lower extremity edema and no calf tenderness. NEUROLOGIC EXAMINATION: Patient is awake, alert and oriented x3. ASSESSMENT Acute on chronic heart failure with preserved ejection fraction Coronary artery disease status post prior PCI of mid LAD in 2017 History of typical atrial flutter status post radiofrequency ablation on Eliquis Moderate aortic stenosis Severe Mitral regurgitation Pulmonary hypertension Hypertension Dyslipidemia PLAN Transition to PO Lasix 20mg BID From a cardiology perspective, patient is stable. Follow up with Dr. Miller outpatient. Nurse practitioner note has been reviewed by physician. Signing provider agrees with the documented findings, assessment, and plan of care. Objective - Vital Signs Vital signs: Vital Signs Temp 98.1 F 12/24/21 08:14 Pulse 73 12/24/21 08:15 Resp 16 12/24/21 08:15 BP 106/64 12/24/21 08:14 Pulse Ox 100 12/24/21 05:00 Intake & Output 12/23/21 12/24/21 12/24/21 18:59 06:59 18:59 Intake Total 240 240 Balance 240 240 Weight 66.5 kg 66.6 kg Intake: Oral 240 240 Other: Voiding Method Toilet Toilet Toilet # Voids 4 1 - Labs CBC & Chem 7: 12/22/21 12:52 12/24/21 05:47 Labs: Abnormal Lab Results - Last 24 Hours (Table) 12/23/21 12/24/21 Range/Units 12:11 05:47 BUN 58 H 60 H (7-17) mg/dL Creatinine 1.72 H 1.76 H (0.52-1.04) mg/dL Glucose 101 H (74-99) mg/dL Microbiology - Last 24 Hours (Table) 12/22/21 12:31 Blood Culture - Preliminary Blood No Growth after 24 hours 12/22/21 12:52 Blood Culture - Preliminary Blood No Growth after 24 hours
[2021-12-24 12:42] VITALS: TEMP 97.7
[2021-12-24 13:04] VITALS: BP 111/69; PULSE 62
[2021-12-25] MEDS ORDERED: FUROSEMIDE 20 MG TAB PO SCH (09:00)
--- NOTE | 2021-12-25 09:28 | P.DS ---
Providers Date of admission: 12/22/21 14:54 Expected date of discharge: 12/24/21 Attending physician: Eli Gagnon Consults: 12/22/21 14:50 Consult Physician Routine Consulting Provider: Clay Miller Consult Reason/Comments: chf Do you want consulting provider notified?: Yes Primary care physician: Silvia Arciniega Hospital Course: . Final diagnosis -Congestive heart failure with diastolic dysfunction with acute exacerbation, 2- D echo shows low to normal LV systolic function with an EF of 50-55%. -Possibility of acute renal failure secondary to prerenal azotemia from congestive heart failure, improving -Microcytic anemia chronic anemia no evidence of acute bleed possibly iron deficiency anemia and panel and severe myelosuppression -Atrial fibrillation presently rate controlled possibly paroxysmal A. fib patient is on anticoagulation at 2.5 mg of Eliquis which will be continued -Hyperlipidemia -Hypothyroidism -Gastroesophageal reflux disease -DVT prophylaxis Discharge disposition Patient is being discharged in a stable condition with guarded prognosis to home. Patient will follow-up with Dr. Vega in the outpatient setting upon discharge. Patient is to follow-up with her dog or animal sitter Dr. Miller as scheduled next week. Patient will continue on Lasix 40 mg daily and recommend repeat labs in the next few days prior to appointment. Prescription was provided. Total time taken is greater than 35 minutes. Hospital course This is an 89-year-old female who was recently admitted with shortness of breath and some bilateral pedal edema and found to be in CHF acute exacerbation and was being closely monitored. Cardiology following closely and patient was maintained on IV Lasix which has been transitioned to oral Lasix and patient will continue with 40 mg daily of Lasix and follow up with her dog or animal sitter at her scheduled appointment on Wednesday or Wednesday with Dr. Miller. Patient also encouraged to follow-up with primary care provider and recommended repeat labs in the next 2-3 days to monitor kidney functions and electrolytes. Patient's pedal edema improved and encourage the patient to continue using compression stockings and elevating while at rest. Patient is feeling much better and would like to go home today. Currently no reports of chest pain, shortness of breath, or palpitations. Patient is afebrile. No reports of nausea or vomiting and patient is tolerating diet. Patient will be discharged home today. PHYSICAL EXAMINATION: GENERAL: The patient is alert and oriented x3, not in any acute distress. Well developed, well nourished. HEENT: Pupils are round and equally reacting to light. EOMI. No scleral icterus. No conjunctival pallor. Normocephalic, atraumatic. No pharyngeal erythema. No thyromegaly. CARDIOVASCULAR: S1 and S2 present. No murmurs, rubs, or gallops. Does have jugular venous distention as mentioned above PULMONARY: Chest is clear to auscultation, no wheezing or crackles. ABDOMEN: Soft, nontender, nondistended, normoactive bowel sounds. No palpable organomegaly. MUSCULOSKELETAL: No joint swelling or deformity. EXTREMITIES: No cyanosis, clubbing, only has minimal pedal edema at this time NEUROLOGICAL: Gross neurological examination did not reveal any focal deficits. SKIN: No rashes. Please refer to medication reconciliation sheet for a list of medications. The impression and plan of care has been dictated by Ashly Peter, Nurse Practitioner as directed. MD Lilian I have performed a history and examination and MDM of this patient, discussed the same with the dictator, and agree with the dictator's assessment and plan as written ,documented as a scribe. Based on total visit time, I have performed more than 50% of the visit. Patient Condition at Discharge: Fair Plan - Discharge Summary Discharge Rx Participant: No New Discharge Prescriptions: Continue Levothyroxine Sodium [Synthroid] 50 mcg PO DAILY Pantoprazole [Protonix] 40 mg PO HS Atorvastatin [Lipitor] 40 mg PO HS Metoprolol Tartrate [Lopressor] 25 mg PO BID@0900,1700 Meclizine [Antivert] 12.5 mg PO TID PRN PRN Reason: Vertigo Apixaban [Eliquis] 2.5 mg PO BID@0900,1700 ondansetron HCL [Zofran] 8 mg PO TID PRN PRN Reason: Nausea And Vomiting Nitroglycerin Sl Tabs [Nitrostat] 0.4 mg SUBLINGUAL Q5M PRN #20 tab PRN Reason: Chest Pain bisacodyL [Dulcolax] 10 mg PO DAILY PRN tab PRN Reason: Constipation Furosemide [Lasix] 20 mg PO BID@0900,1700 Memantine [Namenda] 5 mg PO BID@0900,1700 Celecoxib [CeleBREX] 200 mg PO DAILY Discontinued Losartan [Cozaar] 25 mg PO HS Discharge Medication List Levothyroxine Sodium [Synthroid] 50 mcg PO DAILY 05/01/14 [History] Pantoprazole [Protonix] 40 mg PO HS 01/03/16 [History] Atorvastatin [Lipitor] 40 mg PO HS 12/25/16 [History] Metoprolol Tartrate [Lopressor] 25 mg PO BID@0900,1700 10/19/17 [History] Apixaban [Eliquis] 2.5 mg PO BID@0900,1700 03/15/19 [History] Meclizine [Antivert] 12.5 mg PO TID PRN 03/15/19 [History] ondansetron HCL [Zofran] 8 mg PO TID PRN 03/15/19 [History] Nitroglycerin Sl Tabs [Nitrostat] 0.4 mg SUBLINGUAL Q5M PRN #20 tab 03/16/19 [Rx] Memantine [Namenda] 5 mg PO BID@0900,1700 08/01/21 [History] bisacodyL [Dulcolax] 10 mg PO DAILY PRN tab 08/04/21 [Rx] Celecoxib [CeleBREX] 200 mg PO DAILY 12/22/21 [History] Furosemide [Lasix] 20 mg PO BID@0900,1700 12/22/21 [History] Follow up Appointment(s)/Referral(s): Clay Miller MD [STAFF PHYSICIAN] - 1 Week (patient will have to call and schedule own appt) Demian Vega MD [Primary Care Provider] - 01/01/22 11:00 am Ambulatory/Diagnostic Orders: Basic Metabolic Panel [LAB.AMB] Time Frame: 3 Days, Location: None Selected Patient Instructions/Handouts: Heart Failure (DC), Chronic Kidney Disease (DC), Weakness (DC) Activity/Diet/Wound Care/Special Instructions: Activity Limited until follow-up Follow-up with primary care provider on discharge Follow-up with her dog or animal sitter Dr. Miller in the outpatient setting as scheduled Continue taking medications as prescribed Recommend repeat labs in 2-3 days Continue current diet Elevate lower extremities well rest and may use compression stockings Discharge Disposition: HOME SELF-CARE
== END 2021-12-24 14:45 | disposition home or self-care (01) | DRG 291 ==
LOC: EC 10:46 → 5NMEDONC 14:54
PROVIDERS: ADMIT Internal Medicine; ATTEND Internal Medicine
DX: I13.0 Hypertensive heart and chronic kidney disease with heart failure and stage 1 through stage 4 chronic kidney disease, or unspecified chronic kidney disease (principal); I50.33 Acute on chronic diastolic (congestive) heart failure; I48.92 Unspecified atrial flutter; I48.3 Typical atrial flutter; N17.9 Acute kidney failure, unspecified; Z82.49 Family history of ischemic heart disease and other diseases of the circulatory system; F41.9 Anxiety disorder, unspecified; K21.9 Gastro-esophageal reflux disease without esophagitis; E07.9 Disorder of thyroid, unspecified; M19.90 Unspecified osteoarthritis, unspecified site; I08.3 Combined rheumatic disorders of mitral, aortic and tricuspid valves; N18.9 Chronic kidney disease, unspecified; I25.10 Atherosclerotic heart disease of native coronary artery without angina pectoris; Z98.61 Coronary angioplasty status; I48.91 Unspecified atrial fibrillation; D50.9 Iron deficiency anemia, unspecified; J44.9 Chronic obstructive pulmonary disease, unspecified; E78.5 Hyperlipidemia, unspecified; E03.9 Hypothyroidism, unspecified; I27.20 Pulmonary hypertension, unspecified; Z95.5 Presence of coronary angioplasty implant and graft; M71.22 Synovial cyst of popliteal space [Baker], left knee; Z79.01 Long term (current) use of anticoagulants; Z79.1 Long term (current) use of non-steroidal anti-inflammatories (NSAID); Z79.890 Hormone replacement therapy; Z79.899 Other long term (current) drug therapy; Z80.9 Family history of malignant neoplasm, unspecified; Z90.710 Acquired absence of both cervix and uterus; Z98.51 Tubal ligation status; Z87.19 Personal history of other diseases of the digestive system; Z86.79 Personal history of other diseases of the circulatory system; Z88.5 Allergy status to narcotic agent; Z98.42 Cataract extraction status, left eye; Z98.41 Cataract extraction status, right eye; Z87.440 Personal history of urinary (tract) infections
CPT/HCPCS: 36415; 71046; 80048; 80053; 81003; 83540; 83550; 83605; 83735; 83880; 84100; 84443; 84484; 85025; 85610; 85730; 87040; 93005; 93306; 93970; 96374; 99285

== ENCOUNTER 2021-12-25 13:38 | Inpatient (IN) | payer MEDICARE, BC ==
--- NOTE | 2021-12-25 14:48 | ED ---
General Adult HPI <Lonnie Watson - Last Filed: 12/25/21 15:46> - General Source: patient, family, EMS, RN notes reviewed, old records reviewed Mode of arrival: ambulatory Limitations: physical limitation - History of Present Illness -: week(s) (2) Severity scale (1-10): 0 Associated Symptoms: weakness (Bilateral leg) <Benitez Randall - Last Filed: 12/25/21 18:04> - General Chief complaint: Weakness Stated complaint: Weakness Time Seen by Provider: 12/25/21 14:35 - History of Present Illness Initial comments: This is a well-appearing 89-year-old female, alert and oriented 4, presents with family member complaining of bilateral lower extremity weakness worsening over the past 2 weeks. Patient was just discharged from the hospital yesterday directed to follow up with primary care doctor however family at bedside states that the patient has increasing leg weakness today. She does have a history of a benign brain mass family was concerned that maybe worsening causing her weakness. Patient denies any headaches. No pain, no nausea, vomiting or diarrhea. No fevers. (Benitez Randall) - Related Data Home Medications Medication Instructions Recorded Confirmed Levothyroxine Sodium [Synthroid] 50 mcg PO DAILY 05/01/14 12/25/21 Pantoprazole [Protonix] 40 mg PO HS 01/03/16 12/25/21 Atorvastatin [Lipitor] 40 mg PO HS 12/25/16 12/25/21 Metoprolol Tartrate [Lopressor] 25 mg PO BID@0900,1700 10/19/17 12/25/21 Apixaban [Eliquis] 2.5 mg PO BID@0900,1700 03/15/19 12/25/21 Meclizine [Antivert] 12.5 mg PO TID PRN 03/15/19 12/25/21 ondansetron HCL [Zofran] 8 mg PO TID PRN 03/15/19 12/25/21 Memantine [Namenda] 5 mg PO BID@0900,1700 08/01/21 12/25/21 Celecoxib [CeleBREX] 200 mg PO DAILY 12/22/21 12/25/21 Furosemide [Lasix] 20 mg PO BID@0900,1700 12/22/21 12/25/21 Previous Rx's Medication Instructions Recorded Nitroglycerin Sl Tabs [Nitrostat] 0.4 mg SUBLINGUAL Q5M PRN #20 tab 03/16/19 bisacodyL [Dulcolax] 10 mg PO DAILY PRN tab 08/04/21 Allergies Allergy/AdvReac Type Severity Reaction Status Date / Time codeine AdvReac Nausea & Verified 12/25/21 15:25 Vomiting Review of Systems ROS Other: All systems not noted in ROS Statement are negative. <Lonnie Watson - Last Filed: 12/25/21 15:46> ROS Other: All systems not noted in ROS Statement are negative. <Benitez Randall - Last Filed: 12/25/21 18:04> ROS Statement: Those systems with pertinent positive or pertinent negative responses have been documented in the HPI. 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 History of Any Multi-Drug Resistant Organisms: MRSA Date of last positivie culture/infection: 10/15/21 MDRO Source:: MRSA TOE Past Surgical History: Bladder Surgery, Cardiac Ablation, Heart Catheterization With Stent, Hernia Repair, Hysterectomy, Joint Replacement, Orthopedic Surgery, Tubal Ligation Additional Past Surgical History / Comment(s): 12/2016 PCI with stent, cardiac ablation for A flutter, umbilical hernia repair, surgery on two toes L foot for hammer toe, excision lesion L index finger, right total knee, bilateral cataracts removed, colonoscopies, bladder suspension. Past Anesthesia/Blood Transfusion Reactions: No Reported Reaction Additional Past Anesthesia/Blood Transfusion Reaction / Comment(s): Pt has received blood in past without reaction. Date of Last Stent Placement:: 2016 Past Psychological History: Anxiety Smoking Status: Never smoker Past Alcohol Use History: None Reported Past Drug Use History: None Reported - Past Family History Mother Family Medical History: Cancer Additional Family Medical History / Comment(s): Mother had cancer with metastasis-primary unknown. She at the age of 85yrs. Brother(s) Family Medical History: Cancer Father Family Medical History: Congestive Heart Failure (CHF) Additional Family Medical History / Comment(s): Father at the age of 70yrs. <Benitez Randall - Last Filed: 12/25/21 18:04> General Exam Limitations: physical limitation General appearance: alert, in no apparent distress Head exam: Present: atraumatic, normocephalic, normal inspection Eye exam: Present: normal appearance, EOMI. Absent: scleral icterus, conjunctival injection, periorbital swelling, periorbital tenderness ENT exam: Present: normal exam, normal oropharynx, mucous membranes moist Neck exam: Present: normal inspection, full ROM. Absent: tenderness, meningismus, lymphadenopathy, thyromegaly Respiratory exam: Present: normal lung sounds bilaterally. Absent: respiratory distress, chest wall tenderness, accessory muscle use, decreased breath sounds Cardiovascular Exam: Present: regular rate, normal rhythm (Murmur noted) GI/Abdominal exam: Present: soft. Absent: distended, tenderness Extremities exam: Present: full ROM, normal capillary refill, pedal edema (Trace bilateral). Absent: tenderness Back exam: Present: normal inspection, full ROM. Absent: tenderness, CVA tenderness (R), CVA tenderness (L), rash noted Neurological exam: Present: alert, oriented X3, CN II-XII intact Expanded Patient oriented to: Present: person, place, time Speech: Present: fluid speech Cranial nerves: EOM's Intact: Normal, Gag Reflex: Normal, Tongue Deviation: Normal Cerebellar function: Finger to Nose: Normal, Heel to Metz: Normal Motor strength exam: RUE: 5, LUE: 5, RLE: 5, LLE: 5 Eye Response: (4) open spontaneously Motor Response: (6) obeys commands Verbal Response: (5) oriented Anita Total: 15 Psychiatric exam: Present: normal affect, normal mood Skin exam: Present: warm, dry, intact, normal color. Absent: cyanosis, diaphoretic, petechiae <Benitez Randall - Last Filed: 12/25/21 18:04> Course <Lonnie Watson - Last Filed: 12/25/21 15:46> Vital Signs 12/25/21 12/25/21 12/25/21 14:15 15:49 17:40 Temperature 97.8 F 98.0 F Pulse Rate 72 71 75 Respiratory 18 18 18 Rate Blood Pressure 133/69 124/50 141/65 O2 Sat by Pulse 100 100 100 Oximetry - Reevaluation(s) Reevaluation #1: 12/25/21 15:55 Patient into the emergency department with failure to thrive and continued weakness. She will require rehab or fpc care. She will be admitted. I do agree with the assessment and plan he does demonstrate evidence of chronic renal insufficiency and lab work thus far. Likely some dehydration (Lonnie Watson) Medical Decision Making - Lab Data Result diagrams: 12/25/21 15:49 12/25/21 15:49 <Benitez Randall - Last Filed: 12/25/21 18:04> - Medical Decision Making Patient presents with weakness bilateral lower extremities. She states she was just discharged yesterday but feels more weak in the lower legs today. Family at bedside concerned brain mass may be causing her symptoms and she may need inpatient rehab. On exam patient has no focal neurological deficits. Creatinine is 2.0 for elevated from yesterday at 1.76. Hemoglobin is stable at 8.0. CT shows no acute intracranial hemorrhage or cortical infarct. 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 Patient remains pain-free. Vital signs are stable. Case discussed with Dr. Watson. Patient will be admitted for weakness and possible placement in a rehab facility. (Benitez Randall) - Lab Data Lab Results 12/25/21 12/25/21 Range/Units 15:49 15:49 WBC 8.5 (3.8-10.6) k/uL RBC 3.55 L (3.80-5.40) m/uL Hgb 8.1 L (11.4-16.0) gm/dL Hct 26.2 L (34.0-46.0) % MCV 73.8 L (80.0-100.0) fL MCH 22.7 L (25.0-35.0) pg MCHC 30.7 L (31.0-37.0) g/dL RDW 18.7 H (11.5-15.5) % Plt Count 237 (150-450) k/uL MPV 9.0 Neutrophils % Not Reportable Neutrophils % (Manual) 66 % Lymphocytes % Not Reportable Lymphocytes % (Manual) 23 % Monocytes % Not Reportable Monocytes % (Manual) 10 % Eosinophils % Not Reportable Eosinophils % (Manual) 1 % Basophils % Not Reportable Neutrophils # Not Reportable Neutrophils # (Manual) 5.61 (1.3-7.7) k/uL Lymphocytes # Not Reportable Lymphocytes # (Manual) 1.96 (1.0-4.8) k/uL Monocytes # Not Reportable Monocytes # (Manual) 0.85 (0-1.0) k/uL Eosinophils # Not Reportable Eosinophils # (Manual) 0.09 (0-0.7) k/uL Basophils # Not Reportable Nucleated RBCs 0 (0-0) /100 WBC Manual Slide Review Performed Hypochromasia Marked Poikilocytosis Moderate Anisocytosis Slight Microcytosis Moderate Sodium 139 (137-145) mmol/L Potassium 4.4 (3.5-5.1) mmol/L Chloride 103 (98-107) mmol/L Carbon Dioxide 22 (22-30) mmol/L Anion Gap 14 mmol/L BUN 68 H (7-17) mg/dL Creatinine 2.04 H (0.52-1.04) mg/dL Est GFR (CKD-EPI)AfAm 24 (>60 ml/min/1.73 sqM) Est GFR (CKD-EPI)NonAf 21 (>60 ml/min/1.73 sqM) Glucose 100 H (74-99) mg/dL Calcium 8.4 (8.4-10.2) mg/dL Magnesium 2.1 (1.6-2.3) mg/dL Total Bilirubin 0.8 (0.2-1.3) mg/dL AST 44 H (14-36) U/L ALT 16 (4-34) U/L Alkaline Phosphatase 80 (38-126) U/L Total Protein 7.5 (6.3-8.2) g/dL Albumin 4.0 (3.5-5.0) g/dL Disposition <Lonnie Watson - Last Filed: 12/25/21 15:46> Decision Date: 12/25/21 Decision Time: 16:30 <Benitez Randall - Last Filed: 12/25/21 18:04> Clinical Impression: Weakness, Elevated serum creatinine Disposition: ADMITTED IP TO THIS HOSP
--- NOTE | 2021-12-25 15:55 | CT ---
EXAMINATION TYPE: CT brain wo con DATE OF EXAM: 12/25/2021 COMPARISON: CT dated 10/19/2017 HISTORY: Weakness. CT DLP: 1149.4 mGycm Automated exposure control for dose reduction was used. TECHNIQUE: CT scan of the brain is performed without IV contrast administration. FINDINGS: Grossly stable known left posterior parietal minimally calcified meningioma measuring 3.3 x 3.4 cm wi th mass effect in the adjacent portion of the parietal cortex yet without significant midline shift, herniation or ventricular obstruction. Brain volume loss changes, likely age-related. Suspected bilateral cerebral white matter mild chronic microvascular ischemic changes. Scattered arterial atherosclerotic calcifications. No acute intracranial hemorrhage. No gross acute cortical infarct. Unremarkable basal cisterns, sella and CP angles. No gross intra-axial space-occupying lesion or vasogenic edema. Unremarkable orbits. Clear visualized paranasal sinuses and mastoid air cells. Osteopenia. IMPRESSION: Brain volume loss changes and suspected bilateral cerebral white matter mild chronic microvascular is chemic changes. Stable known left posterior parietal meningioma and its mass effect on the adjacent parietal cortex. No acute intracranial hemorrhage or gross acute cortical infarct.
[2021-12-25 15:58] LABS: Anisocytosis Slight; HCT 26.2 % (34.0-46.0); HGB 8.1 gm/dL (11.4-16.0); Hypochromasia Marked; MCH 22.7 pg (25.0-35.0); MCHC 30.7 g/dL (31.0-37.0); MCV 73.8 fL (80.0-100.0); Microcytosis Moderate; Platelet Count 237 k/uL (150-450); Poikilocytosis Moderate; RBC 3.55 m/uL (3.80-5.40); RDW 18.7 % (11.5-15.5); WBC 8.5 k/uL (3.8-10.6)
[2021-12-25 16:07] LABS: Appearance,Urine Clear (Clear); Bilirubin,Urine Negative (Negative); Blood,Urine Negative (Negative); Color,Urine Yellow; Glucose,Urine (UA) Negative (Negative); Hyaline Casts,Urine 19 /lpf (0-2); Ketones,Urine Negative (Negative); Leukocyte Esterase,Urine Small (Negative); Mucus,Urine Rare /hpf; Nitrite,Urine Negative (Negative); PH, Urine 5.5 (5.0-8.0); Protein,Urine Negative (Negative); RBC,Urine <1 /hpf (0-5); Specific Gravity,Urine 1.013 (1.001-1.035); Squamous Epithelial Cell,Urine 1 /hpf (0-4); Urobilinogen,Urine <2.0 mg/dL (<2.0); WBC,Urine 3 /hpf (0-5)
[2021-12-25 16:09] LABS: Calcium 8.4 mg/dL (8.4-10.2); Magnesium 2.1 mg/dL (1.6-2.3); Total Bilirubin 0.8 mg/dL (0.2-1.3); Total Protein 7.5 g/dL (6.3-8.2)
[2021-12-25 16:13] LABS: Potassium 4.4 mmol/L (3.5-5.1)
[2021-12-25 16:24] LABS: Eosinophils # (M) 0.09 k/uL (0-0.7); Lymphocytes # (M) 1.96 k/uL (1.0-4.8); Monocytes # (M) 0.85 k/uL (0-1.0); Neutrophils # (M) 5.61 k/uL (1.3-7.7); Neutrophils % (M) 66 %; Nucleated Red Blood Cells 0 /100 WBC (0-0); Total Cells Counted 100
[2021-12-25] MEDS ORDERED: ACETAMINOPHEN TAB 325 MG TAB PO PRN (16:38)
[2021-12-25] MEDS ORDERED: NALOXONE 0.4 MG/ML 1 ML VIAL IV PRN (16:38)
[2021-12-25] MEDS ORDERED: MECLIZINE 12.5 MG TAB PO PRN (17:17)
[2021-12-25] MEDS ORDERED: bisacodyL 5 MG TABLET.DR PO PRN (17:17)
[2021-12-25] MEDS: ATORVASTATIN 40 MG TAB PO SCH (20:56)
[2021-12-25] MEDS: PANTOPRAZOLE 40 MG TABLET PO SCH (20:56)
[2021-12-26] MEDS: LEVOTHYROXINE 50 MCG TAB PO SCH (06:23)
[2021-12-26 08:19] LABS: Anisocytosis Slight; HCT 25.5 % (34.0-46.0); HGB 7.6 gm/dL (11.4-16.0); Hypochromasia Marked; MCH 22.9 pg (25.0-35.0); MCHC 29.9 g/dL (31.0-37.0); MCV 76.6 fL (80.0-100.0); Mean Platelet Volume 9.3; Microcytosis Slight; Platelet Count 230 k/uL (150-450); Poikilocytosis Moderate; RBC 3.33 m/uL (3.80-5.40); RDW 18.4 % (11.5-15.5); WBC 6.6 k/uL (3.8-10.6)
[2021-12-26 08:25] LABS: African American GFR (CKD) 31 (>60 ml/min/1.73 sqM); Anion Gap 11 mmol/L; Blood Urea Nitrogen 58 mg/dL (7-17); Calcium 8.6 mg/dL (8.4-10.2); Carbon Dioxide 24 mmol/L (22-30); Chloride 106 mmol/L (98-107); Glucose 96 mg/dL (74-99); Non-African American GFR(CKD) 27 (>60 ml/min/1.73 sqM); Potassium 3.9 mmol/L (3.5-5.1); Sodium 141 mmol/L (137-145)
[2021-12-26] MEDS ORDERED: MELOXICAM 7.5 MG TAB PO SCH (09:00)
[2021-12-26 09:25] LABS: Ferritin 32.6 ng/mL (10.0-291.0)
[2021-12-26] MEDS: FUROSEMIDE 20 MG TAB PO SCH ×2 (09:36→16:30)
[2021-12-26] MEDS: APIXABAN 2.5 MG TABLET PO SCH ×2 (09:36→16:30)
[2021-12-26] MEDS: MEMANTINE 5 MG TAB PO SCH ×2 (09:37→16:30)
[2021-12-26] MEDS: METOPROLOL TARTRATE 25 MG TAB PO SCH ×2 (09:37→16:30)
[2021-12-26] MEDS: CYANOCOBALAMIN 500 MCG TAB PO SCH (12:39)
[2021-12-26] MEDS: FERROUS SULFATE 325 MG TAB PO SCH ×2 (12:41→16:31)
--- NOTE | 2021-12-26 12:42 | P.HPIM ---
History of Present Illness This is a pleasant 89 years old female with past medical history of Atrial Flutter, Heart Failure, GERD, Hyperlipidemia, Hypertension, Osteoarthritis, hypothyroidism,Benign mass on brain, Aflutter with ablation, SVT, generalized arthritis, DJD, sinus problems. Hernia Repair, coronary artery disease status post stenting She was recently discharged from the hospital 12/24, 2 days ago for acute diastolic CHF, with improving renal injury. Patient presents this time because of bilateral leg weakness , she states is been going on for years but they were worse over the last 2 weeks.however she denies any numbness, with no difficulty moving her legs while she is in bed. His been complaining of from right knee and leg pain for about a month, She denies any back pain. However on physical therapy examination she did well and she completed bed mobility independently, and the recommended home care Patient Vitas looks stable Labs reviewed, hemoglobin at baseline of 8.1. Microcytic and hypochromic anemia, hemoglobin is 7.6 Creatinine elevated at 2.0 (at baseline creatinine is fluctuating 0.9-1.8. Yesterday her creatinine was 1.76. This morning her creatinine back to 1.69. Urine analysis showing small leukocyte esterase, no proteinuria CT of the brain: No acute process, stable left posterior parietal meningioma and its mass effect on the adjacent brachial cortex Past Medical History Past Medical History: Atrial Flutter, Heart Failure, GERD/Reflux, Hyperlipidemia, Hypertension, Osteoarthritis (OA), Thyroid Disorder Additional Past Medical History / Comment(s): Benign mass on brain, Aflutter with ablation, SVT, hypothyroid, sinus problems, UTIs, post ablation groin hematoma-blood loss anemia with transfusion, generalized arthritis, DJD, sinus problems. discharged from [facility] 12/24/2021 with CHF History of Any Multi-Drug Resistant Organisms: MRSA Date of last positivie culture/infection: 10/15/21 MDRO Source:: MRSA TOE Past Surgical History: Bladder Surgery, Cardiac Ablation, Heart Catheterization With Stent, Hernia Repair, Hysterectomy, Joint Replacement, Orthopedic Surgery, Tubal Ligation Additional Past Surgical History / Comment(s): 12/2016 PCI with stent, cardiac ablation for A flutter, umbilical hernia repair, surgery on two toes L foot for hammer toe, excision lesion L index finger, right total knee, bilateral cataracts removed, colonoscopies, bladder suspension. Past Anesthesia/Blood Transfusion Reactions: No Reported Reaction Additional Past Anesthesia/Blood Transfusion Reaction / Comment(s): Pt has received blood in past without reaction. Date of Last Stent Placement:: 2016 Past Psychological History: Anxiety Additional Psychological History / Comment(s): Patient states she lives in [id number] on daughters property Smoking Status: Never smoker Past Alcohol Use History: None Reported Past Drug Use History: None Reported - Past Family History Mother Family Medical History: Cancer Additional Family Medical History / Comment(s): Mother had cancer with metastasis-primary unknown. She at the age of 85yrs. Brother(s) Family Medical History: Cancer Father Family Medical History: Congestive Heart Failure (CHF) Additional Family Medical History / Comment(s): Father at the age of 70yrs. Medications and Allergies Home Medications Medication Instructions Recorded Confirmed Type Levothyroxine Sodium [Synthroid] 50 mcg PO DAILY 05/01/14 12/25/21 History Pantoprazole [Protonix] 40 mg PO HS 01/03/16 12/25/21 History Atorvastatin [Lipitor] 40 mg PO HS 12/25/16 12/25/21 History Metoprolol Tartrate [Lopressor] 25 mg PO BID@0900,1700 10/19/17 12/25/21 History Apixaban [Eliquis] 2.5 mg PO BID@0900,1700 03/15/19 12/25/21 History Meclizine [Antivert] 12.5 mg PO TID PRN 03/15/19 12/25/21 History ondansetron HCL [Zofran] 8 mg PO TID PRN 03/15/19 12/25/21 History Nitroglycerin Sl Tabs [Nitrostat] 0.4 mg SUBLINGUAL Q5M PRN #20 tab 03/16/19 12/25/21 Rx Memantine [Namenda] 5 mg PO BID@0900,1700 08/01/21 12/25/21 History bisacodyL [Dulcolax] 10 mg PO DAILY PRN tab 08/04/21 12/25/21 Rx Celecoxib [CeleBREX] 200 mg PO DAILY 12/22/21 12/25/21 History Furosemide [Lasix] 20 mg PO BID@0900,1700 12/22/21 12/25/21 History Allergies Allergy/AdvReac Type Severity Reaction Status Date / Time codeine AdvReac Nausea & Verified 12/25/21 18:12 Vomiting Physical Exam Vitals: Vital Signs Temp Pulse Pulse Resp BP BP Pulse Ox 12/26/21 08:00 90 18 12/26/21 07:20 98.8 F 90 18 119/72 98 12/26/21 01:43 97.5 F L 76 15 109/55 96 12/25/21 20:00 97.7 F 70 135/68 100 12/25/21 18:25 98.2 F 16 162/68 100 12/25/21 17:40 98.0 F 75 18 141/65 100 12/25/21 15:49 71 18 124/50 100 12/25/21 14:15 97.8 F 72 18 133/69 100 Intake and Output 12/25/21 12/26/21 12/26/21 22:59 06:59 14:59 Other: # Voids 1 1 1 Weight 62.596 kg 61.5 kg Results CBC & Chem 7: 12/26/21 06:01 12/26/21 06:01 Labs: Abnormal Lab Results - Last 24 Hours (Table) 12/25/21 12/25/21 12/25/21 Range/Units 15:49 15:49 15:59 RBC 3.55 L (3.80-5.40) m/uL Hgb 8.1 L (11.4-16.0) gm/dL Hct 26.2 L (34.0-46.0) % MCV 73.8 L (80.0-100.0) fL MCH 22.7 L (25.0-35.0) pg MCHC 30.7 L (31.0-37.0) g/dL RDW 18.7 H (11.5-15.5) % BUN 68 H (7-17) mg/dL Creatinine 2.04 H (0.52-1.04) mg/dL Glucose 100 H (74-99) mg/dL Iron (50-170) ug/dL Transferrin (204.0-354.0) mg/dL AST 44 H (14-36) U/L Ur Leukocyte Esterase Small H (Negative) Hyaline Casts 19 H (0-2) /lpf Urine Mucus Rare H (None) /hpf 12/26/21 12/26/21 12/26/21 Range/Units 06:01 06:01 06:01 RBC 3.33 L (3.80-5.40) m/uL Hgb 7.6 L (11.4-16.0) gm/dL Hct 25.5 L (34.0-46.0) % MCV 76.6 L (80.0-100.0) fL MCH 22.9 L (25.0-35.0) pg MCHC 29.9 L (31.0-37.0) g/dL RDW 18.4 H (11.5-15.5) % BUN 58 H (7-17) mg/dL Creatinine 1.69 H (0.52-1.04) mg/dL Glucose (74-99) mg/dL Iron 17 L (50-170) ug/dL Transferrin 380.0 H (204.0-354.0) mg/dL AST (14-36) U/L Ur Leukocyte Esterase (Negative) Hyaline Casts (0-2) /lpf Urine Mucus (None) /hpf Thrombosis Risk Factor Assmnt - Choose All That Apply Any of the Below Risk Factors Present?: Yes Each Factor Represents 1 point: Heart failure (<1month) Other Risk Factors: Yes Each Risk Factor Represents 3 Points: Age 75 years or older Other congenital or acquired thrombophilia - If yes, enter type in comment: Yes Thrombosis Risk Factor Assessment Total Risk Factor Score: 4 Thrombosis Risk Factor Assessment Level: Moderate Risk Assessment and Plan Assessment: hypochromic, microcytic anemia, most likely secondary to Mobic while she is on Eliquis chronic bilateral leg weakness Chronic right leg pain Acute kidney injury on CKD , improved borderline vitamin B12 Chronic diastolic CHF, EF 50-55% Chronic atrial fibrillation on Eliquis CKD, stage III Hypertension Hyperlipidemia History of osteoarthritis Hypothyroidism stable left posterior parietal meningioma and its mass effect on the adjacent brachial cortex History of arthritis History of degenerative disc disease History of coronary artery disease status post stenting Plan: This is a pleasant 89 years old female who presents with acute kidney injury which is resolved now achronic bilateral leg weakness. And anemia Discontinue Mobic follow-up hemoglobin, patient is stable tomorrow may consider for discharge Repeat iron profile Physical therapy evaluation Labs and medication were reviewed.. Continue same treatment. Continue with symptomatic treatment. Resume home medication. Monitor lytes and vitals. DVT and GI prophylaxis. Further recommendations depends on the clinical course of the patient DVT prophylaxis:Eliquis GI Prophylaxis: Ppi PT/OT: Home health care
[2021-12-26 12:48] LABS: Anisocytosis Slight; HCT 27.2 % (34.0-46.0); HGB 7.9 gm/dL (11.4-16.0); Hypochromasia Marked; MCH 22.4 pg (25.0-35.0); MCHC 28.9 g/dL (31.0-37.0); MCV 77.5 fL (80.0-100.0); Mean Platelet Volume 8.7; Microcytosis Slight; Platelet Count 210 k/uL (150-450); Poikilocytosis Moderate; RBC 3.52 m/uL (3.80-5.40); RDW 18.2 % (11.5-15.5); WBC 6.7 k/uL (3.8-10.6)
[2021-12-26 18:11] LABS: % Iron Saturation 3.43 (12.00-45.00); Ferritin 31.1 ng/mL (10.0-291.0)
[2021-12-26] MEDS: ATORVASTATIN 40 MG TAB PO SCH (21:02)
[2021-12-26] MEDS: PANTOPRAZOLE 40 MG TABLET PO SCH (21:02)
[2021-12-27] MEDS: LEVOTHYROXINE 50 MCG TAB PO SCH (06:38)
[2021-12-27 09:15] LABS: HCT 26.9 % (37.2-46.3); HGB 7.6 g/dL (12.0-15.0); MCH 21.6 pg (27.0-32.0); MCHC 28.3 g/dL (32.0-37.0); MCV 76.4 fL (80.0-97.0); Mean Platelet Volume 11.7 fL (9.5-12.2); NRBC Per 100 WBC 0 /100 WBCS (0.0-0.0); Platelet Count 226 X 10*3/uL (140-440); RBC 3.52 X 10*6/uL (4.10-5.20); RDW 19.2 % (11.5-14.5); WBC 8.04 X 10*3/uL (4.50-10.00)
[2021-12-27 09:24] LABS: African American GFR (CKD) 32.8 (60.0-200.0); Anion Gap 15.4 mmol/L (10.00-18.00); BUN/Creat Ratio 31.19 Ratio (12.00-20.00); Blood Urea Nitrogen 49.9 mg/dL (9.0-27.0); Calcium 9.1 mg/dL (8.7-10.3); Carbon Dioxide 21.6 mmol/L (20.0-27.5); Non-African American GFR(CKD) 28.3 (60.0-200.0); Potassium 4.2 mmol/L (3.5-5.5)
[2021-12-27] MEDS: CYANOCOBALAMIN 500 MCG TAB PO SCH (09:44)
[2021-12-27] MEDS: APIXABAN 2.5 MG TABLET PO SCH (09:44)
[2021-12-27] MEDS: FERROUS SULFATE 325 MG TAB PO SCH ×2 (09:44→17:04)
[2021-12-27] MEDS: METOPROLOL TARTRATE 12.5 MG TAB PO SCH ×2 (09:44→17:05)
[2021-12-27] MEDS: MEMANTINE 5 MG TAB PO SCH ×2 (09:45→17:05)
[2021-12-27] MEDS: FUROSEMIDE 20 MG TAB PO SCH ×2 (09:45→17:04)
[2021-12-27 12:27] LABS: Neutrophils # (M) 4.42 X 10*3/uL (2.00-8.90); RBC Morphology NORMAL
--- NOTE | 2021-12-27 13:46 | P.GSCN ---
History of Present Illness Consult date: 12/27/21 History of present illness: REASON FOR CONSULTATION: Anemia HISTORY OF PRESENT ILLNESS: The patient is a 89-year-old female readmitted with history of congestive heart failure. She was pending transfer to rehab. Patient's daughter at bedside giving additional history. Patient recently re- admitted less than 30 days ago. Patient denies gross blood in stools. She does take NSAIDs. She denies abdominal pain. She is tolerating regular diet. Last colonoscopy over 20+ years ago. No known family history of colon cancer. Patient was to be discharged to [facility] for rehab. Urgent consultation for anemia placed per primary team for Hgb 7.6. PAST MEDICAL HISTORY: See list and reviewed PAST SURGICAL HISTORY: See list and reviewed MEDICATIONS: See list and reviewed ALLERGIES: See list and reviewed SOCIAL HISTORY: See list and reviewed FAMILY HISTORY: See list and reviewed REVIEW OF ORGAN SYSTEMS: CONSTITUTIONAL: No fevers or chills. No recent weight loss. EYES: Denies any trouble with vision. No glasses. HEENT: No difficulties with hearing. No nosebleeds. No difficulty swallowing. RESPIRATORY: Denies pneumonia. Denies any troubles with breathing or dyspnea on exertion. CARDIOVASCULAR: Denies any chest pain or recent heart attacks. Has atrial fibrillation. Has congestive heart failure. Has hyperlipidemia. Has hypertensive heart disease. Prior atrial flutter with ablation. Prior cardiac catheterization with stent. GASTROINTESTINAL: Has gastroesophageal reflux disease. GENITOURINARY: Denies any blood in urine or increased urinary frequency. NEUROLOGICAL: Denies any numbness or tingling along the distal extremities. No seizure disorders or headaches. MUSCULOSKELETAL: Denies any back pain, stiffness or joint arthritis. SKIN: No current skin cancer. No rash. PSYCHIATRIC: Has depressive disorder. Has dementia. ENDOCRINE: Has hypothyroidism. Denies any blood sugar glucose intolerance. HEME/LYMPHATIC: Denies any lumps and bumps around the neck. No recent deep venous thrombosis. On chronic anticoagulation. ALLERGY/IMMUNOLOGY: History of MRSA BREAST: Denies current breast lumps, pain or nipple discharge. PHYSICAL EXAM: VITALS: Reviewed CONSTITUTIONAL: Well developed and in no acute distress. EYES: Conjuctivae without sclera icterus. Extraocular movements grossly intact. HEAD, EARS, NOSE, THROAT: Moist buccal mucosa. Head is atraumatic, normocephalic. Has hard of hearing. NECK: Supple. No JV distention. No thyroidomegaly. RESPIRATORY: Non-labored respirations and equal bilateral excursions. No gross wheezes. CARDIOVASCULAR: Regular rate and rhythm. Extremities without moderate edema. Palpable 2+ radial pulses. ABDOMEN: Soft. Nontender. LYMPH: No neck lymphadenopathy. MUSCULOSKELETAL: Nail and fingers with good capillary refill. SKIN: Warm and well perfused with good skin turgor. NEUROLOGIC: Cranial nerves II through XII grossly intact. Sensation upper and extremities intact. No focal or lateralizing signs. PSYCH: Appropriate affect. Alert and oriented to person, place and time. Disp lays appropriate insight. CLINCAL LABS: Reviewed. Hemoglobin down 8.1-7.6. WBC normal 8.0. Creatinine down to 2.0-1.6. ECHO: Ejection fraction 50-55% with severe mitral regurgitation present. Se verely dilated left atrium. STUDIES: Brain CT independently reviewed demonstrating a brain tumor along the left hemisphere. This is my independent interpretation. 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 Anemia of unclear etiology 2. Brain meningioma 3. Dementia 4. Congestive heart failure with hypertensive heart disease PLAN: 1. Discontinue NSAIDs for now 2. Recommend EGD and colonoscopy while inpatient. 3. Patient and family agree with care plan and shared decision making of continued hospitalization with EGD and colonoscopy as in-patient. 4. Clear liquid diet and bowel prep starting tomorrow for ALL day prep for optimal colonoscopy results. 5. Patient is high risk with recent blood thinners. 6. Blood thinner Eliquids held for procedure in 48hrs. ADVANCE DIRECTIVE: Patient has NO CODE Thank you for this kind consultation. Past Medical History Past Medical History: Atrial Flutter, Heart Failure, GERD/Reflux, Hyp erlipidemia, Hypertension, Osteoarthritis (OA), Thyroid Disorder Additional Past Medical History / Comment(s): Benign mass on brain, Aflutter with ablation, SVT, hypothyroid, sinus problems, UTIs, post ablation groin hematoma-blood loss anemia with transfusion, generalized arthritis, DJD, sinus problems. discharged from [facility] 12/24/2021 with CHF History of Any Multi-Drug Resistant Organisms: MRSA Year Discovered:: 10/15/21 MDRO Source:: MRSA TOE Past Surgical History: Bladder Surgery, Cardiac Ablation, Heart Catheterization With Stent, Hernia Repair, Hysterectomy, Joint Replacement, Orthopedic Surgery, Tubal Ligation Additional Past Surgical History / Comment(s): 12/2016 PCI with stent, cardiac ablation for A flutter, umbilical hernia repair, surgery on two toes L foot for hammer toe, excision lesion L index finger, right total knee, bilateral cataracts removed, colonoscopies, bladder suspension. Past Anesthesia/Blood Transfusion Reactions: No Reported Reaction Additional Past Anesthesia/Blood Transfusion Reaction / Comm: Pt has received blood in past without reaction. Date of Last Stent Placement:: 2016 Past Psychological History: Anxiety Additional Psychological History / Comment(s): Patient states she lives in [id number] quarters on daughters property Smoking Status: Never smoker Past Alcohol Use History: None Reported Past Drug Use History: None Reported - Past Family History Mother Family Medical History: Cancer Additional Family Medical History / Comment(s): Mother had cancer with metastasis-primary unknown. She at the age of 85yrs. Brother(s) Family Medical History: Cancer Father Family Medical History: Congestive Heart Failure (CHF) Additional Family Medical History / Comment(s): Father at the age of 70yrs. Medications and Allergies Home Medications Medication Instructions Recorded Confirmed Type Levothyroxine Sodium [Synthroid] 50 mcg PO DAILY 05/01/14 12/25/21 History Pantoprazole [Protonix] 40 mg PO HS 01/03/16 12/25/21 History Atorvastatin [Lipitor] 40 mg PO HS 12/25/16 12/25/21 History Metoprolol Tartrate [Lopressor] 25 mg PO BID@0900,1700 10/19/17 12/25/21 History Apixaban [Eliquis] 2.5 mg PO BID@0900,1700 03/15/19 12/25/21 History Meclizine [Antivert] 12.5 mg PO TID PRN 03/15/19 12/25/21 History ondansetron HCL [Zofran] 8 mg PO TID PRN 03/15/19 12/25/21 History Nitroglycerin Sl Tabs [Nitrostat] 0.4 mg SUBLINGUAL Q5M PRN #20 tab 03/16/19 12/25/21 Rx Memantine [Namenda] 5 mg PO BID@0900,1700 08/01/21 12/25/21 History bisacodyL [Dulcolax] 10 mg PO DAILY PRN tab 08/04/21 12/25/21 Rx Celecoxib [CeleBREX] 200 mg PO DAILY 12/22/21 12/25/21 History Furosemide [Lasix] 20 mg PO BID@0900,1700 12/22/21 12/25/21 History Allergies Allergy/AdvReac Type Severity Reaction Status Date / Time codeine AdvReac Nausea & Verified 12/25/21 18:12 Vomiting Surgical - Exam Vital Signs Temp Pulse Resp BP Pulse Ox 97.8 F 72 18 133/69 100 12/25/21 14:15 12/25/21 14:15 12/25/21 14:15 12/25/21 14:15 12/25/21 14:15 Results - Labs 12/27/21 05:04 12/27/21 05:04 Abnormal Lab Results - Last 24 Hours (Table) 12/26/21 12/27/21 12/27/21 Range/Units 12:23 05:04 05:04 RBC 3.52 L (4.10-5.20) X 10*6/uL Hgb 7.6 L (12.0-15.0) g/dL Hct 26.9 L (37.2-46.3) % MCV 76.4 L (80.0-97.0) fL MCH 21.6 L (27.0-32.0) pg MCHC 28.3 L (32.0-37.0) g/dL RDW 19.2 H (11.5-14.5) % BUN 49.9 H (9.0-27.0) mg/dL Creatinine 1.6 H (0.6-1.5) mg/dL Est GFR (CKD-EPI)AfAm 32.8 L (60.0-200.0) Est GFR (CKD-EPI)NonAf 28.3 L (60.0-200.0) BUN/Creatinine Ratio 31.19 H (12.00-20.00) Ratio Iron 18 L (50-170) ug/dL TIBC 531 H (228-460) ug/dL % Saturation 3.43 L (12.00-45.00) Transferrin 379.0 H (204.0-354.0) mg/dL Diabetes panel 12/27/21 Range/Units 05:04 Sodium 141 (135-145) mmol/L Potassium 4.2 (3.5-5.5) mmol/L Chloride 104 (96-109) mmol/L Carbon Dioxide 21.6 (20.0-27.5) mmol/L BUN 49.9 H (9.0-27.0) mg/dL Creatinine 1.6 H (0.6-1.5) mg/dL Glucose 102 (70-110) mg/dL Calcium 9.1 (8.7-10.3) mg/dL Calcium panel 12/27/21 Range/Units 05:04 Calcium 9.1 (8.7-10.3) mg/dL Pituitary panel 12/27/21 Range/Units 05:04 Sodium 141 (135-145) mmol/L Potassium 4.2 (3.5-5.5) mmol/L Chloride 104 (96-109) mmol/L Carbon Dioxide 21.6 (20.0-27.5) mmol/L BUN 49.9 H (9.0-27.0) mg/dL Creatinine 1.6 H (0.6-1.5) mg/dL Glucose 102 (70-110) mg/dL Calcium 9.1 (8.7-10.3) mg/dL Adrenal panel 12/27/21 Range/Units 05:04 Sodium 141 (135-145) mmol/L Potassium 4.2 (3.5-5.5) mmol/L Chloride 104 (96-109) mmol/L Carbon Dioxide 21.6 (20.0-27.5) mmol/L BUN 49.9 H (9.0-27.0) mg/dL Creatinine 1.6 H (0.6-1.5) mg/dL Glucose 102 (70-110) mg/dL Calcium 9.1 (8.7-10.3) mg/dL Assessment and Plan (1) Anticoagulant long-term use Current Visit: Yes Status: Acute Code(s): Z79.01 - ACADEMIC INTERVENTIONIST (CURRENT) USE OF ANTICOAGULANTS SNOMED Code(s): 032710474 (2) Weakness Current Visit: Yes Status: Acute Code(s): R53.1 - WEAKNESS SNOMED Code(s): 91303785 (3) EUGENIA (acute kidney injury) Current Visit: No Status: Acute Code(s): N17.9 - ACUTE KIDNEY FAILURE, UNSPECIFIED SNOMED Code(s): 26461465 (4) CHF (congestive heart failure) Current Visit: No Status: Acute Code(s): I50.9 - HEART FAILURE, UNSPECIFIED SNOMED Code(s): 01040922 (5) Chronic anemia Current Visit: No Status: Acute Code(s): D64.9 - ANEMIA, UNSPECIFIED SNO MED Code(s): 030861925
[2021-12-27] MEDS: PANTOPRAZOLE 40 MG TABLET PO SCH (20:54)
[2021-12-27] MEDS: ATORVASTATIN 40 MG TAB PO SCH (20:54)
--- NOTE | 2021-12-27 21:35 | P.PN ---
Subjective This is a pleasant 89 years old female with past medical history of Atrial Flutter, Heart Failure, GERD, Hyperlipidemia, Hypertension, Osteoarthritis, hypothyroidism,Benign mass on brain, Aflutter with ablation, SVT, generalized arthritis, DJD, sinus problems. Hernia Repair, coronary artery disease status post stenting She was recently discharged from the hospital 12/24, 2 days ago for acute diastolic CHF, with improving renal injury. Patient presents this time because of bilateral leg weakness , she states is been going on for years but they were worse over the last 2 weeks.however she denies any numbness, with no difficulty moving her legs while she is in bed. His been complaining of from right knee and leg pain for about a month, She denies any back pain. However on physical therapy examination she did well and she completed bed mobility independently, and the recommended home care Patient Vitas looks stable Labs reviewed, hemoglobin at baseline of 8.1. Microcytic and hypochromic anemia, hemoglobin is 7.6 Creatinine elevated at 2.0 (at baseline creatinine is fluctuating 0.9-1.8. Yesterday her creatinine was 1.76. This morning her creatinine back to 1.69. Urine analysis showing small leukocyte esterase, no proteinuria CT of the brain: No acute process, stable left posterior parietal meningioma and its mass effect on the adjacent brachial cortex 12/27/2021 Patient weakness is due to general deconditioning and anemia, no evidence of focal neurological deficits or asymmetry, no change in tone or reflexes and symm etrical on both sides. Patient accepted to go to [facility]. Hemoglobin is stable at 716 but trending down slowly over several Weaks, she is on Eliquis which is make her at risk of bleeding. Surgery team recommended colonoscopy/EGD in 2 days, Eliquis was placed on hold, subcu heparin restarted instead Discussed with patient and daughter today Objective - Vital Signs Vital signs: Vital Signs Temp 97.2 F L 12/27/21 14:24 Pulse 80 12/27/21 14:24 Resp 20 12/27/21 14:24 BP 111/53 12/27/21 14:24 Pulse Ox 99 12/27/21 14:24 Intake & Output 12/26/21 12/27/21 12/27/21 18:59 06:59 18:59 Intake Total 180 Output Total 6 Balance 174 Weight 60 kg Intake: Oral 180 Output: Urine 6 Other: Voiding Method Toilet # Voids 1 2 - Exam GENERAL: The patient is alert and oriented x3, not in any acute distress. Well developed, well nourished. HEENT: Pupils are round and equally reacting to light. EOMI. No scleral icterus. No conjunctival pallor. Normocephalic, atraumatic. No pharyngeal erythema. No thyromegaly. CARDIOVASCULAR: S1 and S2 present. No murmurs, rubs, or gallops. PULMONARY: Chest is clear to auscultation, no wheezing or crackles. ABDOMEN: Soft, nontender, nondistended, normoactive bowel sounds. No palpable o rganomegaly. MUSCULOSKELETAL: No joint swelling or deformity. EXTREMITIES: No cyanosis, clubbing, or pedal edema. NEUROLOGICAL: Gross neurological examination did not reveal any focal deficits. SKIN: No rashes. no petechiae. - Labs CBC & Chem 7: 12/27/21 05:04 12/27/21 05:04 Labs: Abnormal Lab Results - Last 24 Hours (Table) 12/26/21 12/27/21 12/27/21 Range/Units 12:23 05:04 05:04 RBC 3.52 L (4.10-5.20) X 10*6/uL Hgb 7.6 L (12.0-15.0) g/dL Hct 26.9 L (37.2-46.3) % MCV 76.4 L (80.0-97.0) fL MCH 21.6 L (27.0-32.0) pg MCHC 28.3 L (32.0-37.0) g/dL RDW 19.2 H (11.5-14.5) % BUN 49.9 H (9.0-27.0) mg/dL Creatinine 1.6 H (0.6-1.5) mg/dL Est GFR (CKD-EPI)AfAm 32.8 L (60.0-200.0) Est GFR (CKD-EPI)NonAf 28.3 L (60.0-200.0) BUN/Creatinine Ratio 31.19 H (12.00-20.00) Ratio Iron 18 L (50-170) ug/dL TIBC 531 H (228-460) ug/dL % Saturation 3.43 L (12.00-45.00) Transferrin 379.0 H (204.0-354.0) mg/dL Assessment and Plan Assessment: hypochromic, microcytic anemia, most likely secondary to Mobic while she is on Eliquis . Rule out GI bleed chronic bilateral leg weakness Chronic right leg pain Acute kidney injury on CKD , improved borderline vitamin B12 Chronic diastolic CHF, EF 50-55% Chronic atrial fibrillation on Eliquis CKD, stage III Hypertension Hyperlipidemia History of osteoarthritis Hypothyroidism stable left posterior parietal meningioma and its mass effect on the adjacent brachial cortex History of arthritis History of degenerative disc disease History of coronary artery disease status post stenting Plan: This is a pleasant 89 years old female who presents with acute kidney injury which is resolved now achronic bilateral leg weakness. And anemia Discontinue Mobic follow-up hemoglobin, continue with iron pills Surgical team recommended EGD/colonoscopy. Eliquis was placed on hold. Patient is accepted to go to [facility] once medically clear Labs and medication were reviewed.. Continue same treatment. Continue with symptomatic treatment. Resume home medication. Monitor lytes and vitals. DVT and GI prophylaxis. Further recommendations depends on the clinical course of the patient DVT prophylaxis:Eliquis (on hold prior to colonoscopy, placed on sc heparin instead) GI Prophylaxis: Ppi PT/OT: Home health care
[2021-12-28] MEDS: HEPARIN SODIUM,PORCINE/PF 5,000 UNIT/0.5 ML SYRINGE SQ SCH ×3 (00:10→20:28)
[2021-12-28] MEDS: LEVOTHYROXINE 50 MCG TAB PO SCH (05:40)
[2021-12-28] MEDS ORDERED: POLYETHYLENE GLYCOL LYTES SOLN 4,000 ML SOLN.RECON PO ONE (08:00)
[2021-12-28] MEDS: METOPROLOL TARTRATE 12.5 MG TAB PO SCH ×2 (09:30→17:46)
[2021-12-28] MEDS: FERROUS SULFATE 325 MG TAB PO SCH ×2 (09:30→17:46)
[2021-12-28] MEDS: FUROSEMIDE 20 MG TAB PO SCH ×2 (09:30→17:46)
[2021-12-28] MEDS: MEMANTINE 5 MG TAB PO SCH ×2 (09:30→17:46)
[2021-12-28] MEDS: CYANOCOBALAMIN 500 MCG TAB PO SCH (09:30)
--- NOTE | 2021-12-28 12:35 | P.PN ---
Subjective Progress Note Date: 12/28/21 Tolerating clears. Awaiting bowel prep. Daughter at bedside. She is high risk for complications with pre-existing cardiac disease and recent blood thinner use. EGD and colonoscopy described. Objective - Vital Signs Vital signs: Vital Signs Temp 98.2 F 12/28/21 07:55 Pulse 77 12/28/21 07:55 Resp 17 12/28/21 07:55 BP 111/67 12/28/21 07:55 Pulse Ox 98 12/28/21 07:55 Intake & Output 12/27/21 12/28/21 12/28/21 18:59 06:59 18:59 Weight 60 kg Other: Voiding Method Toilet Toilet # Voids 3 1 - Labs CBC & Chem 7: 12/27/21 05:04 12/27/21 05:04 Assessment and Plan (1) Anticoagulant long-term use Current Visit: Yes Status: Acute Code(s): Z79.01 - PENITENTIARY (CURRENT) USE OF ANTICOAGULANTS SNOMED Code(s): 914788064 (2) Weakness Current Visit: Yes Status: Acute Code(s): R53.1 - WEAKNESS SNOMED Code(s): 23693589 (3) EUGENIA (acute kidney injury) Current Visit: No Status: Acute Code(s): N17.9 - ACUTE KIDNEY FAILURE, UNSPECIFIED SNOMED Code(s): 20586599 (4) CHF (congestive heart failure) Current Visit: No Status: Acute Code(s): I50.9 - HEART FAILURE, UNSPECIFIED SNOMED Code(s): 28476922 (5) Chronic anemia Current Visit: No Status: Acute Code(s): D64.9 - ANEMIA, UNSPECIFIED SNOMED Code(s): 926712440
--- NOTE | 2021-12-28 18:26 | P.PN ---
Subjective This is a pleasant 89 years old female with past medical history of Atrial Flutter, Heart Failure, GERD, Hyperlipidemia, Hypertension, Osteoarthritis, hypothyroidism,Benign mass on brain, Aflutter with ablation, SVT, generalized arthritis, DJD, sinus problems. Hernia Repair, coronary artery disease status post stenting She was recently discharged from the hospital 12/24, 2 days ago for acute diastolic CHF, with improving renal injury. Patient presents this time because of bilateral leg weakness , she states is been going on for years but they were worse over the last 2 weeks.however she denies any numbness, with no difficulty moving her legs while she is in bed. His been complaining of from right knee and leg pain for about a month, She denies any back pain. However on physical therapy examination she did well and she completed bed mobility independently, and the recommended home care Patient Vitas looks stable Labs reviewed, hemoglobin at baseline of 8.1. Microcytic and hypochromic anemia, hemoglobin is 7.6 Creatinine elevated at 2.0 (at baseline creatinine is fluctuating 0.9-1.8. Yesterday her creatinine was 1.76. This morning her creatinine back to 1.69. Urine analysis showing small leukocyte esterase, no proteinuria CT of the brain: No acute process, stable left posterior parietal meningioma and its mass effect on the adjacent brachial cortex 12/27/2021 Patient weakness is due to general deconditioning and anemia, no evidence of focal neurological deficits or asymmetry, no change in tone or reflexes and symm etrical on both sides. Patient accepted to go to [facility]. Hemoglobin is stable at 716 but trending down slowly over several Weaks, she is on Eliquis which is make her at risk of bleeding. Surgery team recommended colonoscopy/EGD in 2 days, Eliquis was placed on hold, subcu heparin restarted instead Discussed with patient and daughter today 12/28/2021 Patient is planned to get colonoscopy/EGD per surgery team for anemia. Eliquis on hold and subcu heparin started instead until cleared by surgery team. Monitor hemoglobin tomorrow. Patient with known new symptoms. Patient to go to [facility] upon discharge Objective - Vital Signs Vital signs: Vital Signs Temp 98.2 F 12/28/21 07:55 Pulse 77 12/28/21 07:55 Resp 17 12/28/21 07:55 BP 111/67 12/28/21 07:55 Pulse Ox 98 12/28/21 07:55 Intake & Output 12/27/21 12/28/21 12/28/21 18:59 06:59 18:59 Weight 60 kg Other: Voiding Method Toilet Toilet # Voids 3 1 - Exam GENERAL: The patient is alert and oriented x3, not in any acute distress. Well developed, well nourished. HEENT: Pupils are round and equally reacting to light. EOMI. No scleral icterus. No conjunctival pallor. Normocephalic, atraumatic. No pharyngeal erythema. No thyromegaly. CARDIOVASCULAR: S1 and S2 present. No murmurs, rubs, or gallops. PULMONARY: Chest is clear to auscultation, no wheezing or crackles. ABDOMEN: Soft, nontender, nondistended, normoactive bowel sounds. No palpable organomegaly. MUSCULOSKELETAL: No joint swelling or deformity. EXTREMITIES: No cyanosis, clubbing, or pedal edema. NEUROLOGICAL: Gross neurological examination did not reveal any focal deficits. SKIN: No rashes. no petechiae. - Labs CBC & Chem 7: 12/27/21 05:04 12/27/21 05:04 Assessment and Plan Assessment: hypochromic, microcytic anemia, most likely secondary to Mobic while she is on Eliquis . Rule out GI bleed chronic bilateral leg weakness Chronic right leg pain Acute kidney injury on CKD , improved borderline vitamin B12 Chronic diastolic CHF, EF 50-55% Chronic atrial fibrillation on Eliquis CKD, stage III Hypertension Hyperlipidemia History of osteoarthritis Hypothyroidism stable left posterior parietal meningioma and its mass effect on the adjacent brachial cortex History of arthritis History of degenerative disc disease History of coronary artery disease status post stenting Plan: This is a pleasant 89 years old female who presents with acute kidney injury which is resolved now achronic bilateral leg weakness. And anemia Discontinue Mobic follow-up hemoglobin, continue with iron pills Surgical team recommended EGD/colonoscopy. Eliquis was placed on hold. Patient is accepted to go to [facility] once medically clear Labs and medication were reviewed.. Continue same treatment. Continue with symptomatic treatment. Resume home medication. Monitor lytes and vitals. DVT and GI prophylaxis. Further recommendations depends on the clinical course of the patient DVT prophylaxis:Eliquis (on hold prior to colonoscopy, placed on sc heparin instead) GI Prophylaxis: Ppi PT/OT: Home health care
[2021-12-28 19:56] VITALS: RESP 15
[2021-12-28] MEDS: PANTOPRAZOLE 40 MG TABLET PO SCH (20:29)
[2021-12-28] MEDS: ATORVASTATIN 40 MG TAB PO SCH (20:29)
[2021-12-29] MEDS: LEVOTHYROXINE 50 MCG TAB PO SCH (05:38)
[2021-12-29 08:41] LABS: Basophils # (A) 0.01 X 10*3/uL (0.00-0.10); Basophils % (A) 0.1 %; Eosinophils # (A) 0.25 X 10*3/uL (0.04-0.35); Eosinophils % (A) 3.1 %; HCT 25.7 % (37.2-46.3); HGB 7.3 g/dL (12.0-15.0); Immature Grans, Automated 0.6 %; Lymphocytes % (A) 18.5 %; MCH 21.5 pg (27.0-32.0); MCHC 28.4 g/dL (32.0-37.0); MCV 75.6 fL (80.0-97.0); Mean Platelet Volume 11.3 fL (9.5-12.2); Monocytes # (A) 1.71 X 10*3/uL (0.20-1.00); Monocytes % (A) 21.1 %; NRBC Per 100 WBC 0.4 /100 WBCS (0.0-0.0); Neutrophils # (A) 4.58 X 10*3/uL (1.80-7.70); Neutrophils % (A) 56.6 %; Platelet Count 215 X 10*3/uL (140-440); RDW 19.1 % (11.5-14.5)
[2021-12-29] MEDS ORDERED: LIDOCAINE 1% INJ 10MG/ML (20 ML MDV) ONE (09:00)
[2021-12-29] MEDS ORDERED: PROPOFOL 10 MG/ML 20 ML VIAL IV ONE (09:00)
[2021-12-29] MEDS ORDERED: LACTATED RINGERS 1,000 ML IV ONE (09:04)
--- NOTE | 2021-12-29 09:35 | P.PCN ---
Date of Procedure: 12/29/21 Description of Procedure: PREOPERATIVE DIAGNOSIS: Anemia, symptomatic POSTOPERATIVE DIAGNOSIS: Gastrointestinal bleeding due to gastritis with bleeding Diaphragmatic hiatal hernia, symptomatic OPERATION: Esophagogastroduodenoscopy SURGEON: Licha Tafoya MD ANESTHESIA: MAC. INDICATIONS: The patient is a 89-year-old female who presents with anemia of unclear etiology. Benefits and risks of the procedure were described. Informed consent was obtained. DESCRIPTION: The patient was brought into the endoscopy suite and laid in the left lateral decubitus position. An Olympus gastroscope was passed along the posterior oropharynx down to the distal esophagus where the squamocolumnar junction was e ncountered at 40 cm from the incisors. The stomach was entered and no bile reflux was found. Additional findings are listed below. Biopsies with cold forceps were obtained of the antrum. The first through third portion of the duodenum was examined and unremarkable. Retroflexion of the scope confirmed Hill grade 3 lower esophageal valve. The squamocolumnar junction demonstrated LA grade B erosive esophagitis. The stomach was desufflated. The patient tolerated the procedure well. FINDINGS: Squamocolumnar junction 35 cm from the incisors. Diaphragmatic hiatus at 40 cm. Hiatal hernia, 5 cm, with active bleeding Hill grade 3 lower esophageal valve. LA grade B erosive esophagitis. No active duodenitis. Chronic gastritis with active bleeding RECOMMENDATIONS: 1. Recommend adding Carafate and omeprazole 2. Hold blood thinner for 5 days 3. Monitor hemoglobin as outpatient
--- NOTE | 2021-12-29 09:40 | P.PCN ---
Date of Procedure: 12/29/21 Description of Procedure: PREOPERATIVE DIAGNOSIS: Anemia Chronic anticoagulation use POSTOPERATIVE DIAGNOSIS: Severe sigmoid diverticulosis Melena due to GI bleed OPERATION: Colonoscopy to the cecum, ileocecal valve and appendiceal orifice SURGEON: Licha Tafoya MD. ANESTHESIA: MAC. INDICATIONS: The patient is a 89-year-old female who presents with anemia. Benefits and risks were described and informed consent was obtained. DESCRIPTION OF PROCEDURE: The patient had undergone attempted Golytely prep 4 L. The patient had been brought into the operating room and laid in the left lateral decubitus position. After adequate intravenous sedation, the rectum was examined with 2% lidocaine jelly. No external hemorrhoids identified. An Olympus colonoscope was gently advanced to the cecum with clear visualization of the ileocecal valve including appendiceal orifice. The prep was good. Severe sigmoid diverticulosis was encountered without active bleeding. No active colonic bleeding was found. No intraluminal masses were identified within the colon. No colonic polyps were found. No evidence of focal colitis was found. Retroflexion of the scope demonstrated grade 1 internal hemorrhoids with recent inflammation. The colon was desufflated. The patient had tolerated the procedure well. Withdrawal time was over 6 minutes. FINDINGS: Aronchick preparation quality scale 2 (1-5) Internal hemorrhoids, grade1 No thrombosed hemorrhoid identified. No arteriovenous malformations. No adenomatous polyps. No focal colitis. Melena due to upper GI bleeding RECOMMENDATIONS: 1. Diet as tolerated 2. Lower endoscopy as needed Plan - Discharge Summary New Discharge Prescriptions: No Action Levothyroxine Sodium [Synthroid] 50 mcg PO DAILY Pantoprazole [Protonix] 40 mg PO HS Atorvastatin [Lipitor] 40 mg PO HS Metoprolol Tartrate [Lopressor] 25 mg PO BID@0900,1700 Meclizine [Antivert] 12.5 mg PO TID PRN PRN Reason: Vertigo Apixaban [Eliquis] 2.5 mg PO BID@0900,1700 ondansetron HCL [Zofran] 8 mg PO TID PRN PRN Reason: Nausea And Vomiting Nitroglycerin Sl Tabs [Nitrostat] 0.4 mg SUBLINGUAL Q5M PRN #20 tab PRN Reason: Chest Pain bisacodyL [Dulcolax] 10 mg PO DAILY PRN tab PRN Reason: Constipation Furosemide [Lasix] 20 mg PO BID@0900,1700 Memantine [Namenda] 5 mg PO BID@0900,1700 Celecoxib [CeleBREX] 200 mg PO DAILY Discharge Medication List Levothyroxine Sodium [Synthroid] 50 mcg PO DAILY 05/01/14 [History] Pantoprazole [Protonix] 40 mg PO HS 01/03/16 [History] Atorvastatin [Lipitor] 40 mg PO HS 12/25/16 [History] Metoprolol Tartrate [Lopressor] 25 mg PO BID@0900,1700 10/19/17 [History] Apixaban [Eliquis] 2.5 mg PO BID@0900,1700 03/15/19 [History] Meclizine [Antivert] 12.5 mg PO TID PRN 03/15/19 [History] ondansetron HCL [Zofran] 8 mg PO TID PRN 03/15/19 [History] Nitroglycerin Sl Tabs [Nitrostat] 0.4 mg SUBLINGUAL Q5M PRN #20 tab 03/16/19 [Rx] Memantine [Namenda] 5 mg PO BID@0900,1700 08/01/21 [History] bisacodyL [Dulcolax] 10 mg PO DAILY PRN tab 08/04/21 [Rx] Celecoxib [CeleBREX] 200 mg PO DAILY 12/22/21 [History] Furosemide [Lasix] 20 mg PO BID@0900,1700 12/22/21 [History] Follow up Appointment(s)/Referral(s): Austin Rangel MD [Medical Doctor] - 1 Week Demian Vega MD [Primary Care Provider] - 1-2 days
[2021-12-29] MEDS: FERROUS SULFATE 325 MG TAB PO SCH (10:15)
[2021-12-29] MEDS: HEPARIN SODIUM,PORCINE/PF 5,000 UNIT/0.5 ML SYRINGE SQ SCH (10:15)
[2021-12-29] MEDS: FUROSEMIDE 20 MG TAB PO SCH (10:15)
[2021-12-29] MEDS: MEMANTINE 5 MG TAB PO SCH (10:15)
[2021-12-29] MEDS: CYANOCOBALAMIN 500 MCG TAB PO SCH (10:15)
[2021-12-29] MEDS: METOPROLOL TARTRATE 12.5 MG TAB PO SCH (10:15)
--- NOTE | 2021-12-29 11:12 | P.HPADDEND ---
H&P Addendum H&P Addendum Date: 12/29/21 Patient was FULL CODE during procedure. Patient becomes NO CODE during procedure.
--- NOTE | 2021-12-29 12:26 | P.DS ---
Providers Date of admission: 12/25/21 15:56 Attending physician: Tito Patterson MD Consults: 12/27/21 09:38 Consult Physician Urgent Consulting Provider: Licha Tafoya Consult Reason/Comments: anemia Do you want consulting provider notified?: Yes Primary care physician: Silvia Collier [facility] Course: diagnoses: hypochromic, microcytic anemia, most likely secondary to Mobic while she is on Eliquis (hold for 5 days upon discharge) EGD:Hiatal hernia, 5 cm, with active bleeding & LA grade B erosive esophagitis. 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 Hernia Repair, coronary artery disease status post stenting She was recently discharged from the hospital 12/24, 2 days ago for acute diastolic CHF, with improving renal injury. Patient presents this time because of bilateral leg weakness , she states is been going on for years but they were worse over the last 2 weeks.however she denies any numbness, with no difficulty moving her legs while she is in bed. His been complaining of from right knee and leg pain for about a month, She denies any back pain. However on physical therapy examination she did well and she completed bed mobility independently, and the recommended home care Patient Vitas looks stable hemoglobin at baseline of 8.1. With a slight drop but stable and evidence of Microcytic and hypochromic anemia, hemoglobin is 7.6 , 7.9 and 7.6 on 3 consecutive days. Today hemoglobin is 7.3 No complaint of bleeding per rectum or dark stool. No abdominal pain. Surgery team evaluated the patient underwent colonoscopy and EGD. EGD:Hiatal hernia, 5 cm, with active bleeding & LA grade B erosive esophagitis. Patient is on Protonix and Carafate with recommendation to hold Eliquis for 5 days and then resumed at home dose of 2.5 mg twice daily with close monitoring of hemoglobin as an outpatient. Creatinine elevated at 2.0 (at baseline creatinine is fluctuating 0.9-1.8. ) Yesterday and today creatinine was stable at 1.6 Urine analysis showing small leukocyte esterase, no proteinuria. Patient with no signs or symptoms of UTI and antibiotics not felt to be warranted at this point. CT of the brain: No acute process, stable left posterior parietal meningioma and its mass effect on the adjacent brachial cortex. Patient has been evaluated by physical and occupational therapist and recommended continued physical care as outpatient with home health care, patient and family want the patient to go to rehab for recurrent admission, patient Accepted by [facility]. On the day of discharge patient is fully awake and oriented, she denies chest pain or abdominal pain. No nausea vomiting. She tolerates diet. No diarrhea. No urinary complaints of dysuria, urgency or others. Patient is afebrile. Problems and management plan were discussed with the patient and he verbalized understanding and acceptance Patient was found stable and can be discharged home however he needs follow-up as an outpatient. Patient was instructed to follow up with PCP Dr. Tong within one week and patient agrees Patient was instructed to follow up with her surgeon Dr. Smith in one week, patient verbalized understanding and acceptance and states she will call and make this appointment. All this also discussed with the daughter at bedside and she agrees with this recommendation as well. Patient and daughter are aware of risk of stroke and thrombosis while off anticoagulation/Eliquis Physical exam Gen: patient is a AAOx3, no distress CVS: S1-S2, RRR, no murmur Lungs: B/L CTA, no wheezing Abdomen: soft, no distention, no tenderness, positive bowel sounds Extremity: no leg edema or induration Time spent more than 35 minutes Plan - Discharge Summary New Discharge Prescriptions: New Sucralfate [Carafate] 1 gm PO AC-TID tab Ferrous Sulfate [Iron (65 MG Elemental)] 325 mg PO BID-W/MEALS #0 tab Metoprolol Tartrate [Lopressor] 12.5 mg PO BID@0900,1700 tab Acetaminophen Tab [Tylenol] 650 mg PO Q6HR PRN tab PRN Reason: Mild Pain Or Fever > 100.5 Cyanocobalamin [Vitamin B-12] 500 mcg PO DAILY tab Continue Levothyroxine Sodium [Synthroid] 50 mcg PO DAILY Pantoprazole [Protonix] 40 mg PO HS Atorvastatin [Lipitor] 40 mg PO HS Meclizine [Antivert] 12.5 mg PO TID PRN PRN Reason: Vertigo ondansetron HCL [Zofran] 8 mg PO TID PRN PRN Reason: Nausea And Vomiting Nitroglycerin Sl Tabs [Nitrostat] 0.4 mg SUBLINGUAL Q5M PRN #20 tab PRN Reason: Chest Pain bisacodyL [Dulcolax] 10 mg PO DAILY PRN tab PRN Reason: Constipation Furosemide [Lasix] 20 mg PO BID@0900,1700 Memantine [Namenda] 5 mg PO BID@0900,1700 Discontinued Metoprolol Tartrate [Lopressor] 25 mg PO BID@0900,1700 Apixaban [Eliquis] 2.5 mg PO BID@0900,1700 Celecoxib [CeleBREX] 200 mg PO DAILY Discharge Medication List Levothyroxine Sodium [Synthroid] 50 mcg PO DAILY 05/01/14 [History] Pantoprazole [Protonix] 40 mg PO HS 01/03/16 [History] Atorvastatin [Lipitor] 40 mg PO HS 12/25/16 [History] Meclizine [Antivert] 12.5 mg PO TID PRN 03/15/19 [History] ondansetron HCL [Zofran] 8 mg PO TID PRN 03/15/19 [History] Nitroglycerin Sl Tabs [Nitrostat] 0.4 mg SUBLINGUAL Q5M PRN #20 tab 03/16/19 [Rx] Memantine [Namenda] 5 mg PO BID@0900,1700 08/01/21 [History] bisacodyL [Dulcolax] 10 mg PO DAILY PRN tab 08/04/21 [Rx] Furosemide [Lasix] 20 mg PO BID@0900,1700 12/22/21 [History] Acetaminophen Tab [Tylenol] 650 mg PO Q6HR PRN tab 12/29/21 [Rx] Cyanocobalamin [Vitamin B-12] 500 mcg PO DAILY tab 12/29/21 [Rx] Ferrous Sulfate [Iron (65 MG Elemental)] 325 mg PO BID-W/MEALS #0 tab 12/29/21 [Rx] Metoprolol Tartrate [Lopressor] 12.5 mg PO BID@0900,1700 tab 12/29/21 [Rx] Sucralfate [Carafate] 1 gm PO AC-TID tab 12/29/21 [Rx] Follow up Appointment(s)/Referral(s): Demian Vega MD [Primary Care Provider] - 1-2 days Licha Tafoya MD [STAFF PHYSICIAN] - 1 Week Activity/Diet/Wound Care/Special Instructions: Heart healthy diet Activity is as tolerated RECOMMENDATIONS: 1. Recommend adding Carafate and protonix 2. Hold blood thinner for 5 days( may resume eliquis 2.5 mg BID with close monitoring of Hemoglobin and blood pressure) 3. Monitor hemoglobin as outpatient Discharge Disposition: TRANSFER TO SNF/ECF
[2021-12-29] MEDS ORDERED: SUCRALFATE 1 GM TAB PO SCH (12:30)
[2021-12-29 14:36] VITALS: BP 111/68; PULSE 75; TEMP 98.5
== END 2021-12-29 14:50 | DRG 811 ==
LOC: EC 13:38 → 4SSUR 15:56
PROVIDERS: ADMIT Internal Medicine; ATTEND Internal Medicine
PROC: 0DB78ZX Excision of Stomach, Pylorus, Via Natural or Artificial Opening Endoscopic, Diagnostic (ICD-10-PCS; principal; 2021-12-29 07:30)
PROC: 0DJD8ZZ Inspection of Lower Intestinal Tract, Via Natural or Artificial Opening Endoscopic (ICD-10-PCS; principal; 2021-12-29 07:30)
DX: D50.9 Iron deficiency anemia, unspecified (principal); K29.51 Unspecified chronic gastritis with bleeding; N17.9 Acute kidney failure, unspecified; I13.0 Hypertensive heart and chronic kidney disease with heart failure and stage 1 through stage 4 chronic kidney disease, or unspecified chronic kidney disease; K22.10 Ulcer of esophagus without bleeding; I50.32 Chronic diastolic (congestive) heart failure; I48.20 Chronic atrial fibrillation, unspecified; F03.90 Unspecified dementia, unspecified severity, without behavioral disturbance, psychotic disturbance, mood disturbance, and anxiety; D32.0 Benign neoplasm of cerebral meninges; N18.30 Chronic kidney disease, stage 3 unspecified; Z66 Do not resuscitate; R62.7 Adult failure to thrive; E03.9 Hypothyroidism, unspecified; T39.395A Adverse effect of other nonsteroidal anti-inflammatory drugs [NSAID], initial encounter; I34.0 Nonrheumatic mitral (valve) insufficiency; I25.10 Atherosclerotic heart disease of native coronary artery without angina pectoris; K21.9 Gastro-esophageal reflux disease without esophagitis; E78.5 Hyperlipidemia, unspecified; K44.9 Diaphragmatic hernia without obstruction or gangrene; K57.30 Diverticulosis of large intestine without perforation or abscess without bleeding; K64.8 Other hemorrhoids; G89.29 Other chronic pain; M79.604 Pain in right leg; M13.0 Polyarthritis, unspecified; Z68.22 Body mass index [BMI] 22.0-22.9, adult; Z79.01 Long term (current) use of anticoagulants; Z79.1 Long term (current) use of non-steroidal anti-inflammatories (NSAID); Z79.890 Hormone replacement therapy; Z79.899 Other long term (current) drug therapy; Z86.79 Personal history of other diseases of the circulatory system; Z87.440 Personal history of urinary (tract) infections; Z86.14 Personal history of Methicillin resistant Staphylococcus aureus infection; Z95.5 Presence of coronary angioplasty implant and graft; Z90.710 Acquired absence of both cervix and uterus; Z87.42 Personal history of other diseases of the female genital tract; Z87.19 Personal history of other diseases of the digestive system; Z98.51 Tubal ligation status; Z87.39 Personal history of other diseases of the musculoskeletal system and connective tissue; Z96.651 Presence of right artificial knee joint; Z98.42 Cataract extraction status, left eye; Z98.41 Cataract extraction status, right eye; Z87.448 Personal history of other diseases of urinary system; Z86.59 Personal history of other mental and behavioral disorders; Z98.890 Other specified postprocedural states; Z88.5 Allergy status to narcotic agent; Z82.49 Family history of ischemic heart disease and other diseases of the circulatory system; Z80.0 Family history of malignant neoplasm of digestive organs
CPT/HCPCS: 36415; 43235; 45378; 70450; 80048; 80053; 81001; 82607; 82728; 82746; 83540; 83550; 83735; 85025; 85027; 99285